=== PATIENT | male | born 1960 | race Caucasian/White ===

== ENCOUNTER 2020-09-28 17:17 | Inpatient (IN) | payer MEDICARE, MEDICAID, SELFPAY ==
[2020-09-28 17:24] VITALS: BP 144/73; PULSE 80; RESP 18; TEMP 36.6; O2SAT 98; BMI 26.5
[2020-09-28 17:30] VITALS: BP 144/73; PULSE 80; RESP 18; TEMP 36.6; O2SAT 98
--- NOTE | 2020-09-28 17:33 | PC.NURSE ---
Pt cooperative with foreign exchange services manager. Reports he thinks he is having a heart attack, VSS, EMS reports pt was stable. EMS reports pt had c/o fall, shift sleeve torn, pants covered with dirt, unkempt in appearance, gait unsteady, reports he normally walks with cane. Denies SI/HI. Reports he has been taking his scheduled medications, and last haldol dec injection was about 2 weeks ago.
--- NOTE | 2020-09-28 18:01 | ED_ITS ---
HPI - Psych General Chief Complaint: Psychiatric Symptoms <Robyn Wei NP - Last Filed: 09/29/20 02:38> Stated Complaint: CRISIS/SI <Robyn Wei NP - Last Filed: 09/29/20 02:38> Time Seen by Provider: 09/28/20 17:52 <Robyn Wei NP - Last Filed: 09/29/20 02:38> Source: EMS <Robyn Wei NP - Last Filed: 09/29/20 02:38> Mode of arrival: EMS <Robyn Wei NP - Last Filed: 09/29/20 02:38> Limitations: altered mental status <Robyn Wei NP - Last Filed: 09/29/20 02:38> History of Present Illness HPI Narrative: 6-year-old male with significant psychiatric history of schizophrenia presents with suicidal ideation. Patient's review of systems and history is limited at this time as patient is not interested in answering questions, states that he is suicidal and hungry. <Robyn Wei NP - Last Filed: 09/29/20 02:38> MD complaint: suicidal ideation and altered mental status <Robyn Wei NP - Last Filed: 09/29/20 02:38> Onset (ago): year(s) <Robyn Wei NP - Last Filed: 09/29/20 02:38> Duration: constant <Robyn Wei NP - Last Filed: 09/29/20 02:38> History of same: Yes <Robyn Wei NP - Last Filed: 09/29/20 02:38> Relieving factors: none <Robyn Wei NP - Last Filed: 09/29/20 02:38> Related Data Home Medications: Home Medications Medication Instructions Recorded Confirmed benztropine 1 mg PO BID 09/28/20 09/28/20 haloperidol decanoate 100 mg IM Q4W 09/28/20 09/28/20 hydroxyzine HCl 50 mg PO TID PRN 09/28/20 09/28/20 olanzapine 10 mg PO BEDTIME 09/28/20 09/28/20 <Robyn Wei NP - Last Filed: 09/29/20 02:38> Allergies/Adverse Reactions: Allergies Allergy/AdvReac Type Severity Reaction Status Date / Time No Known Allergies Allergy Mild NA Verified 09/28/20 17:48 <Robyn Wei NP - Last Filed: 09/29/20 02:38> Review of Systems Review of Systems: Yes Unobtainable due to mental status <Robyn Wei NP - Last Filed: 09/29/20 02:38> [facility] Past Medical History Attestation statement: The following information was validated with the patient. <Robyn Wei NP - Last Filed: 09/29/20 02:38> Social History Social History: Social History Alcohol intake: unknown Smoking Status: Unknown if ever smoked Use of substances other than those prescribed or required for medical reasons: Unknown Advance Directives: No Advance Directives Information Provided: Yes <Robyn Wei NP - Last Filed: 09/29/20 02:38> Physical Exam Vital Signs: Vital Signs: Last Vital Signs Temp 97.7 F 09/29/20 03:10 Pulse 73 09/29/20 03:10 Resp 16 09/29/20 03:10 BP 131/70 09/29/20 03:10 Pulse Ox 100 09/29/20 03:10 Body Mass Index 26.5 <Robyn Wei NP - Last Filed: 09/29/20 02:38> Vital Signs: Last Vital Signs Temp 97.7 F 09/29/20 03:10 Pulse 73 09/29/20 03:10 Resp 16 09/29/20 03:10 BP 131/70 09/29/20 03:10 Pulse Ox 100 09/29/20 03:10 Body Mass Index 26.5 <Anika Del Cid DO - Last Filed: 09/29/20 08:56> Appearance: Alert. Oriented X3. No acute distress. Eyes: Pupils equal, round and reactive to light. ENT: Pharynx normal. Neck: Normal inspection. Neck supple. CVS: Normal heart rate and rhythm. Pulses normal. Respiratory: No respiratory distress. Breath sounds normal. Abdomen: Soft and nontender. Skin: Skin warm and dry. Normal skin color. Normal skin turgor. Extremities: No lower extremity edema. Neuro: No motor deficit. No sensory deficit. <Robyn Wei NP - Last Filed: 09/29/20 02:38> Course Course Course Narrative: 60-year-old male with schizophrenia presents with suicidal ideation. Will medically clear with CBC, Chem 7, drugs of abuse screen. BHN Consult pending. Drugs of abuse positive for marijuana. BHN Consult completed 10:15 p.m.. Plan of care is to admit to M5 and/or bed search For suicidal ideation and schizoaffective, schizophrenia psychosis. <Faye Wei NP - Last Filed: 09/29/20 02:38> MDM - Psych Differential Diagnosis Differential diagnosis: Likely acute psychosis, suicidal ideation, depression, drug-induced psychotic disorder, acute anxiety, substance abuse and schizoaffective disorder <Robyn Wei NP - Last Filed: 09/29/20 02:38> Restraints Face to Face Assessment: Face to Face Assessment: Current Situation: After assessment of the patient, a review of the pertinent medical record and a discussion with nursing staff, I feel the patient requires a restrain in tervention. Reaction To: [] Medical Condition: [] Behavioral State: [] Continued Need: [] <Robyn Wei NP - Last Filed: 09/29/20 02:38> Medical Records Attestation: I reviewed the patient's medical records. <Robyn Wei NP - Last Filed: 09/29/20 02:38> Lab Data Attestation: I reviewed the patient's lab results. <Robyn Wei NP - Last Filed: 09/29/20 02:38> Result diagrams: : 09/28/20 18:29 <Robyn Wei NP - Last Filed: 09/29/20 02:38> Labs: Lab Results 09/28/20 09/28/20 09/28/20 Range/Units 18:29 18:29 18:29 WBC 7.5 (4.8-10.8) X10*3/uL RBC 4.21 L (4.60-5.80) X10*6/uL Hgb 12.4 L (14.0-18.0) g/dl Hct 35.8 L (42-52) % MCV 85.0 (80-98) fL MCH 29.5 (27.0-33.0) pg MCHC 34.6 (31.0-36.0) g/dl RDW 12.5 (11.0-16.0) % Plt Count 249 (160-400) X10*3/uL MPV 9.6 (9.4-12.4) fL Immature Gran % (Auto) 0.5 H (0.0-0.4) % Neut % (Auto) 43.5 L (45-73) % Lymph % (Auto) 45.3 H (20-40) % Edmonson % (Auto) 8.4 (2-11) % Eos % (Auto) 1.5 (0-4) % Baso % (Auto) 0.8 (0-2) % Lymph # (Auto) 3.4 (1.2-4.9) X10*3/uL Edmonson # (Auto) 0.6 (0.1-1.2) X10*3/uL Eos # (Auto) 0.1 (0.0-0.4) X10*3/uL Baso # (Auto) 0.1 (0.0-0.2) X10*3/uL Abs Immat Gran (auto) 0.04 H (0.00-0.03) X10*3/uL Absolute Neuts (auto) 3.3 (2.0-8.3) X10*3/uL Absolute Nucleated RBC 0.000 (0.0-0.012) X10*3/uL Nucleated RBC % (auto) 0.0 (0.0-0.2) /100WBC Salicylates < 5.0 L (15-30) mg/dL Urine Opiates Screen (Not Detect) Acetaminophen < 1 (<30) mcg/mL Ur Barbiturates Screen (Not Detect) Ur Phencyclidine Scrn (Not Detect) Ur Amphetamines Screen (Not Detect) U Benzodiazepines Scrn (Not Detect) Urine Cocaine Screen (Not Detect) U Marijuana (THC) Screen (Not Detect) Ethyl Alcohol < 10 mg/dL 09/28/20 Range/Units 21:30 WBC (4.8-10.8) X10*3/uL RBC (4.60-5.80) X10*6/uL Hgb (14.0-18.0) g/dl Hct (42-52) % MCV (80-98) fL MCH (27.0-33.0) pg MCHC (31.0-36.0) g/dl RDW (11.0-16.0) % Plt Count (160-400) X10*3/uL MPV (9.4-12.4) fL Immature Gran % (Auto) (0.0-0.4) % Neut % (Auto) (45-73) % Lymph % (Auto) (20-40) % Edmonson % (Auto) (2-11) % Eos % (Auto) (0-4) % Baso % (Auto) (0-2) % Lymph # (Auto) (1.2-4.9) X10*3/uL Edmonson # (Auto) (0.1-1.2) X10*3/uL Eos # (Auto) (0.0-0.4) X10*3/uL Baso # (Auto) (0.0-0.2) X10*3/uL Abs Immat Gran (auto) (0.00-0.03) X10*3/uL Absolute Neuts (auto) (2.0-8.3) X10*3/uL Absolute Nucleated RBC (0.0-0.012) X10*3/uL Nucleated RBC % (auto) (0.0-0.2) /100WBC Salicylates (15-30) mg/dL Urine Opiates Screen Not Detected (Not Detect) Acetaminophen (<30) mcg/mL Ur Barbiturates Screen Not Detected (Not Detect) Ur Phencyclidine Scrn Not Detected (Not Detect) Ur Amphetamines Screen Not Detected (Not Detect) U Benzodiazepines Scrn Not Detected (Not Detect) Urine Cocaine Screen Not Detected (Not Detect) U Marijuana (THC) Screen POSITIVE H (Not Detect) Ethyl Alcohol mg/dL <Robyn Wei NP - Last Filed: 09/29/20 02:38> Lab Results 09/28/20 09/28/20 09/28/20 Range/Units 18:29 18:29 18:29 WBC 7.5 (4.8-10.8) X10*3/uL RBC 4.21 L (4.60-5.80) X10*6/uL Hgb 12.4 L (14.0-18.0) g/dl Hct 35.8 L (42-52) % MCV 85.0 (80-98) fL MCH 29.5 (27.0-33.0) pg MCHC 34.6 (31.0-36.0) g/dl RDW 12.5 (11.0-16.0) % Plt Count 249 (160-400) X10*3/uL MPV 9.6 (9.4-12.4) fL Immature Gran % (Auto) 0.5 H (0.0-0.4) % Neut % (Auto) 43.5 L (45-73) % Lymph % (Auto) 45.3 H (20-40) % Edmonson % (Auto) 8.4 (2-11) % Eos % (Auto) 1.5 (0-4) % Baso % (Auto) 0.8 (0-2) % Lymph # (Auto) 3.4 (1.2-4.9) X10*3/uL Edmonson # (Auto) 0.6 (0.1-1.2) X10*3/uL Eos # (Auto) 0.1 (0.0-0.4) X10*3/uL Baso # (Auto) 0.1 (0.0-0.2) X10*3/uL Abs Immat Gran (auto) 0.04 H (0.00-0.03) X10*3/uL Absolute Neuts (auto) 3.3 (2.0-8.3) X10*3/uL Absolute Nucleated RBC 0.000 (0.0-0.012) X10*3/uL Nucleated RBC % (auto) 0.0 (0.0-0.2) /100WBC Salicylates < 5.0 L (15-30) mg/dL Urine Opiates Screen (Not Detect) Acetaminophen < 1 (<30) mcg/mL Ur Barbiturates Screen (Not Detect) Ur Phencyclidine Scrn (Not Detect) Ur Amphetamines Screen (Not Detect) U Benzodiazepines Scrn (Not Detect) Urine Cocaine Screen (Not Detect) U Marijuana (THC) Screen (Not Detect) Ethyl Alcohol < 10 mg/dL 09/28/20 Range/Units 21:30 WBC (4.8-10.8) X10*3/uL RBC (4.60-5.80) X10*6/uL Hgb (14.0-18.0) g/dl Hct (42-52) % MCV (80-98) fL MCH (27.0-33.0) pg MCHC (31.0-36.0) g/dl RDW (11.0-16.0) % Plt Count (160-400) X10*3/uL MPV (9.4-12.4) fL Immature Gran % (Auto) (0.0-0.4) % Neut % (Auto) (45-73) % Lymph % (Auto) (20-40) % Edmonson % (Auto) (2-11) % Eos % (Auto) (0-4) % Baso % (Auto) (0-2) % Lymph # (Auto) (1.2-4.9) X10*3/uL Edmonson # (Auto) (0.1-1.2) X10*3/uL Eos # (Auto) (0.0-0.4) X10*3/uL Baso # (Auto) (0.0-0.2) X10*3/uL Abs Immat Gran (auto) (0.00-0.03) X10*3/uL Absolute Neuts (auto) (2.0-8.3) X10*3/uL Absolute Nucleated RBC (0.0-0.012) X10*3/uL Nucleated RBC % (auto) (0.0-0.2) /100WBC Salicylates (15-30) mg/dL Urine Opiates Screen Not Detected (Not Detect) Acetaminophen (<30) mcg/mL Ur Barbiturates Screen Not Detected (Not Detect) Ur Phencyclidine Scrn Not Detected (Not Detect) Ur Amphetamines Screen Not Detected (Not Detect) U Benzodiazepines Scrn Not Detected (Not Detect) Urine Cocaine Screen Not Detected (Not Detect) U Marijuana (THC) Screen POSITIVE H (Not Detect) Ethyl Alcohol mg/dL <Anika Del Cid DO - Last Filed: 09/29/20 08:56> Discharge Plan Discharge Clinical Impression: Acute psychosis, Chronic schizophrenia, Suicidal ideation Depression Qualifiers: Depression Type: major depressive disorder Major depression recurrence: recurrent Active/Remission status: currently active Major depression episode severity: severe Psychotic features: with psychotic features Qualified Code(s): F33.3 - Major depressive disorder, recurrent, severe with psychotic symptoms <Robyn Wei NP - Last Filed: 09/29/20 02:38> Patient Disposition: Admitted As Inpatient <Robyn Wei NP - Last Filed: 09/29/20 02:38>
--- NOTE | 2020-09-28 18:35 | PC.NURSE ---
Pt dropped dinner tray, difficulty feeding self. Required 2 person assist to get off of bed. Unsteady and unbalanced on feet. Placed into red fall risk socks.
[2020-09-28 18:37] LABS: MANUAL DIFF FLAG NO
[2020-09-28 19:02] LABS: Basophils Absolute Auto 0.1 X10*3/uL (0.0-0.2); Basophils Percent Auto 0.8 % (0-2); Eosinophils Absolute Auto 0.1 X10*3/uL (0.0-0.4); Eosinophils Percent Auto 1.5 % (0-4); Hematocrit 35.8 % (42-52); Hemoglobin 12.4 g/dl (14.0-18.0); Imm Gran Abs Auto 0.04 X10*3/uL (0.00-0.03); Imm Gran Pct Auto 0.5 % (0.0-0.4); Lymphocytes Absolute Auto 3.4 X10*3/uL (1.2-4.9); Lymphocytes Percent Auto 45.3 % (20-40); Mean Corpuscular HGB Conc 34.6 g/dl (31.0-36.0); Mean Corpuscular Hemoglobin 29.5 pg (27.0-33.0); Mean Platelet Volume 9.6 fL (9.4-12.4); Monocytes Absolute Auto 0.6 X10*3/uL (0.1-1.2); Monocytes Percent Auto 8.4 % (2-11); Neutrophils Absolute Auto 3.3 X10*3/uL (2.0-8.3); Neutrophils Percent Auto 43.5 % (45-73); Platelet Count 249 X10*3/uL (160-400); Red Blood Count 4.21 X10*6/uL (4.60-5.80); Red Cell Distribution Width 12.5 % (11.0-16.0); White Blood Count 7.5 X10*3/uL (4.8-10.8)
[2020-09-28 19:14] LABS: Ethanol < 10 mg/dL
[2020-09-28 19:30] LABS: Acetaminophen LAB < 1 mcg/mL (<30)
[2020-09-28 19:40] LABS: Salicylate < 5.0 mg/dL (15-30)
--- NOTE | 2020-09-28 20:00 | PC.NURSE ---
Patient in bed lying on side, family called, patient doesn't want to update his status to his family member, [facility] faxed/called/spoke with Nercy/confirmed receipt of referral, reported patient was seen earlier by [facility] with disposition to f/u with provider, Clinician will be sent tonight for evaluation, [facility] pharmacy called/completed medication/pending provider approval. Patient denied distress at this time. Will continue to monitor.
--- NOTE | 2020-09-28 21:15 | PC.NURSE ---
Patient just got seen by N, pending disposition, patient compliant and engaged with clinician, will continue to monitor.
[2020-09-28] MEDS: OLANZapine 10 MG TABLET PO (21:26)
[2020-09-28] MEDS: Benztropine Mesylate 1 MG TABLET PO (21:26)
[2020-09-28 21:38] VITALS: BP 142/70; PULSE 66; RESP 18; TEMP 36.1; O2SAT 97
[2020-09-28 22:09] LABS: Amphetamine Screen Urine Not Detected (Not Detect); Barbiturates, Urine Not Detected (Not Detect); Benzodiazepines Screen Urine Not Detected (Not Detect); Cannabinoid Screen Urine POSITIVE (Not Detect); Cocaine Screen Urine Not Detected (Not Detect); Opiate Screen Urine Not Detected (Not Detect); Phencyclidine Screen Urine Not Detected (Not Detect)
--- NOTE | 2020-09-28 22:12 | PC.NURSE ---
Patient disposition updated by [facility], patient is on section 12, inpatient bed search, per [facility] patient and provider made aware.
--- NOTE | 2020-09-28 23:21 | PC.NURSE ---
Patient in bed appears sleeping, no distress observed/reported, patient has unsteady gait, per patient he uses cane at home, patient is unable to grasp things properly with hands related to contracture. Will continue to monitor.
--- NOTE | 2020-09-29 | ECG_ITS ---
Test Reason : MEDICAL CLEARANCE Blood Pressure : / mmHG Vent. Rate : 078 BPM Atrial Rate : 078 BPM P-R Int : 138 ms QRS Dur : 092 ms QT Int : 376 ms P-R-T Axes : 044 -49 037 degrees QTc Int : 428 ms Normal sinus rhythm Low voltage QRS Pulmonary disease pattern Left anterior fascicular block Abnormal ECG When compared with ECG of 17-MAY-2019 09:11, Left anterior fascicular block is now Present Heart rate has increased Referred By: Susan Martínez Electronically Signed By:MIMA CUMMINGS MD
--- NOTE | 2020-09-29 02:24 | PC.NURSE ---
Patient in bed appears sleeping, no distress observed/reported, respiration +/=/non-labored bilaterally, will continue to monitor.
[2020-09-29 03:10] VITALS: BP 131/70; PULSE 73; RESP 16; TEMP 36.5; O2SAT 100
--- NOTE | 2020-09-29 04:33 | PC.NURSE ---
Patient in bed appears sleeping, no distress observed/reported, respiration +/=/non-labored bilaterally, will continue to monitor.
[2020-09-29] MEDS: Acetaminophen 325 MG TABLET 650 MG PO ×3 (05:24→20:55)
--- NOTE | 2020-09-29 05:29 | PC.NURSE ---
Patient complains of body aches requested Tylenol, stated if I don't take Tylenol I have problem walking f/t pain . Patient asked if he likes to get move to room closer to bathroom, patient agreed, room changed, patient ambulates securely/safely with walker. Will continue to monitor.
--- NOTE | 2020-09-29 06:32 | PC.NURSE ---
Patient in bed appears sleeping, no distress observed/reported, will continue to monitor.
--- NOTE | 2020-09-29 07:16 | PC.NURSE ---
Report received from JAGDEEP Dumont. Pt resting, resp unlabored.
[2020-09-29] MEDS: Benztropine Mesylate 1 MG TABLET PO ×2 (08:10→20:55)
--- NOTE | 2020-09-29 08:53 | CT_ITS ---
EXAMINATION: CT HEAD WITHOUT CONTRAST CLINICAL INFORMATION: Bilateral hand weakness. COMPARISON: CT head most recent June 2018 as well as March 2015. TECHNIQUE: Contiguous axial imaging was performed from the skull base to vertex without intravenous administration of contrast. This CT examination was performed using dose optimization techniques as appropriate, variously including the following: *Automated exposure control *Adjustment of mA and/or kV according to patient size (this includes techniques or standardized protocols for targeted exams where dose is matched to indication/reason for exam; i.e. extremities or head) *Use of iterative reconstruction technique DLP: 706 mGy-cm FINDINGS: There is no evidence of acute intracranial hemorrhage or territorial infarction. No abnormal mass effect or midline shift is seen. Caldera to white matter differentiation is well preserved. No extra-axial fluid collections are identified. The ventricles are normal in size. There is no abnormal attenuation within the brain parenchyma. The osseous structures are intact. . The mastoid air cells and visualized portions of the paranasal sinuses are well aerated. There is increased soft tissue stranding in the occipital region posteriorly unchanged dating back to 2014. This extends over approximately 6 cm transverse 2 cm AP and 3.[address]/CT head/brain wo con IMPRESSION: No acute intracranial pathology. Stable changes in the subcutaneous soft tissues in the occipital region of uncertain etiology but stable dating back to 2014. The appearance is suggestive of a soft tissue mass or fibrous change perhaps related to old trauma.
--- NOTE | 2020-09-29 08:59 | PC.NURSE ---
Esther Martínez aware of pt reports of tingling loss of coordination both hands x1 week. pt to ct scan now.
[2020-09-29 10:00] VITALS: BP 133/87; PULSE 67; RESP 20; TEMP 36.2; O2SAT 98
[2020-09-29 10:11] LABS: COVID-19 Test Negative (Negative)
--- NOTE | 2020-09-29 12:52 | PC.NURSE ---
Pt medicated for report of pain in hands, bilaterally.
--- NOTE | 2020-09-29 14:53 | PC.NURSE ---
Report given to JAGDEEP Waggoner
[2020-09-29 16:30] VITALS: BP 152/92; PULSE 68; RESP 18; TEMP 36.8; O2SAT 97
[2020-09-29 18:00] VITALS: BP 121/68; BP 131/78; PULSE 68; RESP 18; TEMP 36.1; TEMP 36.7; O2SAT 98
--- NOTE | 2020-09-29 19:03 | PC.NURSE ---
Care team in to transfer pt to [facility].
[2020-09-29] MEDS: OLANZapine 10 MG TABLET PO (20:55)
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
[2020-09-30 06:00] VITALS: BP 129/72; PULSE 100; RESP 18; TEMP 36.3; O2SAT 100
[2020-09-30 09:20] LABS: Estimated Average Glucose 117 mg/dL; Hemoglobin A1c % 5.7 %
[2020-09-30 09:22] LABS: Cholesterol 164 mg/dL; HDL Cholesterol 46 mg/dL; LDL Cholesterol Calculated 104 mg/dl; Triglycerides 74 mg/dL
[2020-09-30] MEDS: Benztropine Mesylate 1 MG TABLET PO (10:14)
[2020-09-30] MEDS: diphenhydrAMINE HCL 25 MG TABLET PO ×2 (11:38→22:01)
[2020-09-30] MEDS: Nicotine 21 MG PATCH.TD24 TRANSDERMA (11:39)
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
--- NOTE | 2020-09-30 13:28 | PC.NURSE ---
PtUp on signed 3 day notice yesterday evening, , social work, Omaira De Paz aware. Up on 10/04
--- NOTE | 2020-09-30 14:36 | PC.NURSE ---
Patient with very unsteady gait at beginning of shift, placed on a 1:1 at 11:00 am switched to 5 min checks by physician. Patient given a shaker and alarm placed on him. Given Cogentin and Benadryl for severe Tardive Dyskenesia. Patient reporting feeling better and says he will call staff when needing to go to the bathroom. Currently sitting up, drinking water
[2020-09-30 16:20] VITALS: BP 111/78; PULSE 94; TEMP 36.1
[2020-09-30] MEDS: Acetaminophen 325 MG TABLET 650 MG PO (22:00)
[2020-09-30] MEDS: Benztropine Mesylate 1 MG TABLET 2 MG PO (22:01)
[2020-09-30] MEDS: traZODone HCL 50 MG TABLET PO (22:06)
[2020-10-01 06:20] VITALS: BP 114/71; PULSE 106; RESP 18; TEMP 36.1
[2020-10-01 08:17] LABS: Phosphorus 3.8 mg/dL (2.7-4.5)
[2020-10-01] MEDS: Benztropine Mesylate 1 MG TABLET 2 MG PO ×2 (08:21→23:25)
[2020-10-01] MEDS: diphenhydrAMINE HCL 25 MG TABLET PO ×2 (08:21→23:25)
[2020-10-01] MEDS: Nicotine 21 MG PATCH.TD24 TRANSDERMA (08:22)
[2020-10-01 08:39] LABS: Thyroid Stimulating Hormone 1.65 uIU/mL (0.32-4.0)
[2020-10-01 08:40] LABS: Vitamin D 25-OH Total 16.9 ng/mL (>30)
--- NOTE | 2020-10-01 11:58 | HO.PSYCHPN ---
Subjective Subjective Date of Service: 10/01/20 Reason For Visit: schizoprenia Interim History: remains much the same; occult blood for stool came back negative; other labs pending Review of Systems Review of Systems no change Mental Status Exam Mental Status Exam Patient Appearance: Disheveled and Unkempt Patient Orientation: Person, Place, Time and Situation Level of Consciousness: Disoriented Patient Behavior: Suspicious and Distractible Mood Description: Withdrawn and Anxious Patient Cognition Impaired: Yes Ability to Follow Directions: Good Speech Pattern: Impoverished, Difficulty Finding Words, Rambling, Soft-Spoken, Mumbled and Poor Articulation Memory Description: Recent Impaired Diagnostics Vital Signs (24Hr): Vital Signs - 24 hr 09/30/20 16:20 10/01/20 06:20 Temperature 97.0 F 96.9 F Pulse Rate 94 106 H Respiratory Rate 18 Blood Pressure 111/78 114/71 Body Mass Index 26.5 Labs Results: 09/28/20 18:29 Labs: Laboratory Results - last 48 hr 09/30/20 09/30/20 10/01/20 08:42 08:42 07:35 Estimat Average Glucose 117 Hemoglobin A1c % 5.7 Calcium 9.0 Phosphorus 3.8 Triglycerides 74 Cholesterol 164 LDL Cholesterol, Calc 104 HDL Cholesterol 46 25-OH Vitamin D Total TSH 1.65 10/01/20 07:35 Estimat Average Glucose Hemoglobin A1c % Calcium Phosphorus Triglycerides Cholesterol LDL Cholesterol, Calc HDL Cholesterol 25-OH Vitamin D Total 16.9 TSH Imaging Radiology Impressions: ITS Impressions Head CT 09/29/20 08:53 IMPRESSION: No acute intracranial pathology. Stable changes in the subcutaneous soft tissues in the occipital region of uncertain etiology but stable dating back to 2014. The appearance is suggestive of a soft tissue mass or fibrous change perhaps related to old trauma. Medications Medications Current Medications Generic Name Dose Route Start Last Admin Trade Name Freq PRN Reason Stop Dose Admin Acetaminophen 650 mg 09/29/20 15:03 09/30/20 22:00 Acetaminophen 325 Mg Tablet PO 650 mg Q6H PRN Administration Headache/Pain Mild Scale (1-3) Al Hydroxide/Mg Hydroxide 30 ml 09/29/20 15:03 Magnesium Hydrox/Alum Hydrox 30 Ml Oral.Susp PO Q6H PRN Heartburn/Nausea Benztropine Mesylate 2 mg 09/30/20 21:00 10/01/20 08:21 Benztropine Mesylate 1 Mg Tablet PO 2 mg BID YORDY Administration Diphenhydramine HCl 25 mg 09/30/20 21:00 10/01/20 08:21 Diphenhydramine Hcl 25 Mg Tablet PO 25 mg BID YORDY Administration Hydroxyzine HCl 50 mg 09/28/20 20:45 Hydroxyzine Hcl 50 Mg Tablet PO TID PRN Anxiety Magnesium Hydroxide 30 ml 09/29/20 15:03 Milk Of Magnesia 30 Ml Oral.Susp PO DAILY PRN Constipation Nicotine 21 mg 09/30/20 10:50 10/01/20 08:22 Nicotine 21 Mg Patch.Td24 TRANSDERMA 21 mg DAILY YORDY Administration Trazodone HCl 50 mg 09/29/20 15:03 09/30/20 22:06 Trazodone Hcl 50 Mg Tablet PO 50 mg BEDTIME PRN Administration Insomnia Allergies Allergies Allergy/AdvReac Type Severity Reaction Status Date / Time No Known Allergies Allergy Mild NA Verified 09/28/20 17:48 Assessment & Plan Assessment & Plan (1) Schizoaffective disorder: Qualifiers: Schizoaffective disorder type: depressive Qualified Code(s): F25.1 - Schizoaffective disorder, depressive type Status: Acute Code(s): F25.9 - Schizoaffective disorder, unspecified (2) Tardive dyskinesia: Status: Acute Code(s): G24.01 - Drug induced subacute dyskinesia Assessment and Plan: q15 checks collect Collateral Monitor AIMS and dyskinesia. MRI/labs Improve ADLs. Greater than 50% of the session was spent on counseling and/or coordination of care
[2020-10-01 13:12] LABS: OBS Int Ctl Valid YES; OBS1 NEG (NEG)
[2020-10-01] MEDS: hydrOXYzine HCL 50 MG TABLET PO (16:15)
[2020-10-01 23:28] VITALS: TEMP 36.3
[2020-10-02 06:22] VITALS: BP 113/63; PULSE 101; RESP 16; TEMP 36.7; O2SAT 100
[2020-10-02] MEDS: diphenhydrAMINE HCL 25 MG TABLET PO ×2 (08:36→21:39)
[2020-10-02] MEDS: Benztropine Mesylate 1 MG TABLET 2 MG PO ×2 (08:36→21:39)
[2020-10-02] MEDS: Nicotine 21 MG PATCH.TD24 TRANSDERMA (08:36)
--- NOTE | 2020-10-02 12:16 | HO.PSYCHPN ---
Subjective Subjective Reason For Visit: schizoprenia Interim History: remains much the same; MRI of head no acute changes Review of Systems Review of Systems no changes Mental Status Exam Mental Status Exam Patient Appearance: Disheveled and Unkempt Patient Orientation: Person, Place, Time and Situation Level of Consciousness: Disoriented Patient Behavior: Suspicious and Distractible Mood Description: Withdrawn and Anxious Patient Cognition Impaired: Yes Ability to Follow Directions: Good Speech Pattern: Impoverished, Difficulty Finding Words, Rambling, Soft-Spoken, Mumbled and Poor Articulation Memory Description: Recent Impaired Thought Process: Distracted and Confusion Thought Content: positive for Disorganized Depressive Symptoms: Difficulty Concentrating Judgement: Fair Diagnostics Vital Signs (24Hr): Vital Signs - 24 hr 10/01/20 23:28 10/02/20 06:22 Temperature 97.3 F 98.1 F Pulse Rate 101 H Respiratory Rate 16 Blood Pressure 113/63 Pulse Oximetry 100 Body Mass Index 26.5 Labs Results: 09/28/20 18:29 Labs: Laboratory Results - last 48 hr 10/01/20 10/01/20 10/01/20 07:35 07:35 11:44 Calcium 9.0 Phosphorus 3.8 25-OH Vitamin D Total 16.9 TSH 1.65 Stool Collect Date Cancelled Stool Occult Blood Cancelled Stool 2 Collect Date Cancelled Stool Occult Blood #2 Cancelled Stool 3 Collect Date Cancelled Stool Occult Blood #3 Cancelled 10/01/20 11:44 Calcium Phosphorus 25-OH Vitamin D Total TSH Stool Collect Date Stool Occult Blood NEG Stool 2 Collect Date Stool Occult Blood #2 Stool 3 Collect Date Stool Occult Blood #3 Imaging Radiology Impressions: ITS Impressions Head CT 09/29/20 08:53 IMPRESSION: No acute intracranial pathology. Stable changes in the subcutaneous soft tissues in the occipital region of uncertain etiology but stable dating back to 2014. The appearance is suggestive of a soft tissue mass or fibrous change perhaps related to old trauma. Medications Medications Current Medications Generic Name Dose Route Start Last Admin Trade Name Freq PRN Reason Stop Dose Admin Acetaminophen 650 mg 09/29/20 15:03 09/30/20 22:00 Acetaminophen 325 Mg Tablet PO 650 mg Q6H PRN Administration Headache/Pain Mild Scale (1-3) Al Hydroxide/Mg Hydroxide 30 ml 09/29/20 15:03 Magnesium Hydrox/Alum Hydrox 30 Ml Oral.Susp PO Q6H PRN Heartburn/Nausea Benztropine Mesylate 2 mg 09/30/20 21:00 10/02/20 08:36 Benztropine Mesylate 1 Mg Tablet PO 2 mg BID YORDY Administration Diphenhydramine HCl 25 mg 09/30/20 21:00 10/02/20 08:36 Diphenhydramine Hcl 25 Mg Tablet PO 25 mg BID YORDY Administration Hydroxyzine HCl 50 mg 09/28/20 20:45 10/01/20 16:15 Hydroxyzine Hcl 50 Mg Tablet PO 50 mg TID PRN Administration Anxiety Magnesium Hydroxide 30 ml 09/29/20 15:03 Milk Of Magnesia 30 Ml Oral.Susp PO DAILY PRN Constipation Nicotine 21 mg 09/30/20 10:50 10/02/20 08:36 Nicotine 21 Mg Patch.Td24 TRANSDERMA 21 mg DAILY YORDY Administration Trazodone HCl 50 mg 09/29/20 15:03 09/30/20 22:06 Trazodone Hcl 50 Mg Tablet PO 50 mg BEDTIME PRN Administration Insomnia Allergies Allergies Allergy/AdvReac Type Severity Reaction Status Date / Time No Known Allergies Allergy Mild NA Verified 09/28/20 17:48 Assessment & Plan Assessment & Plan (1) Schizoaffective disorder: Qualifiers: Schizoaffective disorder type: depressive Qualified Code(s): F25.1 - Schizoaffective disorder, depressive type Status: Acute Code(s): F25.9 - Schizoaffective disorder, unspecified (2) Tardive dyskinesia: Status: Acute Code(s): G24.01 - Drug induced subacute dyskinesia Assessment and Plan: Continue current treatment plan: q15 checks collect Collateral Monitor AIMS and dyskinesia. MRI/labs Improve ADLs. Greater than 50% of the session was spent on counseling and/or coordination of care
[2020-10-02 22:30] VITALS: BP 115/56; PULSE 67; TEMP 36.7
--- NOTE | 2020-10-03 | MR_ITS ---
MRI OF THE BRAIN WITHOUT IV CONTRAST INDICATION: New onset dyskinesia. r/o subcortical lesions COMPARISON: Head CT September 29, 2020. TECHNIQUE: Multiplanar multisequence MR imaging of the brain was obtained without IV contrast. FINDINGS: There is no hydrocephalus, extra-axial surface collection, or herniation. No parenchymal signal abnormality. The major flow voids at the skull base are preserved. There is no acute infarct on diffusion-weighted imaging. There is no intracranial hemorrhage on the gradient recalled echo acquisition. The midline structures are normal. The cerebellar tonsils are normally positioned. The cerebellum and brainstem are normal. The craniocervical junction is normal. Osseous marrow signal intensity is homogenous. The visualized soft tissues are unremarkable. Partially imaged degenerative changes within the upper cervical spine with potential mass effect on the cervical spinal cord at C3-C4 that can be correlated for clinical signs of cervical myelopathy. 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 MR/MR head/brain wo con IMPRESSION: - No acute intracranial findings. No acute infarcts. Unremarkable noncontrast MRI of the brain. - Partially imaged degenerative changes within the upper cervical spine with potential mass effect on the cervical spinal cord at C3-C4 that can be correlated for clinical signs of cervical myelopathy. 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
[2020-10-03 06:05] VITALS: BP 94/54; PULSE 99; RESP 18; TEMP 36.8; O2SAT 97
--- NOTE | 2020-10-03 06:27 | HO.PSYCHPN ---
Subjective Subjective Reason For Visit: schizoprenia Interim History: Mood is better but speech is somewhat diff to follow. Acknowledges conflict w sister. Withdrew 3 day notice. Last Haldol Dec shot was on 09/17/20. Will DC Haldol Dec. Perhaps switch to Abilify/Cloz/Seroquel Await response from ESTHER Perez. Needs PA for Tetrabenazine/Ingrezza/? [place] Marked TD Review of Systems Reports tremor(s) Comments: Choreo-athetoid movements Mental Status Exam Mental Status Exam Patient Appearance: Disheveled and Unkempt Patient Orientation: Person, Place, Time and Situation Level of Consciousness: Disoriented Patient Behavior: Suspicious and Distractible Mood Description: Withdrawn and Anxious Patient Cognition Impaired: Yes Ability to Follow Directions: Good Speech Pattern: Impoverished, Difficulty Finding Words, Rambling, Soft-Spoken, Mumbled and Poor Articulation Memory Description: Recent Impaired Diagnostics Vital Signs (24Hr): Vital Signs - 24 hr 10/02/20 22:30 Temperature 98.0 F Pulse Rate 67 Blood Pressure 115/56 L Body Mass Index 26.5 Labs Results: 09/28/20 18:29 Labs: Laboratory Results - last 48 hr 10/01/20 10/01/20 10/01/20 07:35 07:35 11:44 Calcium 9.0 Phosphorus 3.8 25-OH Vitamin D Total 16.9 TSH 1.65 Stool Collect Date Cancelled Stool Occult Blood Cancelled Stool 2 Collect Date Cancelled Stool Occult Blood #2 Cancelled Stool 3 Collect Date Cancelled Stool Occult Blood #3 Cancelled 10/01/20 11:44 Calcium Phosphorus 25-OH Vitamin D Total TSH Stool Collect Date Stool Occult Blood NEG Stool 2 Collect Date Stool Occult Blood #2 Stool 3 Collect Date Stool Occult Blood #3 Imaging Radiology Impressions: ITS Impressions Head CT 09/29/20 08:53 IMPRESSION: No acute intracranial pathology. Stable changes in the subcutaneous soft tissues in the occipital region of uncertain etiology but stable dating back to 2014. The appearance is suggestive of a soft tissue mass or fibrous change perhaps related to old trauma. Medications Medications Current Medications Generic Name Dose Route Start Last Admin Trade Name Freq PRN Reason Stop Dose Admin Acetaminophen 650 mg 09/29/20 15:03 09/30/20 22:00 Acetaminophen 325 Mg Tablet PO 650 mg Q6H PRN Administration Headache/Pain Mild Scale (1-3) Al Hydroxide/Mg Hydroxide 30 ml 09/29/20 15:03 Magnesium Hydrox/Alum Hydrox 30 Ml Oral.Susp PO Q6H PRN Heartburn/Nausea Benztropine Mesylate 2 mg 09/30/20 21:00 10/02/20 21:39 Benztropine Mesylate 1 Mg Tablet PO 2 mg BID YORDY Administration Diphenhydramine HCl 25 mg 09/30/20 21:00 10/02/20 21:39 Diphenhydramine Hcl 25 Mg Tablet PO 25 mg BID YORDY Administration Hydroxyzine HCl 50 mg 09/28/20 20:45 10/01/20 16:15 Hydroxyzine Hcl 50 Mg Tablet PO 50 mg TID PRN Administration Anxiety Magnesium Hydroxide 30 ml 09/29/20 15:03 Milk Of Magnesia 30 Ml Oral.Susp PO DAILY PRN Constipation Nicotine 21 mg 09/30/20 10:50 10/02/20 08:36 Nicotine 21 Mg Patch.Td24 TRANSDERMA 21 mg DAILY YORDY Administration Trazodone HCl 50 mg 09/29/20 15:03 09/30/20 22:06 Trazodone Hcl 50 Mg Tablet PO 50 mg BEDTIME PRN Administration Insomnia Allergies Allergies Allergy/AdvReac Type Severity Reaction Status Date / Time No Known Allergies Allergy Mild NA Verified 09/28/20 17:48 Assessment & Plan Assessment & Plan (1) Schizoaffective disorder: Qualifiers: Schizoaffective disorder type: depressive Qualified Code(s): F25.1 - Schizoaffective disorder, depressive type Status: Acute Code(s): F25.9 - Schizoaffective disorder, unspecified (2) Tardive dyskinesia: Status: Acute Code(s): G24.01 - Drug induced subacute dyskinesia Assessment and Plan: Continue current treatment plan: q15 checks collect Collateral Monitor AIMS and dyskinesia. MRI/labs Improve ADLs. Greater than 50% of the session was spent on counseling and/or coordination of care
[2020-10-03 08:33] LABS: HBS Num1 0.91 mIU/mL (0-7.99); HBsAGNum1 0.18 S/CO (0.00-0.99); Hepatitis B Core Antibody Nonreactive (Nonreactive); Hepatitis B Surface Antigen Negative (Negative); ~HepC Num1 0.24 S/CO (0.00-0.79); ~Hepatitis B Surface Antibody NONREACTIVE (Nonreactive); ~Hepatitis C Antibody Nonreactive (Nonreactive)
[2020-10-03 08:45] LABS: HIV AB/AG Nonreactive (Nonreactive); HIV Num 1 0.86 S/CO (0.00-0.99)
[2020-10-03 08:50] LABS: Syphilis Screen Nonreactive (Nonreactive)
[2020-10-03 08:58] LABS: Folate 3.8 ng/mL (> or = 4.0); Vitamin B12 300 pg/mL (200-900)
[2020-10-03] MEDS: Nicotine 21 MG PATCH.TD24 TRANSDERMA (09:00)
[2020-10-03] MEDS: diphenhydrAMINE HCL 25 MG TABLET PO ×2 (09:01→21:42)
[2020-10-03] MEDS: Benztropine Mesylate 1 MG TABLET 2 MG PO ×2 (09:01→21:42)
--- NOTE | 2020-10-03 10:40 | PC.NURSE ---
SPOKE WITH CINTHIA FROM [facility]. HELENE LOGN RECEIVED HALDOL DEC 100MG IM ON 09/17/20 AND IT IS GIVEN MONTHLY.TEAM MEMBERS AWARE.
--- NOTE | 2020-10-03 14:48 | PC.NURSE ---
10/03/2020 Pt retracted 3-day notice.
[2020-10-03 18:35] VITALS: BP 142/79; PULSE 93; TEMP 36.9
[2020-10-04 05:47] LABS: Lyme Abs Screen <0.90 index
--- NOTE | 2020-10-04 05:52 | HO.PSYCHPN ---
Subjective Subjective Reason For Visit: schizoprenia Interim History: Mood is better but speech is somewhat diff to follow. Acknowledges conflict w sister. Withdrew 3 day notice. Last Haldol Dec shot was on 09/17/20. Will DC Haldol Dec. Perhaps switch to Abilify/Cloz/Seroquel Await response from ESTHER Perez. Needs PA for Tetrabenazine/Ingrezza/? [place] Marked Mod/severe TD. AIMS: Mod/severe TD Review of Systems Reports tremor(s) Mental Status Exam Mental Status Exam Patient Appearance: Disheveled and Unkempt Patient Orientation: Person, Place, Time and Situation Level of Consciousness: Disoriented Patient Behavior: Suspicious and Distractible Mood Description: Withdrawn and Anxious Patient Cognition Impaired: Yes Ability to Follow Directions: Good Speech Pattern: Impoverished, Difficulty Finding Words, Rambling, Soft-Spoken, Mumbled and Poor Articulation Memory Description: Recent Impaired Diagnostics Vital Signs (24Hr): Vital Signs - 24 hr 10/03/20 06:05 10/03/20 18:35 Temperature 98.2 F 98.4 F Pulse Rate 99 93 Respiratory Rate 18 Blood Pressure 94/54 L 142/79 H Pulse Oximetry 97 Body Mass Index 26.5 Labs Results: 09/28/20 18:29 Labs: Laboratory Results - last 48 hr 10/01/20 10/01/20 10/01/20 07:35 07:35 07:35 Vitamin B12 300 Folate 3.8 L T.pallidum Ab (EIA) Nonreactive Lyme Screen IgG & IgM Hep Bs Antigen Negative Hep Bs Antibody NONREACTIVE Hep B Core Total Ab Nonreactive Hepatitis C Ab (EIA) Nonreactive HIV 1&2 Ab/P24 Ag 4thGn Nonreactive 10/01/20 07:35 Vitamin B12 Folate T.pallidum Ab (EIA) Lyme Screen IgG & IgM <0.90 Hep Bs Antigen Hep Bs Antibody Hep B Core Total Ab Hepatitis C Ab (EIA) HIV 1&2 Ab/P24 Ag 4thGn Imaging Radiology Impressions: ITS Impressions Head CT 09/29/20 08:53 IMPRESSION: No acute intracranial pathology. Stable changes in the subcutaneous soft tissues in the occipital region of uncertain etiology but stable dating back to 2014. The appearance is suggestive of a soft tissue mass or fibrous change perhaps related to old trauma. Brain MRI 10/03/20 00:00 IMPRESSION: - No acute intracranial findings. No acute infarcts. Unremarkable noncontrast MRI of the brain. - Partially imaged degenerative changes within the upper cervical spine with potential mass effect on the cervical spinal cord at C3-C4 that can be correlated for clinical signs of cervical myelopathy. 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 Medications Medications Current Medications Generic Name Dose Route Start Last Admin Trade Name Freq PRN Reason Stop Dose Admin Acetaminophen 650 mg 09/29/20 15:03 09/30/20 22:00 Acetaminophen 325 Mg Tablet PO 650 mg Q6H PRN Administration Headache/Pain Mild Scale (1-3) Al Hydroxide/Mg Hydroxide 30 ml 09/29/20 15:03 Magnesium Hydrox/Alum Hydrox 30 Ml Oral.Susp PO Q6H PRN Heartburn/Nausea Benztropine Mesylate 2 mg 09/30/20 21:00 10/03/20 21:42 Benztropine Mesylate 1 Mg Tablet PO 2 mg BID YORDY Administration Diphenhydramine HCl 25 mg 09/30/20 21:00 10/03/20 21:42 Diphenhydramine Hcl 25 Mg Tablet PO 25 mg BID YORDY Administration Hydroxyzine HCl 50 mg 09/28/20 20:45 10/01/20 16:15 Hydroxyzine Hcl 50 Mg Tablet PO 50 mg TID PRN Administration Anxiety Magnesium Hydroxide 30 ml 09/29/20 15:03 Milk Of Magnesia 30 Ml Oral.Susp PO DAILY PRN Constipation Nicotine 21 mg 09/30/20 10:50 10/03/20 09:00 Nicotine 21 Mg Patch.Td24 TRANSDERMA 21 mg DAILY YORDY Administration Trazodone HCl 50 mg 09/29/20 15:03 09/30/20 22:06 Trazodone Hcl 50 Mg Tablet PO 50 mg BEDTIME PRN Administration Insomnia Allergies Allergies Allergy/AdvReac Type Severity Reaction Status Date / Time No Known Allergies Allergy Mild NA Verified 09/28/20 17:48 Assessment & Plan Assessment & Plan (1) Schizoaffective disorder: Qualifiers: Schizoaffective disorder type: depressive Qualified Code(s): F25.1 - Schizoaffective disorder, depressive type Status: Acute Code(s): F25.9 - Schizoaffective disorder, unspecified (2) Tardive dyskinesia: Status: Acute Code(s): G24.01 - Drug induced subacute dyskinesia Assessment and Plan: Continue current treatment plan: q15 checks collect Collateral Monitor AIMS and dyskinesia. Dc Haldol Dec/Cogentin. Add Amantadine. Consider Phill/ Shane Collateral from ESTHER Perez. Tetrabenzaprine started Improve ADLs. Neuro consult for Cx myelopathy Greater than 50% of the session was spent on counseling and/or coordination of care
[2020-10-04 06:00] VITALS: BP 104/76; PULSE 89; TEMP 36.6
[2020-10-04] MEDS: diphenhydrAMINE HCL 25 MG TABLET PO ×2 (08:25→20:41)
[2020-10-04] MEDS: Nicotine 21 MG PATCH.TD24 TRANSDERMA (08:26)
[2020-10-04] MEDS: amantadine HCL 100 MG CAPSULE PO ×2 (09:00→20:41)
--- NOTE | 2020-10-04 16:27 | HO.PSYCHPN ---
Subjective Subjective Reason For Visit: schizoprenia Interim History: Mood is better but speech is somewhat diff to follow. Acknowledges conflict w sister. Withdrew 3 day notice. Last Haldol Dec shot was on 09/17/20. Will DC Haldol Dec. Perhaps switch to Abilify/Cloz/Seroquel Await response from ESTHER Perez. Needs PA for Tetrabenazine/Ingrezza/? [place] Marked Mod/severe TD. AIMS: Mod/severe TD Review of Systems Reports tremor(s) Mental Status Exam Mental Status Exam Patient Appearance: Disheveled and Unkempt Patient Orientation: Person, Place, Time and Situation Level of Consciousness: Disoriented Patient Behavior: Suspicious and Distractible Mood Description: Withdrawn and Anxious Patient Cognition Impaired: Yes Ability to Follow Directions: Good Speech Pattern: Impoverished, Difficulty Finding Words, Rambling, Soft-Spoken, Mumbled and Poor Articulation Memory Description: Recent Impaired Diagnostics Vital Signs (24Hr): Vital Signs - 24 hr 10/03/20 18:35 10/04/20 06:00 Temperature 98.4 F 97.8 F Pulse Rate 93 89 Blood Pressure 142/79 H 104/76 Body Mass Index 26.5 Labs Results: 09/28/20 18:29 Labs: Laboratory Results - last 48 hr 10/01/20 10/01/20 10/01/20 07:35 07:35 07:35 Vitamin B12 300 Folate 3.8 L T.pallidum Ab (EIA) Nonreactive Lyme Screen IgG & IgM Hep Bs Antigen Negative Hep Bs Antibody NONREACTIVE Hep B Core Total Ab Nonreactive Hepatitis C Ab (EIA) Nonreactive HIV 1&2 Ab/P24 Ag 4thGn Nonreactive 10/01/20 07:35 Vitamin B12 Folate T.pallidum Ab (EIA) Lyme Screen IgG & IgM <0.90 Hep Bs Antigen Hep Bs Antibody Hep B Core Total Ab Hepatitis C Ab (EIA) HIV 1&2 Ab/P24 Ag 4thGn Imaging Radiology Impressions: ITS Impressions Head CT 09/29/20 08:53 IMPRESSION: No acute intracranial pathology. Stable changes in the subcutaneous soft tissues in the occipital region of uncertain etiology but stable dating back to 2014. The appearance is suggestive of a soft tissue mass or fibrous change perhaps related to old trauma. Brain MRI 10/03/20 00:00 IMPRESSION: - No acute intracranial findings. No acute infarcts. Unremarkable noncontrast MRI of the brain. - Partially imaged degenerative changes within the upper cervical spine with potential mass effect on the cervical spinal cord at C3-C4 that can be correlated for clinical signs of cervical myelopathy. 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 Medications Medications Current Medications Generic Name Dose Route Start Last Admin Trade Name Freq PRN Reason Stop Dose Admin Acetaminophen 650 mg 09/29/20 15:03 09/30/20 22:00 Acetaminophen 325 Mg Tablet PO 650 mg Q6H PRN Administration Headache/Pain Mild Scale (1-3) Al Hydroxide/Mg Hydroxide 30 ml 09/29/20 15:03 Magnesium Hydrox/Alum Hydrox 30 Ml Oral.Susp PO Q6H PRN Heartburn/Nausea Amantadine HCl 100 mg 10/04/20 09:00 10/04/20 09:00 Amantadine Hcl 100 Mg Capsule PO 100 mg BID YORDY Administration Diphenhydramine HCl 25 mg 09/30/20 21:00 10/04/20 08:25 Diphenhydramine Hcl 25 Mg Tablet PO 25 mg BID YORDY Administration Hydroxyzine HCl 50 mg 09/28/20 20:45 10/01/20 16:15 Hydroxyzine Hcl 50 Mg Tablet PO 50 mg TID PRN Administration Anxiety Magnesium Hydroxide 30 ml 09/29/20 15:03 Milk Of Magnesia 30 Ml Oral.Susp PO DAILY PRN Constipation Nicotine 21 mg 09/30/20 10:50 10/04/20 08:26 Nicotine 21 Mg Patch.Td24 TRANSDERMA 21 mg DAILY YORDY Administration Trazodone HCl 50 mg 09/29/20 15:03 09/30/20 22:06 Trazodone Hcl 50 Mg Tablet PO 50 mg BEDTIME PRN Administration Insomnia Allergies Allergies Allergy/AdvReac Type Severity Reaction Status Date / Time No Known Allergies Allergy Mild NA Verified 09/28/20 17:48 Assessment & Plan Assessment & Plan (1) Schizoaffective disorder: Qualifiers: Schizoaffective disorder type: depressive Qualified Code(s): F25.1 - Schizoaffective disorder, depressive type Status: Acute Code(s): F25.9 - Schizoaffective disorder, unspecified (2) Tardive dyskinesia: Status: Acute Code(s): G24.01 - Drug induced subacute dyskinesia Assessment and Plan: Continue current treatment plan: q15 checks collect Collateral Monitor AIMS and dyskinesia. Dc Haldol Dec/Cogentin. Add Amantadine. Consider Abilify/ Maintena Collateral from ESTHER Perez. Tetrabenzaprine started Improve ADLs. Neuro consult for Cx myelopathy Greater than 50% of the session was spent on counseling and/or coordination of care
[2020-10-04 17:03] VITALS: BP 119/62; PULSE 84; TEMP 36
--- NOTE | 2020-10-04 18:21 | P.CNNE_ITS ---
History of Present Illness Data of Consult Service Date: 10/04/20 Primary Care Provider: Israel Ayoub MD HPI Reason for consult: possible cervical myelopathy This is a 60-year-old man admitted with an acute decompensation of his known schizoaffective disorder and schizophrenia with deteriorated personal care and abnormal been dangerous behavior at home. He has been admitted to the psych [facility] previously is generally noncompliant can also has fairly significant tardive dyskinesia. Part of his workup included a CAT scan followed by an MRI of the brain which were unremarkable however there is degenerative change on the sagittal images in the feet 34. With some degenerative disc disease. On the single series there is no abnormal cord signal. The patient is not a very reliable historian and has complained of some tingling. Review of Systems Eyes: Eyes: Reports no additional eye complaints ENT: Reports system reviewed and no additional complaints, except as documented and Reports Normal hearing present Cardiovascular: Cardiovascular: Reports no additional cardiovascular complaints Respiratory: Respiratory: Reports no additional respiratory complaints Gastrointestinal: Gastrointestinal: Reports no additional gastrointestinal complaints Genitourinary: Genitourinary: Reports no additional male genitourinary complaints Musculoskeletal: Musculoskeletal: Reports no additional musculoskeletal complaints Integumentary/Breasts: Skin/Breast: Reports system reviewed and no additional complaints, except as docu Neurologic: Reports Normal hearing present and Reports tremor(s) Psychiatric: Psychiatric: Reports as per HPI Endocrine: Endocrine: Reports no additional endocrine complaints Hematologic/Lymphatic: Hematologic/Lymphatic: Reports no additional hematologic/lymphatic complaints Allergic/Immunologic: Allergic/Immunologic: Reports no additional allergic/immunologic complaints PMFSH Social History Social History Household Members: Family Housing: Apartment Do you presently have visiting nurse or other home services: Yes (daily visit from visiting nurse in am) Alcohol intake: unknown Smoking Status: Current every day smoker Tobacco Type: Cigarette Packs Per Day: 1 Cigarettes Per Day: 20.0 Years Smoked: 40 years Smoked in Last 30 Days: Yes Patient Interested in Nicotine Replacement: Yes Patient Given Instructions on How to Stop Smoking: Yes Date Education Initiated: 09/29/20 Second Hand Smoke Exposure: No Use of substances other than those prescribed or required for medical reasons: No Substance Use Type: Marijuana Substance Use Frequency: Weekly Last Used Substance: Days (ago) Currently Displaying Signs/Symptoms of Drug Intoxication Withdrawal: No Any prior treatment program specific to substance use: No Have you been hit, kicked, punched, or otherwise hurt by someone within the past year? If so, by whom?: No Do you feel safe in your current relationship?: Yes Is there a partner from a previous relationship who is making you feel unsafe now?: No Are you made to feel afraid or neglected: No Spiritual Healthcare Practices: pt. meditates [facility] Practices: n/a Cultural Healthcare Practices: n/a Advance Directives: No Advance Directives Information Provided: Yes Do you have thoughts of harming others: None Do you have a plan to hurt others: No Plan service: No Sexual orientation: Straight/Heterosexual Meds Allergies Allergy/AdvReac Type Severity Reaction Status Date / Time No Known Allergies Allergy Mild NA Verified 09/28/20 17:48 Home Medications Medication Instructions Recorded Confirmed Type benztropine 1 mg PO BID 09/28/20 09/28/20 History haloperidol decanoate 100 mg IM Q4W 09/28/20 09/28/20 History hydroxyzine HCl 50 mg PO TID PRN 09/28/20 09/28/20 History olanzapine 10 mg PO BEDTIME 09/28/20 09/28/20 History Physical Exam Vital Signs: Vital Signs: Last Vital Signs Temp 96.8 F 10/04/20 17:03 Pulse 84 10/04/20 17:03 Resp 18 10/03/20 06:05 BP 119/62 10/04/20 17:03 Pulse Ox 97 10/03/20 06:05 Body Mass Index 26.5 Appearance: Alert. Oriented X3. No acute distress. Eyes: Pupils equal, round and reactive to light. ENT: Pharynx normal. Neck: Normal inspection. Neck supple. CVS: Normal heart rate and rhythm. Pulses normal. Respiratory: No respiratory distress. Breath sounds normal. Abdomen: Soft and nontender. Skin: Skin warm and dry. Normal skin color. Normal skin turgor. Extremities: No lower extremity edema. Neuro: No motor deficit. No sensory deficit. Const: General: cooperative, comfortable, no acute distress, well developed, alert and awake Nutritional Appearance: well nourished Orientation/consciousness: oriented to person, oriented to place and oriented to time Limitations: no limitations HENMT: Head: Yes normal to inspection, Yes normocephalic and Yes atraumatic Ears: hearing grossly normal bilaterally General nose exam: Normal external nose present Face and sinus: Yes normal facial exam Mouth: Normal oral and palatal mucosa present Eyes: General: appearance normal, both eyes and all related structures Visual Uribe: normal visual urbie by confrontation Alignment and Position: alignment normal Periorbital: periorbital findings normal Eyelids: Yes eyelids normal Conjunctivae: conjunctivae normal Sclerae: sclerae normal Corneas: corneas normal Pupils: Equal, round and reactive pupils present and Pupil accommodation reflex normal EOM: EOMs intact bilaterally Direct Ophthalmoscopy: normal light reflex Neck: Neck: Yes normal visual inspection, Yes full ROM and Yes no meningeal signs Thyroid: Thyroid normal Carotids: normal carotid upstroke and bounding pulses Chest: Chest palpation & inspection: normal inspection of the chest Resp: Effort & Inspection: normal respiratory effort Auscultation: clear to auscultation bilaterally Cardio: Rate: regular rate Rhythm: regular rhythm Heart sounds: S1 normal heart sound present and S2 normal heart sound present Peripheral pulses: Peripheral pulses 2+ throughout GI: Inspection: Yes normal to inspection Percussion: Yes normal to percus jessy Auscultation: normal bowel sounds Rectal Exam - Male: Yes deferred Back/Spine/Pelvis: Cervical Spine: normal cervical lordosis and cervical ROM normal Thoracic/Lumbar Spine: thoracic and lumbar spine normal to inspection Skin: General skin exam: no rashes or lesions noted Neuro: General: oriented to person, oriented to place, oriented to time, gait normal, tone normal, moves all extremities, Normal light touch and pain sensa tion, no meningeal signs, no focal motor deficits, CN's II-XI intact bilaterally, normal sensation to monofilament and deep tendon reflexes 2+ bilaterally Cranial nerves: Yes CN's II-XII intact bilaterally, Yes Equal, round and reactive pupils present, Yes Bilaterally intact EOM present, Yes Nystagmus not present, Yes Normal facial strength present, Yes Midline tongue present, Yes Normal gag reflex present, Yes Symmetric palate elevation present, Yes Normal hearing present and Yes Ability to bilaterally rotate head present Cognition (Neuro): normal cognition Speech: Other speech findings present (Neuro) Gait exam (Neuro): Normal gait present Motor exam (neuro): 5/5 motor strength present throughout, Pronator motor function not present, no tremor noted, no asterixis, Motor fasciculations not present, Normal motor m uscle tone present throughout and Motor abnormalities not present Sensory Exam: Bilaterally intact graphesthesia Deep tendon reflexes (DTR's): Right triceps reflex intensity grade: 2+, Left triceps reflex intensity grade: 2+, Rt Biceps (C5, C6): 2+, Left biceps reflex intensity grade: 2+, Right brachioradialis reflex intensity grade: 2+, Left brachioradialis reflex intensity grade: 2+, Right patellar reflex intensity grade: 2+, Left patellar reflex intensity grade: 2+, Right ankle reflex intensity grade: 2+ and Left ankle reflex intensity grade: 2+ Plantar Reflex Responses: downgoing: right, left and bilateral Coordination: [id number] test normal, [id number] test normal, tandem gait normal and Romberg test negative Pupils: Normal pupillary reactivity/response: bilateral Extrem: General: Yes normal to inspection, Yes normal exam except as noted and Yes no pedal edema Psych: Appearance: grossly normal Mental Status: mental status grossly normal Speech and movement: Normal speech and movement present and Clear speech present Affect: normal affect Attitude: cooperative Thought process: Normal thought process present Results Labs CBC & Chem 7: 09/28/20 18:29 Assessment and Plan (1) Schizoaffective disorder: Qualifiers: Schizoaffective disorder type: depressive Qualified Code(s): F25.1 - Schizoaffective disorder, depressive type Status: Acute (2) Tardive dyskinesia: Status: Acute (3) Degenerative disc disease, cervical: Problem details: At this time there is no clear evidence of a myelopathy. No further neurological workup is indicated. If problems with gait and or bladder control developing future, then he will need an MRI of his cervical spine. Status: Acute (4) Acute psychosis: Status: Acute Continue current treatment plan: q15 checks collect Collateral Monitor AIMS and dyskinesia. Dc Haldol Dec/Cogentin. Add Amantadine. Consider Abilify/ Maintena Collateral from [facility]. Tetrabenzaprine started Improve ADLs. Neuro consult for Cx myelopathy Procedures Abscess I/D Date of Service: 10/04/20
[2020-10-04] MEDS: Milk of Magnesia 30 ML ORAL.SUSP PO (20:41)
--- NOTE | 2020-10-05 04:49 | HO.PSYCHPN ---
Subjective Subjective Reason For Visit: schizoprenia Interim History: Pleasant. Speech is tremulous. Gait limited by dystonia. Severe TD/Tardive dystonia. No SI/HI. Not upset w sister anymore Tetrabenazine still pending. Start low dose Abilify with a view to Maintena shots Review of Systems Review of Systems Yes Other (Severe TD) Reports Normal hearing present Reports Normal hearing present and Reports tremor(s) Mental Status Exam Mental Status Exam Patient Appearance: Disheveled and Unkempt Patient Orientation: Person, Place, Time and Situation Level of Consciousness: Disoriented Patient Behavior: Suspicious and Distractible Mood Description: Withdrawn and Anxious Patient Cognition Impaired: Yes Ability to Follow Directions: Good Speech Pattern: Impoverished, Difficulty Finding Words, Rambling, Soft-Spoken, Mumbled and Poor Articulation Memory Description: Recent Impaired Diagnostics Vital Signs (24Hr): Vital Signs - 24 hr 10/04/20 06:00 10/04/20 17:03 Temperature 97.8 F 96.8 F Pulse Rate 89 84 Blood Pressure 104/76 119/62 Body Mass Index 26.5 Labs Results: 09/28/20 18:29 Labs: Laboratory Results - last 48 hr 10/01/20 10/01/20 10/01/20 07:35 07:35 07:35 Vitamin B12 300 Folate 3.8 L T.pallidum Ab (EIA) Nonreactive Lyme Screen IgG & IgM Hep Bs Antigen Negative Hep Bs Antibody NONREACTIVE Hep B Core Total Ab Nonreactive Hepatitis C Ab (EIA) Nonreactive HIV 1&2 Ab/P24 Ag 4thGn Nonreactive 10/01/20 07:35 Vitamin B12 Folate T.pallidum Ab (EIA) Lyme Screen IgG & IgM <0.90 Hep Bs Antigen Hep Bs Antibody Hep B Core Total Ab Hepatitis C Ab (EIA) HIV 1&2 Ab/P24 Ag 4thGn Imaging Radiology Impressions: ITS Impressions Head CT 09/29/20 08:53 IMPRESSION: No acute intracranial pathology. Stable changes in the subcutaneous soft tissues in the occipital region of uncertain etiology but stable dating back to 2014. The appearance is suggestive of a soft tissue mass or fibrous change perhaps related to old trauma. Brain MRI 10/03/20 00:00 IMPRESSION: - No acute intracranial findings. No acute infarcts. Unremarkable noncontrast MRI of the brain. - Partially imaged degenerative changes within the upper cervical spine with potential mass effect on the cervical spinal cord at C3-C4 that can be correlated for clinical signs of cervical myelopathy. 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 Medications Medications Current Medications Generic Name Dose Route Start Last Admin Trade Name Freq PRN Reason Stop Dose Admin Acetaminophen 650 mg 09/29/20 15:03 09/30/20 22:00 Acetaminophen 325 Mg Tablet PO 650 mg Q6H PRN Administration Headache/Pain Mild Scale (1-3) Al Hydroxide/Mg Hydroxide 30 ml 09/29/20 15:03 Magnesium Hydrox/Alum Hydrox 30 Ml Oral.Susp PO Q6H PRN Heartburn/Nausea Amantadine HCl 100 mg 10/04/20 09:00 10/04/20 20:41 Amantadine Hcl 100 Mg Capsule PO 100 mg BID YORDY Administration Diphenhydramine HCl 25 mg 09/30/20 21:00 10/04/20 20:41 Diphenhydramine Hcl 25 Mg Tablet PO 25 mg BID YORDY Administration Hydroxyzine HCl 50 mg 09/28/20 20:45 10/01/20 16:15 Hydroxyzine Hcl 50 Mg Tablet PO 50 mg TID PRN Administration Anxiety Magnesium Hydroxide 30 ml 09/29/20 15:03 10/04/20 20:41 Milk Of Magnesia 30 Ml Oral.Susp PO 30 ml DAILY PRN Administration Constipation Nicotine 21 mg 09/30/20 10:50 10/04/20 08:26 Nicotine 21 Mg Patch.Td24 TRANSDERMA 21 mg DAILY YORDY Administration Non-Formulary Medication 12.5 each 10/05/20 09:00 Non-Formulary Medication PO DAILY YORDY Trazodone HCl 50 mg 09/29/20 15:03 09/30/20 22:06 Trazodone Hcl 50 Mg Tablet PO 50 mg BEDTIME PRN Administration Insomnia Allergies Allergies Allergy/AdvReac Type Severity Reaction Status Date / Time No Known Allergies Allergy Mild NA Verified 09/28/20 17:48 Assessment & Plan Assessment & Plan (1) Schizoaffective disorder: Qualifiers: Schizoaffective disorder type: depressive Qualified Code(s): F25.1 - Schizoaffective disorder, depressive type Status: Acute Code(s): F25.9 - Schizoaffective disorder, unspecified (2) Tardive dyskinesia: Status: Acute Code(s): G24.01 - Drug induced subacute dyskinesia (3) Degenerative disc disease, cervical: Status: Acute Code(s): M50.30 - Other cervical disc degeneration, unspecified cervical region (4) Acute psychosis: Status: Acute Code(s): F23 - Brief psychotic disorder Assessment and Plan: Continue current treatment plan: q15 checks collect Collateral Monitor AIMS and dyskinesia. Dc Haldol Dec/Cogentin. Added Amantadine. Consider Abilify/ Maintena Collateral from [facility]. Tetrabenzaprine pending Improve ADLs. Appreciate Neuro consult : No Cx myelopathy Greater than 50% of the session was spent on counseling and/or coordination of care
[2020-10-05 06:05] VITALS: BP 113/56; PULSE 80; RESP 16; TEMP 36.1
[2020-10-05] MEDS: amantadine HCL 100 MG CAPSULE PO ×2 (09:49→21:25)
[2020-10-05] MEDS: Nicotine 21 MG PATCH.TD24 TRANSDERMA (09:49)
[2020-10-05] MEDS: diphenhydrAMINE HCL 25 MG TABLET PO ×2 (09:49→21:25)
[2020-10-05 16:55] VITALS: BP 141/73; PULSE 82; TEMP 36.4; O2SAT 98
--- NOTE | 2020-10-06 04:04 | HO.PSYCHPN ---
Subjective Subjective Reason For Visit: schizoprenia Interim History: Pleasant. Speech is tremulous. Gait limited by dystonia. Severe TD/Tardive dystonia. No SI/HI. Not upset w sister anymore Tetrabenazine still pending. Start low dose Abilify with a view to Maintena shots Review of Systems Reports Normal hearing present Reports Normal hearing present and Reports tremor(s) Mental Status Exam Mental Status Exam Patient Appearance: Disheveled and Unkempt Patient Orientation: Person, Place, Time and Situation Level of Consciousness: Disoriented Patient Behavior: Suspicious and Distractible Mood Description: Withdrawn and Anxious Patient Cognition Impaired: Yes Ability to Follow Directions: Good Speech Pattern: Impoverished, Difficulty Finding Words, Rambling, Soft-Spoken, Mumbled and Poor Articulation Memory Description: Recent Impaired Diagnostics Vital Signs (24Hr): Vital Signs - 24 hr 10/05/20 06:05 10/05/20 16:55 Temperature 96.9 F 97.5 F Pulse Rate 80 82 Respiratory Rate 16 Blood Pressure 113/56 L 141/73 H Pulse Oximetry 98 Body Mass Index 26.5 Labs Results: 09/28/20 18:29 Labs: Laboratory Results - last 48 hr 10/01/20 07:35 Lyme Screen IgG & IgM <0.90 Imaging Radiology Impressions: ITS Impressions Head CT 09/29/20 08:53 IMPRESSION: No acute intracranial pathology. Stable changes in the subcutaneous soft tissues in the occipital region of uncertain etiology but stable dating back to 2014. The appearance is suggestive of a soft tissue mass or fibrous change perhaps related to old trauma. Brain MRI 10/03/20 00:00 IMPRESSION: - No acute intracranial findings. No acute infarcts. Unremarkable noncontrast MRI of the brain. - Partially imaged degenerative changes within the upper cervical spine with potential mass effect on the cervical spinal cord at C3-C4 that can be correlated for clinical signs of cervical myelopathy. 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 Medications Medications Current Medications Generic Name Dose Route Start Last Admin Trade Name Freq PRN Reason Stop Dose Admin Acetaminophen 650 mg 09/29/20 15:03 09/30/20 22:00 Acetaminophen 325 Mg Tablet PO 650 mg Q6H PRN Administration Headache/Pain Mild Scale (1-3) Al Hydroxide/Mg Hydroxide 30 ml 09/29/20 15:03 Magnesium Hydrox/Alum Hydrox 30 Ml Oral.Susp PO Q6H PRN Heartburn/Nausea Amantadine HCl 100 mg 10/04/20 09:00 10/05/20 21:25 Amantadine Hcl 100 Mg Capsule PO 100 mg BID YORDY Administration Aripiprazole 2 mg 10/06/20 09:00 Aripiprazole 2 Mg Tablet PO DAILY YORDY Diphenhydramine HCl 25 mg 09/30/20 21:00 10/05/20 21:25 Diphenhydramine Hcl 25 Mg Tablet PO 25 mg BID YORDY Administration Hydroxyzine HCl 50 mg 09/28/20 20:45 10/01/20 16:15 Hydroxyzine Hcl 50 Mg Tablet PO 50 mg TID PRN Administration Anxiety Magnesium Hydroxide 30 ml 09/29/20 15:03 10/04/20 20:41 Milk Of Magnesia 30 Ml Oral.Susp PO 30 ml DAILY PRN Administration Constipation Nicotine 21 mg 09/30/20 10:50 10/05/20 09:49 Nicotine 21 Mg Patch.Td24 TRANSDERMA 21 mg DAILY YORDY Administration Non-Formulary Medication 12.5 each 10/05/20 09:00 Non-Formulary Medication PO DAILY YORDY Trazodone HCl 50 mg 09/29/20 15:03 09/30/20 22:06 Trazodone Hcl 50 Mg Tablet PO 50 mg BEDTIME PRN Administration Insomnia Allergies Allergies Allergy/AdvReac Type Severity Reaction Status Date / Time No Known Allergies Allergy Mild NA Verified 09/28/20 17:48 Assessment & Plan Assessment & Plan (1) Schizoaffective disorder: Qualifiers: Schizoaffective disorder type: depressive Qualified Code(s): F25.1 - Schizoaffective disorder, depressive type Status: Acute Code(s): F25.9 - Schizoaffective disorder, unspecified (2) Tardive dyskinesia: Status: Acute Code(s): G24.01 - Drug induced subacute dyskinesia (3) Degenerative disc disease, cervical: Status: Acute Code(s): M50.30 - Other cervical disc degeneration, unspecified cervical region (4) Acute psychosis: Status: Acute Code(s): F23 - Brief psychotic disorder Assessment and Plan: Continue current treatment plan: q15 checks collect Collateral Monitor AIMS and dyskinesia. Dc Haldol Dec/Cogentin. Added Amantadine. Consider Abilify/ Maintena Collateral from [facility]. Tetrabenzaprine pending Improve ADLs. Appreciate Neuro consult : No Cx myelopathy Greater than 50% of the session was spent on counseling and/or coordination of care
[2020-10-06] MEDS: Acetaminophen 325 MG TABLET 650 MG PO ×2 (05:06→16:45)
[2020-10-06 05:45] VITALS: BP 153/67; PULSE 56; RESP 16; TEMP 35.9; O2SAT 99
[2020-10-06] MEDS: diphenhydrAMINE HCL 25 MG TABLET PO ×2 (08:27→21:45)
[2020-10-06] MEDS: amantadine HCL 100 MG CAPSULE PO ×2 (08:27→21:45)
[2020-10-06] MEDS: ARIPiprazole 2 MG TABLET PO (08:27)
[2020-10-06] MEDS: Nicotine 21 MG PATCH.TD24 TRANSDERMA (08:28)
[2020-10-06 09:45] VITALS: BMI 22.6
[2020-10-06 11:02] VITALS: BP 137/74; PULSE 84
[2020-10-06 16:46] VITALS: BP 131/61; PULSE 84; TEMP 36.7
--- NOTE | 2020-10-07 | CT_ITS ---
EXAMINATION: NONCONTRAST HEAD CT NONCONTRAST FACIAL BONES CT INDICATION INFORMATION: Fall COMPARISON: 09/29/2020 TECHNIQUE: Separate noncontrast CT examinations of the head and facial bones were performed. Coronal and sagittal images were created for each examination at the technologist workstation. DOSE LOWERING TECHNIQUES: This CT examination was performed using dose optimization techniques as appropriate, variously including the following: - Automated exposure control - Adjustment of mA and/or kV according to patient size (this includes techniques or standardized protocols for targeted exams were dose is matched to indication/reason for exam; i.e. extremities or head) - Use of iterative reconstruction technique DLP: 1362 mGy-cm FINDINGS: Head: There is no evidence of acute intracranial hemorrhage or territorial infarction. No abnormal mass-effect or midline shift is seen. Caldera to white matter differentiation is well preserved. No extra-axial fluid collections are identified. The ventricles are normal in size. There is no abnormal attenuation within the brain parenchyma. The osseous structures and soft tissues are normal. The mastoid air cells are well aerated. Facial bones: No acute maxillofacial fractures are seen. Small mucous retention cysts in the maxillary sinuses. Trace mucosal thickening of the bilateral ethmoid air cells. Remaining paranasal sinuses are well-aerated. There is rightward deviation of the nasal septum. The mandibular condyles are well-seated in the condylar fossa. Partially visualized degenerative changes in the cervical spine. The orbits demonstrate a normal appearance bilaterally. The globes are intact, and there are no suspicious findings to suggest retrobulbar hemorrhage. CT/CT facial bones wo con IMPRESSION: No acute intracranial findings. No acute facial fracture identified.
--- NOTE | 2020-10-07 | MR_ITS ---
MR CERVICAL SPINE WITHOUT CONTRAST CLINICAL INFORMATION: Myelopathy with upper extremity weakness. COMPARISON: None available. TECHNIQUE: MRI of the cervical spine was obtained using routine sequences without contrast. FINDINGS: There is reversal of the cervical lordosis. There is mild anterior subluxation of C3 on C4 and C4 on C5. There is severe disc volume loss at C5-C6 and C6-C7. There Modic type I endplate signal changes at C3-C4, C4-C5 and C5-C6, and C6-C7. There is marrow edema within the left C2-C3 and within the right C3-C4 and C4-C5 facets that is most likely degenerative or inflammatory. Craniocervical junction is unremarkable. The partially imaged intracranial compartment is unremarkable. Nonspecific 1.1 cm T2 signal hyperintense structure within the left neck on image 17 of series 6 that can be further assessed with a contrast-enhanced CT of the neck. C2-C3: Disc osteophyte and ligamentum flavum thickening result in mild to moderate central canal stenosis. Bilateral facet arthropathy. No significant foraminal stenosis. C3-C4: There is mild anterior subluxation. Uncovered disc with a superimposed diffuse disc osteophyte complex and ligamentum flavum thickening resulting in severe central canal stenosis and compression of the cervical spinal cord. 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 Uncovertebral joint spurring and facet arthropathy result in severe left foraminal stenosis per C4-C5: Mild anterior subluxation. Disc osteophyte and ligamentum flavum thickening result in mild to moderate central canal stenosis. Uncovertebral joint hypertrophy and hypertrophic facet arthropathy result in severe right and moderate left foraminal stenosis. C5-C6: Disc osteophyte mildly narrows the central canal. Uncovertebral joint hypertrophy and hypertrophic facet arthropathy result in mild bilateral foraminal encroachment. C6-C7: Disc osteophyte and ligamentum flavum thickening result in mild narrowing of the central canal. Uncovertebral joint hypertrophy and hypertrophic facet arthropathy result in severe left and mild right foraminal stenosis. Possible mild intramedullary T2 signal changes within the cervical spinal cord at C6-C7 which are nonspecific, possibly chronic myelomalacia. C7-T1: Posterior disc contour is normal. Uncovertebral joint spurring and hypertrophic facet arthropathy result in mild left-sided foraminal encroachment. MR/MR cervical spine wo con IMPRESSION: - Advanced cervical spondylosis, greatest at C3-C4 where mild anterior subluxation and advanced spondylitic changes result in severe central canal stenosis and significant compression of the cervical cord. There are intramedullary T2 signal changes within the cervical spinal cord at the C3-C4 level, suspected to most likely be secondary to compressive myelopathy. Neurosurgical consultation recommended. - Possible mild intramedullary T2 signal changes within the cervical spinal cord at C6-C7 which are nonspecific, possibly chronic myelomalacia. - Spondylitic changes result in severe left C3-C4, severe right and moderate left C4-C5, and severe left C6-C7 foraminal stenosis. - Favored Modic 1 marrow signal changes within the C3-C6 vertebral bodies. There is also marrow edema within multiple facets bilaterally, most likely degenerative or inflammatory. - Nonspecific 1.1 cm T2 signal hyperintense structure within the left neck on image 17 of series 6 that can be further assessed with a contrast-enhanced CT of the neck. Covering provider is been paged with these findings at 2:40 PM on 10/07/2020.
[2020-10-07 04:39] VITALS: BP 118/69; PULSE 91; RESP 20; TEMP 36.4; O2SAT 96
[2020-10-07] MEDS: Acetaminophen 325 MG TABLET 650 MG PO ×2 (05:08→14:30)
--- NOTE | 2020-10-07 05:09 | P.EN_ITS ---
Event Note Date of Service: 10/07/20 Event Note: Significant event: Notified by RN sheet mill supervisor that patient fell on the floor. The circumstances are not very clear but RN on the floor states that patient regularly uses a walker but today was standing on the door of the room without one and fell to the floor in the hallway. Patient did noss loss consciousness in the act but did have a significant facial trauma with loss of 2 teeth. I examined the patient carefully, no evidence of fracture or bleed is evident on exam. Will order a CT facial/bones and head/brain to r/o any intracranial pathology or fracture at present.
--- NOTE | 2020-10-07 05:27 | P.PNPSI_ITS ---
Subjective Subjective Reason For Visit: schizoprenia Interim History: Pt more logical but gait is poor. He fell and broke 2 teeth. Crisis Mental Health Therapist is weak. Head and Face CT neg. MRI C spine noted for severe stenosis. [facility] was consulted by this fiction and nonfiction prose writer: SIOBHAN Franco and Dr Mims reviewed images uploaded on [facility]: Central Cord Compression. No need for emergency surgery. Advised OT/PT and F/U with Dr Mims in 3 weeks. Call [phone] or [place] Hotline: [phone] to make appt . Thalia Godfrey (pts sister was not contactable when TW called. Pt started on Abilify given Hx of psychosis Neuro Dr Turcios:Worsening gait and falling. Also experiencing difficulty using his hands. MRI C spine done today and personally reviewed by me shows chronic cord compression at C3-4 from degenerative disc disease, posterior osteophyte and severe canal stenosis. Abnormal cord signal Review of Systems Reports Normal hearing present Reports Normal hearing present and Reports tremor(s) Mental Status Exam Mental Status Exam Patient Appearance: Disheveled and Unkempt Patient Orientation: Person, Place, Time and Situation Level of Consciousness: Disoriented Patient Behavior: Suspicious and Distractible Mood Description: Withdrawn and Anxious Patient Cognition Impaired: Yes Ability to Follow Directions: Good Speech Pattern: Impoverished, Difficulty Finding Words, Rambling, Soft-Spoken, Mumbled and Poor Articulation Memory Description: Recent Impaired Diagnostics Vital Signs (24Hr): Vital Signs - 24 hr 10/06/20 05:45 10/06/20 11:02 10/06/20 16:46 Temperature 96.7 F L 98.1 F Pulse Rate 56 84 84 Respiratory Rate 16 Blood Pressure 153/67 H 137/74 131/61 Pulse Oximetry 99 10/07/20 04:39 Temperature 97.5 F Pulse Rate 91 Respiratory Rate 20 Blood Pressure 118/69 Pulse Oximetry 96 Body Mass Index 22.6 Labs Results: 09/28/20 18:29 Labs: Laboratory Results - last 48 hr 10/01/20 07:35 Lyme Progressive Test TNP Imaging Radiology Impressions: ITS Impressions Head CT 09/29/20 08:53 IMPRESSION: No acute intracranial pathology. Stable changes in the subcutaneous soft tissues in the occipital region of uncertain etiology but stable dating back to 2014. The appearance is suggestive of a soft tissue mass or fibrous change perhaps related to old trauma. Brain MRI 10/03/20 00:00 IMPRESSION: - No acute intracranial findings. No acute infarcts. Unremarkable noncontrast MRI of the brain. - Partially imaged degenerative changes within the upper cervical spine with potential mass effect on the cervical spinal cord at C3-C4 that can be correlated for clinical signs of cervical myelopathy. 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 Medications Medications Current Medications Generic Name Dose Route Start Last Admin Trade Name Freq PRN Reason Stop Dose Admin Acetaminophen 650 mg 09/29/20 15:03 10/07/20 05:08 Acetaminophen 325 Mg Tablet PO 650 mg Q6H PRN Administration Headache/Pain Mild Scale (1-3) Al Hydroxide/Mg Hydroxide 30 ml 09/29/20 15:03 Magnesium Hydrox/Alum Hydrox 30 Ml Oral.Susp PO Q6H PRN Heartburn/Nausea Amantadine HCl 100 mg 10/04/20 09:00 10/06/20 21:45 Amantadine Hcl 100 Mg Capsule PO 100 mg BID YORDY Administration Aripiprazole 2 mg 10/06/20 09:00 10/06/20 08:27 Aripiprazole 2 Mg Tablet PO 2 mg DAILY YORDY Administration Diphenhydramine HCl 25 mg 09/30/20 21:00 10/06/20 21:45 Diphenhydramine Hcl 25 Mg Tablet PO 25 mg BID YORDY Administration Hydroxyzine HCl 50 mg 09/28/20 20:45 10/01/20 16:15 Hydroxyzine Hcl 50 Mg Tablet PO 50 mg TID PRN Administration Anxiety Magnesium Hydroxide 30 ml 09/29/20 15:03 10/04/20 20:41 Milk Of Magnesia 30 Ml Oral.Susp PO 30 ml DAILY PRN Administration Constipation Nicotine 21 mg 09/30/20 10:50 10/06/20 08:28 Nicotine 21 Mg Patch.Td24 TRANSDERMA 21 mg DAILY YORDY Administration Non-Formulary Medication 12.5 each 10/05/20 09:00 Non-Formulary Medication PO DAILY YORDY Trazodone HCl 50 mg 09/29/20 15:03 09/30/20 22:06 Trazodone Hcl 50 Mg Tablet PO 50 mg BEDTIME PRN Administration Insomnia Allergies Allergies Allergy/AdvReac Type Severity Reaction Status Date / Time No Known Allergies Allergy Mild NA Verified 09/28/20 17:48 Assessment & Plan Assessment & Plan (1) Cervical cord compression with myelopathy: Status: Acute Code(s): G95.20 - Unspecified cord compression Assessment and Plan: Soft cervical collar. Stat Neurosurgical consult for transfer and decompression (2) Tardive dyskinesia: Status: Acute Code(s): G24.01 - Drug induced subacute dyskinesia Assessment and Plan: Amantadine (3) Schizoaffective disorder: Qualifiers: Schizoaffective disorder type: depressive Qualified Code(s): F25.1 - Schizoaffective disorder, depressive type Status: Acute Code(s): F25.9 - Schizoaffective disorder, unspecified Assessment and Plan: Started Abilify (4) Chronic schizophrenia: Status: Acute Code(s): F20.9 - Schizophrenia, unspecified (5) Depression: Qualifiers: Active/Remission status: currently active Depression Type: major depressive disorder Major depression episode severity: severe Major depression recurrence: recurrent Psychotic features: with psychotic features Qualified Code(s): F33.3 - Major depressive disorder, recurrent, severe with psychotic symptoms Status: Acute Code(s): F32.9 - Major depressive disorder, single episode, unspecified Greater than 50% of the session was spent on counseling and/or coordination of care
[2020-10-07] MEDS: diphenhydrAMINE HCL 25 MG TABLET PO ×2 (08:39→20:21)
[2020-10-07] MEDS: ARIPiprazole 5 MG TABLET PO (08:40)
[2020-10-07] MEDS: amantadine HCL 100 MG CAPSULE PO ×2 (08:40→20:21)
[2020-10-07] MEDS: Nicotine 21 MG PATCH.TD24 TRANSDERMA (08:42)
--- NOTE | 2020-10-07 15:13 | PC.NURSE ---
Recieved a call from Dr. Neftali Lackey regarding pt's STAT MRI. Stated narrowing and compression or C3-C4. PJ notified.
[2020-10-07 16:22] VITALS: BP 101/60; PULSE 75; TEMP 36.4
--- NOTE | 2020-10-07 17:23 | PM.NEUROPN ---
Subjective Subjective Date of Service: 10/07/20 Interval History: Worsening gait and falling. Also experiencing difficulty using his hands. MRI C spine done today and personally reviewed by me shows chronic cord compression at C3-4 from degenerative disc disease, posterior osteophyte and severe canal stenosis. Abnormal cord signal Physical Exam Vital Signs: Vital Signs: Last Vital Signs Temp 97.5 F 10/07/20 16:22 Pulse 75 10/07/20 16:22 Resp 20 10/07/20 04:39 BP 101/60 10/07/20 16:22 Pulse Ox 96 10/07/20 04:39 Body Mass Index 22.6 Neuro: Other: In wheelchair for safety. Moves all 4 limbs but weak . Has bladder control Objective Data Labs CBC & Chem 7: 09/28/20 18:29 Progress Note: A&P Assessment and plan (1) Cervical cord compression with myelopathy: Problem details: progressive high cervical cord compression with deterioration over last 48 hrs and MRI evidence os severe compression and abnormal cord signal at C3-4 Status: Acute Assessment and Plan: Soft cervical collar. Stat Neurosurgical consult for transfer and decompression (2) Tardive dyskinesia: Status: Acute (3) Schizoaffective disorder: Status: Acute (4) Chronic schizophrenia: Status: Acute (5) Depression: Status: Acute Fall Risk Details Current Medications: Current Medications Generic Name Dose Route Start Last Admin Trade Name Freq PRN Reason Stop Dose Admin Acetaminophen 650 mg 09/29/20 15:03 10/07/20 14:30 Acetaminophen 325 Mg Tablet PO 650 mg Q6H PRN Administration Headache/Pain Mild Scale (1-3) Al Hydroxide/Mg Hydroxide 30 ml 09/29/20 15:03 Magnesium Hydrox/Alum Hydrox 30 Ml Oral.Susp PO Q6H PRN Heartburn/Nausea Amantadine HCl 100 mg 10/04/20 09:00 10/07/20 08:40 Amantadine Hcl 100 Mg Capsule PO 100 mg BID YORDY Administration Aripiprazole 5 mg 10/07/20 09:00 10/07/20 08:40 Aripiprazole 5 Mg Tablet PO 5 mg DAILY YORDY Administration Diphenhydramine HCl 25 mg 09/30/20 21:00 10/07/20 08:39 Diphenhydramine Hcl 25 Mg Tablet PO 25 mg BID YORDY Administration Hydroxyzine HCl 50 mg 09/28/20 20:45 10/01/20 16:15 Hydroxyzine Hcl 50 Mg Tablet PO 50 mg TID PRN Administration Anxiety Magnesium Hydroxide 30 ml 09/29/20 15:03 10/04/20 20:41 Milk Of Magnesia 30 Ml Oral.Susp PO 30 ml DAILY PRN Administration Constipation Nicotine 21 mg 09/30/20 10:50 10/07/20 08:42 Nicotine 21 Mg Patch.Td24 TRANSDERMA 21 mg DAILY YORDY Administration Non-Formulary Medication 12.5 each 10/05/20 09:00 Non-Formulary Medication PO DAILY YORDY Trazodone HCl 50 mg 09/29/20 15:03 09/30/20 22:06 Trazodone Hcl 50 Mg Tablet PO 50 mg BEDTIME PRN Administration Insomnia Time Spent With Patient Time: Total time spent is greater than 50% in coordination of care (as documented) at patient's floor/unit and/or counseling patient: Time with patient: less than 15 minutes Procedures Abscess I/D Date of Service: 10/07/20
--- NOTE | 2020-10-07 22:37 | PC.NURSE ---
pt. fell on 10/06/[address] riley ordered a soft cervical collar and neuro surgery consult. dr. huerta followed up with [facility] . ebony martinez instructional specialist consulted with dr. plascencia who reviewed cayla's uploaded images. lawrence has central cord syndrome. no emergent surgery needed per dr. dailey. for now PT and OT f/u with dr. plascencia in 3 weeks at [facility]. telephone # [phone] or [phone](neurosurgery hotline 9-5 pm). please make appointment wednesday 10/10 for 3 weeks
[2020-10-08 07:24] VITALS: BP 126/63; PULSE 70; TEMP 36.1
[2020-10-08] MEDS: diphenhydrAMINE HCL 25 MG TABLET PO ×2 (08:41→21:45)
[2020-10-08] MEDS: ARIPiprazole 5 MG TABLET PO (08:41)
[2020-10-08] MEDS: Nicotine 21 MG PATCH.TD24 TRANSDERMA ×2 (08:41→08:42)
[2020-10-08] MEDS: amantadine HCL 100 MG CAPSULE PO ×2 (08:41→21:45)
[2020-10-08] MEDS: Acetaminophen 325 MG TABLET 650 MG PO ×2 (09:27→16:26)
[2020-10-08 10:30] VITALS: BP 120/84; TEMP 36.6; O2SAT 99
[2020-10-08 11:07] VITALS: BP 88/48; PULSE 104; O2SAT 99
[2020-10-08 16:51] VITALS: BP 129/68; PULSE 68; TEMP 36.3
--- NOTE | 2020-10-09 00:37 | P.PNPSI_ITS ---
Subjective Subjective Date of Service: 10/08/20 Reason For Visit: schizoprenia Interim History: Vitals reviewed Labs reviewed Pt seen, chart reviewed and case discussed with nursing staff Pt is resting calmly in bed on approach. He says he's ok and that while neck collar is uncomfortable he understands its necessity and says, what can I do... Pt says that he does not need anything but will ask staff it this changes. He denies any SI. Staff reports pt is med adherent, safe on the unit without behavioral incident Medication Compliance: Yes Attending Groups: No Review of Systems Reports Normal hearing present Reports Normal hearing present and Reports tremor(s) Mental Status Exam Mental Status Exam Patient Appearance: Unkempt Patient Orientation: Person, Place and Time Level of Consciousness: Awake and Appropriate Patient Behavior: Appropriate and Poor Eye Contact Mood Description: Calm Affect Description: Calm Ability to Follow Directions: Good Speech Pattern: Soft-Spoken and Poor Articulation Thought Process: Goal Oriented Thought Content: positive for [place] and positive for Goal Oriented Judgement: Fair Judgement and Insight: currently appears intact Diagnostics Vital Signs (24Hr): Vital Signs - 24 hr 10/08/20 07:24 10/08/20 10:30 10/08/20 11:07 Temperature 97.0 F 97.8 F Pulse Rate 70 104 H Blood Pressure 126/63 120/84 88/48 L Pulse Oximetry 99 99 10/08/20 16:51 Temperature 97.4 F Pulse Rate 68 Blood Pressure 129/68 Pulse Oximetry Body Mass Index 22.6 Labs Results: 09/28/20 18:29 Imaging Radiology Impressions: ITS Impressions Head CT 09/29/20 08:53 IMPRESSION: No acute intracranial pathology. Stable changes in the subcutaneous soft tissues in the occipital region of uncertain etiology but stable dating back to 2014. The appearance is suggestive of a soft tissue mass or fibrous change perhaps related to old trauma. Brain MRI 10/03/20 00:00 IMPRESSION: - No acute intracranial findings. No acute infarcts. Unremarkable noncontrast MRI of the brain. - Partially imaged degenerative changes within the upper cervical spine with potential mass effect on the cervical spinal cord at C3-C4 that can be correlated for clinical signs of cervical myelopathy. 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 Cervical Spine MRI 10/07/20 00:00 IMPRESSION: - Advanced cervical spondylosis, greatest at C3-C4 where mild anterior subluxation and advanced spondylitic changes result in severe central canal stenosis and significant compression of the cervical cord. There are intramedullary T2 signal changes within the cervical spinal cord at the C3-C4 level, suspected to most likely be secondary to compressive myelopathy. Neurosurgical consultation recommended. - Possible mild intramedullary T2 signal changes within the cervical spinal cord at C6-C7 which are nonspecific, possibly chronic myelomalacia. - Spondylitic changes result in severe left C3-C4, severe right and moderate left C4-C5, and severe left C6-C7 foraminal stenosis. - Favored Modic 1 marrow signal changes within the C3-C6 vertebral bodies. There is also marrow edema within multiple facets bilaterally, most likely degenerative or inflammatory. - Nonspecific 1.1 cm T2 signal hyperintense structure within the left neck on image 17 of series 6 that can be further assessed with a contrast-enhanced CT of the neck. Covering provider is been paged with these findings at 2:40 PM on 10/07/2020. Face CT 10/07/20 00:00 IMPRESSION: No acute intracranial findings. No acute facial fracture identified. Head CT 10/07/20 00:00 IMPRESSION: No acute intracranial findings. No acute facial fracture identified. Medications Medications Current Medications Generic Name Dose Route Start Last Admin Trade Name Freq PRN Reason Stop Dose Admin Acetaminophen 650 mg 09/29/20 15:03 10/08/20 16:26 Acetaminophen 325 Mg Tablet PO 650 mg Q6H PRN Administration Headache/Pain Mild Scale (1-3) Al Hydroxide/Mg Hydroxide 30 ml 09/29/20 15:03 Magnesium Hydrox/Alum Hydrox 30 Ml Oral.Susp PO Q6H PRN Heartburn/Nausea Amantadine HCl 100 mg 10/04/20 09:00 10/08/20 21:45 Amantadine Hcl 100 Mg Capsule PO 100 mg BID YORDY Administration Aripiprazole 5 mg 10/07/20 09:00 10/08/20 08:41 Aripiprazole 5 Mg Tablet PO 5 mg DAILY YORDY Administration Diphenhydramine HCl 25 mg 09/30/20 21:00 10/08/20 21:45 Diphenhydramine Hcl 25 Mg Tablet PO 25 mg BID YORDY Administration Hydroxyzine HCl 50 mg 09/28/20 20:45 10/01/20 16:15 Hydroxyzine Hcl 50 Mg Tablet PO 50 mg TID PRN Administration Anxiety Magnesium Hydroxide 30 ml 09/29/20 15:03 10/04/20 20:41 Milk Of Magnesia 30 Ml Oral.Susp PO 30 ml DAILY PRN Administration Constipation Nicotine 21 mg 09/30/20 10:50 10/08/20 08:42 Nicotine 21 Mg Patch.Td24 TRANSDERMA 21 mg DAILY YORDY Administration Non-Formulary Medication 12.5 each 10/05/20 09:00 Non-Formulary Medication PO DAILY YORDY Trazodone HCl 50 mg 09/29/20 15:03 09/30/20 22:06 Trazodone Hcl 50 Mg Tablet PO 50 mg BEDTIME PRN Administration Insomnia Allergies Allergies Allergy/AdvReac Type Severity Reaction Status Date / Time No Known Allergies Allergy Mild NA Verified 09/28/20 17:48 Assessment & Plan PT with psychotic disorder, in neck brace s/p fall Pt is stable Continue with primary team tx plan Continue 1:1 sitter for fall risk
[2020-10-09] MEDS: Acetaminophen 325 MG TABLET 650 MG PO ×2 (01:08→11:10)
[2020-10-09 06:00] VITALS: BP 140/63; PULSE 75; TEMP 36.1
[2020-10-09] MEDS: ARIPiprazole 5 MG TABLET PO (08:57)
[2020-10-09] MEDS: diphenhydrAMINE HCL 25 MG TABLET PO ×2 (08:57→22:50)
[2020-10-09] MEDS: amantadine HCL 100 MG CAPSULE PO ×2 (08:57→22:50)
--- NOTE | 2020-10-09 18:42 | P.PNNE_ITS ---
Subjective Subjective Date of Service: 10/09/20 Physical Exam Vital Signs: Vital Signs: Last Vital Signs Temp 96.9 F 10/09/20 06:00 Pulse 75 10/09/20 06:00 Resp 20 10/07/20 04:39 BP 140/63 H 10/09/20 06:00 Pulse Ox 99 10/08/20 11:07 Body Mass Index 22.6 Objective Data Labs CBC & Chem 7: 09/28/20 18:29 Progress Note: A&P Assessment and plan (1) Cervical cord compression with myelopathy: Problem details: progressive high cervical cord compression with deterioration over last 48 hrs and MRI evidence os severe compression and abnormal cord signal at C3-4 Status: Acute Assessment and Plan: The patient has no significant complaints. He has full control of his bladder. He is oriented and currently has neck immobilizer in place. 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 Biceps deltoid and triceps strength is normal. Lower extremity strength is normal he has bilateral hip hyperreflexia at the knees but no clonus. Plantar responses are equivocal. The plan is to continue a neck immobilizer. He will start physical therapy for str engthening. He will have outpatient neurosurgical consultation for cervical cord decompression. He will probably need to be transferred to a rehab facility if he is discharged from the psych unit. Fall Risk Details Current Medications: Current Medications Generic Name Dose Route Start Last Admin Trade Name Freq PRN Reason Stop Dose Admin Acetaminophen 650 mg 09/29/20 15:03 10/09/20 11:10 Acetaminophen 325 Mg Tablet PO 650 mg Q6H PRN Administration Headache/Pain Mild Scale (1-3) Al Hydroxide/Mg Hydroxide 30 ml 09/29/20 15:03 Magnesium Hydrox/Alum Hydrox 30 Ml Oral.Susp PO Q6H PRN Heartburn/Nausea Amantadine HCl 100 mg 10/04/20 09:00 10/09/20 08:57 Amantadine Hcl 100 Mg Capsule PO 100 mg BID YORDY Administration Aripiprazole 5 mg 10/07/20 09:00 10/09/20 08:57 Aripiprazole 5 Mg Tablet PO 5 mg DAILY YORDY Administration Diphenhydramine HCl 25 mg 09/30/20 21:00 10/09/20 08:57 Diphenhydramine Hcl 25 Mg Tablet PO 25 mg BID YORDY Administration Hydroxyzine HCl 50 mg 09/28/20:45 10/01/20 16:15 Hydroxyzine Hcl 50 Mg Tablet PO 50 mg TID PRN Administration Anxiety Magnesium Hydroxide 30 ml 09/29/20 15:03 10/04/20 20:41 Milk Of Magnesia 30 Ml Oral.Susp PO 30 ml DAILY PRN Administration Constipation Nicotine 21 mg 09/30/20 10:50 10/08/20 08:42 Nicotine 21 Mg Patch.Td24 TRANSDERMA 21 mg DAILY YORDY Administration Non-Formulary Medication 12.5 each 10/05/20 09:00 Non-Formulary Medication PO DAILY YORDY Trazodone HCl 50 mg 09/29/20 15:03 09/30/20 22:06 Trazodone Hcl 50 Mg Tablet PO 50 mg BEDTIME PRN Administration Insomnia Time Spent With Patient Time: Total time spent is greater than 50% in coordination of care (as documented) at patient's floor/unit and/or counseling patient: Time with patient: 15 - 24 minutes Procedures Abscess I/D Date of Service: 10/09/20
[2020-10-09 20:00] VITALS: BP 111/72; BP 151/75; BP 89/51; PULSE 67; PULSE 82; PULSE 95
[2020-10-09] MEDS: traZODone HCL 50 MG TABLET PO (22:55)
--- NOTE | 2020-10-09 23:55 | HO.PSYCHPN ---
Subjective Subjective Date of Service: 10/09/20 Reason For Visit: schizoprenia Interim History: Vitals reviewed: HTN Labs reviewed: no new labs Pt seen, chart reviewed and case discussed with nursing staff Pt again resting in bed, calm and cooperative on approach. Pt denies complaints other than uncomfortability of cervical collar. Says he is able to ask staff if he needs anything. Staff reports pt is med adherent and without behavioral incident Review of Systems Reports Normal hearing present Reports Normal hearing present and Reports tremor(s) Mental Status Exam Mental Status Exam Patient Appearance: Unkempt Patient Orientation: Person, Place and Situation Level of Consciousness: Awake and Drowsy Patient Behavior: Appropriate Mood Description: Calm Affect Description: Calm and Constricted Ability to Follow Directions: Good Speech Pattern: Soft-Spoken and Poor Articulation Thought Process: Goal Oriented Thought Content: positive for [place] and positive for Goal Oriented Judgement: Fair Judgement and Insight: appears intack Diagnostics Vital Signs (24Hr): Vital Signs - 24 hr 10/09/20 06:00 10/09/20 20:00 Temperature 96.9 F Pulse Rate 75 67 Blood Pressure 140/63 H 151/75 H Body Mass Index 22.6 Labs Results: 09/28/20 18:29 Imaging Radiology Impressions: ITS Impressions Head CT 09/29/20 08:53 IMPRESSION: No acute intracranial pathology. Stable changes in the subcutaneous soft tissues in the occipital region of uncertain etiology but stable dating back to 2014. The appearance is suggestive of a soft tissue mass or fibrous change perhaps related to old trauma. Brain MRI 10/03/20 00:00 IMPRESSION: - No acute intracranial findings. No acute infarcts. Unremarkable noncontrast MRI of the brain. - Partially imaged degenerative changes within the upper cervical spine with potential mass effect on the cervical spinal cord at C3-C4 that can be correlated for clinical signs of cervical myelopathy. 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 Cervical Spine MRI 10/07/20 00:00 IMPRESSION: - Advanced cervical spondylosis, greatest at C3-C4 where mild anterior subluxation and advanced spondylitic changes result in severe central canal stenosis and significant compression of the cervical cord. There are intramedullary T2 signal changes within the cervical spinal cord at the C3-C4 level, suspected to most likely be secondary to compressive myelopathy. Neurosurgical consultation recommended. - Possible mild intramedullary T2 signal changes within the cervical spinal cord at C6-C7 which are nonspecific, possibly chronic myelomalacia. - Spondylitic changes result in severe left C3-C4, severe right and moderate left C4-C5, and severe left C6-C7 foraminal stenosis. - Favored Modic 1 marrow signal changes within the C3-C6 vertebral bodies. There is also marrow edema within multiple facets bilaterally, most likely degenerative or inflammatory. - Nonspecific 1.1 cm T2 signal hyperintense structure within the left neck on image 17 of series 6 that can be further assessed with a contrast-enhanced CT of the neck. Covering provider is been paged with these findings at 2:40 PM on 10/07/2020. Face CT 10/07/20 00:00 IMPRESSION: No acute intracranial findings. No acute facial fracture identified. Head CT 10/07/20 00:00 IMPRESSION: No acute intracranial findings. No acute facial fracture identified. Medications Medications Current Medications Generic Name Dose Route Start Last Admin Trade Name Freq PRN Reason Stop Dose Admin Acetaminophen 650 mg 09/29/20 15:03 10/09/20 11:10 Acetaminophen 325 Mg Tablet PO 650 mg Q6H PRN Administration Headache/Pain Mild Scale (1-3) Al Hydroxide/Mg Hydroxide 30 ml 09/29/20 15:03 Magnesium Hydrox/Alum Hydrox 30 Ml Oral.Susp PO Q6H PRN Heartburn/Nausea Amantadine HCl 100 mg 10/04/20 09:00 10/09/20 22:50 Amantadine Hcl 100 Mg Capsule PO 100 mg BID YORDY Administration Aripiprazole 5 mg 10/07/20 09:00 10/09/20 08:57 Aripiprazole 5 Mg Tablet PO 5 mg DAILY YORDY Administration Diphenhydramine HCl 25 mg 09/30/20 21:00 10/09/20 22:50 Diphenhydramine Hcl 25 Mg Tablet PO 25 mg BID YORDY Administration Hydroxyzine HCl 50 mg 09/28/20 20:45 10/01/20 16:15 Hydroxyzine Hcl 50 Mg Tablet PO 50 mg TID PRN Administration Anxiety Magnesium Hydroxide 30 ml 09/29/20 15:03 10/04/20 20:41 Milk Of Magnesia 30 Ml Oral.Susp PO 30 ml DAILY PRN Administration Constipation Nicotine 21 mg 09/30/20 10:50 10/08/20 08:42 Nicotine 21 Mg Patch.Td24 TRANSDERMA 21 mg DAILY YORDY Administration Non-Formulary Medication 12.5 each 10/05/20 09:00 Non-Formulary Medication PO DAILY YORDY Trazodone HCl 50 mg 09/29/20 15:03 10/09/20 22:55 Trazodone Hcl 50 Mg Tablet PO 50 mg BEDTIME PRN Administration Insomnia Allergies Allergies Allergy/AdvReac Type Severity Reaction Status Date / Time No Known Allergies Allergy Mild NA Verified 09/28/20 17:48 Assessment & Plan PT with psychotic disorder, in neck brace s/p fall No change from yesterday and Pt remains stable Continue with primary team tx plan Continue 1:1 sitter for fall risk
[2020-10-10 06:10] VITALS: BP 103/53; PULSE 76; RESP 18; TEMP 148.8; TEMP 300
--- NOTE | 2020-10-10 07:52 | P.PNPSI_ITS ---
Subjective Subjective Date of Service: 10/10/20 Reason For Visit: schizoprenia Subjective Notes: Conditional Voluntary Interim History: Has Central cord compression. Will see Dr Mims at [facility] after STR. Now in W/C per PT. TD continues. Tetrabenazine awaited. States his thinking is more logical less fuzzy . Comprehended my explanation of cord compression. Refer to STR Medication Compliance: Yes Side effects from medications: No Attending Groups: Yes Review of Systems Reports Normal hearing present Reports Normal hearing present and Reports tremor(s) Mental Status Exam Mental Status Exam Patient Appearance: Disheveled Patient Orientation: Person, Place, Time and Situation Patient Behavior: Appropriate Mood Description: Depressed Affect Description: Appropriate Ability to Follow Directions: Good Speech Pattern: Perseverating, Poor Articulation and Long Pauses Memory Description: Intact Hallucinations: None Delusions: Not Present Thought Process: Distracted Depressive Symptoms: Diff. Making Decisions Abnormal Motor Activity Signs and Symptoms: Chorea Diagnostics Vital Signs (24Hr): Vital Signs - 24 hr 10/09/20 20:00 10/10/20 06:10 Temperature 300 F H Pulse Rate 95 76 Respiratory Rate 18 Blood Pressure 89/51 L 103/53 L Body Mass Index 22.6 Labs Results: 09/28/20 18:29 Imaging Radiology Impressions: ITS Impressions Head CT 09/29/20 08:53 IMPRESSION: No acute intracranial pathology. Stable changes in the subcutaneous soft tissues in the occipital region of uncertain etiology but stable dating back to 2014. The appearance is suggestive of a soft tissue mass or fibrous change perhaps related to old trauma. Brain MRI 10/03/20 00:00 IMPRESSION: - No acute intracranial findings. No acute infarcts. Unremarkable noncontrast MRI of the brain. - Partially imaged degenerative changes within the upper cervical spine with potential mass effect on the cervical spinal cord at C3-C4 that can be correlated for clinical signs of cervical myelopathy. 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 Cervical Spine MRI 10/07/20 00:00 IMPRESSION: - Advanced cervical spondylosis, greatest at C3-C4 where mild anterior subluxation and advanced spondylitic changes result in severe central canal stenosis and significant compression of the cervical cord. There are intramedullary T2 signal changes within the cervical spinal cord at the C3-C4 level, suspected to most likely be secondary to compressive myelopathy. Neurosurgical consultation recommended. - Possible mild intramedullary T2 signal changes within the cervical spinal cord at C6-C7 which are nonspecific, possibly chronic myelomalacia. - Spondylitic changes result in severe left C3-C4, severe right and moderate left C4-C5, and severe left C6-C7 foraminal stenosis. - Favored Modic 1 marrow signal changes within the C3-C6 vertebral bodies. There is also marrow edema within multiple facets bilaterally, most likely degenerative or inflammatory. - Nonspecific 1.1 cm T2 signal hyperintense structure within the left neck on image 17 of series 6 that can be further assessed with a contrast-enhanced CT of the neck. Covering provider is been paged with these findings at 2:40 PM on 10/07/2020. Face CT 10/07/20 00:00 IMPRESSION: No acute intracranial findings. No acute facial fracture identified. Head CT 10/07/20 00:00 IMPRESSION: No acute intracranial findings. No acute facial fracture identified. Medications Medications Current Medications Generic Name Dose Route Start Last Admin Trade Name Freq PRN Reason Stop Dose Admin Acetaminophen 650 mg 09/29/20 15:03 10/09/20 11:10 Acetaminophen 325 Mg Tablet PO 650 mg Q6H PRN Administration Headache/Pain Mild Scale (1-3) Al Hydroxide/Mg Hydroxide 30 ml 09/29/20 15:03 Magnesium Hydrox/Alum Hydrox 30 Ml Oral.Susp PO Q6H PRN Heartburn/Nausea Amantadine HCl 100 mg 10/04/20 09:00 10/09/20 22:50 Amantadine Hcl 100 Mg Capsule PO 100 mg BID YORDY Administration Aripiprazole 5 mg 10/07/20 09:00 10/09/20 08:57 Aripiprazole 5 Mg Tablet PO 5 mg DAILY YORDY Administration Diphenhydramine HCl 25 mg 09/30/20 21:00 10/09/20 22:50 Diphenhydramine Hcl 25 Mg Tablet PO 25 mg BID YORDY Administration Hydroxyzine HCl 50 mg 09/28/20 20:45 10/01/20 16:15 Hydroxyzine Hcl 50 Mg Tablet PO 50 mg TID PRN Administration Anxiety Magnesium Hydroxide 30 ml 09/29/20 15:03 10/04/20 20:41 Milk Of Magnesia 30 Ml Oral.Susp PO 30 ml DAILY PRN Administration Constipation Nicotine 21 mg 09/30/20 10:50 10/08/20 08:42 Nicotine 21 Mg Patch.Td24 TRANSDERMA 21 mg DAILY YORDY Administration Non-Formulary Medication 12.5 each 10/05/20 09:00 Non-Formulary Medication PO DAILY YORDY Trazodone HCl 50 mg 09/29/20 15:03 10/09/20 22:55 Trazodone Hcl 50 Mg Tablet PO 50 mg BEDTIME PRN Administration Insomnia Allergies Allergies Allergy/AdvReac Type Severity Reaction Status Date / Time No Known Allergies Allergy Mild NA Verified 09/28/20 17:48 Assessment & Plan Greater than 50% of the session was spent on counseling and/or coordination of care PT/OT Refer to STR Neuro input noted. Neuro surgery F/U after [address] [facility]
[2020-10-10] MEDS: ARIPiprazole 5 MG TABLET PO (08:39)
[2020-10-10] MEDS: diphenhydrAMINE HCL 25 MG TABLET PO ×2 (08:39→21:26)
[2020-10-10] MEDS: Acetaminophen 325 MG TABLET 650 MG PO (09:02)
[2020-10-10] MEDS: Nicotine 21 MG PATCH.TD24 TRANSDERMA (09:05)
--- NOTE | 2020-10-10 10:22 | PC.NURSE ---
APPOINTMENT MADE WITH DR. WELCH AT [facility]UR[facility] FOR NOVEMBER 08, 2020 1:00PM
[2020-10-10] MEDS: Multivitamin TABLET 1 TAB PO (11:23)
[2020-10-10] MEDS: Folic Acid 1 MG TABLET PO (11:23)
[2020-10-10 16:35] VITALS: BP 118/75; PULSE 92; TEMP 36
[2020-10-10] MEDS: amantadine HCL 100 MG CAPSULE 50 MG PO (21:26)
--- NOTE | 2020-10-11 05:11 | HO.PSYCHPN ---
Subjective Subjective Reason For Visit: schizoprenia Interim History: Denies AH,logical and pleasant. Speech is logical. Understands cord compression.Refer to STR DC Amantadine due to orthostatics. Increase Abilify. Change to q5 ULBR Review of Systems Reports Normal hearing present Reports Normal hearing present and Reports tremor(s) Mental Status Exam Mental Status Exam Patient Appearance: Disheveled Patient Orientation: Person, Place, Time and Situation Level of Consciousness: Awake and Drowsy Patient Behavior: Appropriate Mood Description: Depressed Affect Description: Appropriate Patient Cognition Impaired: Yes Ability to Follow Directions: Good Speech Pattern: Perseverating, Poor Articulation and Long Pauses Memory Description: Intact Diagnostics Vital Signs (24Hr): Vital Signs - 24 hr 10/10/20 06:10 10/10/20 16:35 Temperature 300 F H 96.8 F Pulse Rate 76 92 Respiratory Rate 18 Blood Pressure 103/53 L 118/75 Body Mass Index 22.6 Labs Results: 09/28/20 18:29 Imaging Radiology Impressions: ITS Impressions Head CT 09/29/20 08:53 IMPRESSION: No acute intracranial pathology. Stable changes in the subcutaneous soft tissues in the occipital region of uncertain etiology but stable dating back to 2014. The appearance is suggestive of a soft tissue mass or fibrous change perhaps related to old trauma. Brain MRI 10/03/20 00:00 IMPRESSION: - No acute intracranial findings. No acute infarcts. Unremarkable noncontrast MRI of the brain. - Partially imaged degenerative changes within the upper cervical spine with potential mass effect on the cervical spinal cord at C3-C4 that can be correlated for clinical signs of cervical myelopathy. 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 Cervical Spine MRI 10/07/20 00:00 IMPRESSION: - Advanced cervical spondylosis, greatest at C3-C4 where mild anterior subluxation and advanced spondylitic changes result in severe central canal stenosis and significant compression of the cervical cord. There are intramedullary T2 signal changes within the cervical spinal cord at the C3-C4 level, suspected to most likely be secondary to compressive myelopathy. Neurosurgical consultation recommended. - Possible mild intramedullary T2 signal changes within the cervical spinal cord at C6-C7 which are nonspecific, possibly chronic myelomalacia. - Spondylitic changes result in severe left C3-C4, severe right and moderate left C4-C5, and severe left C6-C7 foraminal stenosis. - Favored Modic 1 marrow signal changes within the C3-C6 vertebral bodies. There is also marrow edema within multiple facets bilaterally, most likely degenerative or inflammatory. - Nonspecific 1.1 cm T2 signal hyperintense structure within the left neck on image 17 of series 6 that can be further assessed with a contrast-enhanced CT of the neck. Covering provider is been paged with these findings at 2:40 PM on 10/07/2020. Face CT 10/07/20 00:00 IMPRESSION: No acute intracranial findings. No acute facial fracture identified. Head CT 10/07/20 00:00 IMPRESSION: No acute intracranial findings. No acute facial fracture identified. Medications Medications Current Medications Generic Name Dose Route Start Last Admin Trade Name Freq PRN Reason Stop Dose Admin Acetaminophen 650 mg 09/29/20 15:03 10/10/20 09:02 Acetaminophen 325 Mg Tablet PO 650 mg Q6H PRN Administration Headache/Pain Mild Scale (1-3) Al Hydroxide/Mg Hydroxide 30 ml 09/29/20 15:03 Magnesium Hydrox/Alum Hydrox 30 Ml Oral.Susp PO Q6H PRN Heartburn/Nausea Amantadine HCl 50 mg 10/10/20 21:00 10/10/20 21:26 Amantadine Hcl 100 Mg Capsule PO 50 mg BEDTIME YORDY Administration Aripiprazole 5 mg 10/07/20 09:00 10/10/20 08:39 Aripiprazole 5 Mg Tablet PO 5 mg DAILY YORDY Administration Diphenhydramine HCl 25 mg 09/30/20 21:00 10/10/20 21:26 Diphenhydramine Hcl 25 Mg Tablet PO 25 mg BID YORDY Administration Folic Acid 1 mg 10/10/20 09:00 10/10/20 11:23 Folic Acid 1 Mg Tablet PO 1 mg DAILY YORDY Administration Hydroxyzine HCl 50 mg 09/28/20 20:45 10/01/20 16:15 Hydroxyzine Hcl 50 Mg Tablet PO 50 mg TID PRN Administration Anxiety Magnesium Hydroxide 30 ml 09/29/20 15:03 10/04/20 20:41 Milk Of Magnesia 30 Ml Oral.Susp PO 30 ml DAILY PRN Administration Constipation Multivitamins/Vitamin C 1 tab 10/10/20 09:00 10/10/20 11:23 Multivitamin Tablet PO 1 tab DAILY YORDY Administration Nicotine 21 mg 09/30/20 10:50 10/10/20 09:05 Nicotine 21 Mg Patch.Td24 TRANSDERMA 21 mg DAILY YORDY Administration Non-Formulary Medication 12.5 each 10/05/20 09:00 Non-Formulary Medication PO DAILY YORDY Trazodone HCl 50 mg 09/29/20 15:03 10/09/20 22:55 Trazodone Hcl 50 Mg Tablet PO 50 mg BEDTIME PRN Administration Insomnia Allergies Allergies Allergy/AdvReac Type Severity Reaction Status Date / Time No Known Allergies Allergy Mild NA Verified 09/28/20 17:48 Assessment & Plan Assessment & Plan (1) Cervical cord compression with myelopathy: Status: Acute Code(s): G95.20 - Unspecified cord compression Assessment and Plan: The patient has no significant complaints. He has full control of his bladder. He is oriented and currently has neck immobilizer in place. His strength in the upper extremities is 5-/5 photo tube assembler are slightly weak. Biceps deltoid and triceps strength is normal. Lower extremity strength is normal he has bilateral hip hyperreflexia at the knees but no clonus. Plantar responses are equivocal. The plan is to continue a neck immobilizer. He will start physical therapy for strengthening. He will have outpatient neurosurgical consultation for cervical cord decompression. He will probably need to be transferred to a rehab facility if he is discharged from the psych unit. Greater than 50% of the session was spent on counseling and/or coordination of care
[2020-10-11 06:35] VITALS: BP 112/76; PULSE 78; RESP 16; TEMP 36.3
[2020-10-11] MEDS: diphenhydrAMINE HCL 25 MG TABLET PO ×2 (08:29→22:08)
[2020-10-11] MEDS: ARIPiprazole 5 MG TABLET PO (08:30)
[2020-10-11] MEDS: Multivitamin TABLET 1 TAB PO (08:30)
[2020-10-11] MEDS: Folic Acid 1 MG TABLET PO (08:30)
[2020-10-11] MEDS: Nicotine 21 MG PATCH.TD24 TRANSDERMA (08:31)
[2020-10-11 10:02] VITALS: BP 93/58; PULSE 77
[2020-10-11 10:03] VITALS: BP 120/70; BP 128/75; PULSE 74
[2020-10-11 17:46] VITALS: BP 100/57; PULSE 84; TEMP 35.9
[2020-10-11 19:00] VITALS: BP 139/71; PULSE 88
[2020-10-11] MEDS: Acetaminophen 325 MG TABLET 650 MG PO (22:08)
[2020-10-12] MEDS: traZODone HCL 50 MG TABLET PO (02:25)
--- NOTE | 2020-10-12 05:41 | P.PNPSI_ITS ---
Subjective Subjective Date of Service: 10/13/20 Reason For Visit: schizoprenia Interim History: Denies AH,logical and pleasant. Speech is logical. Understands cord compression.Refer to STR DC Amantadine due to orthostatics. Increase Abilify. Change to q5 [address] with DC planning Review of Systems Reports Normal hearing present Reports Normal hearing present and Reports tremor(s) Mental Status Exam Mental Status Exam Patient Appearance: Disheveled Patient Orientation: Person, Place, Time and Situation Level of Consciousness: Awake and Drowsy Patient Behavior: Appropriate Mood Description: Depressed Affect Description: Appropriate Patient Cognition Impaired: Yes Ability to Follow Directions: Good Speech Pattern: Perseverating, Poor Articulation and Long Pauses Memory Description: Intact Diagnostics Vital Signs (24Hr): Vital Signs - 24 hr 10/11/20 06:35 10/11/20 10:02 10/11/20 10:03 Temperature 97.4 F Pulse Rate 78 77 74 Respiratory Rate 16 Blood Pressure 112/76 93/58 L 128/75 10/11/20 17:46 10/11/20 19:00 Temperature 96.7 F L Pulse Rate 84 88 Respiratory Rate Blood Pressure 100/57 L 139/71 Body Mass Index 22.6 Labs Results: 09/28/20 18:29 Imaging Radiology Impressions: ITS Impressions Head CT 09/29/20 08:53 IMPRESSION: No acute intracranial pathology. Stable changes in the subcutaneous soft tissues in the occipital region of uncertain etiology but stable dating back to 2014. The appearance is suggestive of a soft tissue mass or fibrous change perhaps related to old trauma. Brain MRI 10/03/20 00:00 IMPRESSION: - No acute intracranial findings. No acute infarcts. Unremarkable noncontrast MRI of the brain. - Partially imaged degenerative changes within the upper cervical spine with potential mass effect on the cervical spinal cord at C3-C4 that can be correlated for clinical signs of cervical myelopathy. 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 Cervical Spine MRI 10/07/20 00:00 IMPRESSION: - Advanced cervical spondylosis, greatest at C3-C4 where mild anterior subluxation and advanced spondylitic changes result in severe central canal stenosis and significant compression of the cervical cord. There are intramedullary T2 signal changes within the cervical spinal cord at the C3-C4 level, suspected to most likely be secondary to compressive myelopathy. Neurosurgical consultation recommended. - Possible mild intramedullary T2 signal changes within the cervical spinal cord at C6-C7 which are nonspecific, possibly chronic myelomalacia. - Spondylitic changes result in severe left C3-C4, severe right and moderate left C4-C5, and severe left C6-C7 foraminal stenosis. - Favored Modic 1 marrow signal changes within the C3-C6 vertebral bodies. There is also marrow edema within multiple facets bilaterally, most likely degenerative or inflammatory. - Nonspecific 1.1 cm T2 signal hyperintense structure within the left neck on image 17 of series 6 that can be further assessed with a contrast-enhanced CT of the neck. Covering provider is been paged with these findings at 2:40 PM on 10/07/2020. Face CT 10/07/20 00:00 IMPRESSION: No acute intracranial findings. No acute facial fracture identified. Head CT 10/07/20 00:00 IMPRESSION: No acute intracranial findings. No acute facial fracture identified. Medications Medications Current Medications Generic Name Dose Route Start Last Admin Trade Name Freq PRN Reason Stop Dose Admin Acetaminophen 650 mg 09/29/20 15:03 10/11/20 22:08 Acetaminophen 325 Mg Tablet PO 650 mg Q6H PRN Administration Headache/Pain Mild Scale (1-3) Al Hydroxide/Mg Hydroxide 30 ml 09/29/20 15:03 Magnesium Hydrox/Alum Hydrox 30 Ml Oral.Susp PO Q6H PRN Heartburn/Nausea Aripiprazole 10 mg 10/12/20 09:00 Aripiprazole 10 Mg Tablet PO DAILY YORDY Aripiprazole 300 mg 10/14/20 09:00 Aripiprazole 300 Mg Suser.Vial IM 10/14/20 09:01 ONCE ONE Diphenhydramine HCl 25 mg 09/30/20 21:00 10/11/20 22:08 Diphenhydramine Hcl 25 Mg Tablet PO 25 mg BID YORDY Administration Folic Acid 1 mg 10/10/20 09:00 10/11/20 08:30 Folic Acid 1 Mg Tablet PO 1 mg DAILY YORDY Administration Hydroxyzine HCl 50 mg 09/28/20 20:45 10/01/20 16:15 Hydroxyzine Hcl 50 Mg Tablet PO 50 mg TID PRN Administration Anxiety Magnesium Hydroxide 30 ml 09/29/20 15:03 10/04/20 20:41 Milk Of Magnesia 30 Ml Oral.Susp PO 30 ml DAILY PRN Administration Constipation Multivitamins/Vitamin C 1 tab 10/10/20 09:00 10/11/20 08:30 Multivitamin Tablet PO 1 tab DAILY YORDY Administration Nicotine 21 mg 09/30/20 10:50 10/11/20 08:31 Nicotine 21 Mg Patch.Td24 TRANSDERMA 21 mg DAILY YORDY Administration Non-Formulary Medication 12.5 each 10/05/20 09:00 10/11/20 11:06 Non-Formulary Medication PO 12.5 each DAILY YORDY Administration Trazodone HCl 50 mg 09/29/20 15:03 10/12/20 02:25 Trazodone Hcl 50 Mg Tablet PO 50 mg BEDTIME PRN Administration Insomnia Allergies Allergies Allergy/AdvReac Type Severity Reaction Status Date / Time No Known Allergies Allergy Mild NA Verified 09/28/20 17:48 Assessment & Plan Assessment & Plan (1) Cervical cord compression with myelopathy: Status: Acute Code(s): G95.20 - Unspecified cord compression Assessment and Plan: The patient has no significant complaints. He has full control of his bladder. He is oriented and currently has neck immobilizer in place. His strength in the upper extremities is 5-/5 hogshead salvage are slightly weak. Biceps deltoid and triceps strength is normal. Lower extremity strength is normal he has bilateral hip hyperreflexia at the knees but no clonus. Plantar responses are equivocal. The plan is to continue a neck immobilizer. He will start physical therapy for strengthening. He will have outpatient neurosurgical consultation for cervical cord decompression. He will probably need to be transferred to a rehab facility if he is discharged from the psych unit. Refer to STR (2) Schizoaffective disorder: Qualifiers: Schizoaffective disorder type: depressive Qualified Code(s): F25.1 - Schizoaffective disorder, depressive type Status: Acute Code(s): F25.9 - Schizoaffective disorder, unspecified Assessment and Plan: Ct Abilify. Add Maintena prior to DC (3) Tardive dyskinesia: Status: Acute Code(s): G24.01 - Drug induced subacute dyskinesia Assessment and Plan: Increase Tetrabenazine Greater than 50% of the session was spent on counseling and/or coordination of care
[2020-10-12 05:45] VITALS: BP 111/62; PULSE 74; RESP 16; TEMP 36.8; O2SAT 98
[2020-10-12] MEDS: Folic Acid 1 MG TABLET PO (08:17)
[2020-10-12] MEDS: ARIPiprazole 10 MG TABLET PO (08:17)
[2020-10-12] MEDS: Multivitamin TABLET 1 TAB PO (08:17)
[2020-10-12] MEDS: diphenhydrAMINE HCL 25 MG TABLET PO ×2 (08:17→19:57)
[2020-10-12] MEDS: Nicotine 21 MG PATCH.TD24 TRANSDERMA (08:17)
[2020-10-12 14:50] VITALS: BP 102/52; PULSE 80
[2020-10-12 14:52] VITALS: BP 95/52; PULSE 85
[2020-10-12 18:00] VITALS: BP 122/67; PULSE 80; TEMP 36.4
[2020-10-13] MEDS: Nicotine 21 MG PATCH.TD24 TRANSDERMA (09:07)
[2020-10-13] MEDS: ARIPiprazole 10 MG TABLET PO (09:08)
[2020-10-13] MEDS: diphenhydrAMINE HCL 25 MG TABLET PO ×2 (09:08→22:33)
[2020-10-13] MEDS: Folic Acid 1 MG TABLET PO (09:08)
[2020-10-13] MEDS: Multivitamin TABLET 1 TAB PO (09:08)
[2020-10-13 11:20] VITALS: BP 107/51; BP 129/63; BP 66/50; PULSE 108; PULSE 97; PULSE 99
[2020-10-13 14:32] VITALS: BMI 22.8
--- NOTE | 2020-10-13 14:42 | HO.PSYCHPN ---
Subjective Subjective Date of Service: 10/13/20 Reason For Visit: schizoprenia Subjective Notes: Conditional Voluntary Interim History: Juan J is in good humor. He reports that he feels well enough and he is looking forward to going to [facility] Medication Compliance: Yes Side effects from medications: No Attending Groups: No Review of Systems Acute medical concerns: No Medical Review of Systems: unchanged Review of Systems Reports Normal hearing present Reports Normal hearing present and Reports tremor(s) Mental Status Exam Mental Status Exam Patient Appearance: Disheveled Patient Orientation: Person, Place, Time and Situation Level of Consciousness: Awake and Drowsy Patient Behavior: Appropriate Mood Description: Depressed Affect Description: Appropriate Patient Cognition Impaired: Yes Ability to Follow Directions: Good Speech Pattern: Perseverating, Poor Articulation and Long Pauses Memory Description: Intact Hallucinations: None Delusions: Present Thought Process: Intact and Slowed Thinking Thought Content: negative for Suicidal Ideation and negative for Homicidal Ideation Judgement: Fair Diagnostics Vital Signs (24Hr): Vital Signs - 24 hr 10/12/20 14:50 10/12/20 14:52 10/12/20 18:00 Temperature 97.6 F Pulse Rate 80 85 80 Blood Pressure 102/52 L 95/52 L 122/67 10/13/20 11:20 Temperature Pulse Rate 108 H Blood Pressure 66/50 L Body Mass Index 22.8 Labs Results: 09/28/20 18:29 Imaging Radiology Impressions: ITS Impressions Head CT 09/29/20 08:53 IMPRESSION: No acute intracranial pathology. Stable changes in the subcutaneous soft tissues in the occipital region of uncertain etiology but stable dating back to 2014. The appearance is suggestive of a soft tissue mass or fibrous change perhaps related to old trauma. Brain MRI 10/03/20 00:00 IMPRESSION: - No acute intracranial findings. No acute infarcts. Unremarkable noncontrast MRI of the brain. - Partially imaged degenerative changes within the upper cervical spine with potential mass effect on the cervical spinal cord at C3-C4 that can be correlated for clinical signs of cervical myelopathy. 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 Cervical Spine MRI 10/07/20 00:00 IMPRESSION: - Advanced cervical spondylosis, greatest at C3-C4 where mild anterior subluxation and advanced spondylitic changes result in severe central canal stenosis and significant compression of the cervical cord. There are intramedullary T2 signal changes within the cervical spinal cord at the C3-C4 level, suspected to most likely be secondary to compressive myelopathy. Neurosurgical consultation recommended. - Possible mild intramedullary T2 signal changes within the cervical spinal cord at C6-C7 which are nonspecific, possibly chronic myelomalacia. - Spondylitic changes result in severe left C3-C4, severe right and moderate left C4-C5, and severe left C6-C7 foraminal stenosis. - Favored Modic 1 marrow signal changes within the C3-C6 vertebral bodies. There is also marrow edema within multiple facets bilaterally, most likely degenerative or inflammatory. - Nonspecific 1.1 cm T2 signal hyperintense structure within the left neck on image 17 of series 6 that can be further assessed with a contrast-enhanced CT of the neck. Covering provider is been paged with these findings at 2:40 PM on 10/07/2020. Face CT 10/07/20 00:00 IMPRESSION: No acute intracranial findings. No acute facial fracture identified. Head CT 10/07/20 00:00 IMPRESSION: No acute intracranial findings. No acute facial fracture identified. Medications Medications Current Medications Generic Name Dose Route Start Last Admin Trade Name Freq PRN Reason Stop Dose Admin Acetaminophen 650 mg 09/29/20 15:03 10/11/20 22:08 Acetaminophen 325 Mg Tablet PO 650 mg Q6H PRN Administration Headache/Pain Mild Scale (1-3) Al Hydroxide/Mg Hydroxide 30 ml 09/29/20 15:03 Magnesium Hydrox/Alum Hydrox 30 Ml Oral.Susp PO Q6H PRN Heartburn/Nausea Aripiprazole 10 mg 10/12/20 09:00 10/13/20 09:08 Aripiprazole 10 Mg Tablet PO 10 mg DAILY YORYD Administration Aripiprazole 300 mg 10/14/20 09:00 Aripiprazole 300 Mg Suser.Vial IM 10/14/20 09:01 ONCE ONE Diphenhydramine HCl 25 mg 09/30/20 21:00 10/13/20 09:08 Diphenhydramine Hcl 25 Mg Tablet PO 25 mg BID YORDY Administration Folic Acid 1 mg 10/10/20 09:00 10/13/20 09:08 Folic Acid 1 Mg Tablet PO 1 mg DAILY YORDY Administration Hydroxyzine HCl 50 mg 09/28/20 20:45 10/01/20 16:15 Hydroxyzine Hcl 50 Mg Tablet PO 50 mg TID PRN Administration Anxiety Magnesium Hydroxide 30 ml 09/29/20 15:03 11/17/20 20:41 Milk Of Magnesia 30 Ml Oral.Susp PO 30 ml DAILY PRN Administration Constipation Multivitamins/Vitamin C 1 tab 10/10/20 09:00 10/13/20 09:08 Multivitamin Tablet PO 1 tab DAILY YORDY Administration Nicotine 21 mg 09/30/20 10:50 10/13/20 09:07 Nicotine 21 Mg Patch.Td24 TRANSDERMA 21 mg DAILY YORDY Administration Non-Formulary Medication 12.5 each 10/13/20 09:00 10/13/20 14:19 Non-Formulary Medication PO Not Given BID YORDY Trazodone HCl 50 mg 09/29/20 15:03 10/12/20 02:25 Trazodone Hcl 50 Mg Tablet PO 50 mg BEDTIME PRN Administration Insomnia Allergies Allergies Allergy/AdvReac Type Severity Reaction Status Date / Time No Known Allergies Allergy Mild NA Verified 09/28/20 17:48 Assessment & Plan Greater than 50% of the session was spent on counseling and/or coordination of care
--- NOTE | 2020-10-13 15:32 | PC.NURSE ---
Pt's orthostatic bp noted to be significantly low upon standing (66/50), MD aware, pt given large pitcher of javi bernadette, and encouraged to increase fluid intake.
[2020-10-14 07:02] VITALS: BP 147/62; PULSE 77; TEMP 36.2
[2020-10-14] MEDS: diphenhydrAMINE HCL 25 MG TABLET PO ×2 (08:37→20:12)
[2020-10-14] MEDS: Multivitamin TABLET 1 TAB PO (08:38)
[2020-10-14] MEDS: ARIPiprazole 10 MG TABLET PO (08:38)
[2020-10-14] MEDS: Folic Acid 1 MG TABLET PO (08:38)
[2020-10-14] MEDS: Nicotine 21 MG PATCH.TD24 TRANSDERMA (08:55)
[2020-10-14 18:00] VITALS: BP 115/62; PULSE 68; TEMP 36.1
--- NOTE | 2020-10-14 19:06 | HO.PSYCHPN ---
Subjective Subjective Date of Service: 10/14/20 Reason For Visit: schizoprenia Subjective Notes: Conditional Voluntary Interim History: Juan J was in good humor. He has been accepted for SNF for 10/17/20 He remains orthostatic, but this has improved since yesterday with pushing fluids. Medication Compliance: Yes Side effects from medications: No Attending Groups: No Review of Systems Acute medical concerns: No Medical Review of Systems: unchanged Review of Systems Reports Normal hearing present Reports Normal hearing present and Reports tremor(s) Mental Status Exam Mental Status Exam Patient Appearance: Disheveled Patient Orientation: Person, Place, Time and Situation Level of Consciousness: Awake and Drowsy Patient Behavior: Appropriate Mood Description: Depressed Affect Description: Appropriate Patient Cognition Impaired: Yes Ability to Follow Directions: Good Speech Pattern: Perseverating, Poor Articulation and Long Pauses Memory Description: Intact Hallucinations: None Delusions: Present Thought Process: Intact and Slowed Thinking Thought Content: negative for Suicidal Ideation and negative for Homicidal Ideation Judgement: Fair Diagnostics Vital Signs (24Hr): Vital Signs - 24 hr 10/14/20 07:02 Temperature 97.2 F Pulse Rate 77 Blood Pressure 147/62 H Body Mass Index 22.8 Labs Results: 09/28/20 18:29 Imaging Radiology Impressions: ITS Impressions Head CT 09/29/20 08:53 IMPRESSION: No acute intracranial pathology. Stable changes in the subcutaneous soft tissues in the occipital region of uncertain etiology but stable dating back to 2014. The appearance is suggestive of a soft tissue mass or fibrous change perhaps related to old trauma. Brain MRI 10/03/20 00:00 IMPRESSION: - No acute intracranial findings. No acute infarcts. Unremarkable noncontrast MRI of the brain. - Partially imaged degenerative changes within the upper cervical spine with potential mass effect on the cervical spinal cord at C3-C4 that can be correlated for clinical signs of cervical myelopathy. 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 Cervical Spine MRI 10/07/20 00:00 IMPRESSION: - Advanced cervical spondylosis, greatest at C3-C4 where mild anterior subluxation and advanced spondylitic changes result in severe central canal stenosis and significant compression of the cervical cord. There are intramedullary T2 signal changes within the cervical spinal cord at the C3-C4 level, suspected to most likely be secondary to compressive myelopathy. Neurosurgical consultation recommended. - Possible mild intramedullary T2 signal changes within the cervical spinal cord at C6-C7 which are nonspecific, possibly chronic myelomalacia. - Spondylitic changes result in severe left C3-C4, severe right and moderate left C4-C5, and severe left C6-C7 foraminal stenosis. - Favored Modic 1 marrow signal changes within the C3-C6 vertebral bodies. There is also marrow edema within multiple facets bilaterally, most likely degenerative or inflammatory. - Nonspecific 1.1 cm T2 signal hyperintense structure within the left neck on image 17 of series 6 that can be further assessed with a contrast-enhanced CT of the neck. Covering provider is been paged with these findings at 2:40 PM on 10/07/2020. Face CT 10/07/20 00:00 IMPRESSION: No acute intracranial findings. No acute facial fracture identified. Head CT 10/07/20 00:00 IMPRESSION: No acute intracranial findings. No acute facial fracture identified. Medications Medications Current Medications Generic Name Dose Route Start Last Admin Trade Name Freq PRN Reason Stop Dose Admin Acetaminophen 650 mg 09/29/20 15:03 10/11/20 22:08 Acetaminophen 325 Mg Tablet PO 650 mg Q6H PRN Administration Headache/Pain Mild Scale (1-3) Al Hydroxide/Mg Hydroxide 30 ml 09/29/20 15:03 Magnesium Hydrox/Alum Hydrox 30 Ml Oral.Susp PO Q6H PRN Heartburn/Nausea Aripiprazole 10 mg 10/12/20 09:00 10/14/20 08:38 Aripiprazole 10 Mg Tablet PO 10 mg DAILY YORDY Administration Diphenhydramine HCl 25 mg 09/30/20 21:00 10/14/20 08:37 Diphenhydramine Hcl 25 Mg Tablet PO 25 mg BID YORDY Administration Folic Acid 1 mg 10/10/20 09:00 10/14/20 08:38 Folic Acid 1 Mg Tablet PO 1 mg DAILY YORDY Administration Hydroxyzine HCl 50 mg 09/28/20 20:45 10/01/20 16:15 Hydroxyzine Hcl 50 Mg Tablet PO 50 mg TID PRN Administration Anxiety Magnesium Hydroxide 30 ml 09/29/20 15:03 10/04/20 20:41 Milk Of Magnesia 30 Ml Oral.Susp PO 30 ml DAILY PRN Administration Constipation Multivitamins/Vitamin C 1 tab 10/10/20 09:00 10/14/20 08:38 Multivitamin Tablet PO 1 tab DAILY YORDY Administration Nicotine 21 mg 09/30/20 10:50 10/14/20 08:55 Nicotine 21 Mg Patch.Td24 TRANSDERMA 21 mg DAILY YORDY Administration Non-Formulary Medication 12.5 each 10/13/20 09:00 10/14/20 08:55 Non-Formulary Medication PO 12.5 each BID YORDY Administration Trazodone HCl 50 mg 09/29/20 15:03 10/12/20 02:25 Trazodone Hcl 50 Mg Tablet PO 50 mg BEDTIME PRN Administration Insomnia Allergies Allergies Allergy/AdvReac Type Severity Reaction Status Date / Time No Known Allergies Allergy Mild NA Verified 09/28/20 17:48 Assessment & Plan Assessment & Plan (1) Cervical cord compression with myelopathy: Status: Acute Code(s): G95.20 - Unspecified cord compression (2) Schizoaffective disorder: Qualifiers: Schizoaffective disorder type: depressive Qualified Code(s): F25.1 - Schizoaffective disorder, depressive type Status: Acute Code(s): F25.9 - Schizoaffective disorder, unspecified (3) Tardive dyskinesia: Status: Acute Code(s): G24.01 - Drug induced subacute dyskinesia Assessment and Plan: CT current treatment plan Greater than 50% of the session was spent on counseling and/or coordination of care Patient educated on: diagnosis and medication risk/benefits Informed Consent: further education needed Reason for contiued inpatient stay Substantial Risk for: inability to function and rapid decompensation
[2020-10-15 06:30] VITALS: BP 119/69; PULSE 68; RESP 16; TEMP 37.1
[2020-10-15] MEDS: ARIPiprazole 10 MG TABLET PO (08:58)
[2020-10-15] MEDS: diphenhydrAMINE HCL 25 MG TABLET PO ×2 (08:58→22:40)
[2020-10-15] MEDS: Multivitamin TABLET 1 TAB PO (08:58)
[2020-10-15] MEDS: Folic Acid 1 MG TABLET PO (08:58)
[2020-10-15] MEDS: Nicotine 21 MG PATCH.TD24 TRANSDERMA (09:51)
--- NOTE | 2020-10-15 13:46 | HO.PSYCHPN ---
Subjective Subjective Date of Service: 10/15/20 Reason For Visit: schizoprenia Subjective Notes: Conditional Voluntary Interim History: Juan J has been much the same. He is pleased to be going to the SNF on Saturday. He should receive the abilifkeshawn maintenna before he leaves. Medication Compliance: Yes Side effects from medications: Yes (Pronounced TD) Attending Groups: No Review of Systems Acute medical concerns: No Medical Review of Systems: unchanged Review of Systems Reports Normal hearing present Reports Normal hearing present and Reports tremor(s) Mental Status Exam Mental Status Exam Patient Appearance: Disheveled Patient Orientation: Person, Place, Time and Situation Level of Consciousness: Awake and Drowsy Patient Behavior: Appropriate Mood Description: Depressed Affect Description: Appropriate Patient Cognition Impaired: Yes Ability to Follow Directions: Good Speech Pattern: Perseverating, Poor Articulation and Long Pauses Memory Description: Intact Hallucinations: None Delusions: Present Thought Process: Intact and Slowed Thinking Thought Content: negative for Suicidal Ideation and negative for Homicidal Ideation Judgement: Fair Diagnostics Vital Signs (24Hr): Vital Signs - 24 hr 10/14/20 18:00 10/15/20 06:30 Temperature 97 F 98.7 F Pulse Rate 68 68 Respiratory Rate 16 Blood Pressure 115/62 119/69 Body Mass Index 22.8 Labs Results: 09/28/20 18:29 Imaging Radiology Impressions: ITS Impressions Head CT 09/29/20 08:53 IMPRESSION: No acute intracranial pathology. Stable changes in the subcutaneous soft tissues in the occipital region of uncertain etiology but stable dating back to 2014. The appearance is suggestive of a soft tissue mass or fibrous change perhaps related to old trauma. Brain MRI 10/03/20 00:00 IMPRESSION: - No acute intracranial findings. No acute infarcts. Unremarkable noncontrast MRI of the brain. - Partially imaged degenerative changes within the upper cervical spine with potential mass effect on the cervical spinal cord at C3-C4 that can be correlated for clinical signs of cervical myelopathy. 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 Cervical Spine MRI 10/07/20 00:00 IMPRESSION: - Advanced cervical spondylosis, greatest at C3-C4 where mild anterior subluxation and advanced spondylitic changes result in severe central canal stenosis and significant compression of the cervical cord. There are intramedullary T2 signal changes within the cervical spinal cord at the C3-C4 level, suspected to most likely be secondary to compressive myelopathy. Neurosurgical consultation recommended. - Possible mild intramedullary T2 signal changes within the cervical spinal cord at C6-C7 which are nonspecific, possibly chronic myelomalacia. - Spondylitic changes result in severe left C3-C4, severe right and moderate left C4-C5, and severe left C6-C7 foraminal stenosis. - Favored Modic 1 marrow signal changes within the C3-C6 vertebral bodies. There is also marrow edema within multiple facets bilaterally, most likely degenerative or inflammatory. - Nonspecific 1.1 cm T2 signal hyperintense structure within the left neck on image 17 of series 6 that can be further assessed with a contrast-enhanced CT of the neck. Covering provider is been paged with these findings at 2:40 PM on 10/07/2020. Face CT 10/07/20 00:00 IMPRESSION: No acute intracranial findings. No acute facial fracture identified. Head CT 10/07/20 00:00 IMPRESSION: No acute intracranial findings. No acute facial fracture identified. Medications Medications Current Medications Generic Name Dose Route Start Last Admin Trade Name Freq PRN Reason Stop Dose Admin Acetaminophen 650 mg 09/29/20 15:03 10/11/20 22:08 Acetaminophen 325 Mg Tablet PO 650 mg Q6H PRN Administration Headache/Pain Mild Scale (1-3) Al Hydroxide/Mg Hydroxide 30 ml 09/29/20 15:03 Magnesium Hydrox/Alum Hydrox 30 Ml Oral.Susp PO Q6H PRN Heartburn/Nausea Aripiprazole 10 mg 10/12/20 09:00 10/15/20 08:58 Aripiprazole 10 Mg Tablet PO 10 mg DAILY YORDY Administration Diphenhydramine HCl 25 mg 09/30/20 21:00 10/15/20 08:58 Diphenhydramine Hcl 25 Mg Tablet PO 25 mg BID YORDY Administration Folic Acid 1 mg 10/10/20 09:00 10/15/20 08:58 Folic Acid 1 Mg Tablet PO 1 mg DAILY YORDY Administration Hydroxyzine HCl 50 mg 09/28/20 20:45 10/01/20 16:15 Hydroxyzine Hcl 50 Mg Tablet PO 50 mg TID PRN Administration Anxiety Magnesium Hydroxide 30 ml 09/29/20 15:03 10/04/20 20:41 Milk Of Magnesia 30 Ml Oral.Susp PO 30 ml DAILY PRN Administration Constipation Multivitamins/Vitamin C 1 tab 10/10/20 09:00 10/15/20 08:58 Multivitamin Tablet PO 1 tab DAILY YORDY Administration Nicotine 21 mg 09/30/20 10:50 10/15/20 09:51 Nicotine 21 Mg Patch.Td24 TRANSDERMA 21 mg DAILY YORDY Administration Non-Formulary Medication 12.5 each 10/13/20 09:00 10/15/20 09:51 Non-Formulary Medication PO 12.5 each BID YORDY Administration Trazodone HCl 50 mg 09/29/20 15:03 10/12/20 02:25 Trazodone Hcl 50 Mg Tablet PO 50 mg BEDTIME PRN Administration Insomnia Allergies Allergies Allergy/AdvReac Type Severity Reaction Status Date / Time No Known Allergies Allergy Mild NA Verified 09/28/20 17:48 Assessment & Plan Assessment & Plan (1) Schizoaffective disorder: Qualifiers: Schizoaffective disorder type: depressive Qualified Code(s): F25.1 - Schizoaffective disorder, depressive type Status: Acute Code(s): F25.9 - Schizoaffective disorder, unspecified Assessment and Plan: CT current plan Farfan virus screen in preparation for DC Greater than 50% of the session was spent on counseling and/or coordination of care Patient educated on: diagnosis and medication risk/benefits Informed Consent: further education needed Reason for contiued inpatient stay Substantial Risk for: rapid decompensation
[2020-10-15 16:40] VITALS: BP 138/89; PULSE 69; TEMP 36.3
[2020-10-15] MEDS: Acetaminophen 325 MG TABLET 650 MG PO (22:39)
[2020-10-16 06:25] VITALS: BP 139/98; PULSE 73; RESP 16; TEMP 36.2; O2SAT 99
[2020-10-16] MEDS: ARIPiprazole 10 MG TABLET PO (09:13)
[2020-10-16] MEDS: diphenhydrAMINE HCL 25 MG TABLET PO ×2 (09:13→22:32)
[2020-10-16] MEDS: Nicotine 21 MG PATCH.TD24 TRANSDERMA (09:13)
[2020-10-16] MEDS: Folic Acid 1 MG TABLET PO (09:13)
[2020-10-16] MEDS: Multivitamin TABLET 1 TAB PO (09:13)
[2020-10-16 10:57] LABS: COVID-19 Test Negative (Negative)
--- NOTE | 2020-10-16 15:28 | P.PNPSI_ITS ---
Subjective Subjective Date of Service: 10/16/20 Reason For Visit: schizoprenia Subjective Notes: Conditional Voluntary Interim History: Juan J was unchanged. He is looking forward to going to [facility] tomorrow Medication Compliance: Yes Side effects from medications: No Attending Groups: Yes Review of Systems Acute medical concerns: No Medical Review of Systems: unchanged Review of Systems Reports Normal hearing present Reports Normal hearing present and Reports tremor(s) Mental Status Exam Mental Status Exam Patient Appearance: Disheveled Patient Orientation: Person, Place, Time and Situation Level of Consciousness: Awake and Drowsy Patient Behavior: Appropriate Mood Description: Depressed Affect Description: Appropriate Patient Cognition Impaired: Yes Ability to Follow Directions: Good Speech Pattern: Perseverating, Poor Articulation and Long Pauses Memory Description: Intact Hallucinations: None Delusions: Present Thought Process: Intact and Slowed Thinking Thought Content: negative for Suicidal Ideation and negative for Homicidal Ideation Judgement: Fair Diagnostics Vital Signs (24Hr): Vital Signs - 24 hr 10/15/20 16:40 10/16/20 06:25 Temperature 97.4 F 97.2 F Pulse Rate 69 73 Respiratory Rate 16 Blood Pressure 138/89 139/98 H Pulse Oximetry 99 Body Mass Index 22.8 Labs Results: 09/28/20 18:29 Labs: Laboratory Results - last 48 hr 10/16/20 10/16/20 10:10 10:10 Coronavirus (PCR) Cancelled COVID-19 (JAMMIE) Negative COVID-19 Clin Com See Note Influenza Type A (PCR) Cancelled Influenza Type B (PCR) Cancelled RSV RNA Qual (PCR) Cancelled Imaging Radiology Impressions: ITS Impressions Head CT 09/29/20 08:53 IMPRESSION: No acute intracranial pathology. Stable changes in the subcutaneous soft tissues in the occipital region of uncertain etiology but stable dating back to 2014. The appearance is suggestive of a soft tissue mass or fibrous change perhaps related to old trauma. Brain MRI 10/03/20 00:00 IMPRESSION: - No acute intracranial findings. No acute infarcts. Unremarkable noncontrast MRI of the brain. - Partially imaged degenerative changes within the upper cervical spine with potential mass effect on the cervical spinal cord at C3-C4 that can be correlated for clinical signs of cervical myelopathy. 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 Cervical Spine MRI 10/07/20 00:00 IMPRESSION: - Advanced cervical spondylosis, greatest at C3-C4 where mild anterior subluxation and advanced spondylitic changes result in severe central canal stenosis and significant compression of the cervical cord. There are intramedullary T2 signal changes within the cervical spinal cord at the C3-C4 level, suspected to most likely be secondary to compressive myelopathy. Neurosurgical consultation recommended. - Possible mild intramedullary T2 signal changes within the cervical spinal cord at C6-C7 which are nonspecific, possibly chronic myelomalacia. - Spondylitic changes result in severe left C3-C4, severe right and moderate left C4-C5, and severe left C6-C7 foraminal stenosis. - Favored Modic 1 marrow signal changes within the C3-C6 vertebral bodies. There is also marrow edema within multiple facets bilaterally, most likely degenerative or inflammatory. - Nonspecific 1.1 cm T2 signal hyperintense structure within the left neck on image 17 of series 6 that can be further assessed with a contrast-enhanced CT of the neck. Covering provider is been paged with these findings at 2:40 PM on 10/07/2020. Face CT 10/07/20 00:00 IMPRESSION: No acute intracranial findings. No acute facial fracture identified. Head CT 10/07/20 00:00 IMPRESSION: No acute intracranial findings. No acute facial fracture identified. Medications Medications Current Medications Generic Name Dose Route Start Last Admin Trade Name Freq PRN Reason Stop Dose Admin Acetaminophen 650 mg 09/29/20 15:03 10/15/20 22:39 Acetaminophen 325 Mg Tablet PO 650 mg Q6H PRN Administration Headache/Pain Mild Scale (1-3) Al Hydroxide/Mg Hydroxide 30 ml 09/29/20 15:03 Magnesium Hydrox/Alum Hydrox 30 Ml Oral.Susp PO Q6H PRN Heartburn/Nausea Aripiprazole 10 mg 10/12/20 09:00 10/16/20 09:13 Aripiprazole 10 Mg Tablet PO 10 mg DAILY YORDY Administration Diphenhydramine HCl 25 mg 09/30/20 21:00 10/16/20 09:13 Diphenhydramine Hcl 25 Mg Tablet PO 25 mg BID YORDY Administration Folic Acid 1 mg 10/10/20 09:00 10/16/20 09:13 Folic Acid 1 Mg Tablet PO 1 mg DAILY YORDY Administration Hydroxyzine HCl 50 mg 09/28/20 20:45 10/01/20 16:15 Hydroxyzine Hcl 50 Mg Tablet PO 50 mg TID PRN Administration Anxiety Magnesium Hydroxide 30 ml 09/29/20 15:03 10/04/20 20:41 Milk Of Magnesia 30 Ml Oral.Susp PO 30 ml DAILY PRN Administration Constipation Multivitamins/Vitamin C 1 tab 10/10/20 09:00 10/16/20 09:13 Multivitamin Tablet PO 1 tab DAILY YORDY Administration Nicotine 21 mg 09/30/20 10:50 10/16/20 09:13 Nicotine 21 Mg Patch.Td24 TRANSDERMA 21 mg DAILY YORDY Administration Non-Formulary Medication 12.5 each 10/13/20 09:00 10/16/20 09:13 Non-Formulary Medication PO 12.5 each BID YORDY Administration Trazodone HCl 50 mg 09/29/20 15:03 10/12/20 02:25 Trazodone Hcl 50 Mg Tablet PO 50 mg BEDTIME PRN Administration Insomnia Allergies Allergies Allergy/AdvReac Type Severity Reaction Status Date / Time No Known Allergies Allergy Mild NA Verified 09/28/20 17:48 Assessment & Plan Assessment & Plan (1) Schizoaffective disorder: Qualifiers: Schizoaffective disorder type: depressive Qualified Code(s): F25.1 - Schizoaffective disorder, depressive type Status: Acute Code(s): F25.9 - Schizoaffective disorder, unspecified Assessment and Plan: CT current treatment plan Greater than 50% of the session was spent on counseling and/or coordination of care Patient educated on: diagnosis and medication risk/benefits Informed Consent: understands Reason for contiued inpatient stay Substantial Risk for: rapid decompensation
[2020-10-16] MEDS: Magnesium Citrate 300 ML SOLUTION 150 ML PO (18:41)
--- NOTE | 2020-10-17 07:47 | HO.PSYCHPN ---
Subjective Subjective Date of Service: 10/17/20 Reason For Visit: schizoprenia Review of Systems Reports Normal hearing present Reports Normal hearing present and Reports tremor(s) Diagnostics Vital Signs (24Hr): Body Mass Index 22.8 Labs Results: 09/28/20 18:29 Labs: Laboratory Results - last 48 hr 10/16/20 10/16/20 10:10 10:10 Coronavirus (PCR) Cancelled COVID-19 (JAMMIE) Negative COVID-19 Clin Com See Note Influenza Type A (PCR) Cancelled Influenza Type B (PCR) Cancelled RSV RNA Qual (PCR) Cancelled Imaging Radiology Impressions: ITS Impressions Head CT 09/29/20 08:53 IMPRESSION: No acute intracranial pathology. Stable changes in the subcutaneous soft tissues in the occipital region of uncertain etiology but stable dating back to 2014. The appearance is suggestive of a soft tissue mass or fibrous change perhaps related to old trauma. Brain MRI 10/03/20 00:00 IMPRESSION: - No acute intracranial findings. No acute infarcts. Unremarkable noncontrast MRI of the brain. - Partially imaged degenerative changes within the upper cervical spine with potential mass effect on the cervical spinal cord at C3-C4 that can be correlated for clinical signs of cervical myelopathy. 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 Cervical Spine MRI 10/07/20 00:00 IMPRESSION: - Advanced cervical spondylosis, greatest at C3-C4 where mild anterior subluxation and advanced spondylitic changes result in severe central canal stenosis and significant compression of the cervical cord. There are intramedullary T2 signal changes within the cervical spinal cord at the C3-C4 level, suspected to most likely be secondary to compressive myelopathy. Neurosurgical consultation recommended. - Possible mild intramedullary T2 signal changes within the cervical spinal cord at C6-C7 which are nonspecific, possibly chronic myelomalacia. - Spondylitic changes result in severe left C3-C4, severe right and moderate left C4-C5, and severe left C6-C7 foraminal stenosis. - Favored Modic 1 marrow signal changes within the C3-C6 vertebral bodies. There is also marrow edema within multiple facets bilaterally, most likely degenerative or inflammatory. - Nonspecific 1.1 cm T2 signal hyperintense structure within the left neck on image 17 of series 6 that can be further assessed with a contrast-enhanced CT of the neck. Covering provider is been paged with these findings at 2:40 PM on 10/07/2020. Face CT 10/07/20 00:00 IMPRESSION: No acute intracranial findings. No acute facial fracture identified. Head CT 10/07/20 00:00 IMPRESSION: No acute intracranial findings. No acute facial fracture identified. Medications Medications Current Medications Generic Name Dose Route Start Last Admin Trade Name Ernieq PRN Reason Stop Dose Admin Acetaminophen 650 mg 09/29/20 15:03 10/15/20 22:39 Acetaminophen 325 Mg Tablet PO 650 mg Q6H PRN Administration Headache/Pain Mild Scale (1-3) Al Hydroxide/Mg Hydroxide 30 ml 09/29/20 15:03 Magnesium Hydrox/Alum Hydrox 30 Ml Oral.Susp PO Q6H PRN Heartburn/Nausea Aripiprazole 10 mg 10/12/20 09:00 10/16/20 09:13 Aripiprazole 10 Mg Tablet PO 10 mg DAILY YORDY Administration Diphenhydramine HCl 25 mg 09/30/20 21:00 10/16/20 22:32 Diphenhydramine Hcl 25 Mg Tablet PO 25 mg BID YORDY Administration Folic Acid 1 mg 10/10/20 09:00 10/16/20 09:13 Folic Acid 1 Mg Tablet PO 1 mg DAILY YORDY Administration Hydroxyzine HCl 50 mg 09/28/20 20:45 10/01/20 16:15 Hydroxyzine Hcl 50 Mg Tablet PO 50 mg TID PRN Administration Anxiety Magnesium Hydroxide 30 ml 09/29/20 15:03 10/04/20 20:41 Milk Of Magnesia 30 Ml Oral.Susp PO 30 ml DAILY PRN Administration Constipation Multivitamins/Vitamin C 1 tab 10/10/20 09:00 10/16/20 09:13 Multivitamin Tablet PO 1 tab DAILY YORDY Administration Nicotine 21 mg 09/30/20 10:50 10/16/20 09:13 Nicotine 21 Mg Patch.Td24 TRANSDERMA 21 mg DAILY YORDY Administration Non-Formulary Medication 12.5 each 10/13/20 09:00 10/16/20 22:32 Non-Formulary Medication PO 12.5 each BID YORDY Administration Trazodone HCl 50 mg 09/29/20 15:03 10/12/20 02:25 Trazodone Hcl 50 Mg Tablet PO 50 mg BEDTIME PRN Administration Insomnia Allergies Allergies Allergy/AdvReac Type Severity Reaction Status Date / Time No Known Allergies Allergy Mild NA Verified 09/28/20 17:48 Assessment & Plan Greater than 50% of the session was spent on counseling and/or coordination of care
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
[2020-10-17] MEDS: Acetaminophen 325 MG TABLET 650 MG PO (09:00)
[2020-10-17] MEDS: ARIPiprazole 10 MG TABLET PO (09:00)
[2020-10-17] MEDS: diphenhydrAMINE HCL 25 MG TABLET PO (09:00)
[2020-10-17] MEDS: Multivitamin TABLET 1 TAB PO (09:02)
[2020-10-17] MEDS: Folic Acid 1 MG TABLET PO (09:08)
[2020-10-17 10:10] VITALS: BP 93/55; PULSE 97
== END 2020-10-17 13:19 | DRG 885 ==
LOC: HO.ED 09-29 03:24 → HO.PM5 09-29 14:51
PROVIDERS: Clinical Nurse Specialist Psychiatric/Mental Health; Emergency Medicine; Nurse Practitioner Family; Psychiatry & Neurology Psychiatry; Admitting Provider Psychiatry & Neurology Psychiatry; Emergency Provider Emergency Medicine; PCP Internal Medicine; Visit Provider Psychiatry & Neurology Psychiatry
DX: F25.1 Schizoaffective disorder, depressive type (principal); R45.851 Suicidal ideations; M47.12 Other spondylosis with myelopathy, cervical region; G24.01 Drug induced subacute dyskinesia; M48.02 Spinal stenosis, cervical region; F17.210 Nicotine dependence, cigarettes, uncomplicated; Z71.6 Tobacco abuse counseling; Z20.828 Contact with and (suspected) exposure to other viral communicable diseases; Z79.899 Other long term (current) drug therapy
CPT/HCPCS: 36415; 70450; 70486; 70551; 72141; 80061; 80307; 80320; 82270; 82272; 82306; 82310; 82607; 82746; 83036; 84100; 84443; 85025; 86618; 86704; 86706; 86780; 86803; 87340; 87389; 87635; 93005; 97116; 97162; 97167; 97530; 99223; 99231; 99232; 99239; 99284; 99285; G0480; Q0163

== ENCOUNTER 2021-02-26 01:52 | Inpatient (IN) | payer MEDICARE, MEDICAID, SELFPAY ==
[2021-02-26] VITALS (8 sets, daily range): BP systolic 102–131; BP diastolic 54–80; PULSE 71–100; RESP 16–20; TEMP 36.2–37.1; O2SAT 97–99; BMI 25.9
--- NOTE | 2021-02-26 02:40 | PC.NURSE ---
PT TO HALLWAY BED IN NAD. PT CALM AND COOPERATIVE AT THIS TIME. PT SLEEPING, WAKES TO VOICE. RESPIRATIONS EASY, N/L. SKIN W/D. AWAITING FURTHER ORDERS.
--- NOTE | 2021-02-26 04:56 | ECG_ITS ---
Test Reason : AMS Blood Pressure : / mmHG Vent. Rate : 091 BPM Atrial Rate : 091 BPM P-R Int : 142 ms QRS Dur : 094 ms QT Int : 342 ms P-R-T Axes : 042 -19 043 degrees QTc Int : 420 ms Normal sinus rhythm Low voltage QRS Borderline ECG When compared with ECG of 29-SEP-2020 12:50, No significant change was found Referred By: Mariaelena Holloway Electronically Signed By:HIEN RAND
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
[2021-02-26 07:08] LABS: Glucose Urine UA NEG (NEG); Leukocyte Esterase Urine TRACE (NEG); Nitrite Urine NEG (NEG); UACC Culture Trigger YES; Urine Blood NEG (NEG); Urine Ketones NEG (NEG); Urine Protein NEG (NEG-TRACE)
[2021-02-26 07:11] LABS: Appearance Urine CLEAR; Color Urine STRAW
[2021-02-26 07:20] LABS: Amphetamine Screen Urine Not Detected (Not Detect); Barbiturates, Urine Not Detected (Not Detect); Benzodiazepines Screen Urine Not Detected (Not Detect); Cannabinoid Screen Urine Not Detected (Not Detect); Cocaine Screen Urine Not Detected (Not Detect); Opiate Screen Urine Not Detected (Not Detect); Phencyclidine Screen Urine Not Detected (Not Detect)
[2021-02-26 07:25] LABS: Bacteria Urine 1+ /LPF; Mucus Urine TRACE /LPF; RBC Urine 0 /HPF (0); Squamous Epithelial Cell Urine TRACE /LPF
[2021-02-26 07:27] LABS: MANUAL DIFF FLAG NO
[2021-02-26 07:29] LABS: Basophils Percent Auto 0.6 % (0-2); Eosinophils Absolute Auto 0.1 X10*3/uL (0.0-0.4); Eosinophils Percent Auto 1.1 % (0-4); Hematocrit 36.4 % (42-52); Hemoglobin 12.7 g/dl (14.0-18.0); Imm Gran Abs Auto 0.02 X10*3/uL (0.00-0.03); Imm Gran Pct Auto 0.3 % (0.0-0.4); Lymphocytes Absolute Auto 2.9 X10*3/uL (1.2-4.9); Lymphocytes Percent Auto 40.8 % (20-40); Mean Corpuscular HGB Conc 34.9 g/dl (31.0-36.0); Mean Corpuscular Hemoglobin 30.5 pg (27.0-33.0); Mean Corpuscular Volume 87.5 fL (80-98); Mean Platelet Volume 8.7 fL (9.4-12.4); Monocytes Absolute Auto 0.7 X10*3/uL (0.1-1.2); Monocytes Percent Auto 9.4 % (2-11); Neutrophils Absolute Auto 3.4 X10*3/uL (2.0-8.3); Neutrophils Percent Auto 47.8 % (45-73); Platelet Count 247 X10*3/uL (160-400); Red Blood Count 4.16 X10*6/uL (4.60-5.80); Red Cell Distribution Width 12.5 % (11.0-16.0); White Blood Count 7.1 X10*3/uL (4.8-10.8)
--- NOTE | 2021-02-26 07:43 | PC.NURSE ---
Patients sister Thalia cell phone number [phone]
--- NOTE | 2021-02-26 07:44 | PC.NURSE ---
Patient is awake and alert. Skin pale, warm, dry. resp even and non labored. speaking in full, clear sentences. Ate 90% of breakfast. Calm and cooperative with care.
[2021-02-26 07:51] LABS: Alanine Aminotransferase 12 U/L (0-40); Albumin Level 4.1 g/dL (3.5-5.0); Alkaline Phosphatase 78 U/L (39-117); Anion Gap 12 (12-20); Aspartate Amino Transferase 16 U/L (5-37); Bilirubin Total 0.4 mg/dL (0.0-1.0); Blood Urea Nitrogen 7 mg/dL (9-16); Calcium 8.9 mg/dL (8.4-10.2); Carbon Dioxide 25 mmol/L (22-29); Chloride 101 mmol/L (96-108); Estimated Glomerular Filt Rate > 60; Glucose Random 101 mg/dL (60-115); Potassium 4.2 mmol/L (3.3-5.1); Sodium 134 mmol/L (135-145); Total Protein 6.6 g/dL (6.5-8.0)
[2021-02-26 09:26] LABS: COVID-19 Test Negative (Negative)
--- NOTE | 2021-02-26 16:01 | PC.NURSE ---
1530: pt attempted to throw self on floor from bed in low locked position. Per patient I am trying to pass out . Pt the placed gently back in bed. Side rails raised lower locked position. sitter moved to immediate foot of bed.
--- NOTE | 2021-02-26 16:44 | PC.NURSE ---
UPDATE GIVE TO SISTER BIBI WITH PERMISSION FROM PT. PHONE CALL THEN TRANSFERRED TO PATIENT PHONE.
--- NOTE | 2021-02-26 16:53 | PC.NURSE ---
MED REC VERIFED WITH SISTER BIBI. PLAN TO MEDICATE WITH ORDERED MED AND TYLENOL.
[2021-02-26] MEDS: Multivitamin TABLET 1 TAB PO (17:06)
[2021-02-26] MEDS: Folic Acid 1 MG TABLET PO (17:06)
[2021-02-26] MEDS: Acetaminophen 325 MG TABLET 650 MG PO (17:06)
[2021-02-26] MEDS: ARIPiprazole 10 MG TABLET PO (17:22)
--- NOTE | 2021-02-26 17:35 | PC.NURSE ---
Per john hernandez: community specialist Prudence is going to call [facility] and this keno writer for more information prior to evaluation.
--- NOTE | 2021-02-26 19:27 | MHC.CARE ---
CARE team completed crisis evaluation with disposition for inpt psych placement.
[2021-02-27] VITALS: RESP 16
[2021-02-27] MEDS: Acetaminophen 325 MG TABLET 650 MG PO (02:25)
[2021-02-27 06:00] VITALS: RESP 16
--- NOTE | 2021-02-27 09:11 | PC.NURSE ---
Report recieved. PT ambulated to pod using walker. PT calm and cooperative. Denies complaints.
[2021-02-27] MEDS: Multivitamin TABLET 1 TAB PO (09:39)
[2021-02-27] MEDS: ARIPiprazole 10 MG TABLET PO (09:39)
[2021-02-27] MEDS: Folic Acid 1 MG TABLET PO (09:39)
--- NOTE | 2021-02-27 15:52 | PC.NURSE ---
Nurse to nurse completed with Alea from [facility].
[2021-02-27 15:55] VITALS: BP 130/78; PULSE 80; RESP 18; TEMP 36.3; O2SAT 98
[2021-02-27 16:13] VITALS: BP 130/78; PULSE 80; RESP 16; TEMP 36.3; O2SAT 98
--- NOTE | 2021-02-27 17:01 | MHC.CARE ---
Patient was transferred from [facility] to without issue. Patient signed CV and was transported in a wheelchair with security. Patient had a walker on his possession. Belongings sheet indicates that patient belongings are in [employer]. [facility] RN aware.
[2021-02-27 18:00] VITALS: BP 139/76; PULSE 101; RESP 18; TEMP 36.5; O2SAT 96
--- NOTE | 2021-02-27 19:14 | PC.ADMIT ---
PT. IS A 60 YEAR OLD NAURUAN SPEAKING MALE WHO PRESENTS TO M [facility] FROM THE [facility] ED AT APPROX. 16:50 ON A CV STATUS. PT. IS COVID NEG. U TOX IS NEGATIVE FOR ALL SUBSTANCES. PT. DENIED HE DRINKS ALCOHOL ON A REGULAR BASE. PT. IS KNOWN TO M [facility], HIS LAST ADMISSION WAS IN SEPTEMBER 2020. PT. HAS DX OF SCHIZOAFFECTIVE DISORDER. PT. STRUGGLES WITH A NEW MEDICAL PROBLEM, PT. BELIEVES THE CAUSE OF HIS PHYSICAL PROBLEM ARE HIS PSYCHIATRIC MEDICATIONS. PT. REFUSED ALL CARE, HE CANCELED A MEDICAL APPOINTMENT AND A SURGERY THAT HAD BEEN SCHEDULED. PT. HAS A LONG HX OF PARANOID DELUSIONS AND NONCOMPLIANCE TO HIS PRESCRIBED MEDICATIONS. DURING ADMISSION PROCESS PT. WAS COOPERATIVE, HE SIGNED LEGAL FORMS AND THE SAFETY TOOL. PT. WAS DIFFICULT TO UNDERSTAND, HE MUMBLED, HE REPORTED HIS SISTER STOLE ALL MY MONEY . PT. REPORTED AH THEY ARE NOT TELLING ME ANYTHING BAD . HIS AFFECT WAS BLUNTED, HE DENIED DEPRESSION AND ANXIETY, HE REQUESTED A WHEELCHAIR AND STATED THE WALKER HE USES TO AMBULATE IS NOT ENOUGH . MEDICATIONS ORDERS WERE RECEIVED BY HIS DOCTOR. PT. IS ON 15 MIN. SAFETY CHECKS, VS BID, HE ATE HIS DINNER. PT. REFUSED THE FLU VACCINE, HE IS A SMOKER, NICOTINE REPLACEMENT WAS ORDERED. PT. REPORTED HE FEELS SAFE, HE
[2021-02-28] MEDS: hydrOXYzine HCL 50 MG TABLET PO (02:33)
[2021-02-28] MEDS: traZODone HCL 50 MG TABLET PO ×2 (02:33→21:40)
[2021-02-28 06:35] VITALS: BP 136/60; PULSE 88; RESP 18; TEMP 36.4; O2SAT 99
[2021-02-28] MEDS: Folic Acid 1 MG TABLET PO (08:42)
[2021-02-28] MEDS: ARIPiprazole 10 MG TABLET PO ×2 (08:42→15:27)
[2021-02-28] MEDS: Multivitamin TABLET 1 TAB PO (08:42)
[2021-02-28 08:51] LABS: Estimated Average Glucose 103 mg/dL; Hemoglobin A1c % 5.2 %
[2021-02-28 09:00] LABS: Glucose Fasting 95 mg/dL (60-99)
[2021-02-28 09:31] LABS: Free T4 (Free Thyroxine) 1.07 ng/dL (0.71-1.85); Thyroid Stimulating Hormone 1.65 uIU/mL (0.32-4.0)
[2021-02-28 09:47] LABS: Cholesterol 154 mg/dL; HDL Cholesterol 49 mg/dL; LDL Cholesterol Calculated 96 mg/dl; Triglycerides 49 mg/dL
[2021-02-28 10:02] LABS: Folate 18.8 ng/mL (> or = 4.0); Vitamin B12 359 pg/mL (200-900)
[2021-02-28] MEDS: Nicotine 14 MG PATCH.TD24 TRANSDERMA (10:28)
[2021-02-28 18:38] LABS: Vitamin D 25-OH Total 19.9 ng/mL (>30)
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
[2021-03-01 06:00] VITALS: BP 149/90; PULSE 83; RESP 18; TEMP 36.2; O2SAT 100
[2021-03-01] MEDS: Nicotine 14 MG PATCH.TD24 TRANSDERMA (08:49)
[2021-03-01] MEDS: Folic Acid 1 MG TABLET PO (08:49)
[2021-03-01] MEDS: Multivitamin TABLET 1 TAB PO (08:49)
[2021-03-01] MEDS: ARIPiprazole 10 MG TABLET PO (08:49)
[2021-03-01] MEDS: Acetaminophen 325 MG TABLET 650 MG PO (17:43)
[2021-03-01 17:59] VITALS: BP 143/70; PULSE 77; TEMP 36.2
--- NOTE | 2021-03-01 18:15 | HO.PSYCHPN ---
Subjective Subjective Date of Service: 03/01/21 Reason For Visit: Schizoaffective Disorder Subjective Notes: Conditional Voluntary Interim History: Pt reports some improvement, however reports disordered sleep, appetite, affirms auditory perceptual alterations and may I have something for stiff muscles.? Discussed RADFORD. He is opposed to all injections-wants PO only. Discussed compliance-pt denies an issue. Wanting to return to Haldol or Risperdal. Will consider Olanzapine. Medication Compliance: Yes Side effects from medications: No Attending Groups: No Review of Systems Musculoskeletal: Reports stiffness (muscle) Reports behavioral changes Psychiatric: Reports abnormal sleep pattern, Reports behavioral changes, Reports auditory hallucinations, Reports paranoia and Reports hallucinations Mental Status Exam Mental Status Exam Patient Appearance: Disheveled Patient Orientation: Person, Place and Situation Level of Consciousness: Alert Patient Behavior: Talkative, Passive and Anxious Mood Description: Depressed and Anxious Affect Description: Flat Patient Cognition Impaired: No Ability to Follow Directions: Good Speech Pattern: Spontaneous Speech and Soft-Spoken Memory Description: Episodic Impaired Hallucinations: Auditory Delusions: Paranoid Ideation and Present Thought Process: Illogical, Distracted and Rumination Thought Content: positive for Obsessional Thoughts, positive for Perseveration, positive for Preoccupation, positive for Tangential and positive for Suicidal Ideation (denies SI plan, intent) Diagnostics Vital Signs (24Hr): Vital Signs - 24 hr 03/01/21 06:00 03/01/21 17:59 Temperature 97.1 F 97.1 F Pulse Rate 83 77 Respiratory Rate 18 Blood Pressure 149/90 H 143/70 H Pulse Oximetry 100 Body Mass Index 25.9 Labs Results: 02/26/21 06:52 02/26/21 06:52 Labs: Laboratory Results - last 48 hr 02/28/21 02/28/21 02/28/21 08:20 08:20 08:20 Fasting Glucose Estimat Average Glucose 103 Hemoglobin A1c % 5.2 Magnesium 2.0 Triglycerides 49 Cholesterol 154 LDL Cholesterol, Calc 96 HDL Cholesterol 49 Vitamin B12 359 25-OH Vitamin D Total Folate 18.8 TSH 1.65 Free T4 1.07 02/28/21 08:20 Fasting Glucose 95 Estimat Average Glucose Hemoglobin A1c % Magnesium Triglycerides Cholesterol LDL Cholesterol, Calc HDL Cholesterol Vitamin B12 25-OH Vitamin D Total 19.9 Folate TSH Free T4 Medications Medications Current Medications Generic Name Dose Route Start Last Admin Trade Name Freq PRN Reason Stop Dose Admin Acetaminophen 650 mg 02/27/21 16:44 03/01/21 17:43 Acetaminophen 325 Mg Tablet PO 650 mg Q6H PRN Administration Headache/Pain Mild Scale (1-3) Al Hydroxide/Mg Hydroxide 30 ml 02/27/21 16:44 Magnesium Hydrox/Alum Hydrox 30 Ml Oral.Susp PO Q6H PRN Heartburn/Nausea Benztropine Mesylate 1 mg 03/01/21 21:00 Benztropine Mesylate 1 Mg Tablet PO BID YORDY Folic Acid 1 mg 02/26/21 17:00 03/01/21 08:49 Folic Acid 1 Mg Tablet PO 1 mg DAILY YORDY Administration Hydroxyzine HCl 50 mg 02/26/21 16:50 02/28/21 02:33 Hydroxyzine Hcl 50 Mg Tablet PO 50 mg TID PRN Administration Anxiety Hydroxyzine HCl 25 mg 02/27/21 16:44 Hydroxyzine Hcl 25 Mg Tablet PO BEDTIME PRN Anxiety Lorazepam 2 mg 02/27/21 09:38 Lorazepam 1 Mg Tablet PO Q6H PRN anxiety Magnesium Hydroxide 30 ml 02/27/21 16:44 Milk Of Magnesia 30 Ml Oral.Susp PO DAILY PRN Constipation Multivitamins/Vitamin C 1 tab 02/26/21 17:00 03/01/21 08:49 Multivitamin Tablet PO 1 tab DAILY YORDY Administration Nicotine 14 mg 02/28/21 09:30 03/01/21 08:49 Nicotine 14 Mg Patch.Td24 TRANSDERMA 14 mg DAILY YORDY Administration Nicotine Polacrilex 2 mg 02/28/21 09:18 Nicotine Polacrilex 2 Mg Gum BUCCAL Q2H PRN Nicotine Cravings Olanzapine 10 mg 03/01/21 21:00 Olanzapine 10 Mg Tablet PO BEDTIME YORDY Trazodone HCl 50 mg 02/27/21 16:44 02/28/21 21:40 Trazodone Hcl 50 Mg Tablet PO 50 mg BEDTIME PRN Administration Insomnia Allergies Allergies Allergy/AdvReac Type Severity Reaction Status Date / Time No Known Allergies Allergy Mild NA Verified 09/28/20 17:48 Assessment & Plan Assessment & Plan (1) Schizoaffective disorder: Status: Acute Code(s): F25.9 - Schizoaffective disorder, unspecified Assessment and Plan: Medication noncompliance. [place] Guardianship may be needed. Olanzapine 10 mg hs Message left for Robert Perez to assess his preferences for pt regarding atypicals. Greater than 50% of the session was spent on counseling and/or coordination of care Reason for contiued inpatient stay Substantial Risk for: inability to function, rapid decompensation and med/psych decompensation
[2021-03-01] MEDS: Benztropine Mesylate 1 MG TABLET PO (21:12)
[2021-03-01] MEDS: OLANZapine 10 MG TABLET PO (21:13)
[2021-03-01] MEDS: traZODone HCL 50 MG TABLET PO (21:21)
[2021-03-02 06:00] VITALS: BP 151/69; PULSE 70; RESP 18; O2SAT 100
[2021-03-02 07:00] VITALS: BMI 30.7
[2021-03-02] MEDS: Multivitamin TABLET 1 TAB PO (08:54)
[2021-03-02] MEDS: Folic Acid 1 MG TABLET PO (08:54)
[2021-03-02] MEDS: Benztropine Mesylate 1 MG TABLET PO ×2 (08:54→20:31)
[2021-03-02] MEDS: Nicotine 14 MG PATCH.TD24 TRANSDERMA (08:54)
--- NOTE | 2021-03-02 12:52 | P.PNPSI_ITS ---
Subjective Subjective Date of Service: 03/02/21 Reason For Visit: Schizoaffective Disorder Subjective Notes: Conditional Voluntary Interim History: Pt reports he is OK with muscle and joint stiffness improving. Reports he is able to sleep, appetite is improving. Tolerating medication without SE currently. Appears to be improving. Continues to report no interest in RADFORD-states he will take PO meds. Medication Compliance: Yes Side effects from medications: No (denies) Attending Groups: No Review of Systems Musculoskeletal: Reports stiffness Psychiatric: Reports depression Mental Status Exam Mental Status Exam Patient Appearance: Disheveled Patient Orientation: Person and Place Level of Consciousness: Alert Patient Behavior: Passive Mood Description: Suspicious, Withdrawn, Depressed and Sad Affect Description: Flat Patient Cognition Impaired: Yes Ability to Follow Directions: Good Speech Pattern: Monotone, Spontaneous Speech, Soft-Spoken and Mumbled Memory Description: Remote Impaired and Episodic Impaired Hallucinations: Auditory Delusions: Present Thought Process: Rumination Thought Content: positive for Circumstantial, positive for Perseveration, positive for Loose Associations and positive for Tangential Depressive Symptoms: Hopelessness, Unhappiness, Increased Fatigue, Loss of Energy and Difficulty Concentrating Judgement: Fair Diagnostics Vital Signs (24Hr): Vital Signs - 24 hr 03/01/21 17:59 03/02/21 06:00 Temperature 97.1 F Pulse Rate 77 70 Respiratory Rate 18 Blood Pressure 143/70 H 151/69 H Pulse Oximetry 100 Body Mass Index 30.7 Labs Results: 02/26/21 06:52 02/26/21 06:52 Labs: Laboratory Results - last 48 hr 02/28/21 08:20 25-OH Vitamin D Total 19.9 Medications Medications Current Medications Generic Name Dose Route Start Last Admin Trade Name Ernieq PRN Reason Stop Dose Admin Acetaminophen 650 mg 02/27/21 16:44 03/01/21 17:43 Acetaminophen 325 Mg Tablet PO 650 mg Q6H PRN Administration Headache/Pain Mild Scale (1-3) Al Hydroxide/Mg Hydroxide 30 ml 02/27/21 16:44 Magnesium Hydrox/Alum Hydrox 30 Ml Oral.Susp PO Q6H PRN Heartburn/Nausea Benztropine Mesylate 1 mg 03/01/21 21:00 03/02/21 08:54 Benztropine Mesylate 1 Mg Tablet PO 1 mg BID YORDY Administration Folic Acid 1 mg 02/26/21 17:00 03/02/21 08:54 Folic Acid 1 Mg Tablet PO 1 mg DAILY YORDY Administration Hydroxyzine HCl 50 mg 02/26/21 16:50 02/28/21 02:33 Hydroxyzine Hcl 50 Mg Tablet PO 50 mg TID PRN Administration Anxiety Hydroxyzine HCl 25 mg 02/27/21 16:44 Hydroxyzine Hcl 25 Mg Tablet PO BEDTIME PRN Anxiety Lorazepam 2 mg 02/27/21 09:38 Lorazepam 1 Mg Tablet PO Q6H PRN anxiety Magnesium Hydroxide 30 ml 02/27/21 16:44 Milk Of Magnesia 30 Ml Oral.Susp PO DAILY PRN Constipation Multivitamins/Vitamin C 1 tab 02/26/21 17:00 03/02/21 08:54 Multivitamin Tablet PO 1 tab DAILY YORDY Administration Nicotine 14 mg 02/28/21 09:30 03/02/21 08:54 Nicotine 14 Mg Patch.Td24 TRANSDERMA 14 mg DAILY YORDY Administration Nicotine Polacrilex 2 mg 02/28/21 09:18 Nicotine Polacrilex 2 Mg Gum BUCCAL Q2H PRN Nicotine Cravings Olanzapine 10 mg 03/01/21 21:00 03/01/21 21:13 Olanzapine 10 Mg Tablet PO 10 mg BEDTIME YORDY Administration Trazodone HCl 50 mg 02/27/21 16:44 03/01/21 21:21 Trazodone Hcl 50 Mg Tablet PO 50 mg BEDTIME PRN Administration Insomnia Allergies Allergies Allergy/AdvReac Type Severity Reaction Status Date / Time No Known Allergies Allergy Mild NA Verified 09/28/20 17:48 Assessment & Plan Assessment & Plan (1) Schizoaffective disorder: Status: Acute Code(s): F25.9 - Schizoaffective disorder, unspecified Assessment and Plan: Pt is calm. Declines to return to [facility]. Improved ambulation with use of the walker. Trial of Olanzapine continues. Compliance is the question. Greater than 50% of the session was spent on counseling and/or coordination of care Patient educated on: medication risk/benefits and therapeutic strategies Informed Consent: further education needed Reason for contiued inpatient stay Substantial Risk for: harm to self, harm to others, inability to function, rapid decompensation and med/psych decompensation
[2021-03-02] MEDS: LORazepam 1 MG TABLET 2 MG PO (17:10)
[2021-03-02 18:00] VITALS: BP 126/65; PULSE 96; O2SAT 100
[2021-03-02] MEDS: OLANZapine 10 MG TABLET PO (20:31)
[2021-03-03 06:00] VITALS: BP 120/56; PULSE 97; TEMP 36.8
[2021-03-03] MEDS: Nicotine 14 MG PATCH.TD24 TRANSDERMA (08:35)
[2021-03-03] MEDS: Benztropine Mesylate 1 MG TABLET PO ×2 (08:36→20:07)
[2021-03-03] MEDS: Multivitamin TABLET 1 TAB PO (08:36)
[2021-03-03] MEDS: Folic Acid 1 MG TABLET PO (08:36)
--- NOTE | 2021-03-03 17:36 | HO.PSYCHPN ---
Subjective Subjective Date of Service: 03/03/21 Reason For Visit: Schizoaffective Disorder Subjective Notes: Conditional Voluntary Interim History: Reports auditory perceptual alterations. Delusions present as well. Denies depressive sx, yet tells team 05/27. 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 Medication Compliance: Yes Side effects from medications: No Attending Groups: No Review of Systems Reports other (hx of spinal cord compression.) Psychiatric: Reports anxiety, Reports depression, Reports difficulty concentrating, Reports auditory hallucinations, Reports paranoia and Reports hallucinations Mental Status Exam Mental Status Exam Patient Appearance: Disheveled Patient Orientation: Person and Place Level of Consciousness: Alert Patient Behavior: Talkative, Passive and Isolative Mood Description: Depressed Affect Description: Flat Patient Cognition Impaired: Yes Ability to Follow Directions: Fair Speech Pattern: Spontaneous Speech and Soft-Spoken Memory Description: Remote Impaired and Episodic Impaired Hallucinations: Auditory Delusions: Paranoid Ideation and Present Thought Process: Illogical, Distracted and Slowed Thinking Thought Content: positive for [place] and positive for Perseveration Depressive Symptoms: Hopelessness and Unhappiness Judgement: Fair Diagnostics Vital Signs (24Hr): Vital Signs - 24 hr 03/02/21 18:00 03/03/21 06:00 Temperature 98.3 F Pulse Rate 96 97 Blood Pressure 126/65 120/56 L Pulse Oximetry 100 Body Mass Index 30.7 Labs Results: 02/26/21 06:52 02/26/21 06:52 Medications Medications Current Medications Generic Name Dose Route Start Last Admin Trade Name Freq PRN Reason Stop Dose Admin Acetaminophen 650 mg 02/27/21 16:44 03/01/21 17:43 Acetaminophen 325 Mg Tablet PO 650 mg Q6H PRN Administration Headache/Pain Mild Scale (1-3) Al Hydroxide/Mg Hydroxide 30 ml 02/27/21 16:44 Magnesium Hydrox/Alum Hydrox 30 Ml Oral.Susp PO Q6H PRN Heartburn/Nausea Benztropine Mesylate 1 mg 03/01/21 21:00 03/03/21 08:36 Benztropine Mesylate 1 Mg Tablet PO 1 mg BID YORDY Administration Folic Acid 1 mg 02/26/21 17:00 03/03/21 08:36 Folic Acid 1 Mg Tablet PO 1 mg DAILY YORDY Administration Hydroxyzine HCl 50 mg 02/26/21 16:50 02/28/21 02:33 Hydroxyzine Hcl 50 Mg Tablet PO 50 mg TID PRN Administration Anxiety Hydroxyzine HCl 25 mg 02/27/21 16:44 Hydroxyzine Hcl 25 Mg Tablet PO BEDTIME PRN Anxiety Lorazepam 2 mg 02/27/21 09:38 03/02/21 17:10 Lorazepam 1 Mg Tablet PO 2 mg Q6H PRN Administration anxiety Magnesium Hydroxide 30 ml 02/27/21 16:44 Milk Of Magnesia 30 Ml Oral.Susp PO DAILY PRN Constipation Multivitamins/Vitamin C 1 tab 02/26/21 17:00 03/03/21 08:36 Multivitamin Tablet PO 1 tab DAILY YORDY Administration Nicotine 14 mg 02/28/21 09:30 03/03/21 08:35 Nicotine 14 Mg Patch.Td24 TRANSDERMA 14 mg DAILY YORDY Administration Nicotine Polacrilex 2 mg 02/28/21 09:18 Nicotine Polacrilex 2 Mg Gum BUCCAL Q2H PRN Nicotine Cravings Olanzapine 10 mg 03/01/21 21:00 03/02/21 20:31 Olanzapine 10 Mg Tablet PO 10 mg BEDTIME YORDY Administration Trazodone HCl 50 mg 02/27/21 16:44 03/01/21 21:21 Trazodone Hcl 50 Mg Tablet PO 50 mg BEDTIME PRN Administration Insomnia Allergies Allergies Allergy/AdvReac Type Severity Reaction Status Date / Time No Known Allergies Allergy Mild NA Verified 09/28/20 17:48 Assessment & Plan Assessment & Plan (1) Schizoaffective disorder: Status: Acute Code(s): F25.9 - Schizoaffective disorder, unspecified Assessment and Plan: Perceptual alterations and thought distortion present. States he is ready for titration of medications. Increase Olanzapine to 20 mg HS Greater than 50% of the session was spent on counseling and/or coordination of care Patient educated on: medication risk/benefits and therapeutic strategies Informed Consent: understands and further education needed Reason for contiued inpatient stay Substantial Risk for: inability to function, rapid decompensation and med/psych decompensation
[2021-03-03 18:00] VITALS: BP 116/70; PULSE 97
[2021-03-03] MEDS: OLANZapine 10 MG TABLET 20 MG PO (20:06)
[2021-03-04 06:00] VITALS: BP 111/62; PULSE 65; RESP 18
[2021-03-04] MEDS: Multivitamin TABLET 1 TAB PO (10:34)
[2021-03-04] MEDS: Folic Acid 1 MG TABLET PO (10:34)
[2021-03-04] MEDS: Benztropine Mesylate 1 MG TABLET PO ×2 (10:34→21:17)
--- NOTE | 2021-03-04 16:56 | PM.IMCN ---
History of Present Illness Data of Consult Service Date: 03/04/21 Requesting physician: Peggy Ellis Primary Care Provider: Unknown Physician HPI Reason for consult: Elbow swelling 60 year man with history of depression and schizophrenia admitted to for psychiatric care. He reported some swelling to his left elbow that started getting worse a a few weeks ago. He mentioned that he has had this swelling in the past and in fact has been drained before. He denied fever, chills, nausea, vomiting, diarrhea, drainage from elbow or pain. He has no noted fever but noted swelling the elbow. Review of Systems Review of Systems: Denies any recent fever chills or decrease in appetite respiratory denies any shortness of breath coverage production cardiovascular is adjustment of any PND or edema gastrointestinal denies any dysphagia abdominal pain nausea vomiting or diarrhea genitourinary denies any dysuria frequency or hematuria musculoskeletal left elbow swelling, no pain neuropsych denies any weakness or seizures all other systems reviewed are negative [facility] Medical History (Updated 03/04/21 @ 17:07 by Phuong Castillo NP) Bursitis Degenerative disc disease, cervical Schizoaffective disorder Social History Household Members: Family Housing: Apartment Do you presently have visiting nurse or other home services: Yes Unable to assess alcohol history related to: Unknown Alcohol intake: never Smoking Status: Current every day smoker Tobacco Type: Cigarette Packs Per Day: 0.5 Cigarettes Per Day: 10.0 Years Smoked: 40 Smoked in Last 30 Days: Yes Patient Interested in Nicotine Replacement: Yes Patient Given Instructions on How to Stop Smoking: No (not interested) Second Hand Smoke Exposure: No Use of substances other than those prescribed or required for medical reasons: No Substance Use Type: Marijuana Last Used Substance: Unknown Currently Displaying Signs/Symptoms of Drug Intoxication Withdrawal: No Any prior treatment program specific to substance use: Yes Have you been hit, kicked, punched, or otherwise hurt by someone within the past year? If so, by whom?: No Do you feel safe in your current relationship?: No Current Relationship Is there a partner from a previous relationship who is making you feel unsafe now?: No Are you made to feel afraid or neglected: No Spiritual Healthcare Practices: meditation Sabianist Healthcare Practices: prayers Cultural Healthcare Practices: n/a Advance Directives: No Advance Directives on File: No Do you have thoughts of harming others: None Do you have a plan to hurt others: No Plan Recently lost weight without trying: No service: No Sexual orientation: Straight/Heterosexual Meds Allergies Allergy/AdvReac Type Severity Reaction Status Date / Time No Known Allergies Allergy Mild NA Verified 09/28/20 17:48 Active Medications: Current Medications Generic Name Dose Route Start Last Admin Trade Name Freq PRN Reason Stop Dose Admin Acetaminophen 650 mg 02/27/21 16:44 03/01/21 17:43 Acetaminophen 325 Mg Tablet PO 650 mg Q6H PRN Administration Headache/Pain Mild Scale (1-3) Al Hydroxide/Mg Hydroxide 30 ml 02/27/21 16:44 Magnesium Hydrox/Alum Hydrox 30 Ml Oral.Susp PO Q6H PRN Heartburn/Nausea Benztropine Mesylate 1 mg 03/04/21 21:00 Benztropine Mesylate 1 Mg Tablet PO TID YORDY Folic Acid 1 mg 02/26/21 17:00 03/04/21 10:34 Folic Acid 1 Mg Tablet PO 1 mg DAILY YORDY Administration Hydroxyzine HCl 50 mg 02/26/21 16:50 02/28/21 02:33 Hydroxyzine Hcl 50 Mg Tablet PO 50 mg TID PRN Administration Anxiety Hydroxyzine HCl 25 mg 02/27/21 16:44 Hydroxyzine Hcl 25 Mg Tablet PO BEDTIME PRN Anxiety Magnesium Hydroxide 30 ml 02/27/21 16:44 Milk Of Magnesia 30 Ml Oral.Susp PO DAILY PRN Constipation Multivitamins/Vitamin C 1 tab 02/26/21 17:00 03/04/21 10:34 Multivitamin Tablet PO 1 tab DAILY YORDY Administration Nicotine 14 mg 02/28/21 09:30 03/04/21 10:33 Nicotine 14 Mg Patch.Td24 TRANSDERMA Not Given DAILY YORDY Nicotine Polacrilex 2 mg 02/28/21 09:18 Nicotine Polacrilex 2 Mg Gum BUCCAL Q2H PRN Nicotine Cravings Olanzapine 20 mg 03/03/21 21:00 03/03/21 20:06 Olanzapine 10 Mg Tablet PO 20 mg BEDTIME YORDY Administration Trazodone HCl 50 mg 02/27/21 16:44 03/01/21 21:21 Trazodone Hcl 50 Mg Tablet PO 50 mg BEDTIME PRN Administration Insomnia Physical Exam Vital Signs and Narrative: Vital Signs: Last Vital Signs Temp 98.3 F 03/03/21 06:00 Pulse 65 03/04/21 06:00 Resp 18 03/04/21 06:00 BP 111/62 03/04/21 06:00 Pulse Ox 100 03/02/21 18:00 Body Mass Index 30.7 Appearing in no acute distress head is normocephalic atraumatic eyes pupils are PERRLA sclera is anicteric mouth throat mucous membranes are intact and moist lung sounds are clear to auscultation heart regular rate rhythm Abdomen nontender neuro patient is alert x3, no focal deficits MSK left elbow inflammation noted overlying the olecranon process at the proximal aspect of the ulna, no open sores or wounds Results Labs CBC and Chem 7: 02/26/21 06:52 02/26/21 06:52 Assessment and Plan (1) Bursitis: Status: Inactive 60 year old man admitted to for psychiatric care. His left elbow had an area of swelling that he reported has been there on and off for years and at one point he had it drained. Olecranon bursitis. Non-painful, no fever or drainage, acute on chronic -Orthopedic surgery consultation -pain medication as needed All other psychiatric issues as per [facility] team. Attending: Dr. Mesa
[2021-03-04] MEDS: hydrOXYzine HCL 50 MG TABLET PO (17:09)
--- NOTE | 2021-03-04 19:53 | P.PNPSI_ITS ---
Subjective Subjective Date of Service: 03/04/21 Reason For Visit: Schizoaffective Disorder Subjective Notes: Conditional Voluntary Interim History: Reporting some auditory perceptual alterations however I can manage those. Asks for no medication adjustment. Reports he believes regime to be effective and has no issues of concern today. Medication Compliance: Yes Side effects from medications: No Attending Groups: No Review of Systems Comments: L Elbow edema-hospitalist consult ordered Psychiatric: Reports depression, Reports auditory hallucinations and Reports suicidal ideation (denies) Mental Status Exam Mental Status Exam Patient Appearance: Fatigued Patient Orientation: Person, Place, Time and Situation Level of Consciousness: Alert Patient Behavior: Talkative, Cooperative and Fatigued Mood Description: Depressed Affect Description: Flat Patient Cognition Impaired: No Ability to Follow Directions: Good Speech Pattern: Spontaneous Speech and Soft-Spoken Memory Description: Intact and Episodic Impaired Hallucinations: Auditory Delusions: Not Present Thought Process: Slowed Thinking Thought Content: positive for [place] Depressive Symptoms: Increased Fatigue and Loss of Energy Judgement: Fair Diagnostics Vital Signs (24Hr): Vital Signs - 24 hr 03/04/21 06:00 Pulse Rate 65 Respiratory Rate 18 Blood Pressure 111/62 Body Mass Index 30.7 Labs Results: 02/26/21 06:52 02/26/21 06:52 Medications Medications Current Medications Generic Name Dose Route Start Last Admin Trade Name Freq PRN Reason Stop Dose Admin Acetaminophen 650 mg 02/27/21 16:44 03/01/21 17:43 Acetaminophen 325 Mg Tablet PO 650 mg Q6H PRN Administration Headache/Pain Mild Scale (1-3) Al Hydroxide/Mg Hydroxide 30 ml 02/27/21 16:44 Magnesium Hydrox/Alum Hydrox 30 Ml Oral.Susp PO Q6H PRN Heartburn/Nausea Benztropine Mesylate 1 mg 03/04/21 21:00 Benztropine Mesylate 1 Mg Tablet PO TID YORDY Folic Acid 1 mg 02/26/21 17:00 03/04/21 10:34 Folic Acid 1 Mg Tablet PO 1 mg DAILY YORDY Administration Hydroxyzine HCl 50 mg 02/26/21 16:50 03/04/21 17:09 Hydroxyzine Hcl 50 Mg Tablet PO 50 mg TID PRN Administration Anxiety Hydroxyzine HCl 25 mg 02/27/21 16:44 Hydroxyzine Hcl 25 Mg Tablet PO BEDTIME PRN Anxiety Magnesium Hydroxide 30 ml 02/27/21 16:44 Milk Of Magnesia 30 Ml Oral.Susp PO DAILY PRN Constipation Multivitamins/Vitamin C 1 tab 02/26/21 17:00 03/04/21 10:34 Multivitamin Tablet PO 1 tab DAILY YORDY Administration Nicotine 14 mg 02/28/21 09:30 03/04/21 10:33 Nicotine 14 Mg Patch.Td24 TRANSDERMA Not Given DAILY YORDY Nicotine Polacrilex 2 mg 02/28/21 09:18 Nicotine Polacrilex 2 Mg Gum BUCCAL Q2H PRN Nicotine Cravings Olanzapine 20 mg 03/03/21 21:00 03/03/21 20:06 Olanzapine 10 Mg Tablet PO 20 mg BEDTIME YORDY Administration Trazodone HCl 50 mg 02/27/21 16:44 03/01/21 21:21 Trazodone Hcl 50 Mg Tablet PO 50 mg BEDTIME PRN Administration Insomnia Allergies Allergies Allergy/AdvReac Type Severity Reaction Status Date / Time No Known Allergies Allergy Mild NA Verified 09/28/20 17:48 Assessment & Plan Assessment & Plan (1) Schizoaffective disorder: Status: Acute Code(s): F25.9 - Schizoaffective disorder, unspecified Assessment and Plan: Reports some auditory perceptual alterations which are managable. Continue c urrent regime. Greater than 50% of the session was spent on counseling and/or coordination of care Reason for contiued inpatient stay Substantial Risk for: rapid decompensation
[2021-03-04] MEDS: Acetaminophen 325 MG TABLET 650 MG PO (21:17)
[2021-03-04] MEDS: OLANZapine 10 MG TABLET 20 MG PO (21:17)
[2021-03-04 21:30] VITALS: BP 133/85; PULSE 93; TEMP 36.1; O2SAT 100
[2021-03-05 06:00] VITALS: RESP 18
[2021-03-05] MEDS: Benztropine Mesylate 1 MG TABLET PO ×3 (09:18→21:01)
[2021-03-05] MEDS: Multivitamin TABLET 1 TAB PO (09:18)
[2021-03-05] MEDS: Folic Acid 1 MG TABLET PO (09:18)
[2021-03-05] MEDS: Nicotine 14 MG PATCH.TD24 TRANSDERMA (09:19)
[2021-03-05] MEDS: Acetaminophen 325 MG TABLET 650 MG PO ×2 (13:05→21:01)
[2021-03-05 18:44] VITALS: BP 110/63; PULSE 87; TEMP 36.3; O2SAT 100
--- NOTE | 2021-03-05 19:04 | P.CONOP_ITS ---
History of Present Illness HPI Consult date: 03/05/21 Chief complaint: Schizoaffective Disorder Narrative: 60 yo male who was admitted to for psychiatric eval and treatment also c/o left elbow swelling x 1 month. He denies injury to the elbow. States he has had a similar incident to the elbow back in the s and had it drained at that time. He denies pain, fever, chills or warmth to the elbow. He states it does not limit his activities, just uncomfortable if he leans on it. Review of Systems Review of Systems: Yes all other systems are reviewed and are negative [facility] Past Medical History Medical History (Updated 03/05/21 @ 19:14 by Sahara Vargas PA-C) Bursitis Degenerative disc disease, cervical Schizoaffective disorder Social History Social History Household Members: Family Housing: Apartment Do you presently have visiting nurse or other home services: Yes Unable to assess alcohol history related to: Unknown Alcohol intake: never Smoking Status: Current every day smoker Tobacco Type: Cigarette Packs Per Day: 0.5 Cigarettes Per Day: 10.0 Years Smoked: 40 Smoked in Last 30 Days: Yes Patient Interested in Nicotine Replacement: Yes Patient Given Instructions on How to Stop Smoking: No (not interested) Second Hand Smoke Exposure: No Use of substances other than those prescribed or required for medical reasons: No Substance Use Type: Marijuana Last Used Substance: Unknown Currently Displaying Signs/Symptoms of Drug Intoxication Withdrawal: No Any prior treatment program specific to substance use: Yes Have you been hit, kicked, punched, or otherwise hurt by someone within the past year? If so, by whom?: No Do you feel safe in your current relationship?: No Current Relationship Is there a partner from a previous relationship who is making you feel unsafe now?: No Are you made to feel afraid or neglected: No Spiritual Healthcare Practices: meditation Caodaism Healthcare Practices: prayers Cultural Healthcare Practices: n/a Advance Directives: No Advance Directives on File: No Do you have thoughts of harming others: None Do you have a plan to hurt others: No Plan Recently lost weight without trying: No service: No Sexual orientation: Straight/Heterosexual Meds Allergies Allergy/AdvReac Type Severity Reaction Status Date / Time No Known Allergies Allergy Mild NA Verified 09/28/20 17:48 Active Medications: Current Medications Generic Name Dose Route Start Last Admin Trade Name Freq PRN Reason Stop Dose Admin Acetaminophen 650 mg 02/27/21 16:44 03/05/21 13:05 Acetaminophen 325 Mg Tablet PO 650 mg Q6H PRN Administration Headache/Pain Mild Scale (1-3) Al Hydroxide/Mg Hydroxide 30 ml 02/27/21 16:44 Magnesium Hydrox/Alum Hydrox 30 Ml Oral.Susp PO Q6H PRN Heartburn/Nausea Benztropine Mesylate 1 mg 03/04/21 21:00 03/05/21 14:22 Benztropine Mesylate 1 Mg Tablet PO 1 mg TID YORDY Administration Folic Acid 1 mg 02/26/21 17:00 03/05/21 09:18 Folic Acid 1 Mg Tablet PO 1 mg DAILY YORDY Administration Hydroxyzine HCl 50 mg 02/26/21 16:50 03/04/21 17:09 Hydroxyzine Hcl 50 Mg Tablet PO 50 mg TID PRN Administration Anxiety Hydroxyzine HCl 25 mg 02/27/21 16:44 Hydroxyzine Hcl 25 Mg Tablet PO BEDTIME PRN Anxiety Magnesium Hydroxide 30 ml 02/27/21 16:44 Milk Of Magnesia 30 Ml Oral.Susp PO DAILY PRN Constipation Multivitamins/Vitamin C 1 tab 02/26/21 17:00 03/05/21 09:18 Multivitamin Tablet PO 1 tab DAILY YORDY Administration Nicotine 14 mg 02/28/21 09:30 03/05/21 09:19 Nicotine 14 Mg Patch.Td24 TRANSDERMA 14 mg DAILY YORDY Administration Nicotine Polacrilex 2 mg 02/28/21 09:18 Nicotine Polacrilex 2 Mg Gum BUCCAL Q2H PRN Nicotine Cravings Olanzapine 20 mg 03/03/21 21:00 03/04/21 21:17 Olanzapine 10 Mg Tablet PO 20 mg BEDTIME YORDY Administration Trazodone HCl 50 mg 02/27/21 16:44 03/01/21 21:21 Trazodone Hcl 50 Mg Tablet PO 50 mg BEDTIME PRN Administration Insomnia Physical Exam Vital Signs: Vital Signs: Last Vital Signs Temp 97.3 F 03/05/21 18:44 Pulse 87 03/05/21 18:44 Resp 18 03/05/21 06:00 BP 110/63 03/05/21 18:44 Pulse Ox 100 03/05/21 18:44 Body Mass Index 30.7 Const: General: cooperative, healthy appearing, comfortable and no acute distress Extrem: Other: Left elbow skin intact with swelling over the olecranon bursa. No redness or warmth. No pain with ROM. Results Labs Result Diagrams: 02/26/21 06:52 02/26/21 06:52 Labs: H & H 02/26/21 Range/Units 06:52 Hgb 12.7 L (14.0-18.0) g/dl Hct 36.4 L (42-52) % All other labs normal. Assessment and Plan (1) Olecranon bursitis of left elbow: Status: Acute Non- infectious olecranon bursitis. Recommend conservative treatment with avoidance of leaning on left elbow. Compression as needed. If he notices worsening swelling, redness, or pain we will re-eval. He can see us out patient prn if symptoms persist.
--- NOTE | 2021-03-05 19:57 | P.PNPSI_ITS ---
Subjective Subjective Date of Service: 03/05/21 Reason For Visit: Schizoaffective Disorder Subjective Notes: Conditional Voluntary Interim History: Seen by hospitalist for bursitis (elbow). Denies pain. Appears more engaged in the milieu today, participating in activity and talking with peers-laughing, joking with TW at times. Fall 03/04. Reports he tripped in the common area as he caught the side of the door on his walker. Denies pain, denies injuries. Medication Compliance: Yes Side effects from medications: No Attending Groups: Yes Review of Systems Comments: Elbow bursitis Psychiatric: Reports auditory hallucinations Mental Status Exam Mental Status Exam Patient Appearance: Appropriate Patient Orientation: Person, Place and Situation Level of Consciousness: Alert Patient Behavior: Appropriate and Talkative Mood Description: Calm and Cheerful Affect Description: Flat Patient Cognition Impaired: No Ability to Follow Directions: Good Speech Pattern: Spontaneous Speech Memory Description: Episodic Impaired Hallucinations: Auditory Delusions: Not Present Thought Process: Distracted Thought Content: positive for [place] Judgement: Fair Diagnostics Vital Signs (24Hr): Vital Signs - 24 hr 03/04/21 21:30 03/05/21 06:00 03/05/21 18:44 Temperature 97.0 F 97.3 F Pulse Rate 93 87 Respiratory Rate 18 Blood Pressure 133/85 110/63 Pulse Oximetry 100 100 Body Mass Index 30.7 Labs Results: 02/26/21 06:52 02/26/21 06:52 Medications Medications Current Medications Generic Name Dose Route Start Last Admin Trade Name Freq PRN Reason Stop Dose Admin Acetaminophen 650 mg 02/27/21 16:44 03/05/21 13:05 Acetaminophen 325 Mg Tablet PO 650 mg Q6H PRN Administration Headache/Pain Mild Scale (1-3) Al Hydroxide/Mg Hydroxide 30 ml 02/27/21 16:44 Magnesium Hydrox/Alum Hydrox 30 Ml Oral.Susp PO Q6H PRN Heartburn/Nausea Benztropine Mesylate 1 mg 03/04/21 21:00 03/05/21 14:22 Benztropine Mesylate 1 Mg Tablet PO 1 mg TID YORDY Administration Folic Acid 1 mg 02/26/21 17:00 03/05/21 09:18 Folic Acid 1 Mg Tablet PO 1 mg DAILY YORDY Administration Hydroxyzine HCl 50 mg 02/26/21 16:50 03/04/21 17:09 Hydroxyzine Hcl 50 Mg Tablet PO 50 mg TID PRN Administration Anxiety Hydroxyzine HCl 25 mg 02/27/21 16:44 Hydroxyzine Hcl 25 Mg Tablet PO BEDTIME PRN Anxiety Magnesium Hydroxide 30 ml 02/27/21 16:44 Milk Of Magnesia 30 Ml Oral.Susp PO DAILY PRN Constipation Multivitamins/Vitamin C 1 tab 02/26/21 17:00 03/05/21 09:18 Multivitamin Tablet PO 1 tab DAILY YORDY Administration Nicotine 14 mg 02/28/21 09:30 03/05/21 09:19 Nicotine 14 Mg Patch.Td24 TRANSDERMA 14 mg DAILY YORDY Administration Nicotine Polacrilex 2 mg 02/28/21 09:18 Nicotine Polacrilex 2 Mg Gum BUCCAL Q2H PRN Nicotine Cravings Olanzapine 20 mg 03/03/21 21:00 03/04/21 21:17 Olanzapine 10 Mg Tablet PO 20 mg BEDTIME YORDY Administration Trazodone HCl 50 mg 02/27/21 16:44 03/01/21 21:21 Trazodone Hcl 50 Mg Tablet PO 50 mg BEDTIME PRN Administration Insomnia Allergies Allergies Allergy/AdvReac Type Severity Reaction Status Date / Time No Known Allergies Allergy Mild NA Verified 09/28/20 17:48 Assessment & Plan Assessment & Plan (1) Olecranon bursitis of left elbow: Status: Acute Code(s): M70.22 - Olecranon bursitis, left elbow Assessment and Plan: Non- infectious olecranon bursitis. Recommend conservative treatment with avoidance of leaning on left elbow. Compression as needed. If he notices worsening swelling, redness, or pain we will re-eval. He can see us out patient prn if symptoms persist. (2) Schizoaffective disorder: Status: Acute Code(s): F25.9 - Schizoaffective disorder, unspecified Assessment and Plan: More integrated in milieu today. Continue current regime. Showing some range of affect. Greater than 50% of the session was spent on counseling and/or coordination of care Reason for contiued inpatient stay Substantial Risk for: rapid decompensation
[2021-03-05] MEDS: Milk of Magnesia 30 ML ORAL.SUSP PO (20:00)
[2021-03-05] MEDS: OLANZapine 10 MG TABLET 20 MG PO (21:01)
[2021-03-06 06:00] VITALS: BP 101/68; PULSE 58; RESP 16; TEMP 35.9; O2SAT 98
[2021-03-06] MEDS: Multivitamin TABLET 1 TAB PO (08:39)
[2021-03-06] MEDS: Folic Acid 1 MG TABLET PO (08:39)
[2021-03-06] MEDS: Benztropine Mesylate 1 MG TABLET PO ×3 (08:39→19:46)
[2021-03-06] MEDS: Nicotine 14 MG PATCH.TD24 TRANSDERMA (08:43)
[2021-03-06 18:00] VITALS: BP 99/57; PULSE 107
[2021-03-06] MEDS: OLANZapine 10 MG TABLET 20 MG PO (19:45)
[2021-03-06] MEDS: hydrOXYzine HCL 50 MG TABLET PO (19:46)
[2021-03-06 20:02] VITALS: BP 127/63; PULSE 101; TEMP 36.6
--- NOTE | 2021-03-06 21:41 | HO.PSYCHPN ---
Subjective Subjective Date of Service: 03/06/21 Reason For Visit: Schizoaffective Disorder Subjective Notes: Conditional Voluntary Interim History: Denies pain in elbow. Message left with Dr. Mims's office regarding POC for spinal injury as pt states he is not clear. [phone]. Reports med regime to be helpful, denies adverse effects, denies feeling overmedicated. Voices are diminished, still barely present. Pt asks for no increase as he believes he can manage them at this level. Reports feeling better-improved mood-joking at times, warm humor, expressing interest in milieu and peers. Medication Compliance: Yes Side effects from medications: No Attending Groups: No Review of Systems Psychiatric: Reports depression, Reports auditory hallucinations and Reports paranoia Mental Status Exam Mental Status Exam Patient Appearance: Appropriate Patient Orientation: Person, Place and Situation Level of Consciousness: Alert Patient Behavior: Talkative Mood Description: Flat Affect Description: Flat Patient Cognition Impaired: No Ability to Follow Directions: Good Speech Pattern: Spontaneous Speech Memory Description: Intact Hallucinations: Auditory Thought Process: Intact Thought Content: positive for Intact and positive for [place] Depressive Symptoms: Increased Fatigue and Back Pain Judgement: Fair Diagnostics Vital Signs (24Hr): Vital Signs - 24 hr 03/06/21 06:00 03/06/21 18:00 03/06/21 20:02 Temperature 96.6 F L 98 F Pulse Rate 58 107 H 101 H Respiratory Rate 16 Blood Pressure 101/68 99/57 L 127/63 Pulse Oximetry 98 Body Mass Index 30.7 Labs Results: 02/26/21 06:52 02/26/21 06:52 Medications Medications Current Medications Generic Name Dose Route Start Last Admin Trade Name Freq PRN Reason Stop Dose Admin Acetaminophen 650 mg 02/27/21 16:44 03/05/21 21:01 Acetaminophen 325 Mg Tablet PO 650 mg Q6H PRN Administration Headache/Pain Mild Scale (1-3) Al Hydroxide/Mg Hydroxide 30 ml 02/27/21 16:44 Magnesium Hydrox/Alum Hydrox 30 Ml Oral.Susp PO Q6H PRN Heartburn/Nausea Benztropine Mesylate 1 mg 03/04/21 21:00 03/06/21 19:46 Benztropine Mesylate 1 Mg Tablet PO 1 mg TID YORDY Administration Folic Acid 1 mg 02/26/21 17:00 03/06/21 08:39 Folic Acid 1 Mg Tablet PO 1 mg DAILY YORDY Administration Hydroxyzine HCl 50 mg 02/26/21 16:50 03/06/21 19:46 Hydroxyzine Hcl 50 Mg Tablet PO 50 mg TID PRN Administration Anxiety Hydroxyzine HCl 25 mg 02/27/21 16:44 Hydroxyzine Hcl 25 Mg Tablet PO BEDTIME PRN Anxiety Magnesium Hydroxide 30 ml 02/27/21 16:44 03/05/21 20:00 Milk Of Magnesia 30 Ml Oral.Susp PO 30 ml DAILY PRN Administration Constipation Multivitamins/Vitamin C 1 tab 02/26/21 17:00 03/06/21 08:39 Multivitamin Tablet PO 1 tab DAILY YORDY Administration Nicotine 14 mg 02/28/21 09:30 03/06/21 08:43 Nicotine 14 Mg Patch.Td24 TRANSDERMA 14 mg DAILY YORDY Administration Nicotine Polacrilex 2 mg 02/28/21 09:18 Nicotine Polacrilex 2 Mg Gum BUCCAL Q2H PRN Nicotine Cravings Olanzapine 20 mg 03/03/21 21:00 03/06/21 19:45 Olanzapine 10 Mg Tablet PO 20 mg BEDTIME YORDY Administration Trazodone HCl 50 mg 02/27/21 16:44 03/01/21 21:21 Trazodone Hcl 50 Mg Tablet PO 50 mg BEDTIME PRN Administration Insomnia Allergies Allergies Allergy/AdvReac Type Severity Reaction Status Date / Time No Known Allergies Allergy Mild NA Verified 09/28/20 17:48 Assessment & Plan Assessment & Plan (1) Olecranon bursitis of left elbow: Status: Acute Code(s): M70.22 - Olecranon bursitis, left elbow Assessment and Plan: Non- infectious olecranon bursitis. Recommend conservative treatment with avoidance of leaning on left elbow. Compression as needed. If he notices worsening swelling, redness, or pain we will re-eval. He can see us out patient prn if symptoms persist. (2) Schizoaffective disorder: Status: Acute Code(s): F25.9 - Schizoaffective disorder, unspecified Assessment and Plan: More integrated in milieu today. Continue current regime. Showing some range of affect. Greater than 50% of the session was spent on counseling and/or coordination of care Reason for contiued inpatient stay Substantial Risk for: harm to self, inability to function and med/psych decompensation
[2021-03-07 06:00] VITALS: BP 166/98; PULSE 75; TEMP 35.8
[2021-03-07] MEDS: Nicotine 14 MG PATCH.TD24 TRANSDERMA (08:56)
[2021-03-07] MEDS: Multivitamin TABLET 1 TAB PO (08:57)
[2021-03-07] MEDS: Benztropine Mesylate 1 MG TABLET PO ×3 (08:57→20:32)
[2021-03-07] MEDS: Folic Acid 1 MG TABLET PO (08:57)
[2021-03-07] MEDS: Acetaminophen 325 MG TABLET 650 MG PO (09:29)
--- NOTE | 2021-03-07 11:13 | HO.PSYCHPN ---
Subjective Subjective Date of Service: 03/07/21 Reason For Visit: Schizoaffective Disorder Subjective Notes: Conditional Voluntary Interim History: The patient reported sporadic auditory hallucinations but he doesn't feel bother by them. No side effects, compliant with treatment Medication Compliance: Yes Side effects from medications: No Review of Systems Review of Systems Yes all other systems are reviewed and are negative Mental Status Exam Mental Status Exam Patient Appearance: Well Grooomed (on hospital gowns, walking with a merry walker) Patient Orientation: Person, Place and Time Level of Consciousness: Awake and Appropriate Patient Behavior: Guarded Mood Description: Calm and Withdrawn Affect Description: Constricted Patient Cognition Impaired: No Ability to Follow Directions: Good Speech Pattern: Clear Memory Description: Intact Hallucinations: None Delusions: Not Present Thought Process: Linear Thought Content: positive for Intact (concrete) Judgement: Fair Diagnostics Vital Signs (24Hr): Vital Signs - 24 hr 03/06/21 18:00 03/06/21 20:02 03/07/21 06:00 Temperature 98 F 96.4 F L Pulse Rate 107 H 101 H 75 Blood Pressure 99/57 L 127/63 166/98 H Body Mass Index 30.7 Labs Results: 02/26/21 06:52 02/26/21 06:52 Medications Medications Current Medications Generic Name Dose Route Start Last Admin Trade Name Freq PRN Reason Stop Dose Admin Acetaminophen 650 mg 02/27/21 16:44 03/07/21 09:29 Acetaminophen 325 Mg Tablet PO 650 mg Q6H PRN Administration Headache/Pain Mild Scale (1-3) Al Hydroxide/Mg Hydroxide 30 ml 02/27/21 16:44 Magnesium Hydrox/Alum Hydrox 30 Ml Oral.Susp PO Q6H PRN Heartburn/Nausea Benztropine Mesylate 1 mg 03/04/21 21:00 03/07/21 08:57 Benztropine Mesylate 1 Mg Tablet PO 1 mg TID YORDY Administration Folic Acid 1 mg 02/26/21 17:00 03/07/21 08:57 Folic Acid 1 Mg Tablet PO 1 mg DAILY YORDY Administration Hydroxyzine HCl 50 mg 02/26/21 16:50 03/06/21 19:46 Hydroxyzine Hcl 50 Mg Tablet PO 50 mg TID PRN Administration Anxiety Hydroxyzine HCl 25 mg 02/27/21 16:44 Hydroxyzine Hcl 25 Mg Tablet PO BEDTIME PRN Anxiety Magnesium Hydroxide 30 ml 02/27/21 16:44 03/05/21 20:00 Milk Of Magnesia 30 Ml Oral.Susp PO 30 ml DAILY PRN Administration Constipation Multivitamins/Vitamin C 1 tab 02/26/21 17:00 03/07/21 08:57 Multivitamin Tablet PO 1 tab DAILY YORDY Administration Nicotine 14 mg 02/28/21 09:30 03/07/21 08:56 Nicotine 14 Mg Patch.Td24 TRANSDERMA 14 mg DAILY YORDY Administration Nicotine Polacrilex 2 mg 02/28/21 09:18 Nicotine Polacrilex 2 Mg Gum BUCCAL Q2H PRN Nicotine Cravings Olanzapine 20 mg 03/03/21 21:00 03/06/21 19:45 Olanzapine 10 Mg Tablet PO 20 mg BEDTIME YORDY Administration Trazodone HCl 50 mg 02/27/21 16:44 03/01/21 21:21 Trazodone Hcl 50 Mg Tablet PO 50 mg BEDTIME PRN Administration Insomnia Allergies Allergies Allergy/AdvReac Type Severity Reaction Status Date / Time No Known Allergies Allergy Mild NA Verified 09/28/20 17:48 Assessment & Plan Assessment & Plan (1) Olecranon bursitis of left elbow: Status: Acute Code(s): M70.22 - Olecranon bursitis, left elbow Assessment and Plan: Non- infectious olecranon bursitis. Recommend conservative treatment with avoidance of leaning on left elbow. Compression as needed. If he notices worsening swelling, redness, or pain we will re-eval. He can see us out patient prn if symptoms persist. (2) Schizoaffective disorder: Status: Acute Code(s): F25.9 - Schizoaffective disorder, unspecified Assessment and Plan: Some residual symptoms, no side effects Greater than 50% of the session was spent on counseling and/or coordination of care Reason for contiued inpatient stay Substantial Risk for: inability to function and rapid decompensation
[2021-03-07] MEDS: hydrOXYzine HCL 50 MG TABLET PO ×2 (15:19→20:32)
[2021-03-07 16:43] VITALS: BP 132/79; PULSE 95; RESP 18; TEMP 37.1
[2021-03-07] MEDS: OLANZapine 10 MG TABLET 20 MG PO (20:32)
[2021-03-08 06:00] VITALS: BP 133/58; PULSE 70; RESP 18; TEMP 36.3; O2SAT 99
[2021-03-08] MEDS: Nicotine 14 MG PATCH.TD24 TRANSDERMA (08:22)
[2021-03-08] MEDS: Folic Acid 1 MG TABLET PO (08:22)
[2021-03-08] MEDS: Benztropine Mesylate 1 MG TABLET PO ×3 (08:22→20:02)
[2021-03-08] MEDS: Multivitamin TABLET 1 TAB PO (08:22)
[2021-03-08] MEDS: hydrOXYzine HCL 50 MG TABLET PO (11:23)
--- NOTE | 2021-03-08 14:42 | HO.PSYCHPN ---
Subjective Subjective Date of Service: 03/08/21 Reason For Visit: Schizoaffective Disorder Subjective Notes: Conditional Voluntary Interim History: Pt reporting difficult with sleep. Asks for low dose Seroquel to add to regime as it has helped in the past. Denies other symptoms. Reports he feels well. Return message received from Dr. Mims's office. Pt last seen 11/08/21. At that time surgery was scheduled but did not occur. Follow up appts 12/08, 12/13 02/16 pt did not attend. As a result pt has no active treatment plan in place per Leela of the office. Review with pt. He is not interested at this time in rescheduling with Dr. Mims and has no interest in surgical intervention. Medication Compliance: Yes Side effects from medications: No Attending Groups: No Review of Systems Review of Systems Yes all other systems are reviewed and are negative (denies) Psychiatric: Reports no additional psychiatric complaints Mental Status Exam Mental Status Exam Patient Appearance: Appropriate Patient Orientation: Person, Place, Time and Situation Level of Consciousness: Alert Patient Behavior: Talkative and Cooperative Mood Description: Constricted Affect Description: Constricted and Flat Patient Cognition Impaired: No Ability to Follow Directions: Good Speech Pattern: Spontaneous Speech Memory Description: Episodic Impaired Hallucinations: None Delusions: Not Present Thought Process: Rumination Thought Content: positive for [place] and positive for [place] Depressive Symptoms: Diff. Making Decisions and Difficulty Sleeping Judgement: Fair Diagnostics Vital Signs (24Hr): Vital Signs - 24 hr 03/07/21 16:43 03/08/21 06:00 Temperature 98.7 F 97.4 F Pulse Rate 95 70 Respiratory Rate 18 18 Blood Pressure 132/79 133/58 L Pulse Oximetry 99 Body Mass Index 30.7 Labs Results: 02/26/21 06:52 02/26/21 06:52 Medications Medications Current Medications Generic Name Dose Route Start Last Admin Trade Name Freq PRN Reason Stop Dose Admin Acetaminophen 650 mg 02/27/21 16:44 03/07/21 09:29 Acetaminophen 325 Mg Tablet PO 650 mg Q6H PRN Administration Headache/Pain Mild Scale (1-3) Al Hydroxide/Mg Hydroxide 30 ml 02/27/21 16:44 Magnesium Hydrox/Alum Hydrox 30 Ml Oral.Susp PO Q6H PRN Heartburn/Nausea Benztropine Mesylate 1 mg 03/04/21 21:00 03/08/21 08:22 Benztropine Mesylate 1 Mg Tablet PO 1 mg TID YORDY Administration Folic Acid 1 mg 02/26/21 17:00 03/08/21 08:22 Folic Acid 1 Mg Tablet PO 1 mg DAILY YORDY Administration Hydroxyzine HCl 50 mg 02/26/21 16:50 03/08/21 11:23 Hydroxyzine Hcl 50 Mg Tablet PO 50 mg TID PRN Administration Anxiety Hydroxyzine HCl 25 mg 02/27/21 16:44 Hydroxyzine Hcl 25 Mg Tablet PO BEDTIME PRN Anxiety Magnesium Hydroxide 30 ml 02/27/21 16:44 03/05/21 20:00 Milk Of Magnesia 30 Ml Oral.Susp PO 30 ml DAILY PRN Administration Constipation Multivitamins/Vitamin C 1 tab 02/26/21 17:00 03/08/21 08:22 Multivitamin Tablet PO 1 tab DAILY YORDY Administration Nicotine 14 mg 02/28/21 09:30 03/08/21 08:22 Nicotine 14 Mg Patch.Td24 TRANSDERMA 14 mg DAILY YORDY Administration Nicotine Polacrilex 2 mg 02/28/21 09:18 Nicotine Polacrilex 2 Mg Gum BUCCAL Q2H PRN Nicotine Cravings Olanzapine 20 mg 03/03/21 21:00 03/07/21 20:32 Olanzapine 10 Mg Tablet PO 20 mg BEDTIME YORDY Administration Trazodone HCl 50 mg 02/27/21 16:44 03/01/21 21:21 Trazodone Hcl 50 Mg Tablet PO 50 mg BEDTIME PRN Administration Insomnia Allergies Allergies Allergy/AdvReac Type Severity Reaction Status Date / Time No Known Allergies Allergy Mild NA Verified 09/28/20 17:48 Assessment & Plan Assessment & Plan (1) Olecranon bursitis of left elbow: Status: Acute Code(s): M70.22 - Olecranon bursitis, left elbow Assessment and Plan: Non- infectious olecranon bursitis. Recommend conservative treatment with avoidance of leaning on left elbow. Compression as needed. If he notices worsening swelling, redness, or pain we will re-eval. He can see us out patient prn if symptoms persist. (2) Schizoaffective disorder: Status: Acute Code(s): F25.9 - Schizoaffective disorder, unspecified Assessment and Plan: Some residual symptoms, no side effects Greater than 50% of the session was spent on counseling and/or coordination of care Reason for contiued inpatient stay Substantial Risk for: harm to self, inability to function, rapid decompensation and med/psych decompensation
[2021-03-08 18:15] VITALS: BP 116/76; PULSE 89; RESP 16; TEMP 36.9; O2SAT 100
[2021-03-08] MEDS: Acetaminophen 325 MG TABLET 650 MG PO (18:24)
[2021-03-08] MEDS: QUEtiapine Fumarate 50 MG TABLET PO (20:02)
[2021-03-08] MEDS: OLANZapine 10 MG TABLET 20 MG PO (20:02)
[2021-03-09 06:00] VITALS: BP 110/68; PULSE 95; RESP 18; TEMP 36; O2SAT 99
[2021-03-09 07:00] VITALS: BMI 31.6
[2021-03-09] MEDS: Folic Acid 1 MG TABLET PO (08:25)
[2021-03-09] MEDS: Benztropine Mesylate 1 MG TABLET PO ×3 (08:25→20:23)
[2021-03-09] MEDS: Multivitamin TABLET 1 TAB PO (08:25)
[2021-03-09] MEDS: Nicotine 14 MG PATCH.TD24 TRANSDERMA (08:25)
[2021-03-09] MEDS: hydrOXYzine HCL 50 MG TABLET PO (10:48)
[2021-03-09] MEDS: Acetaminophen 325 MG TABLET 650 MG PO (12:02)
--- NOTE | 2021-03-09 16:22 | P.PNPSI_ITS ---
Subjective Subjective Date of Service: 03/09/21 Reason For Visit: Schizoaffective Disorder Subjective Notes: Conditional Voluntary Interim History: Denies depressive sx. Reports medications are helpful. States he would like a female therapist as he believes he will have an easier time talking with a female. Discussed back pain-will see Dr. Mims's team again to discuss alternatives to surgery. States sister will make an appt. Would like to do rehab to improve ambu lation. Medication Compliance: Yes Side effects from medications: No Attending Groups: Yes Review of Systems Review of Systems Yes all other systems are reviewed and are negative Musculoskeletal: Reports abnormal gait Reports abnormal gait and Reports behavioral changes Psychiatric: Reports anxiety, Reports behavioral changes and Reports anhedonia Mental Status Exam Mental Status Exam Patient Appearance: Appropriate Patient Orientation: Person, Place and Situation Level of Consciousness: Alert Patient Behavior: Talkative Mood Description: Withdrawn Affect Description: Flat Patient Cognition Impaired: No Ability to Follow Directions: Good Speech Pattern: Spontaneous Speech Memory Description: Intact Hallucinations: None (denies) Delusions: Paranoid Ideation Thought Process: Intact and Rumination Thought Content: positive for Circumstantial Depressive Symptoms: Increased Anxiety Judgement: Fair Diagnostics Vital Signs (24Hr): Vital Signs - 24 hr 03/08/21 18:15 03/09/21 06:00 Temperature 98.4 F 96.8 F Pulse Rate 89 95 Respiratory Rate 16 18 Blood Pressure 116/76 110/68 Pulse Oximetry 100 99 Body Mass Index 31.6 Labs Results: 02/26/21 06:52 02/26/21 06:52 Medications Medications Current Medications Generic Name Dose Route Start Last Admin Trade Name Freq PRN Reason Stop Dose Admin Acetaminophen 650 mg 02/27/21 16:44 03/09/21 12:02 Acetaminophen 325 Mg Tablet PO 650 mg Q6H PRN Administration Headache/Pain Mild Scale (1-3) Al Hydroxide/Mg Hydroxide 30 ml 02/27/21 16:44 Magnesium Hydrox/Alum Hydrox 30 Ml Oral.Susp PO Q6H PRN Heartburn/Nausea Benztropine Mesylate 1 mg 03/04/21 21:00 03/09/21 14:17 Benztropine Mesylate 1 Mg Tablet PO 1 mg TID YORDY Administration Carbamide Peroxide 5 drop 03/09/21 21:00 Carbamide Peroxide 6.5% Otic 15 Ml Drpbtl EAR-BOTH 03/13/21 16:13 BID YORDY Folic Acid 1 mg 02/26/21 17:00 03/09/21 08:25 Folic Acid 1 Mg Tablet PO 1 mg DAILY YORDY Administration Hydroxyzine HCl 50 mg 02/26/21 16:50 03/09/21 10:48 Hydroxyzine Hcl 50 Mg Tablet PO 50 mg TID PRN Administration Anxiety Hydroxyzine HCl 25 mg 02/27/21 16:44 Hydroxyzine Hcl 25 Mg Tablet PO BEDTIME PRN Anxiety Magnesium Hydroxide 30 ml 02/27/21 16:44 03/05/21 20:00 Milk Of Magnesia 30 Ml Oral.Susp PO 30 ml DAILY PRN Administration Constipation Multivitamins/Vitamin C 1 tab 02/26/21 17:00 03/09/21 08:25 Multivitamin Tablet PO 1 tab DAILY YORDY Administration Nicotine 14 mg 02/28/21 09:30 03/09/21 08:25 Nicotine 14 Mg Patch.Td24 TRANSDERMA 14 mg DAILY YORDY Administration Nicotine Polacrilex 2 mg 02/28/21 09:18 Nicotine Polacrilex 2 Mg Gum BUCCAL Q2H PRN Nicotine Cravings Olanzapine 20 mg 03/03/21 21:00 03/08/21 20:02 Olanzapine 10 Mg Tablet PO 20 mg BEDTIME YORDY Administration Quetiapine Fumarate 50 mg 03/08/21 21:00 03/08/21 20:02 Quetiapine Fumarate 50 Mg Tablet PO 50 mg BEDTIME YORDY Administration Trazodone HCl 50 mg 02/27/21 16:44 03/01/21 21:21 Trazodone Hcl 50 Mg Tablet PO 50 mg BEDTIME PRN Administration Insomnia Allergies Allergies Allergy/AdvReac Type Severity Reaction Status Date / Time No Known Allergies Allergy Mild NA Verified 09/28/20 17:48 Assessment & Plan Assessment & Plan (1) Olecranon bursitis of left elbow: Status: Acute Code(s): M70.22 - Olecranon bursitis, left elbow Assessment and Plan: Non- infectious olecranon bursitis. Recommend conservative treatment with avoidance of leaning on left elbow. Compression as needed. If he notices worsening swelling, redness, or pain we will re-eval. He can see us out patient prn if symptoms persist. (2) Schizoaffective disorder: Status: Acute Code(s): F25.9 - Schizoaffective disorder, unspecified Assessment and Plan: Some residual symptoms, no side effects Greater than 50% of the session was spent on counseling and/or coordination of care Reason for contiued inpatient stay Substantial Risk for: inability to function and rapid decompensation
[2021-03-09 18:00] VITALS: BP 132/81; PULSE 87; TEMP 36.3
[2021-03-09] MEDS: Carbamide Peroxide 6.5% Otic 15 ML DRPBTL 5 DROP EAR-BOTH (20:23)
[2021-03-09] MEDS: OLANZapine 10 MG TABLET 20 MG PO (20:25)
[2021-03-09] MEDS: QUEtiapine Fumarate 50 MG TABLET PO (20:25)
[2021-03-10] MEDS: hydrOXYzine HCL 25 MG TABLET PO (00:26)
[2021-03-10] MEDS: Acetaminophen 325 MG TABLET 650 MG PO ×2 (00:26→14:27)
[2021-03-10] MEDS: hydrOXYzine HCL 50 MG TABLET PO ×2 (02:05→18:38)
[2021-03-10] MEDS: traZODone HCL 50 MG TABLET PO (02:05)
[2021-03-10 06:55] VITALS: BP 131/61; PULSE 77; RESP 18; O2SAT 100
[2021-03-10] MEDS: Folic Acid 1 MG TABLET PO (08:44)
[2021-03-10] MEDS: Multivitamin TABLET 1 TAB PO (08:44)
[2021-03-10] MEDS: Benztropine Mesylate 1 MG TABLET PO ×3 (08:44→20:26)
[2021-03-10] MEDS: Nicotine 14 MG PATCH.TD24 TRANSDERMA (08:46)
[2021-03-10] MEDS: Carbamide Peroxide 6.5% Otic 15 ML DRPBTL 5 DROP EAR-BOTH ×2 (09:00→20:25)
--- NOTE | 2021-03-10 13:39 | P.PNPSI_ITS ---
Subjective Subjective Date of Service: 03/10/21 Reason For Visit: Schizoaffective Disorder Subjective Notes: Conditional Voluntary Interim History: Pt's presentation is improved with brighter affect, more visable on the unit and interactive. Pt denies depressive sx although this was Dr. Peña's impression when seen earlier in the week. Team reports he was awake until 2:45am and believed the sheets on the bed were poisoned. Reports anxiety this afternoon-asks for Seroquel-given Ativan prn, Gabapentin 100 mg bid, and increased Olanzapine to 30 mg hs to manage psychosis Medication Compliance: Yes Side effects from medications: No Attending Groups: No Review of Systems Reports other Comments: myelopathy cervical cord compression Mental Status Exam Mental Status Exam Patient Appearance: Disheveled Patient Orientation: Person, Place and Situation Level of Consciousness: Alert Patient Behavior: Talkative, Passive and Good Eye Contact Mood Description: Calm, Withdrawn, Cheerful, Anxious and Apprehensive Affect Description: Flat Patient Cognition Impaired: No Ability to Follow Directions: Good Speech Pattern: Spontaneous Speech, Soft-Spoken and Long Pauses Memory Description: Intact Hallucinations: None (denies) Delusions: Paranoid Ideation Thought Process: Distracted Thought Content: positive for [place], positive for Circumstantial (talks about moving to care home and having access to fitness room.) and positive for Suicidal Ideation (denies) Depressive Symptoms: Insomnia, Difficulty Sleeping and Loss of Energy Judgement: Fair Diagnostics Vital Signs (24Hr): Vital Signs - 24 hr 03/09/21 18:00 03/10/21 06:55 Temperature 97.4 F Pulse Rate 87 77 Respiratory Rate 18 Blood Pressure 132/81 131/61 Pulse Oximetry 100 Body Mass Index 31.6 Labs Results: 02/26/21 06:52 02/26/21 06:52 Medications Medications Current Medications Generic Name Dose Route Start Last Admin Trade Name Freq PRN Reason Stop Dose Admin Acetaminophen 650 mg 02/27/21 16:44 03/10/21 00:26 Acetaminophen 325 Mg Tablet PO 650 mg Q6H PRN Administration Headache/Pain Mild Scale (1-3) Al Hydroxide/Mg Hydroxide 30 ml 02/27/21 16:44 Magnesium Hydrox/Alum Hydrox 30 Ml Oral.Susp PO Q6H PRN Heartburn/Nausea Benztropine Mesylate 1 mg 03/04/21 21:00 03/10/21 08:44 Benztropine Mesylate 1 Mg Tablet PO 1 mg TID YORDY Administration Carbamide Peroxide 5 drop 03/09/21 21:00 03/10/21 09:00 Carbamide Peroxide 6.5% Otic 15 Ml Drpbtl EAR-BOTH 03/13/21 16:13 5 drop BID YORDY Administration Folic Acid 1 mg 02/26/21 17:00 03/10/21 08:44 Folic Acid 1 Mg Tablet PO 1 mg DAILY YORDY Administration Hydroxyzine HCl 50 mg 02/26/21 16:50 03/10/21 02:05 Hydroxyzine Hcl 50 Mg Tablet PO 50 mg TID PRN Administration Anxiety Hydroxyzine HCl 25 mg 02/27/21 16:44 03/10/21 00:26 Hydroxyzine Hcl 25 Mg Tablet PO 25 mg BEDTIME PRN Administration Anxiety Magnesium Hydroxide 30 ml 02/27/21 16:44 03/05/21 20:00 Milk Of Magnesia 30 Ml Oral.Susp PO 30 ml DAILY PRN Administration Constipation Multivitamins/Vitamin C 1 tab 02/26/21 17:00 03/10/21 08:44 Multivitamin Tablet PO 1 tab DAILY YORDY Administration Nicotine 14 mg 02/28/21 09:30 03/10/21 08:46 Nicotine 14 Mg Patch.Td24 TRANSDERMA 14 mg DAILY YORDY Administration Nicotine Polacrilex 2 mg 02/28/21 09:18 Nicotine Polacrilex 2 Mg Gum BUCCAL Q2H PRN Nicotine Cravings Olanzapine 30 mg 03/10/21 21:00 Olanzapine 10 Mg Tablet PO BEDTIME YORDY Quetiapine Fumarate 50 mg 03/08/21 21:00 03/09/21 20:25 Quetiapine Fumarate 50 Mg Tablet PO 50 mg BEDTIME YORDY Administration Trazodone HCl 50 mg 02/27/21 16:44 03/10/21 02:05 Trazodone Hcl 50 Mg Tablet PO 50 mg BEDTIME PRN Administration Insomnia Allergies Allergies Allergy/AdvReac Type Severity Reaction Status Date / Time No Known Allergies Allergy Mild NA Verified 09/28/20 17:48 Assessment & Plan Assessment & Plan (1) Olecranon bursitis of left elbow: Status: Acute Code(s): M70.22 - Olecranon bursitis, left elbow Assessment and Plan: Non- infectious olecranon bursitis. Recommend conservative treatment with avoidance of leaning on left elbow. Compression as needed. If he notices worsening swelling, redness, or pain we will re-eval. He can see us out patient prn if symptoms persist. (2) Schizoaffective disorder: Status: Acute Code(s): F25.9 - Schizoaffective disorder, unspecified Assessment and Plan: Increase Olanzapine to 30 mg HS-reports sheets are poisoned, unable to sleep until 2:45 a.m. Reports anxiety... --Gabapentin 100 mg bid --Ativan 1 mg q 4 hours prn. Greater than 50% of the session was spent on counseling and/or coordination of care Reason for contiued inpatient stay Substantial Risk for: rapid decompensation
[2021-03-10] MEDS: LORazepam 1 MG TABLET PO (15:02)
[2021-03-10 18:00] VITALS: BP 107/66; PULSE 97; TEMP 36.5
[2021-03-10] MEDS: QUEtiapine Fumarate 50 MG TABLET PO (20:25)
[2021-03-10] MEDS: Gabapentin 100 MG CAPSULE PO (20:26)
[2021-03-10] MEDS: OLANZapine 10 MG TABLET 30 MG PO (20:26)
[2021-03-11 06:47] VITALS: BP 147/88; PULSE 88; TEMP 36.1
[2021-03-11] MEDS: Nicotine 14 MG PATCH.TD24 TRANSDERMA (08:23)
[2021-03-11] MEDS: Gabapentin 100 MG CAPSULE PO ×2 (08:23→20:11)
[2021-03-11] MEDS: Multivitamin TABLET 1 TAB PO (08:23)
[2021-03-11] MEDS: Benztropine Mesylate 1 MG TABLET PO ×3 (08:23→20:11)
[2021-03-11] MEDS: Folic Acid 1 MG TABLET PO (08:23)
[2021-03-11] MEDS: Carbamide Peroxide 6.5% Otic 15 ML DRPBTL 5 DROP EAR-BOTH ×2 (10:07→20:11)
[2021-03-11] MEDS: LORazepam 1 MG TABLET PO ×2 (11:55→16:32)
--- NOTE | 2021-03-11 17:18 | P.PNPSI_ITS ---
Subjective Subjective Date of Service: 03/11/21 Reason For Visit: Schizoaffective Disorder Subjective Notes: Conditional Voluntary Interim History: Juan J was sitting in the day room and he reports that he is feeling well. He is anxious to go home Medication Compliance: Yes Side effects from medications: No Attending Groups: No Review of Systems Acute medical concerns: No Medical Review of Systems: unchanged Mental Status Exam Mental Status Exam Patient Appearance: Disheveled Patient Orientation: Person, Place and Situation Level of Consciousness: Alert Patient Behavior: Talkative, Passive and Good Eye Contact Mood Description: Calm, Withdrawn, Cheerful, Anxious and Apprehensive Affect Description: Flat Patient Cognition Impaired: No Ability to Follow Directions: Good Speech Pattern: Spontaneous Speech, Soft-Spoken and Long Pauses Memory Description: Intact Hallucinations: None (denies) Delusions: Paranoid Ideation Thought Process: Distracted Thought Content: positive for [place], positive for Circumstantial (talks about moving to senior care and having access to fitness room.) and positive for Suicidal Ideation (denies) Depressive Symptoms: Insomnia, Difficulty Sleeping and Loss of Energy Judgement: Fair Diagnostics Vital Signs (24Hr): Vital Signs - 24 hr 03/10/21 18:00 03/11/21 06:47 Temperature 97.7 F 97.0 F Pulse Rate 97 88 Blood Pressure 107/66 147/88 H Body Mass Index 31.6 Labs Results: 02/26/21 06:52 02/26/21 06:52 Medications Medications Current Medications Generic Name Dose Route Start Last Admin Trade Name Freq PRN Reason Stop Dose Admin Acetaminophen 650 mg 02/27/21 16:44 03/10/21 14:27 Acetaminophen 325 Mg Tablet PO 650 mg Q6H PRN Administration Headache/Pain Mild Scale (1-3) Al Hydroxide/Mg Hydroxide 30 ml 02/27/21 16:44 Magnesium Hydrox/Alum Hydrox 30 Ml Oral.Susp PO Q6H PRN Heartburn/Nausea Benztropine Mesylate 1 mg 03/04/21 21:00 03/11/21 14:21 Benztropine Mesylate 1 Mg Tablet PO 1 mg TID YORDY Administration Carbamide Peroxide 5 drop 03/09/21 21:00 03/11/21 10:07 Carbamide Peroxide 6.5% Otic 15 Ml Drpbtl EAR-BOTH 03/13/21 16:13 5 drop BID YORDY Administration Folic Acid 1 mg 02/26/21 17:00 03/11/21 08:23 Folic Acid 1 Mg Tablet PO 1 mg DAILY YORDY Administration Gabapentin 100 mg 03/10/21 21:00 03/11/21 08:23 Gabapentin 100 Mg Capsule PO 100 mg BID YORDY Administration Hydroxyzine HCl 50 mg 02/26/21 16:50 03/10/21 18:38 Hydroxyzine Hcl 50 Mg Tablet PO 50 mg TID PRN Administration Anxiety Hydroxyzine HCl 25 mg 02/27/21 16:44 03/10/21 00:26 Hydroxyzine Hcl 25 Mg Tablet PO 25 mg BEDTIME PRN Administration Anxiety Lorazepam 1 mg 03/10/21 14:47 03/11/21 16:32 Lorazepam 1 Mg Tablet PO 1 mg Q4H PRN Administration Anxiety Magnesium Hydroxide 30 ml 02/27/21 16:44 03/05/21 20:00 Milk Of Magnesia 30 Ml Oral.Susp PO 30 ml DAILY PRN Administration Constipation Multivitamins/Vitamin C 1 tab 02/26/21 17:00 03/11/21 08:23 Multivitamin Tablet PO 1 tab DAILY YORDY Administration Nicotine 14 mg 02/28/21 09:30 03/11/21 08:23 Nicotine 14 Mg Patch.Td24 TRANSDERMA 14 mg DAILY YORDY Administration Nicotine Polacrilex 2 mg 02/28/21 09:18 Nicotine Polacrilex 2 Mg Gum BUCCAL Q2H PRN Nicotine Cravings Olanzapine 30 mg 03/10/21 21:00 03/10/21 20:26 Olanzapine 10 Mg Tablet PO 30 mg BEDTIME YORDY Administration Quetiapine Fumarate 50 mg 03/08/21 21:00 03/10/21 20:25 Quetiapine Fumarate 50 Mg Tablet PO 50 mg BEDTIME YORDY Administration Trazodone HCl 50 mg 02/27/21 16:44 03/10/21 02:05 Trazodone Hcl 50 Mg Tablet PO 50 mg BEDTIME PRN Administration Insomnia Allergies Allergies Allergy/AdvReac Type Severity Reaction Status Date / Time No Known Allergies Allergy Mild NA Verified 09/28/20 17:48 Assessment & Plan Assessment & Plan (1) Olecranon bursitis of left elbow: Status: Acute Code(s): M70.22 - Olecranon bursitis, left elbow (2) Schizoaffective disorder: Status: Acute Code(s): F25.9 - Schizoaffective disorder, unspecified Assessment and Plan: Non- infectious olecranon bursitis. Recommend conservative treatment with avoidance of leaning on left elbow. Compression as needed. If he notices worsening swelling, redness, or pain we will re-eval. He can see us out patient prn if symptoms persist. Increase Olanzapine to 30 mg HS-reports sheets are poisoned, unable to sleep until 2:45 a.m. Reports anxiety... --Gabapentin 100 mg bid --Ativan 1 mg q 4 hours prn. No change to current treatment plan Greater than 50% of the session was spent on counseling and/or coordination of care Patient educated on: diagnosis and medication risk/benefits Informed Consent: further education needed Reason for contiued inpatient stay Substantial Risk for: inability to function and rapid decompensation
[2021-03-11 18:00] VITALS: BP 128/67; PULSE 88; RESP 16; TEMP 35.9; O2SAT 100
[2021-03-11] MEDS: QUEtiapine Fumarate 50 MG TABLET PO (20:11)
[2021-03-11] MEDS: OLANZapine 10 MG TABLET 30 MG PO (20:11)
[2021-03-12 06:00] VITALS: BP 142/67; PULSE 69; RESP 18; O2SAT 100
[2021-03-12] MEDS: Nicotine 14 MG PATCH.TD24 TRANSDERMA (08:36)
[2021-03-12] MEDS: Gabapentin 100 MG CAPSULE PO ×2 (08:37→20:11)
[2021-03-12] MEDS: Benztropine Mesylate 1 MG TABLET PO ×3 (08:37→20:12)
[2021-03-12] MEDS: Multivitamin TABLET 1 TAB PO (08:37)
[2021-03-12] MEDS: Folic Acid 1 MG TABLET PO (08:37)
[2021-03-12] MEDS: LORazepam 1 MG TABLET PO (14:21)
[2021-03-12 18:00] VITALS: BP 102/62; PULSE 92
--- NOTE | 2021-03-12 18:07 | HO.PSYCHPN ---
Subjective Subjective Date of Service: 03/12/21 Reason For Visit: Schizoaffective Disorder Subjective Notes: Conditional Voluntary Interim History: Juan J was content and had no immediate concerns. He continues to assert that he is feeling ready to go home Medication Compliance: Yes Side effects from medications: No Attending Groups: No Review of Systems Acute medical concerns: No Medical Review of Systems: unchanged Mental Status Exam Mental Status Exam Patient Appearance: Disheveled Patient Orientation: Person, Place and Situation Level of Consciousness: Alert Patient Behavior: Talkative, Passive and Good Eye Contact Mood Description: Calm, Withdrawn, Cheerful, Anxious and Apprehensive Affect Description: Flat Patient Cognition Impaired: No Ability to Follow Directions: Good Speech Pattern: Spontaneous Speech, Soft-Spoken and Long Pauses Memory Description: Intact Hallucinations: None (denies) Delusions: Paranoid Ideation Thought Process: Distracted Thought Content: positive for [place], positive for Circumstantial (talks about moving to group home and having access to fitness room.) and positive for Suicidal Ideation (denies) Depressive Symptoms: Insomnia, Difficulty Sleeping and Loss of Energy Judgement: Fair Diagnostics Vital Signs (24Hr): Vital Signs - 24 hr 03/12/21 06:00 Pulse Rate 69 Respiratory Rate 18 Blood Pressure 142/67 H Pulse Oximetry 100 Body Mass Index 31.6 Labs Results: 02/26/21 06:52 02/26/21 06:52 Medications Medications Current Medications Generic Name Dose Route Start Last Admin Trade Name Freq PRN Reason Stop Dose Admin Acetaminophen 650 mg 02/27/21 16:44 03/10/21 14:27 Acetaminophen 325 Mg Tablet PO 650 mg Q6H PRN Administration Headache/Pain Mild Scale (1-3) Al Hydroxide/Mg Hydroxide 30 ml 02/27/21 16:44 Magnesium Hydrox/Alum Hydrox 30 Ml Oral.Susp PO Q6H PRN Heartburn/Nausea Benztropine Mesylate 1 mg 03/04/21 21:00 03/12/21 14:17 Benztropine Mesylate 1 Mg Tablet PO 1 mg TID YORDY Administration Carbamide Peroxide 5 drop 03/09/21 21:00 03/12/21 08:37 Carbamide Peroxide 6.5% Otic 15 Ml Drpbtl EAR-BOTH 03/13/21 16:13 Not Given BID YORDY Folic Acid 1 mg 02/26/21 17:00 03/12/21 08:37 Folic Acid 1 Mg Tablet PO 1 mg DAILY YORDY Administration Gabapentin 100 mg 03/10/21 21:00 03/12/21 08:37 Gabapentin 100 Mg Capsule PO 100 mg BID YORDY Administration Hydroxyzine HCl 50 mg 02/26/21 16:50 03/10/21 18:38 Hydroxyzine Hcl 50 Mg Tablet PO 50 mg TID PRN Administration Anxiety Hydroxyzine HCl 25 mg 02/27/21 16:44 03/10/21 00:26 Hydroxyzine Hcl 25 Mg Tablet PO 25 mg BEDTIME PRN Administration Anxiety Lorazepam 1 mg 03/10/21 14:47 03/12/21 14:21 Lorazepam 1 Mg Tablet PO 1 mg Q4H PRN Administration Anxiety Magnesium Hydroxide 30 ml 02/27/21 16:44 03/05/21 20:00 Milk Of Magnesia 30 Ml Oral.Susp PO 30 ml DAILY PRN Administration Constipation Multivitamins/Vitamin C 1 tab 02/26/21 17:00 03/12/21 08:37 Multivitamin Tablet PO 1 tab DAILY YORDY Administration Nicotine 14 mg 02/28/21 09:30 03/12/21 08:36 Nicotine 14 Mg Patch.Td24 TRANSDERMA 14 mg DAILY YORDY Administration Nicotine Polacrilex 2 mg 02/28/21 09:18 Nicotine Polacrilex 2 Mg Gum BUCCAL Q2H PRN Nicotine Cravings Olanzapine 30 mg 03/10/21 21:00 03/11/21 20:11 Olanzapine 10 Mg Tablet PO 30 mg BEDTIME YORDY Administration Quetiapine Fumarate 50 mg 03/08/21 21:00 03/11/21 20:11 Quetiapine Fumarate 50 Mg Tablet PO 50 mg BEDTIME YORDY Administration Trazodone HCl 50 mg 02/27/21 16:44 03/10/21 02:05 Trazodone Hcl 50 Mg Tablet PO 50 mg BEDTIME PRN Administration Insomnia Allergies Allergies Allergy/AdvReac Type Severity Reaction Status Date / Time No Known Allergies Allergy Mild NA Verified 09/28/20 17:48 Assessment & Plan Assessment & Plan (1) Olecranon bursitis of left elbow: Status: Acute Code(s): M70.22 - Olecranon bursitis, left elbow (2) Schizoaffective disorder: Status: Acute Code(s): F25.9 - Schizoaffective disorder, unspecified Assessment and Plan: Non- infectious olecranon bursitis. Recommend conservative treatment with avoidance of leaning on left elbow. Compression as needed. If he notices worsening swelling, redness, or pain we will re-eval. He can see us out patient prn if symptoms persist. Increase Olanzapine to 30 mg HS-reports sheets are poisoned, unable to sleep until 2:45 a.m. Reports anxiety... --Gabapentin 100 mg bid --Ativan 1 mg q 4 hours prn. No change to current treatment plan Greater than 50% of the session was spent on counseling and/or coordination of care Patient educated on: diagnosis and medication risk/benefits Informed Consent: does not understand and further education needed Reason for contiued inpatient stay Substantial Risk for: inability to function and rapid decompensation
[2021-03-12] MEDS: Carbamide Peroxide 6.5% Otic 15 ML DRPBTL 5 DROP EAR-BOTH (20:10)
[2021-03-12] MEDS: OLANZapine 10 MG TABLET 30 MG PO (20:12)
[2021-03-12] MEDS: QUEtiapine Fumarate 50 MG TABLET PO (20:18)
[2021-03-13] MEDS: hydrOXYzine HCL 25 MG TABLET PO (02:43)
[2021-03-13] MEDS: traZODone HCL 50 MG TABLET PO (02:43)
[2021-03-13 06:00] VITALS: BP 124/70; PULSE 84; RESP 18; O2SAT 98
[2021-03-13] MEDS: Nicotine 14 MG PATCH.TD24 TRANSDERMA (08:30)
[2021-03-13] MEDS: Multivitamin TABLET 1 TAB PO (08:30)
[2021-03-13] MEDS: Benztropine Mesylate 1 MG TABLET PO ×3 (08:30→20:02)
[2021-03-13] MEDS: Folic Acid 1 MG TABLET PO (08:30)
[2021-03-13] MEDS: Gabapentin 100 MG CAPSULE PO ×2 (08:31→20:01)
[2021-03-13] MEDS: hydrOXYzine HCL 50 MG TABLET PO (09:02)
[2021-03-13] MEDS: Carbamide Peroxide 6.5% Otic 15 ML DRPBTL 5 DROP EAR-BOTH (09:06)
--- NOTE | 2021-03-13 14:25 | HO.PSYCHPN ---
Subjective Subjective Date of Service: 03/13/21 Reason For Visit: Schizoaffective Disorder Subjective Notes: Conditional Voluntary Interim History: Pt reports he is feeling improved and ready for discharge. Reports he is tolerating medication regime and is without side effects. States he is sleeping and eating as he does at his home. Denies SI, HI. Reports he is experiencing no perceptual alterations. Denies fear or concern regarding any specific issues. Medication Compliance: Yes Side effects from medications: No Attending Groups: Yes Review of Systems Review of Systems Yes all other systems are reviewed and are negative (denies) Reports other (Pt reports sister will make f/u appt with Dr. Mims regarding myelopathy) Psychiatric: Reports depression (denies), Reports auditory hallucinations (denies) and Reports suicidal ideation (denies) Mental Status Exam Mental Status Exam Patient Appearance: Appropriate Patient Orientation: Person, Place, Time and Situation Level of Consciousness: Alert Patient Behavior: Appropriate, Talkative and Cooperative Mood Description: Calm Affect Description: Calm Patient Cognition Impaired: No Ability to Follow Directions: Good Speech Pattern: Clear, Appropriate, Spontaneous Speech and Coherent Memory Description: Episodic Impaired Hallucinations: None (denies) Thought Process: Intact Thought Content: positive for Int[place], positive for Circumstantial and positive for Suicidal Ideation (denies) Judgement: Good Diagnostics Vital Signs (24Hr): Vital Signs - 24 hr 03/12/21 18:00 03/13/21 06:00 Pulse Rate 92 84 Respiratory Rate 18 Blood Pressure 102/62 124/70 Pulse Oximetry 98 Body Mass Index 31.6 Labs Results: 02/26/21 06:52 02/26/21 06:52 Medications Medications Current Medications Generic Name Dose Route Start Last Admin Trade Name Ernieq PRN Reason Stop Dose Admin Acetaminophen 650 mg 02/27/21 16:44 03/10/21 14:27 Acetaminophen 325 Mg Tablet PO 650 mg Q6H PRN Administration Headache/Pain Mild Scale (1-3) Al Hydroxide/Mg Hydroxide 30 ml 02/27/21 16:44 Magnesium Hydrox/Alum Hydrox 30 Ml Oral.Susp PO Q6H PRN Heartburn/Nausea Benztropine Mesylate 1 mg 03/04/21 21:00 03/13/21 08:30 Benztropine Mesylate 1 Mg Tablet PO 1 mg TID YORDY Administration Carbamide Peroxide 5 drop 03/09/21 21:00 04/26/21 09:06 Carbamide Peroxide 6.5% Otic 15 Ml Drpbtl EAR-BOTH 03/13/21 16:13 5 drop BID YORDY Administration Folic Acid 1 mg 02/26/21 17:00 03/13/21 08:30 Folic Acid 1 Mg Tablet PO 1 mg DAILY YORDY Administration Gabapentin 100 mg 03/10/21 21:00 03/13/21 08:31 Gabapentin 100 Mg Capsule PO 100 mg BID YORDY Administration Hydroxyzine HCl 50 mg 02/26/21 16:50 03/13/21 09:02 Hydroxyzine Hcl 50 Mg Tablet PO 50 mg TID PRN Administration Anxiety Hydroxyzine HCl 25 mg 02/27/21 16:44 03/13/21 02:43 Hydroxyzine Hcl 25 Mg Tablet PO 25 mg BEDTIME PRN Administration Anxiety Lorazepam 1 mg 03/10/21 14:47 03/12/21 14:21 Lorazepam 1 Mg Tablet PO 1 mg Q4H PRN Administration Anxiety Magnesium Hydroxide 30 ml 02/27/21 16:44 03/05/21 20:00 Milk Of Magnesia 30 Ml Oral.Susp PO 30 ml DAILY PRN Administration Constipation Multivitamins/Vitamin C 1 tab 02/26/21 17:00 03/13/21 08:30 Multivitamin Tablet PO 1 tab DAILY YORDY Administration Nicotine 14 mg 02/28/21 09:30 03/13/21 08:30 Nicotine 14 Mg Patch.Td24 TRANSDERMA 14 mg DAILY YORDY Administration Nicotine Polacrilex 2 mg 02/28/21 09:18 Nicotine Polacrilex 2 Mg Gum BUCCAL Q2H PRN Nicotine Cravings Olanzapine 30 mg 03/10/21 21:00 03/12/21 20:12 Olanzapine 10 Mg Tablet PO 30 mg BEDTIME YORDY Administration Quetiapine Fumarate 50 mg 03/08/21 21:00 03/12/21 20:18 Quetiapine Fumarate 50 Mg Tablet PO 50 mg BEDTIME YORDY Administration Trazodone HCl 50 mg 02/27/21 16:44 03/13/21 02:43 Trazodone Hcl 50 Mg Tablet PO 50 mg BEDTIME PRN Administration Insomnia Allergies Allergies Allergy/AdvReac Type Severity Reaction Status Date / Time No Known Allergies Allergy Mild NA Verified 09/28/20 17:48 Assessment & Plan Assessment & Plan (1) Olecranon bursitis of left elbow: Status: Acute Code(s): M70.22 - Olecranon bursitis, left elbow (2) Schizoaffective disorder: Status: Acute Code(s): F25.9 - Schizoaffective disorder, unspecified Assessment and Plan: Non- infectious olecranon bursitis. Recommend conservative treatment with avoidance of leaning on left elbow. Compression as needed. If he notices worsening swelling, redness, or pain we will re-eval. He can see us out patient prn if symptoms persist. Increase of Olanzapine to 30 mg HS he reports has been helpful. Reports anxiety... --Gabapentin 100 mg bid --Ativan 1 mg q 4 hours prn. --Labs 03/14 CBC, CMP, FBS Greater than 50% of the session was spent on counseling and/or coordination of care Reason for contiued inpatient stay Substantial Risk for: inability to function and rapid decompensation
[2021-03-13 19:05] VITALS: BP 130/70; PULSE 83
[2021-03-13] MEDS: OLANZapine 10 MG TABLET 30 MG PO (20:02)
[2021-03-13] MEDS: QUEtiapine Fumarate 50 MG TABLET PO (20:02)
[2021-03-14] MEDS: traZODone HCL 50 MG TABLET PO (00:24)
[2021-03-14] MEDS: hydrOXYzine HCL 50 MG TABLET PO ×2 (00:24→11:45)
[2021-03-14 06:35] VITALS: BP 135/80; PULSE 80; RESP 18; TEMP 36.3; O2SAT 98
[2021-03-14] MEDS: Multivitamin TABLET 1 TAB PO (08:14)
[2021-03-14] MEDS: Gabapentin 100 MG CAPSULE PO (08:14)
[2021-03-14] MEDS: Folic Acid 1 MG TABLET PO (08:14)
[2021-03-14] MEDS: Benztropine Mesylate 1 MG TABLET PO (08:14)
[2021-03-14] MEDS: Nicotine 14 MG PATCH.TD24 TRANSDERMA (08:14)
[2021-03-14 08:22] LABS: MANUAL DIFF FLAG NO
[2021-03-14 08:25] LABS: Basophils Percent Auto 0.5 % (0-2); Eosinophils Absolute Auto 0.3 X10*3/uL (0.0-0.4); Eosinophils Percent Auto 3.9 % (0-4); Hematocrit 40.2 % (42-52); Hemoglobin 13.2 g/dl (14.0-18.0); Imm Gran Abs Auto 0.01 X10*3/uL (0.00-0.03); Imm Gran Pct Auto 0.2 % (0.0-0.4); Lymphocytes Absolute Auto 2.6 X10*3/uL (1.2-4.9); Lymphocytes Percent Auto 39.6 % (20-40); Mean Corpuscular HGB Conc 32.8 g/dl (31.0-36.0); Mean Corpuscular Hemoglobin 30.1 pg (27.0-33.0); Mean Corpuscular Volume 91.6 fL (80-98); Mean Platelet Volume 10.1 fL (9.4-12.4); Monocytes Absolute Auto 0.6 X10*3/uL (0.1-1.2); Monocytes Percent Auto 9.2 % (2-11); Neutrophils Percent Auto 46.6 % (45-73); Platelet Count 225 X10*3/uL (160-400); Red Blood Count 4.39 X10*6/uL (4.60-5.80); Red Cell Distribution Width 12.6 % (11.0-16.0); White Blood Count 6.4 X10*3/uL (4.8-10.8)
[2021-03-14 08:53] LABS: Alanine Aminotransferase 23 U/L (0-40); Albumin Level 4.4 g/dL (3.5-5.0); Alkaline Phosphatase 91 U/L (39-117); Anion Gap 11 (12-20); Aspartate Amino Transferase 25 U/L (5-37); Bilirubin Total 0.3 mg/dL (0.0-1.0); Blood Urea Nitrogen 14 mg/dL (9-16); Calcium 9.6 mg/dL (8.4-10.2); Carbon Dioxide 28 mmol/L (22-29); Chloride 104 mmol/L (96-108); Creatinine Clr Calc Pharmacy 102.5; Estimated Glomerular Filt Rate > 60; Glucose Fasting 100 mg/dL (60-99); Potassium 4.4 mmol/L (3.3-5.1); Sodium 139 mmol/L (135-145)
--- NOTE | 2021-03-14 13:48 | P.DS_ITS ---
DS: Providers Provider Date of Service: 03/14/21 Date of admission: 02/27/21 16:23 Date of discharge: 03/14/21 Primary care physician: Unknown Physician Admitting clinician: Peggy Ellis Attending physician on admission: Raymond Peña Consults: 03/04/21 15:19 Consult to Hospitalist Routine Consulting Provider: Hospitalist Reason For Exam: L Elbow-edema,fluid accumulation 03/04/21 16:46 Consult to Orthopedics Routine Consulting Provider: Sahara Vargas Reason for consultation: Olecranon bursitis Has provider been notified: No Attending physician on discharge: Raymond Peña Discharging clinician: Peggy Ellis DS: Diagnosis Discharge Diagnosis (1) Olecranon bursitis of left elbow: Status: Acute (2) Schizoaffective disorder: Status: Acute Problem details: 60 yo male, long hx of schizoaffective disorder. 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 Per [facility], pt had been non-compliant with his Abilify Maintena and po medication regime. Pt reported too many voices and accepted admission to re- establish an effective regime. Pt was clear that he would refused any RADFORD suggestion. By hx pt has tardive dyskinesia and we were in contact with his out pt team for their input. DS: Medications Discharge Medications Home Medications: Previous Rx's Medication Instructions Recorded benztropine 1 mg PO TID #90 tab 03/14/21 folic acid 1 mg PO DAILY 30 Days #30 tab 03/14/21 gabapentin 100 mg PO BID #60 cap 03/14/21 hydroxyzine HCl 25 mg PO BEDTIME PRN #30 tab 03/14/21 hydroxyzine HCl 50 mg PO TID PRN 30 Days #90 tab 03/14/21 lorazepam 1 mg PO Q4H PRN #15 tab 03/14/21 multivitamin with folic acid 1 tab PO DAILY 30 Days #30 tab 03/14/21 [Tab-A-Max] olanzapine 30 mg PO BEDTIME #90 tab 03/14/21 quetiapine 50 mg PO BEDTIME #30 tab 03/14/21 trazodone 50 mg PO BEDTIME PRN #30 tab 03/14/21 trazodone 50 mg PO BEDTIME PRN 30 Days #30 03/14/21 tab Discharge Plan Discharge Patient Disposition: Home, Self-Care Discharge Diagnosis: Schizoaffective Disorder Referrals: Newton ORTIZ [Other] (Newton Jaeger will resume services post D/C) KAUSHIK RODRIGUEZ, THERAPIST [Other] - 03/24/21 8:00 am ([facility]) LEMUEL MCALLISTER, PSYCHIATRIC PROVIDER [Other] - 03/27/21 3:40 pm ([facility]) Israel Ayoub MD [Physician] - 04/04/21 1:30 pm (in office. ) Discharge Medications: New trazodone 50 mg Tablet 50 mg PO BEDTIME PRN (Reason: Insomnia) Qty: 30 RF: 0 olanzapine 10 mg Tablet 30 mg PO BEDTIME Qty: 90 RF: 0 benztropine 1 mg Tablet 1 mg PO TID Qty: 90 RF: 0 hydroxyzine HCl 25 mg Tablet 25 mg PO BEDTIME PRN (Reason: Anxiety) Qty: 30 RF: 0 gabapentin 100 mg Capsule 100 mg PO BID Qty: 60 RF: 0 lorazepam 1 mg Tablet 1 mg PO Q4H PRN (Reason: Anxiety) Qty: 15 RF: 0 quetiapine 50 mg Tablet 50 mg PO BEDTIME Qty: 30 RF: 0 Continued trazodone 50 mg Tablet 50 mg PO BEDTIME PRN (Reason: Insomnia) 30 Days Qty: 30 RF: 0 hydroxyzine HCl 50 mg Tablet 50 mg PO TID PRN (Reason: Anxiety) 30 Days Qty: 90 RF: 0 folic acid 1 mg Tablet 1 mg PO DAILY 30 Days Qty: 30 RF: 0 multivitamin with folic acid [Tab-A-Max] 400 mcg Tablet 1 tab PO DAILY 30 Days Qty: 30 RF: 0 Discontinued aripiprazole 10 mg Tablet 10 mg PO DAILY 10 Days Qty: 10 RF: 0 Abilify Maintena 300 mg suspension,extended rel recon 300 mg IM QMONTH 30 Days RF: 0 Discharge Orders: Discharge Order (Routine); Ordered 03/14/21 Ordered By: Peggy Ellis Diet: advance to usual diet Activity on Discharge: Use cane or walker Stand Alone Forms: Patient Portal Discharge page, Community Support Care Plan Goals: Mood Stabilization Health Concerns: Schizoaffective Disorder Olecranon bursitis L Elbow Cervical Cord Compression with Myelopathy Plan of Treatment: Attend all scheduled appointments Take medications as directed Follow up with your primary care physician regarding bursitis and lab results. Follow up with Dr. Mims-they had surgery scheduled for you however you declined. You report your sister will be scheduling this appointment. Assessment: Denies SI, HI Denies psychotic symptoms Discharge Date/Time: 03/14/21 13:23 Mental Status Exam Mental Status Exam Patient Appearance: Appropriate Patient Orientation: Person, Place, Time and Situation Level of Consciousness: Awake and Alert Patient Behavior: Appropriate, Talkative, Cooperative and Good Eye Contact Mood Description: Calm Affect Description: Calm Patient Cognition Impaired: No Ability to Follow Directions: Good Speech Pattern: Spontaneous Speech and Soft-Spoken Memory Description: Episodic Impaired Hallucinations: None (denies) Delusions: Present (pt has fears about rx of cervical myelopathy, treatment options-will attend f/u appt with Dr. Mims to review.) Thought Process: Intact Thought Content: positive for Intact, positive for [place] and positive for Circumstantial Judgement: Good Data Data Completed and Pending Completed studies during hospitalization [Text1]: 03/14/21 03/14/21 08:09 08:09 WBC 6.4 RBC 4.39 L Hgb 13.2 L Hct 40.2 L MCV 91.6 MCH 30.1 MCHC 32.8 RDW 12.6 Plt Count 225 MPV 10.1 Immature Gran % (Auto) 0.2 Neut % (Auto) 46.6 Lymph % (Auto) 39.6 [place] % (Auto) 9.2 Eos % (Auto) 3.9 Baso % (Auto) 0.5 Lymph # (Auto) 2.6 [place] # (Auto) 0.6 Eos # (Auto) 0.3 Baso # (Auto) 0.0 Abs Immat Gran (auto) 0.01 Absolute Neuts (auto) 3.0 Absolute Nucleated RBC 0.000 Nucleated RBC % (auto) 0.0 Sodium 139 Potassium 4.4 Chloride 104 Carbon Dioxide 28 Anion Gap 11 L BUN 14 D Creatinine 0.80 Estim Creat Clear Calc 102.5 Estimated GFR > 60 Random Glucose TNP Fasting Glucose 100 H Calcium 9.6 D Total Bilirubin 0.3 AST 25 D ALT 23 Alkaline Phosphatase 91 Total Protein 7.0 Albumin 4.4 02/26/21 00:00 Urine clean catch - Clean Catch Midstream Urine Culture - Final DS: Summary Hospital Course Hospital Course: Pt admitted on a conditional voluntary status. He agreed to PO medication trials only, stating the Abilify Maintena RADFORD was not a good match for him. He declined other trials of RADFORD. Pt did ask to return to Risperdal or Haldol, however, given his history of tardive dyskinesia these were avoided. Pt did a brief trial of Abilify PO but asked to change. Olanzapine was trialed and pt thought this was effective. It was titrated to 30 mg. Benztropine was titrated to 1 mg three times daily and per pt request 50 mg Seroquel was added at bedtime to assist with sleep. Pt was diagnosed with L Elbow bursitis while in pt and will follow up with his PCP. Pt continues with Dr. Mims's team for cervical myelopathy treatment. Surgery had been scheduled in early 2019, however, pt does not want to proceed with surgical intervention and as a result needs to return to that team to continue to plan his care. He asked that he be allowed to schedule that appt with his family assisting. Pt worked with the team, quietly within the milieu, was compliant with medications and was able to recover and experience a decrease of perceptual alterations, fear, and environmental misinterpretation. He will have VNA upon discharge who will assist with po medication compliance. Time spent discussing smoking cessation with patient: 3 to 10 minutes Status at Discharge Cognitive/behavioral status at discharge: alert, oriented, denies perceptual alterations, denies SI, HI, mood and affect are calm. Pt reports feeling ready for discharge. Functional status at discharge: uses cane/walker Overall status at discharge: patient is progressing back to baseline Time Spent with Patient Time attestation: Total time spent providing and/or coordinating discharge services:35 Time spent: Greater than 30 minutes
== END 2021-03-14 13:23 | disposition home or self-care (01) | DRG 885 ==
LOC: HO.ED 02-27 16:06 → HO.PM5 02-27 16:31
PROVIDERS: Student in an Organized Health Care Education/Training Program; Admitting Provider Psychiatry & Neurology Psychiatry; Emergency Provider Emergency Medicine Emergency Medical Services; Visit Provider Clinical Nurse Specialist Psychiatric/Mental Health, Adult
DX: F25.9 Schizoaffective disorder, unspecified (principal); M70.22 Olecranon bursitis, left elbow; Z20.822 Contact with and (suspected) exposure to COVID-19; Z79.899 Other long term (current) drug therapy
CPT/HCPCS: 36415; 80053; 80061; 80307; 81001; 81003; 82306; 82607; 82746; 82947; 83036; 83735; 84439; 84443; 85025; 87086; 87635; 93005; 99285

== ENCOUNTER 2022-07-13 14:05 | Inpatient (IN) | payer MEDICARE, OTHER, SELFPAY ==
--- NOTE | 2022-07-13 | ECG_ITS ---
Test Reason : MEDICAL CLEAR Blood Pressure : / mmHG Vent. Rate : 061 BPM Atrial Rate : 061 BPM P-R Int : 146 ms QRS Dur : 098 ms QT Int : 414 ms P-R-T Axes : 045 -11 037 degrees QTc Int : 416 ms Normal sinus rhythm Low voltage QRS Inferior infarct , age undetermined Abnormal ECG When compared with ECG of 26-FEB-2021 05:28, Vent. rate has decreased BY 30 BPM Referred By: Robyn Wei Electronically Signed By:NAVIN CEDEÑO
--- NOTE | 2022-07-13 14:10 | MHC.CARE ---
CARE Team received call from [facility]( Sarbjit Ordonez and Lurdes Locke) regarging Pt stating since injuries in 2020, Pt ?is not ambulatory and lives with his sister Thalia, relying on her for all but direct physical care and support. When he stops taking medications, he often does so privately without saying so- and family recognize it by increased disorganization and paranoia towards them. Currently, Pts suspicions are such that he is neglecting his basic nourishment and care due to beliefs that his sister may intend to harm him. He used to be on an IM dose of antipsychotic for this reason, but 1-2 years ago he stopped that but agreed to the tablets. It seems like some kind of agreement about medications will need to be arrived at if he is going to continue to live collaboratively with family. Sister Thalia is his primary support and sister Carla, who lives miles away is artists' booking representative payee.?
--- NOTE | 2022-07-13 14:17 | PC.NURSE ---
paranoid, guarded presentation. when told sister cares shes a child molester some fbi stuff told by ems hasnt taken meds for days. advised staff toobtain blood sugar when patient allows.
[2022-07-13 14:20] VITALS: RESP 18; BMI 28.0
--- NOTE | 2022-07-13 14:44 | PC.NURSE ---
PT REFUSED VITALS AND POC.
[2022-07-13 15:45] VITALS: BP 145/70; PULSE 71; RESP 16; TEMP 36.6; O2SAT 98
--- NOTE | 2022-07-13 15:59 | ED_ITS ---
HPI - Psych General Chief Complaint: Psychiatric Symptoms <SIOBHAN Arriaga - Last Filed: 07/13/22 20:10> Stated Complaint: SECTION 12 <SIOBHAN Arriaga - Last Filed: 07/13/22 20:10> Time Seen by Provider: 07/13/22 14:42 <SIOBHAN Arriaga Last Filed: 07/13/22 20:10> Source: patient and EMS <SIOBHAN Arriaga Last Filed: 07/13/22 20:10> Mode of arrival: EMS <SIOBHAN Arriaga Last Filed: 07/13/22 20:10> Limitations: other (Poor historian) <SIOBHAN Arriaga Last Filed: 07/13/22 20:10> History of Present Illness HPI Narrative: 60-year-old male with a past medical history of schizoaffective disorder and cervical degenerative disc disease presenting to the ED after a group social worker was at his house and was concerned about his increased depression and paranoia therefore they placed him on a Section 12 and sent him here for further evaluation treatment. Apparently the patient has not been eating or drinking and has not been sleeping well. He reports that he is always arguing with his sister although he does not want to move out of his sister's house. He reports that his sister cooks ?poison and uses poison ingredients to cook . He also reports ?my sister is a child molester and she is in some type of FBI stuff?. He is refusing all labs/imaging an EKG and urine. He denies any SI/HI/auditory or visual hallucination or thoughts of self injury. He denies any other symptoms complaints or concerns at this time. He denies any alcohol or drug [place] ge. He denies recent travel or sick contacts. He denies any fevers, chills, dizziness, headaches, neck pain/tenderness, trouble swallowing or breathing, chest pain or shortness of breath, dyspnea on exertion, orthopnea, palpitations, paresthesias, nausea/vomiting/diarrhea constipation, black or bloody stools, lower extremity edema or calf tenderness, penile discharge or any other symptoms complaints or concerns at this time. <SIOBHAN Arriaga Last Filed: 07/13/22 20:10> MD complaint: feels depressed and other (Paranoia) <SIOBHAN Arriaga - Last Filed: 07/13/22 20:10> Onset (ago): day(s) (Few days) <SIOBHAN Arriaga - Last Filed: 07/13/22 20:10> Duration: constant and getting worse <SIOBHAN Arriaga - Last Filed: 07/13/22 20:10> History of same: Yes <SIOBHAN Arriaga - Last Filed: 07/13/22 20:10> Relieving factors: none <SIOBHAN Arriaga Last Filed: 07/13/22 20:10> Exacerbating factors: other (See above) <SIOBHAN Arriaga - Last Filed: 07/13/22 20:10> Context: other (See above) <SIOBHAN Arriaga - Last Filed: 07/13/22 20:10> Associated psychiatric symptoms: racing thoughts and other (Paranoia) <SIOBHAN Arriaga Last Filed: 07/13/22 20:10> Associated symptoms: denies other symptoms <SIOBHAN Arriaga - Last Filed: 07/13/22 20:10> Treatments prior to arrival: other (Placed on Section 12 by group social worker from [facility]) <SIOBHAN Arriaga Last Filed: 07/13/22 20:10> Related Data Home Medications: Previous Rx's Medication Instructions Recorded benztropine 1 mg tablet 1 mg PO TID #90 tabs 03/14/21 folic acid 1 mg tablet 1 mg PO DAILY 30 days #30 tabs 03/14/21 gabapentin 100 mg capsule 100 mg PO BID #60 caps 03/14/21 hydroxyzine HCl 25 mg tablet 25 mg PO BEDTIME PRN Anxiety #30 03/14/21 tabs hydroxyzine HCl 50 mg tablet 50 mg PO TID PRN Anxiety 30 days 03/14/21 #90 tabs lorazepam 1 mg tablet 1 mg PO Q4H PRN Anxiety #15 tabs 03/14/21 multivitamin with folic acid 400 1 tab PO DAILY 30 days #30 tabs 03/14/21 mcg tablet (Tab-A-Max) olanzapine 10 mg tablet 30 mg PO BEDTIME #90 tabs 03/14/21 quetiapine 50 mg tablet 50 mg PO BEDTIME #30 tabs 03/14/21 trazodone 50 mg tablet 50 mg PO BEDTIME PRN Insomnia #30 03/14/21 tabs trazodone 50 mg tablet 50 mg PO BEDTIME PRN Insomnia 30 03/14/21 days #30 tabs <SIOBHAN Arriaga - Last Filed: 07/13/22 20:10> Allergies/Adverse Reactions: Allergies Allergy/AdvReac Type Severity Reaction Status Date / Time No Known Allergies Allergy Mild NA Verified 09/28/20 17:48 <SIOBHAN Arriaga - Last Filed: 07/13/22 20:10> Review of Systems Review of Systems: Constitutional : No Fever, No Chills ENT/Mouth : No Ear Pain, No Nasal Congestion, No sore throat Eyes: No Eye Pain, No Swelling, No Redness Cardiovascular : No Chest Pain, No SOB Respiratory : No Cough, No Sputum, No Dyspnea Gastrointestinal : No ingestions, No Nausea, No Vomiting, No Diarrhea, No Hematochezia, No Melena Genitourinary : No Dysuria, No Urinary Frequency, No Hematuria Musculoskeletal : No Myalgias Skin : No Skin Lesions, No rash Neuro : No Weakness, No Numbness, No Paresthesias, No Dizziness, No Headache Psych : + Anxiety, + Depression, + paranoia, No SI, No thoughts of self injury, No HI, No AVH, Heme/Lymph: No Lymphadenopathy Endocrine : No Polyuria, No Polydipsia <SIOBHAN Arriaga - Last Filed: 07/13/22 20:10> Yes all other systems are reviewed and are negative <SIOBHAN Arriaga - Last Filed: 07/13/22 20:10> [facility] Past Medical History Attestation statement: The following information was validated with the patient. <SIOBHAN Arriaga Last Filed: 07/13/22 20:10> Source: old records reviewed and nursing notes reviewed <SIOBHAN Arriaga Last Filed: 07/13/22 20:10> Medical History: Medical History Bursitis Degenerative disc disease, cervical Schizoaffective disorder <SIOBHAN Arriaga Last Filed: 07/13/22 20:10> Social History Social History: Social History Household Members: Family Housing: Apartment Do you presently have visiting nurse or other home services: Yes Unable to assess alcohol history related to: Unknown Alcohol intake: never Cigarette Packs Per Day: 0.5 Cigarettes Per Day: 10.0 Years Smoked: 40 Second Hand Smoke Exposure: No Substance Use Type: Marijuana Advance Directives: No Advance Directives Information Provided: No Healthcare Proxy: No Guardian: Yes (Carla Hook [phone]) service: No Sexual orientation: Straight/Heterosexual <SIOBHAN Arriaga - Last Filed: 07/13/22 20:10> Physical Exam Vital Signs: Vital Signs: Last Vital Signs Temp 97.8 F 07/13/22 15:45 Pulse 71 07/13/22 15:45 Resp 16 07/13/22 15:45 BP 145/70 H 07/13/22 15:45 Pulse Ox 98 07/13/22 15:45 O2 Del Method 07/13/22 15:45 BMI result Body Mass Index 28.0 vital signs have been reviewed as normal and appeared to be correct. Blood pressure 145/70. Heart rate normal. Respiration rate normal. Temperature normal. Oxygen saturation normal. <SIOBHAN Arriaga - Last Filed: 07/13/22 20:10> Vital Signs: Last Vital Signs Temp 97.8 F 07/13/22 15:45 Pulse 71 07/13/22 15:45 Resp 16 07/13/22 15:45 BP 145/70 H 07/13/22 15:45 Pulse Ox 98 07/13/22 15:45 O2 Del Method 07/13/22 15:45 BMI result Body Mass Index 28.0 <Raquel Smiley MD - Last Filed: 07/13/22 21:52> Appearance: Alert. Oriented X3. No acute distress. Head: Normal external exam. Normocephalic. Atraumatic. No Wells signs noted. No raccoon eyes noted Eyes: PERRLA. EOMI. Conjunctiva and sclera normal. Eyelids normal. ENT: EAC normal. TM's Normal. Pharynx normal. Uvula midline. Moist mucous membranes. No trismus noted. No drooling noted. No muffled voice noted. Neck: Normal inspection. Neck supple. FROM. No adenopathy. Thyroid Normal. No meningeal signs. No neck mass noted. CVS: Normal heart rate and rhythm. Heart sound normal. No murmurs noted. Pulses normal throughout. Respiratory: No respiratory distress. Painless inspiration. Breath sounds normal. No wheezes/rales/rhonchi noted. Chest nontender. No accessory muscle usage noted or decreased air movement noted. Abdomen: Soft and nontender. Bowel sounds normal in all 4 quadrants. No d istention noted. No organomegaly noted. No visible injury noted. Back: No CVA tenderness. Full range of motion noted. Skin: Skin warm and dry. Normal skin color. Normal skin turgor. No rashes/l esions/lacerations noted. Extremities: No lower extremity edema. Extremities exhibit normal range of motion. Extremities nontender. Neuro: Oriented X 3. No motor deficit. No sensory deficit. Reflexes normal. CN's II-XII intact bilaterally? Psych: Appearance grossly normal, well-kept, mental status normal, speech and movement normal, speech clear, patient appears very sad and anxious along with depressed. Is cooperative. <SIOBHAN Arriaga - Last Filed: 07/13/22 20:10> Course Course Course Narrative: 18pm - 60-year-old male with a past medical history of schizoaffective disorder and cervical degenerative disc disease presenting to the ED after a group social worker was at his house and was concerned about his increased depression and paranoia therefore they placed him on a Section 12 due to the patient has not been eating or drinking and has not been sleeping well. He reports that he is always arguing with his sister although he does not want to move out of his sister's house. He reports that his sister cooks ?poison and uses poison ingredients to cook . He also reports ?my sister is a child molester and she is in some type of FBI stuff?. He denies any SI/HI/auditory or visual hallucination or thoughts of self injury. Patient refusing all labs or imaging at this time although will re-attempt. <SIOBHAN Arriaga - Last Filed: 07/13/22 20:10> Reevaluation(s) Reevaluation #1: - labs reviewed patient with anemia similar compared to prior. BUN 8. Otherwise all other labs are within normal limits. ETOH level negative. COVID negative. - patient medically cleared at this time. Will continue to monitor as patient is section 12 inpatient bed search. <SIOBHAN Arriaga - Last Filed: 07/13/22 20:10> Time: 19:34 <SIOBHAN Arriaga - Last Filed: 07/13/22 20:10> Reevaluation #2: Patient was seen by [facility]. Patient is on a Section 12 , patient is going to , diagnosis schizoaffective disorder <Raquel Smiley MD - Last Filed: 07/13/22 21:52> Time: 21:52 <Raquel Smiley MD - Last Filed: 07/13/22 21:52> MDM - Psych Medical Records Attestation: I reviewed the patient's medical records. <SIOBHAN Arriaga - Last Filed: 0 07/13/22 20:10> Lab Data Attestation: I reviewed the patient's lab results. <SIOBHAN Arriaga - Last Filed: 0 07/13/22 20:10> Result diagrams: : 07/13/22 18:15 07/13/22 18:15 <SIOBHAN Arriaga - Last Filed: 07/13/22 20:10> Labs: Lab Results 07/13/22 07/13/22 07/13/22 Range/Units 15:45 18:15 18:15 WBC 7.4 (4.8-10.8) X10*3/uL RBC 4.68 (4.60-5.80) X10*6/uL Hgb 13.9 L (14.0-18.0) g/dl Hct 40.1 L (42.0-52.0) % MCV 85.7 (80.0-98.0) fL MCH 29.7 (27.0-33.0) pg MCHC 34.7 (31.0-36.0) g/dl RDW 13.2 (11.0-16.0) % Plt Count 288 (160-400) X10*3/uL MPV 9.7 (9.4-12.4) fL Immature Gran % (Auto) 0.1 (0.0-0.4) % Neut % (Auto) 44.0 L (45-73) % Lymph % (Auto) 45.1 H (20-40) % [place] % (Auto) 8.5 (2-11) % Eos % (Auto) 1.5 (0-4) % Baso % (Auto) 0.8 (0-2) % Lymph # (Auto) 3.3 (1.2-4.9) X10*3/uL [place] # (Auto) 0.6 (0.1-1.2) X10*3/uL Eos # (Auto) 0.1 (0.0-0.4) X10*3/uL Baso # (Auto) 0.1 (0.0-0.2) X10*3/uL Abs Immat Gran (auto) 0.01 (0.00-0.03) X10*3/uL Absolute Neuts (auto) 3.2 (2.0-8.3) x10*3/uL Absolute Nucleated RBC 0.000 (0.0-0.012) X10*3/uL Nucleated RBC % (auto) 0.0 (0.0-0.2) /100WBC Sodium 139 (135-145) mmol/L Potassium 4.4 (3.3-5.1) mmol/L Chloride 105 (96-108) mmol/L Carbon Dioxide 26 (22-29) mmol/L Anion Gap 12 (12-20) BUN 8 L (9-16) mg/dL Creatinine 0.84 (0.5-1.4) mg/dL Estim Creat Clear Calc 99.1 Estimated GFR > 60 Random Glucose 93 (60-115) mg/dL Calcium 8.9 D (8.4-10.2) mg/dL Total Bilirubin 0.6 (0.0-1.0) mg/dL AST 20 (5-37) U/L ALT 12 (0-40) U/L Alkaline Phosphatase 85 (39-117) U/L Total Protein 6.9 (6.5-8.0) g/dL Albumin 4.2 (3.5-5.0) g/dL Ethyl Alcohol < 10 mg/dL COVID-19 (JAMMIE) Negative (Negative) COVID-19 Clin Com See Note <SIOBHAN Arriaga - Last Filed: 07/13/22 20:10> Lab Results 07/13/22 07/13/22 07/13/22 Range/Units 15:45 18:15 18:15 WBC 7.4 (4.8-10.8) X10*3/uL RBC 4.68 (4.60-5.80) X10*6/uL Hgb 13.9 L (14.0-18.0) g/dl Hct 40.1 L (42.0-52.0) % MCV 85.7 (80.0-98.0) fL MCH 29.7 (27.0-33.0) pg MCHC 34.7 (31.0-36.0) g/dl RDW 13.2 (11.0-16.0) % Plt Count 288 (160-400) X10*3/uL MPV 9.7 (9.4-12.4) fL Immature Gran % (Auto) 0.1 (0.0-0.4) % Neut % (Auto) 44.0 L (45-73) % Lymph % (Auto) 45.1 H (20-40) % [place] % (Auto) 8.5 (2-11) % Eos % (Auto) 1.5 (0-4) % Baso % (Auto) 0.8 (0-2) % Lymph # (Auto) 3.3 (1.2-4.9) X10*3/uL [place] # (Auto) 0.6 (0.1-1.2) X10*3/uL Eos # (Auto) 0.1 (0.0-0.4) X10*3/uL Baso # (Auto) 0.1 (0.0-0.2) X10*3/uL Abs Immat Gran (auto) 0.01 (0.00-0.03) X10*3/uL Absolute Neuts (auto) 3.2 (2.0-8.3) x10*3/uL Absolute Nucleated RBC 0.000 (0.0-0.012) X10*3/uL Nucleated RBC % (auto) 0.0 (0.0-0.2) /100WBC Sodium 139 (135-145) mmol/L Potassium 4.4 (3.3-5.1) mmol/L Chloride 105 (96-108) mmol/L Carbon Dioxide 26 (22-29) mmol/L Anion Gap 12 (12-20) BUN 8 L (9-16) mg/dL Creatinine 0.84 (0.5-1.4) mg/dL Estim Creat Clear Calc 99.1 Estimated GFR > 60 Random Glucose 93 (60-115) mg/dL Calcium 8.9 D (8.4-10.2) mg/dL Total Bilirubin 0.6 (0.0-1.0) mg/dL AST 20 (5-37) U/L ALT 12 (0-40) U/L Alkaline Phosphatase 85 (39-117) U/L Total Protein 6.9 (6.5-8.0) g/dL Albumin 4.2 (3.5-5.0) g/dL Ethyl Alcohol < 10 mg/dL COVID-19 (JAMMIE) Negative (Negative) COVID-19 Clin Com See Note <Raquel Smiley MD - Last Filed: 07/13/22 21:52> Discharge Plan Discharge Clinical Impression: Schizoaffective disorder, Acute paranoia <SIOBHAN Arriaga - Last Filed: 07/13/22 20:10> Patient Disposition: Admitted As Inpatient <SIOBHAN Arriaga - Last Filed: 07/13/22 20:10> Prescriptions: No Action trazodone 50 mg Tablet 50 mg PO BEDTIME PRN (Reason: Insomnia) Qty: 30 0RF olanzapine 10 mg Tablet 30 mg PO BEDTIME Qty: 90 0RF benztropine 1 mg Tablet 1 mg PO TID Qty: 90 0RF hydroxyzine HCl 25 mg Tablet 25 mg PO BEDTIME PRN (Reason: Anxiety) Qty: 30 0RF gabapentin 100 mg Capsule 100 mg PO BID Qty: 60 0RF lorazepam 1 mg Tablet 1 mg PO Q4H PRN (Reason: Anxiety) Qty: 15 0RF quetiapine 50 mg Tablet 50 mg PO BEDTIME Qty: 30 0RF trazodone 50 mg Tablet 50 mg PO BEDTIME PRN (Reason: Insomnia) 30 Days Qty: 30 0RF hydroxyzine HCl 50 mg Tablet 50 mg PO TID PRN (Reason: Anxiety) 30 Days Qty: 90 0RF folic acid 1 mg Tablet 1 mg PO DAILY 30 Days Qty: 30 0RF multivitamin with folic acid [Tab-A-Max] 400 mcg Tablet 1 tab PO DAILY 30 Days Qty: 30 0RF <SIOBHAN Arriaga - Last Filed: 07/13/22 20:10>
[2022-07-13 16:15] LABS: COVID-19 Test Negative (Negative); IDNOW Serial# 16C4AD1C
--- NOTE | 2022-07-13 16:17 | PC.NURSE ---
Pt continuing to refuse labs.
[2022-07-13 18:23] LABS: MANUAL DIFF FLAG NO
[2022-07-13 18:35] LABS: Basophils Absolute Auto 0.1 X10*3/uL (0.0-0.2); Basophils Percent Auto 0.8 % (0-2); Eosinophils Absolute Auto 0.1 X10*3/uL (0.0-0.4); Eosinophils Percent Auto 1.5 % (0-4); Hematocrit 40.1 % (42.0-52.0); Hemoglobin 13.9 g/dl (14.0-18.0); Imm Gran Abs Auto 0.01 X10*3/uL (0.00-0.03); Imm Gran Pct Auto 0.1 % (0.0-0.4); Lymphocytes Absolute Auto 3.3 X10*3/uL (1.2-4.9); Lymphocytes Percent Auto 45.1 % (20-40); Mean Corpuscular HGB Conc 34.7 g/dl (31.0-36.0); Mean Corpuscular Hemoglobin 29.7 pg (27.0-33.0); Mean Corpuscular Volume 85.7 fL (80.0-98.0); Mean Platelet Volume 9.7 fL (9.4-12.4); Monocytes Absolute Auto 0.6 X10*3/uL (0.1-1.2); Monocytes Percent Auto 8.5 % (2-11); Neutrophils Absolute Auto 3.2 x10*3/uL (2.0-8.3); Platelet Count 288 X10*3/uL (160-400); Red Blood Count 4.68 X10*6/uL (4.60-5.80); Red Cell Distribution Width 13.2 % (11.0-16.0); White Blood Count 7.4 X10*3/uL (4.8-10.8)
[2022-07-13 18:38] LABS: Alanine Aminotransferase 12 U/L (0-40); Albumin Level 4.2 g/dL (3.5-5.0); Alkaline Phosphatase 85 U/L (39-117); Anion Gap 12 (12-20); Aspartate Amino Transferase 20 U/L (5-37); Bilirubin Total 0.6 mg/dL (0.0-1.0); Blood Urea Nitrogen 8 mg/dL (9-16); Calcium 8.9 mg/dL (8.4-10.2); Carbon Dioxide 26 mmol/L (22-29); Chloride 105 mmol/L (96-108); Creatinine Clr Calc Pharmacy 99.1; Estimated Glomerular Filt Rate > 60; Ethanol < 10 mg/dL; Glucose Random 93 mg/dL (60-115); Potassium 4.4 mmol/L (3.3-5.1); Sodium 139 mmol/L (135-145); Total Protein 6.9 g/dL (6.5-8.0)
[2022-07-13] MEDS: traZODone HCL 50 MG TABLET PO (22:02)
[2022-07-13] MEDS: QUEtiapine Fumarate 50 MG TABLET PO (22:02)
[2022-07-13] MEDS: Benztropine Mesylate 1 MG TABLET PO (22:02)
[2022-07-13] MEDS: OLANZapine 10 MG TABLET 30 MG PO (22:02)
[2022-07-13] MEDS: Gabapentin 100 MG CAPSULE PO (22:02)
[2022-07-13 23:00] VITALS: BP 166/80; PULSE 73; RESP 16; TEMP 36.6; O2SAT 98
--- NOTE | 2022-07-14 02:36 | PC.ADMIT ---
Patient arrived on the unit at 2235 from [facility]. Patient is a 62 year old Male that presented to the ED after his outpatient social services aide visited him at home. Patient had stopped taking his medication for an unspecified amount of time and has become depressed, anxious, and paranoid. Patient believes at times that people are trying to poison him so he has not been eating for several days. Patient denies any SI/HI but was vague on his answer when asked about AH/VH. Patient utilizing a cane to help steady his gait. Patient lives with his sister and is able to return home. Patient sleepy on arrival to unit so patient asked some questions and was allowed to sleep. Covid negative and we will need a urine sample for UTOX.
[2022-07-14 08:27] LABS: Estimated Average Glucose 105 mg/dL; Hemoglobin A1c % 5.3 %
[2022-07-14 08:31] LABS: Cholesterol 179 mg/dL; HDL Cholesterol 37 mg/dL; LDL Cholesterol Calculated 127 mg/dl; Triglycerides 76 mg/dL
--- NOTE | 2022-07-14 08:39 | P.HPPS_ITS ---
HPI Date of Service: 07/14/22 Chief Complaint: Decompensated Psychosis, schizoaffective disorder Sources of Information: patient interviewed, chart reviewed and crisis/core team assessment reviewed HPI Subjective Notes: Conditional Voluntary Healthcare Proxy: No Guardianship: No Medical Problems Affecting Mental Status: No Narrative: Juan J is a 62-year-old white, single, disabled man. He has been hospitalized here in the past, the last being in February 2021. After his social workers time at home she had a Section 12 signed on him because of medication noncompliance, paranoid ideations and delusions, not eating and sleeping. Stating that his sister was putting poison in the food. He denies all of this today. He denies being medication noncompliant and he denies not eating. He cannot tell me the medications he is on but according to his records he is on Cogentin 1 mg b.i.d., gabapentin 100 mg t.i.d., Zyprexa 30 mg q.h.s. and Seroquel 50 mg q.h.s.. He is seen and followed at [facility]. He cannot tell me much about his previous treatment, hospitalizations or medications. He is able to respond appropriately to basic questions with little elaboration. He denies any side effects. He cannot tell me why he was not taking his medications which he actually denies. He has been diagnosed as having schizoaffective disorder. He denies any substance abuse. Social history: Jeffrey states that both of his parents are . He grew up in [place]. He has 2 sisters and he lives with 1 of his sisters for quite a while, ?too long ?. He did finish high school and worked until the early 90s. Past Psychiatric History: Long Hx of Schizoaffective. Similar presentations in the past. OP: [facility] Robert Perez-prescriber Sarbjit Lozano-therapist DM[facility]: [facility] Medical Evaluation Reviewed: Yes [facility] Medical History Bursitis Degenerative disc disease, cervical Schizoaffective disorder Family History: Unknown Social History: Lives at home with family. Supportive family. Recent conflict. Single. SSDI. Trauma History: Unknown Diagnostics Vital Signs (24Hr): Vital Signs - 24 hr 07/13/22 14:20 07/13/22 15:45 07/13/22 23:00 Temperature 97.8 F 98 F Pulse Rate 71 73 Respiratory Rate 18 16 16 Blood Pressure 145/70 H 166/80 H Pulse Oximetry 98 98 Oxygen Delivery Method Room Air Room Air BMI result Body Mass Index 28.0 Labs Results: 07/13/22 18:15 07/13/22 18:15 Labs: Laboratory Results - last 48 hr 07/13/22 07/13/22 07/13/22 15:45 18:15 18:15 WBC 7.4 RBC 4.68 Hgb 13.9 L Hct 40.1 L MCV 85.7 MCH 29.7 MCHC 34.7 RDW 13.2 Plt Count 288 MPV 9.7 Immature Gran % (Auto) 0.1 Neut % (Auto) 44.0 L Lymph % (Auto) 45.1 H [place] % (Auto) 8.5 Eos % (Auto) 1.5 Baso % (Auto) 0.8 Lymph # (Auto) 3.3 [place] # (Auto) 0.6 Eos # (Auto) 0.1 Baso # (Auto) 0.1 Abs Immat Gran (auto) 0.01 Absolute Neuts (auto) 3.2 Absolute Nucleated RBC 0.000 Nucleated RBC % (auto) 0.0 Sodium 139 Potassium 4.4 Chloride 105 Carbon Dioxide 26 Anion Gap 12 BUN 8 L Creatinine 0.84 Estim Creat Clear Calc 99.1 Estimated GFR > 60 Random Glucose 93 Estimat Average Glucose Hemoglobin A1c % Calcium 8.9 D Magnesium Total Bilirubin 0.6 AST 20 ALT 12 Alkaline Phosphatase 85 Total Protein 6.9 Albumin 4.2 Triglycerides Cholesterol LDL Cholesterol, Calc HDL Cholesterol Ethyl Alcohol < 10 COVID-19 (JAMMIE) Negative COVID-19 Clin Com See Note 07/14/22 07/14/22 07:42 07:42 WBC RBC Hgb Hct MCV MCH MCHC RDW Plt Count MPV Immature Gran % (Auto) Neut % (Auto) Lymph % (Auto) [place] % (Auto) Eos % (Auto) Baso % (Auto) Lymph # (Auto) [place] # (Auto) Eos # (Auto) Baso # (Auto) Abs Immat Gran (auto) Absolute Neuts (auto) Absolute Nucleated RBC Nucleated RBC % (auto) Sodium Potassium Chloride Carbon Dioxide Anion Gap BUN Creatinine Estim Creat Clear Calc Estimated GFR Random Glucose Estimat Average Glucose 105 Hemoglobin A1c % 5.3 Calcium Magnesium 2.0 Total Bilirubin AST ALT Alkaline Phosphatase Total Protein Albumin Triglycerides 76 Cholesterol 179 LDL Cholesterol, Calc 127 HDL Cholesterol 37 D Ethyl Alcohol COVID-19 (JAMMIE) COVID-19 Clin Com Meds/Allergies Meds Home Medications Medication Instructions Recorded Confirmed Type naproxen 500 mg tablet 1 tab PO BID 07/13/22 07/13/22 History naproxen 500 mg tablet 1 tab PO BID 07/13/22 07/13/22 History Allergies Allergies Allergy/AdvReac Type Severity Reaction Status Date / Time No Known Allergies Allergy Mild NA Verified 09/28/20 17:48 Mental Status Exam Mental Status Exam Narrative: Juan J was seen the morning after his admission. He is in hospital attire. He is alert, oriented and pleasant. Speech is slowed. Little to no eye contact. Affect is appropriate and constricted. He denies any auditory or visual hallucinations. He denies any delusions. Prior to admission there are re ferences to paranoid ideations and feeling that he was being poisoned by his sister. He denies any suicidal or homicidal ideations. He denies any previous attempts. Cognitively he has slow thought processes. He is able to respond to questions briefly with no elaboration and questionable reliability. Judgment is mostly intact. Assessment & Plan Assessment & Plan (1) Schizoaffective disorder: Status: Acute Code(s): F25.9 - Schizoaffective disorder, unspecified (2) Acute paranoia: Status: Acute Code(s): F22 - Delusional disorders Plan Juan J was admitted for safety and stabilization. Current medications were reviewed and continued. Contact to be made with his treaters. Contact to be made with his sister. He will meet with his treatment team on 07/16/2022 Patient educated on: diagnosis, medication risk/benefits and therapeutic strategies Reason for continued inpatient stay Substantial Risk for: inability to function and rapid decompensation
[2022-07-14 08:57] LABS: Free T4 (Free Thyroxine) 1.12 ng/dL (0.71-1.85); Thyroid Stimulating Hormone 1.22 uIU/mL (0.32-4.0)
[2022-07-14 09:04] LABS: Folate 18.1 ng/mL (> or = 4.0); Vitamin B12 592 pg/mL (200-900)
[2022-07-14] MEDS: Benztropine Mesylate 1 MG TABLET PO ×2 (10:14→20:28)
[2022-07-14] MEDS: Gabapentin 100 MG CAPSULE PO ×3 (10:14→20:28)
[2022-07-14 10:34] VITALS: BP 123/70; PULSE 85; RESP 16; TEMP 36; O2SAT 100
[2022-07-14] MEDS: hydrOXYzine HCL 50 MG TABLET PO (18:18)
[2022-07-14 20:20] VITALS: BP 161/86; PULSE 87; RESP 18; TEMP 36.2; O2SAT 98
[2022-07-14] MEDS: OLANZapine 10 MG TABLET 30 MG PO (20:27)
[2022-07-14] MEDS: QUEtiapine Fumarate 50 MG TABLET PO (20:28)
[2022-07-14] MEDS: Acetaminophen 325 MG TABLET 650 MG PO (20:29)
[2022-07-15] MEDS: Benztropine Mesylate 1 MG TABLET PO ×2 (08:16→20:55)
[2022-07-15] MEDS: Gabapentin 100 MG CAPSULE PO ×3 (08:16→20:55)
--- NOTE | 2022-07-15 08:16 | P.PNPSI_ITS ---
Subjective Subjective Date of Service: 07/15/22 Reason For Visit: Decompensated Psychosis, schizoaffective disorder Subjective Notes: Conditional Voluntary Healthcare Proxy: No Guardianship: No Medical Problems Affecting Mental Status: No Interim History: Patient was seen and discussed in rounds today. Records and plans were reviewed. He continues to be somewhat anxious, isolative. No SI. No auditory or visual hallucinations. He states that he was taking naproxen for his back pain at home which is more helpful and would like to resume that. He is able to ambulate adequately with his long cane. No other changes were made today Medication Compliance: Yes Side effects from medications: No Mental Status Exam Mental Status Exam Narrative: In today's examination he is alert, oriented and pleasant. Speech is normal for rate and rhythm. Better eye contact. Affect is appropriate and varied. No overt signs of anxiety. No overt paranoia or delusions. He denies any auditory or visual hallucinations. Cognitively is intact. Judgment is intact Diagnostics Vital Signs (24Hr): Vital Signs - 24 hr 07/14/22 10:34 07/14/22 20:20 Temperature 96.8 F 97.2 F Pulse Rate 85 87 Respiratory Rate 16 18 Blood Pressure 123/70 161/86 H Pulse Oximetry 100 98 Oxygen Delivery Method Room Air Room Air BMI result Body Mass Index 28.0 Labs Results: 07/13/22 18:15 07/13/22 18:15 Labs: Laboratory Results - last 48 hr 07/13/22 07/13/22 07/13/22 15:45 18:15 18:15 WBC 7.4 RBC 4.68 Hgb 13.9 L Hct 40.1 L MCV 85.7 MCH 29.7 MCHC 34.7 RDW 13.2 Plt Count 288 MPV 9.7 Immature Gran % (Auto) 0.1 Neut % (Auto) 44.0 L Lymph % (Auto) 45.1 H [place] % (Auto) 8.5 Eos % (Auto) 1.5 Baso % (Auto) 0.8 Lymph # (Auto) 3.3 [place] # (Auto) 0.6 Eos # (Auto) 0.1 Baso # (Auto) 0.1 Abs Immat Gran (auto) 0.01 Absolute Neuts (auto) 3.2 Absolute Nucleated RBC 0.000 Nucleated RBC % (auto) 0.0 Sodium 139 Potassium 4.4 Chloride 105 Carbon Dioxide 26 Anion Gap 12 BUN 8 L Creatinine 0.84 Estim Creat Clear Calc 99.1 Estimated GFR > 60 Random Glucose 93 Estimat Average Glucose Hemoglobin A1c % Calcium 8.9 D Magnesium Total Bilirubin 0.6 AST 20 ALT 12 Alkaline Phosphatase 85 Total Protein 6.9 Albumin 4.2 Triglycerides Cholesterol LDL Cholesterol, Calc HDL Cholesterol Vitamin B12 Folate TSH Free T4 Ethyl Alcohol < 10 COVID-19 (JAMMIE) Negative COVID-19 Clin Com See Note 07/14/22 07/14/22 07/14/22 07:42 07:42 07:42 WBC RBC Hgb Hct MCV MCH MCHC RDW Plt Count MPV Immature Gran % (Auto) Neut % (Auto) Lymph % (Auto) [place] % (Auto) Eos % (Auto) Baso % (Auto) Lymph # (Auto) [place] # (Auto) Eos # (Auto) Baso # (Auto) Abs Immat Gran (auto) Absolute Neuts (auto) Absolute Nucleated RBC Nucleated RBC % (auto) Sodium Potassium Chloride Carbon Dioxide Anion Gap BUN Creatinine Estim Creat Clear Calc Estimated GFR Random Glucose Estimat Average Glucose 105 Hemoglobin A1c % 5.3 Calcium Magnesium 2.0 Total Bilirubin AST ALT Alkaline Phosphatase Total Protein Albumin Triglycerides 76 Cholesterol 179 LDL Cholesterol, Calc 127 HDL Cholesterol 37 D Vitamin B12 592 Folate 18.1 TSH 1.22 Free T4 1.12 Ethyl Alcohol COVID-19 (JAMMIE) COVID-19 Clin Com Medications Medications Current Medications Acetaminophen (Acetaminophen 325 Mg Tablet) 650 mg PO Q6H PRN PRN Reason: Headache/Pain Mild Scale (1-3) Last Admin: 07/14/22 20:29 Dose: 650 mg Al Hydroxide/Mg Hydroxide (Magnesium Hydrox/Alum Hydrox 30 Ml Oral.Susp) 30 ml PO Q6H PRN PRN Reason: Heartburn/Nausea Benztropine Mesylate (Benztropine Mesylate 1 Mg Tablet) 1 mg PO BID [facility] Last Admin: 07/14/22 20:28 Dose: 1 mg Gabapentin (Gabapentin 100 Mg Capsule) 100 mg PO TID [facility] Last Admin: 07/14/22 20:28 Dose: 100 mg Hydroxyzine HCl (Hydroxyzine Hcl 50 Mg Tablet) 50 mg PO Q6H PRN PRN Reason: agitation, anxiety Last Admin: 07/14/22 18:18 Dose: 50 mg Magnesium Hydroxide (Milk Of Magnesia 30 Ml Oral.Susp) 30 ml PO DAILY PRN PRN Reason: Constipation Olanzapine (Olanzapine 10 Mg Tablet) 30 mg PO BEDTIME YORDY Last Admin: 07/14/22 20:27 Dose: 30 mg Quetiapine Fumarate (Quetiapine Fumarate 50 Mg Tablet) 50 mg PO BEDTIME YORDY Last Admin: 07/14/22 20:28 Dose: 50 mg Trazodone HCl (Trazodone Hcl 50 Mg Tablet) 50 mg PO BEDTIME PRN PRN Reason: Insomnia Allergies Allergies Allergy/AdvReac Type Severity Reaction Status Date / Time No Known Allergies Allergy Mild NA Verified 09/28/20 17:48 Assessment & Plan Assessment & Plan (1) Schizoaffective disorder: Status: Acute Code(s): F25.9 - Schizoaffective disorder, unspecified (2) Acute paranoia: Status: Acute Code(s): F22 - Delusional disorders Plan Juan J was admitted for safety and stabilization. Current medications were reviewed and continued. Contact to be made with his treaters. Contact to be made with his sister. He will meet with his treatment team on 07/16/202207/15: Continue current regimen and plans and add naproxen 500 mg b.i.d. p.r.n. I spent minutes with the patient and/or on the patient floor today, greater than?50% of which was spent counseling/coordinating care. Patient educated on: medication risk/benefits Reason for contiued inpatient stay Substantial Risk for: med/psych decompensation
[2022-07-15 08:38] VITALS: BP 132/63; PULSE 71; TEMP 36.3; O2SAT 100
--- NOTE | 2022-07-15 16:02 | PC.NURSE ---
Patient placed a 3 day notice in on 07/15/22, up on 07/18/22Saturday
[2022-07-15 19:10] VITALS: BP 123/70; PULSE 81; RESP 16; TEMP 36.4; O2SAT 99
[2022-07-15] MEDS: QUEtiapine Fumarate 50 MG TABLET PO (20:55)
[2022-07-15] MEDS: OLANZapine 10 MG TABLET 30 MG PO (20:55)
[2022-07-16 06:00] VITALS: BP 124/73; PULSE 74; RESP 16; TEMP 36.6; O2SAT 98
[2022-07-16] MEDS: Acetaminophen 325 MG TABLET 650 MG PO (10:06)
[2022-07-16] MEDS: Gabapentin 100 MG CAPSULE PO ×3 (10:06→21:01)
[2022-07-16] MEDS: Benztropine Mesylate 1 MG TABLET PO ×2 (10:06→21:01)
[2022-07-16 12:18] LABS: Amphetamine Screen Urine Not Detected (Not Detect); Barbiturates, Urine Not Detected (Not Detect); Benzodiazepines Screen Urine Not Detected (Not Detect); Cannabinoid Screen Urine Not Detected (Not Detect); Cocaine Screen Urine Not Detected (Not Detect); Fentanyl, urine Not Detected (Not Detect); Opiate Screen Urine Not Detected (Not Detect); Phencyclidine Screen Urine Not Detected (Not Detect)
--- NOTE | 2022-07-16 16:30 | MHC.CLN ---
NUTRITION CONSULT DUE TO POOR PO. REPORTS THAT IS EATING OK HERE. HAD BEEN TAKING MOSTLY FROZEN MEALS PRIOR TO ADMISSION. NO ADDITIONAL NUTRITION INTERVENTIONS BASED ON CONVERSATION WITH PATIENT.
[2022-07-16 20:59] VITALS: BP 133/71; PULSE 86; RESP 17; TEMP 36.7; O2SAT 95
[2022-07-16] MEDS: OLANZapine 10 MG TABLET 30 MG PO (21:00)
[2022-07-16] MEDS: QUEtiapine Fumarate 50 MG TABLET PO (21:01)
--- NOTE | 2022-07-16 22:54 | P.PNPSI_ITS ---
Subjective Subjective Date of Service: 07/16/22 Reason For Visit: Decompensated Psychosis, schizoaffective disorder Subjective Notes: Govea Warning, Conditional Voluntary and 3 Day Interim History: Pt is asleep, declines interview. Reviewed with team, pt signed TDN, which expires 07/18/22. He is progressing back to baseline. Medication Compliance: Yes Side effects from medications: No Attending Groups: Intermittent Review of Systems Acute medical concerns: No Medical Review of Systems: unchanged Mental Status Exam Mental Status Exam Narrative: Pt declined interview, not assessed. Ambulates with cane. No behavioral concerns per team. Diagnostics Vital Signs (24Hr): Vital Signs - 24 hr 07/16/22 20:59 Temperature 98.1 F Pulse Rate 86 Respiratory Rate 17 Blood Pressure 133/71 Pulse Oximetry 95 Oxygen Delivery Method Room Air BMI result Body Mass Index 28.0 Labs Results: 07/13/22 18:15 07/13/22 18:15 Labs: Laboratory Results - last 48 hr 07/16/22 09:50 Urine Opiates Screen Not Detected Urine Fentanyl Screen Not Detected Ur Barbiturates Screen Not Detected Ur Phencyclidine Scrn Not Detected Ur Amphetamines Screen Not Detected U Benzodiazepines Scrn Not Detected Urine Cocaine Screen Not Detected U Marijuana (THC) Screen Not Detected Medications Medications Current Medications Acetaminophen (Acetaminophen 325 Mg Tablet) 650 mg PO Q6H PRN PRN Reason: Headache/Pain Mild Scale (1-3) Last Admin: 07/16/22 10:06 Dose: 650 mg Al Hydroxide/Mg Hydroxide (Magnesium Hydrox/Alum Hydrox 30 Ml Oral.Susp) 30 ml PO Q6H PRN PRN Reason: Heartburn/Nausea Benztropine Mesylate (Benztropine Mesylate 1 Mg Tablet) 1 mg PO BID [facility] Last Admin: 07/17/22 08:38 Dose: 1 mg Gabapentin (Gabapentin 100 Mg Capsule) 100 mg PO TID [facility] Last Admin: 07/17/22 08:38 Dose: 100 mg Hydroxyzine HCl (Hydroxyzine Hcl 50 Mg Tablet) 50 mg PO Q6H PRN PRN Reason: agitation, anxiety Last Admin: 07/14/22 18:18 Dose: 50 mg Magnesium Hydroxide (Milk Of Magnesia 30 Ml Oral.Susp) 30 ml PO DAILY PRN PRN Reason: Constipation Naproxen (Naproxen 500 Mg Tablet) 500 mg PO BID PRN PRN Reason: back pain Olanzapine (Olanzapine 10 Mg Tablet) 30 mg PO BEDTIME YORDY Last Admin: 07/16/22 21:00 Dose: 30 mg Quetiapine Fumarate (Quetiapine Fumarate 50 Mg Tablet) 50 mg PO BEDTIME YORDY Last Admin: 07/16/22 21:01 Dose: 50 mg Trazodone HCl (Trazodone Hcl 50 Mg Tablet) 50 mg PO BEDTIME PRN PRN Reason: Insomnia Allergies Allergies Allergy/AdvReac Type Severity Reaction Status Date / Time No Known Allergies Allergy Mild NA Verified 09/28/20 17:48 Assessment & Plan Assessment & Plan (1) Schizoaffective disorder: Status: Acute Code(s): F25.9 - Schizoaffective disorder, unspecified (2) Acute paranoia: Status: Acute Code(s): F22 - Delusional disorders Plan Juan J was admitted for safety and stabilization. Current medications were reviewed and continued. Contact to be made with his treaters. Contact to be made with his sister. He will meet with his treatment team on 07/16/202207/15: Continue current regimen and plans and add naproxen 500 mg b.i.d. p.r.n. 07/16: No med changes, pt progressing to baseline I spent minutes with the patient and/or on the patient floor today, great er than?50% of which was spent counseling/coordinating care. Patient educated on: other Reason for contiued inpatient stay Substantial Risk for: med/psych decompensation
[2022-07-17 08:30] VITALS: BP 128/83; PULSE 86; RESP 18; TEMP 36.8; O2SAT 96
[2022-07-17] MEDS: Benztropine Mesylate 1 MG TABLET PO ×2 (08:38→20:16)
[2022-07-17] MEDS: Gabapentin 100 MG CAPSULE PO ×3 (08:38→20:16)
[2022-07-17 20:13] VITALS: BP 180/73; PULSE 97; RESP 18; TEMP 36.6; O2SAT 100
[2022-07-17] MEDS: QUEtiapine Fumarate 50 MG TABLET PO (20:16)
[2022-07-17] MEDS: OLANZapine 10 MG TABLET 30 MG PO (20:16)
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
[2022-07-18] MEDS: Gabapentin 100 MG CAPSULE PO ×3 (09:26→20:32)
[2022-07-18] MEDS: Benztropine Mesylate 1 MG TABLET PO ×2 (09:26→20:29)
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
[2022-07-18] MEDS: Acetaminophen 325 MG TABLET 650 MG PO (20:28)
[2022-07-18] MEDS: OLANZapine 10 MG TABLET 30 MG PO (20:29)
[2022-07-18] MEDS: QUEtiapine Fumarate 50 MG TABLET PO (20:29)
[2022-07-18 20:30] VITALS: BP 120/66; PULSE 87; RESP 18; TEMP 36.6; O2SAT 97
--- NOTE | 2022-07-19 06:39 | PC.NURSE ---
Pt threw and broke a pair of headphones that he was using onto the ground.
[2022-07-19] MEDS: Gabapentin 100 MG CAPSULE PO ×2 (08:38→16:21)
[2022-07-19] MEDS: Benztropine Mesylate 1 MG TABLET PO ×2 (08:39→20:35)
--- NOTE | 2022-07-19 16:50 | P.PNPSI_ITS ---
Subjective Subjective Date of Service: 07/19/22 Reason For Visit: Decompensated Psychosis, schizoaffective disorder Subjective Notes: Govea Warning, Conditional Voluntary and 3 Day Healthcare Proxy: No Guardianship: No Medical Problems Affecting Mental Status: No Interim History: I spoke with pt today and he reports he heard good news, i'm possibly going home and he is doing good as far as this place, its a place to relax, calm down. Sleep is good. The medications are okay, says the pills are different looking than at home. Mood is pretty good, upbeat. No questions or concerns. Has bodily pain, willing to trial an increase in gabapentin, may help with impulsivity.? Medication Compliance: Yes Side effects from medications: No Attending Groups: Intermittent Review of Systems Acute medical concerns: No Medical Review of Systems: unchanged Mental Status Exam Mental Status Exam Narrative: In today's examination he is alert, oriented and pleasant.? Speech is normal for rate and rhythm.? Good eye contact.? Affect is appropriate and varied.? No overt signs of anxiety.? No overt paranoia or delusions.? He denies any auditory or v isual hallucinations.? Cognitively intact.? Judgment is intact Diagnostics Vital Signs (24Hr): Vital Signs - 24 hr 07/18/22 20:30 Temperature 97.9 F Pulse Rate 87 Respiratory Rate 18 Blood Pressure 120/66 Pulse Oximetry 97 Oxygen Delivery Method Room Air BMI result Body Mass Index 28.0 Labs Results: 07/13/22 18:15 07/13/22 18:15 Medications Medications Current Medications Acetaminophen (Acetaminophen 325 Mg Tablet) 650 mg PO Q6H PRN PRN Reason: Headache/Pain Mild Scale (1-3) Last Admin: 07/18/22 20:28 Dose: 650 mg Al Hydroxide/Mg Hydroxide (Magnesium Hydrox/Alum Hydrox 30 Ml Oral.Susp) 30 ml PO Q6H PRN PRN Reason: Heartburn/Nausea Benztropine Mesylate (Benztropine Mesylate 1 Mg Tablet) 1 mg PO BID [facility] Last Admin: 07/19/22 08:39 Dose: 1 mg Gabapentin (Gabapentin 100 Mg Capsule) 100 mg PO TID [facility] Last Admin: 07/19/22 16:21 Dose: 100 mg Hydroxyzine HCl (Hydroxyzine Hcl 50 Mg Tablet) 50 mg PO Q6H PRN PRN Reason: agitation, anxiety Last Admin: 07/14/22 18:18 Dose: 50 mg Magnesium Hydroxide (Milk Of Magnesia 30 Ml Oral.Susp) 30 ml PO DAILY PRN PRN Reason: Constipation Naproxen (Naproxen 500 Mg Tablet) 500 mg PO BID PRN PRN Reason: back pain Olanzapine (Olanzapine 10 Mg Tablet) 30 mg PO BEDTIME [facility] Last Admin: 07/18/22 20:29 Dose: 30 mg Quetiapine Fumarate (Quetiapine Fumarate 50 Mg Tablet) 50 mg PO BEDTIME [facility] Last Admin: 07/18/22 20:29 Dose: 50 mg Trazodone HCl (Trazodone Hcl 50 Mg Tablet) 50 mg PO BEDTIME PRN PRN Reason: Insomnia Allergies Allergies Allergy/AdvReac Type Severity Reaction Status Date / Time No Known Allergies Allergy Mild NA Verified 09/28/20 17:48 Assessment & Plan Assessment & Plan (1) Schizoaffective disorder: Status: Acute Code(s): F25.9 - Schizoaffective disorder, unspecified (2) Acute paranoia: Status: Acute Code(s): F22 - Delusional disorders Plan Juan J was admitted for safety and stabilization. Current medications were reviewed and continued. Contact to be made with his treaters. Contact to be made with his sister. He will meet with his treatment team on 07/16/202207/15: Continue current regimen and plans and add naproxen 500 mg b.i.d. p.r.n. 07/16: No med changes, pt progressing to baseline 07/17: No med changes, as pt is reporting benefit on current doses, denies SI/SIB/HI, denies CAH, med adherent. 07/18: No med changes, pt signed a new TDN, appears to be at or progressing to baseline 07/19: increase gabapentin to 200 mg TID for pain, mood stability I spent minutes with the patient and/or on the patient floor today, greater than?50% of which was spent counseling/coordinating care. Patient educated on: diagnosis, medication risk/benefits and therapeutic strategies Reason for contiued inpatient stay Substantial Risk for: rapid decompensation and med/psych decompensation
[2022-07-19 20:26] VITALS: BP 134/63; PULSE 79; RESP 18; TEMP 36.2; O2SAT 97
[2022-07-19] MEDS: QUEtiapine Fumarate 50 MG TABLET PO (20:35)
[2022-07-19] MEDS: Gabapentin 100 MG CAPSULE 200 MG PO (20:35)
[2022-07-19] MEDS: OLANZapine 10 MG TABLET 30 MG PO (20:36)
[2022-07-20 08:22] VITALS: BP 139/76; PULSE 87; RESP 16; TEMP 36.1; O2SAT 99
[2022-07-20] MEDS: Benztropine Mesylate 1 MG TABLET PO ×2 (08:24→22:00)
[2022-07-20] MEDS: Gabapentin 100 MG CAPSULE 200 MG PO ×2 (08:24→14:45)
--- NOTE | 2022-07-20 18:17 | P.PNPSI_ITS ---
Subjective Subjective Date of Service: 07/20/22 Reason For Visit: Decompensated Psychosis, schizoaffective disorder Subjective Notes: [facility]a Warning, Conditional Voluntary and 3 Day Interim History: I spoke with pt's team, he was just served with a restraining order. Says he does not want to live with his family anyway, I cannot be myself, i gotta get out of that mess. Discussed with group social worker going to a group home or respite. He is not sure if the gabapentin increase helped. Denies mood sx, says I have good vibes but his family are mean to me. Denies anxiety, I do a 7 min meditation. Feels safe. Energy is good, jokes give me a basketball. Slept well.? Medication Compliance: Yes Side effects from medications: No Attending Groups: Intermittent Review of Systems Acute medical concerns: No Medical Review of Systems: unchanged Mental Status Exam Mental Status Exam Narrative: In today's examination he is alert, oriented and pleasant.? Speech is normal for rate and rhythm.? Good eye contact.? Affect is appropriate and varied.? No overt signs of anxiety.? No overt paranoia or delusions.? He denies any auditory or visual hallucinations.? Cognitively intact.? Judgment is intact Diagnostics Vital Signs (24Hr): Vital Signs - 24 hr 07/19/22 20:26 07/20/22 08:22 Temperature 97.2 F 97 F Pulse Rate 79 87 Respiratory Rate 18 16 Blood Pressure 134/63 139/76 Pulse Oximetry 97 99 Oxygen Delivery Method Room Air Room Air BMI result Body Mass Index 28.0 Labs Results: 07/13/22 18:15 07/13/22 18:15 Medications Medications Current Medications Acetaminophen (Acetaminophen 325 Mg Tablet) 650 mg PO Q6H PRN PRN Reason: Headache/Pain Mild Scale (1-3) Last Admin: 07/18/22 20:28 Dose: 650 mg Al Hydroxide/Mg Hydroxide (Magnesium Hydrox/Alum Hydrox 30 Ml Oral.Susp) 30 ml PO Q6H PRN PRN Reason: Heartburn/Nausea Benztropine Mesylate (Benztropine Mesylate 1 Mg Tablet) 1 mg PO BID [facility] Last Admin: 07/20/22 08:24 Dose: 1 mg Gabapentin (Gabapentin 100 Mg Capsule) 200 mg PO TID [facility] Last Admin: 07/20/22 14:45 Dose: 200 mg Hydroxyzine HCl (Hydroxyzine Hcl 50 Mg Tablet) 50 mg PO Q6H PRN PRN Reason: agitation, anxiety Last Admin: 07/14/22 18:18 Dose: 50 mg Magnesium Hydroxide (Milk Of Magnesia 30 Ml Oral.Susp) 30 ml PO DAILY PRN PRN Reason: Constipation Naproxen (Naproxen 500 Mg Tablet) 500 mg PO BID PRN PRN Reason: back pain Olanzapine (Olanzapine 10 Mg Tablet) 30 mg PO BEDTIME [facility] Last Admin: 07/19/22 20:36 Dose: 30 mg Quetiapine Fumarate (Quetiapine Fumarate 50 Mg Tablet) 50 mg PO BEDTIME [facility] Last Admin: 07/19/22 20:35 Dose: 50 mg Trazodone HCl (Trazodone Hcl 50 Mg Tablet) 50 mg PO BEDTIME PRN PRN Reason: Insomnia Allergies Allergies Allergy/AdvReac Type Severity Reaction Status Date / Time No Known Allergies Allergy Mild NA Verified 09/28/20 17:48 Assessment & Plan Assessment & Plan (1) Schizoaffective disorder: Status: Acute Code(s): F25.9 - Schizoaffective disorder, unspecified (2) Acute paranoia: Status: Acute Code(s): F22 - Delusional disorders Plan Juan J was admitted for safety and stabilization. Current medications were reviewed and continued. Contact to be made with his treaters. Contact to be made with his sister. He will meet with his treatment team on 07/16/202207/15: Continue current regimen and plans and add naproxen 500 mg b.i.d. p.r.n. 07/16: No med changes, pt progressing to baseline 07/17: No med changes, as pt is reporting benefit on current doses, denies SI/SIB/HI, denies CAH, med adherent. 07/18: No med changes, pt signed a new TDN, appears to be at or progressing to baseline 07/19: increase gabapentin to 200 mg TID for pain, mood stability 07/20: Increase gabapentin to 300 mg TID, monitor for benefit I spent minutes with the patient and/or on the patient floor today, greater than?50% of which was spent counseling/coordinating care. Patient educated on: medication risk/benefits and therapeutic strategies Reason for contiued inpatient stay Substantial Risk for: inability to function, rapid decompensation and med/psych decompensation
[2022-07-20 21:53] VITALS: BP 139/75; PULSE 78; RESP 18; TEMP 36.3; O2SAT 100
[2022-07-20] MEDS: Gabapentin 300 MG CAPSULE PO (22:00)
[2022-07-20] MEDS: OLANZapine 10 MG TABLET 30 MG PO (22:00)
[2022-07-20] MEDS: QUEtiapine Fumarate 50 MG TABLET PO (22:00)
--- NOTE | 2022-07-21 09:14 | P.PNPSI_ITS ---
Subjective Subjective Date of Service: 07/21/22 Reason For Visit: Decompensated Psychosis, schizoaffective disorder Subjective Notes: Govea Warning, Conditional Voluntary and 3 Day Interim History: I spoke with pt this morning, says he is doing, feels yasir worried about discharge as he was served with a restraining order against his mom last night, ordered by his sister. Says what did I do? Pt denies abusive behaviors towards his mom and says its like he has a wicked stepsister and im cinderella. Feels his sister likes to put me down. Ideally wants to get an apartment and a job but understands discharge plan is respite bed or correction. Feels safe. Medication Compliance: Yes Side effects from medications: No Attending Groups: No Review of Systems Acute medical concerns: No Medical Review of Systems: unchanged Mental Status Exam Mental Status Exam Narrative: In today's examination he is alert, oriented and pleasant.? Speech is normal for rate and rhythm.? Good eye contact.? Affect is appropriate and varied.? No overt signs of anxiety.? No overt paranoia or delusions.? He denies any auditory or v isual hallucinations.? Cognitively intact.? Judgment is intact Diagnostics Vital Signs (24Hr): Vital Signs - 24 hr 07/20/22 21:53 Temperature 97.4 F Pulse Rate 78 Respiratory Rate 18 Blood Pressure 139/75 Pulse Oximetry 100 Oxygen Delivery Method Room Air BMI result Body Mass Index 28.0 Labs Results: 07/13/22 18:15 07/13/22 18:15 Medications Medications Current Medications Acetaminophen (Acetaminophen 325 Mg Tablet) 650 mg PO Q6H PRN PRN Reason: Headache/Pain Mild Scale (1-3) Last Admin: 07/18/22 20:28 Dose: 650 mg Al Hydroxide/Mg Hydroxide (Magnesium Hydrox/Alum Hydrox 30 Ml Oral.Susp) 30 ml PO Q6H PRN PRN Reason: Heartburn/Nausea Benztropine Mesylate (Benztropine Mesylate 1 Mg Tablet) 1 mg PO BID [facility] Last Admin: 07/20/22 22:00 Dose: 1 mg Gabapentin (Gabapentin 300 Mg Capsule) 300 mg PO TID [facility] Last Admin: 07/20/22 22:00 Dose: 300 mg Hydroxyzine HCl (Hydroxyzine Hcl 50 Mg Tablet) 50 mg PO Q6H PRN PRN Reason: agitation, anxiety Last Admin: 07/14/22 18:18 Dose: 50 mg Magnesium Hydroxide (Milk Of Magnesia 30 Ml Oral.Susp) 30 ml PO DAILY PRN PRN Reason: Constipation Naproxen (Naproxen 500 Mg Tablet) 500 mg PO BID PRN PRN Reason: back pain Olanzapine (Olanzapine 10 Mg Tablet) 30 mg PO BEDTIME [facility] Last Admin: 07/20/22 22:00 Dose: 30 mg Quetiapine Fumarate (Quetiapine Fumarate 50 Mg Tablet) 50 mg PO BEDTIME [facility] Last Admin: 07/20/22 22:00 Dose: 50 mg Trazodone HCl (Trazodone Hcl 50 Mg Tablet) 50 mg PO BEDTIME PRN PRN Reason: Insomnia Allergies Allergies Allergy/AdvReac Type Severity Reaction Status Date / Time No Known Allergies Allergy Mild NA Verified 09/28/20 17:48 Assessment & Plan Assessment & Plan (1) Schizoaffective disorder: Status: Acute Code(s): F25.9 - Schizoaffective disorder, unspecified (2) Acute paranoia: Status: Acute Code(s): F22 - Delusional disorders Plan Juan J was admitted for safety and stabilization. Current medications were reviewed and continued. Contact to be made with his treaters. Contact to be made with his sister. He will meet with his treatment team on 07/16/202207/15: Continue current regimen and plans and add naproxen 500 mg b.i.d. p.r.n. 07/16: No med changes, pt progressing to baseline 07/17: No med changes, as pt is reporting benefit on current doses, denies SI/SIB/HI, denies CAH, med adherent. 07/18: No med changes, pt signed a new TDN, appears to be at or progressing to baseline 07/19: increase gabapentin to 200 mg TID for pain, mood stability 07/20: Increase gabapentin to 300 mg TID, monitor for benefit 07/21: continue meds unchanged, pt anxious about restraining order served to him on unit last night. I spent minutes with the patient and/or on the patient floor today, greater than?50% of which was spent counseling/coordinating care. Patient educated on: therapeutic strategies Reason for contiued inpatient stay Substantial Risk for: med/psych decompensation
[2022-07-21 10:00] VITALS: BP 152/70; PULSE 91; RESP 20; TEMP 36.1; O2SAT 100
[2022-07-21] MEDS: Gabapentin 300 MG CAPSULE PO ×3 (10:03→20:07)
[2022-07-21] MEDS: Benztropine Mesylate 1 MG TABLET PO ×2 (10:04→20:07)
[2022-07-21] MEDS: QUEtiapine Fumarate 50 MG TABLET PO (20:07)
[2022-07-21] MEDS: OLANZapine 10 MG TABLET 30 MG PO (20:07)
[2022-07-21 20:15] VITALS: BP 139/83; PULSE 88; RESP 18; TEMP 36.3; O2SAT 97
[2022-07-22] MEDS: Gabapentin 300 MG CAPSULE PO ×3 (09:23→21:25)
[2022-07-22] MEDS: Benztropine Mesylate 1 MG TABLET PO ×2 (09:23→21:25)
[2022-07-22 09:30] VITALS: BP 130/80; PULSE 86; RESP 18; TEMP 36.6; O2SAT 100
--- NOTE | 2022-07-22 10:59 | HO.PSYCHPN ---
Subjective Subjective Date of Service: 07/22/22 Reason For Visit: Decompensated Psychosis, schizoaffective disorder Subjective Notes: [facility] Warning, Conditional Voluntary and 3 Day Healthcare Proxy: No Guardianship: No Medical Problems Affecting Mental Status: No Interim History: I spoke with pt. Says his restraining order will come up on the for renewal. Wants his sister to put money on a bank card so I could rent out a storage unit and take it from there, feels she owes him at least this. Otherwise, Im feeling good, feeling I will succeed. I want to get away from that situation, its nothing but trouble referring to his family situation. Says gabapentin increase helped with pain and sleep. Does not want further med adjustments. Medication Compliance: Yes Side effects from medications: No Attending Groups: No Review of Systems Acute medical concerns: No Medical Review of Systems: unchanged Mental Status Exam Mental Status Exam Narrative: In today's examination he is alert, oriented and pleasant.? Speech is normal for rate and rhythm.? Good eye contact.? Affect is appropriate and varied.? No overt signs of anxiety.? No overt paranoia or delusions.? He denies any auditory or visual hallucinations.? Cognitively intact.? Judgment is intact Diagnostics Vital Signs (24Hr): Vital Signs - 24 hr 07/21/22 20:15 07/22/22 09:30 Temperature 97.3 F 97.8 F Pulse Rate 88 86 Respiratory Rate 18 18 Blood Pressure 139/83 130/80 Pulse Oximetry 97 100 Oxygen Delivery Method Room Air Room Air BMI result Body Mass Index 28.0 Labs Results: 07/13/22 18:15 07/13/22 18:15 Medications Medications Current Medications Acetaminophen (Acetaminophen 325 Mg Tablet) 650 mg PO Q6H PRN PRN Reason: Headache/Pain Mild Scale (1-3) Last Admin: 07/18/22 20:28 Dose: 650 mg Al Hydroxide/Mg Hydroxide (Magnesium Hydrox/Alum Hydrox 30 Ml Oral.Susp) 30 ml PO Q6H PRN PRN Reason: Heartburn/Nausea Benztropine Mesylate (Benztropine Mesylate 1 Mg Tablet) 1 mg PO BID [facility] Last Admin: 07/22/22 09:23 Dose: 1 mg Gabapentin (Gabapentin 300 Mg Capsule) 300 mg PO TID [facility] Last Admin: 07/22/22 09:23 Dose: 300 mg Hydroxyzine HCl (Hydroxyzine Hcl 50 Mg Tablet) 50 mg PO Q6H PRN PRN Reason: agitation, anxiety Last Admin: 07/14/22 18:18 Dose: 50 mg Magnesium Hydroxide (Milk Of Magnesia 30 Ml Oral.Susp) 30 ml PO DAILY PRN PRN Reason: Constipation Naproxen (Naproxen 500 Mg Tablet) 500 mg PO BID PRN PRN Reason: back pain Olanzapine (Olanzapine 10 Mg Tablet) 30 mg PO BEDTIME [facility] Last Admin: 07/21/22 20:07 Dose: 30 mg Quetiapine Fumarate (Quetiapine Fumarate 50 Mg Tablet) 50 mg PO BEDTIME [facility] Last Admin: 07/21/22 20:07 Dose: 50 mg Trazodone HCl (Trazodone Hcl 50 Mg Tablet) 50 mg PO BEDTIME PRN PRN Reason: Insomnia Allergies Allergies Allergy/AdvReac Type Severity Reaction Status Date / Time No Known Allergies Allergy Mild NA Verified 09/28/20 17:48 Assessment & Plan Assessment & Plan (1) Schizoaffective disorder: Status: Acute Code(s): F25.9 - Schizoaffective disorder, unspecified (2) Acute paranoia: Status: Acute Code(s): F22 - Delusional disorders Plan Juan J was admitted for safety and stabilization. Current medications were reviewed and continued. Contact to be made with his treaters. Contact to be made with his sister. He will meet with his treatment team on 07/16/202207/15: Continue current regimen and plans and add naproxen 500 mg b.i.d. p.r.n. 07/16: No med changes, pt progressing to baseline 07/17: No med changes, as pt is reporting benefit on current doses, denies SI/SIB/HI, denies CAH, med adherent. 07/18: No med changes, pt signed a new TDN, appears to be at or progressing to baseline 07/19: increase gabapentin to 200 mg TID for pain, mood stability 07/20: Increase gabapentin to 300 mg TID, monitor for benefit 07/21: continue meds unchanged, pt anxious about restraining order served to him on unit last night. 07/22: continue meds unchanged I spent minutes with the patient and/or on the patient floor today, greater than?50% of which was spent counseling/coordinating care. Reason for contiued inpatient stay Substantial Risk for: med/psych decompensation
[2022-07-22] MEDS: OLANZapine 10 MG TABLET 30 MG PO (21:25)
[2022-07-22] MEDS: QUEtiapine Fumarate 50 MG TABLET PO (21:25)
[2022-07-22 21:37] VITALS: BP 123/80; PULSE 102; RESP 18; TEMP 36.7; O2SAT 96
[2022-07-23 08:19] VITALS: BP 112/76; PULSE 101; RESP 16; TEMP 36.3; O2SAT 96
[2022-07-23] MEDS: Benztropine Mesylate 1 MG TABLET PO ×2 (08:22→21:13)
[2022-07-23] MEDS: Gabapentin 300 MG CAPSULE PO ×3 (08:22→21:13)
--- NOTE | 2022-07-23 12:39 | HO.PSYCHPN ---
Subjective Subjective Date of Service: 07/23/22 Reason For Visit: Decompensated Psychosis, schizoaffective disorder Subjective Notes: [place] Warning, Conditional Voluntary and 3 Day Healthcare Proxy: No Guardianship: No Medical Problems Affecting Mental Status: No Interim History: I spoke with pt, he asks for a number of a broiler manager. Says im doing good. Ruminating on restraining order and says I dont know if im going back home if they keep putting restriction orders on me. Says he cant talk to his family because of the restraining order, denies abuse allegations. Says who wouldnt be depressed? after discussing his issues with his sister and her . Denies pain. Does not want med changes, feels safe. Medication Compliance: Yes Side effects from medications: No Attending Groups: No Review of Systems Acute medical concerns: No Medical Review of Systems: unchanged Mental Status Exam Mental Status Exam Narrative: In today's examination he is alert, oriented and pleasant.? Speech is normal for rate and rhythm.? Good eye contact.? Affect is appropriate and varied.? No overt signs of anxiety.? No overt paranoia or delusions.? He denies any auditory or visual hallucinations.? Cognitively intact.? Judgment is intact. Appears at baseline. Diagnostics Vital Signs (24Hr): Vital Signs - 24 hr 07/22/22 21:37 07/23/22 08:19 Temperature 98.1 F 97.4 F Pulse Rate 102 H 101 H Respiratory Rate 18 16 Blood Pressure 123/80 112/76 Pulse Oximetry 96 96 Oxygen Delivery Method Room Air Room Air BMI result Body Mass Index 28.0 Labs Results: 07/13/22 18:15 07/13/22 18:15 Medications Medications Current Medications Acetaminophen (Acetaminophen 325 Mg Tablet) 650 mg PO Q6H PRN PRN Reason: Headache/Pain Mild Scale (1-3) Last Admin: 07/18/22 20:28 Dose: 650 mg Al Hydroxide/Mg Hydroxide (Magnesium Hydrox/Alum Hydrox 30 Ml Oral.Susp) 30 ml PO Q6H PRN PRN Reason: Heartburn/Nausea Benztropine Mesylate (Benztropine Mesylate 1 Mg Tablet) 1 mg PO BID [facility] Last Admin: 07/23/22 08:22 Dose: 1 mg Gabapentin (Gabapentin 300 Mg Capsule) 300 mg PO TID [facility] Last Admin: 07/23/22 08:22 Dose: 300 mg Hydroxyzine HCl (Hydroxyzine Hcl 50 Mg Tablet) 50 mg PO Q6H PRN PRN Reason: agitation, anxiety Last Admin: 07/14/22 18:18 Dose: 50 mg Magnesium Hydroxide (Milk Of Magnesia 30 Ml Oral.Susp) 30 ml PO DAILY PRN PRN Reason: Constipation Naproxen (Naproxen 500 Mg Tablet) 500 mg PO BID PRN PRN Reason: back pain Olanzapine (Olanzapine 10 Mg Tablet) 30 mg PO BEDTIME [facility] Last Admin: 07/22/22 21:25 Dose: 30 mg Quetiapine Fumarate (Quetiapine Fumarate 50 Mg Tablet) 50 mg PO BEDTIME [facility] Last Admin: 07/22/22 21:25 Dose: 50 mg Trazodone HCl (Trazodone Hcl 50 Mg Tablet) 50 mg PO BEDTIME PRN PRN Reason: Insomnia Allergies Allergies Allergy/AdvReac Type Severity Reaction Status Date / Time No Known Allergies Allergy Mild NA Verified 09/28/20 17:48 Assessment & Plan Assessment & Plan (1) Schizoaffective disorder: Status: Acute Code(s): F25.9 - Schizoaffective disorder, unspecified (2) Acute paranoia: Status: Acute Code(s): F22 - Delusional disorders Plan Juan J was admitted for safety and stabilization. Current medications were reviewed and continued. Contact to be made with his treaters. Contact to be made with his sister. He will meet with his treatment team on 07/16/202207/15: Continue current regimen and plans and add naproxen 500 mg b.i.d. p.r.n. 07/16: No med changes, pt progressing to baseline 07/17: No med changes, as pt is reporting benefit on current doses, denies SI/SIB/HI, denies CAH, med adherent. 07/18: No med changes, pt signed a new TDN, appears to be at or progressing to baseline 07/19: increase gabapentin to 200 mg TID for pain, mood stability 07/20: Increase gabapentin to 300 mg TID, monitor for benefit 07/21: continue meds unchanged, pt anxious about restraining order served to him on unit last night. 07/22: no med changes 07/23: Pt adjusting to restraining order but no imminent safety concerns, denies SI/SIB/HI, continues to appear at baseline I spent minutes with the patient and/or on the patient floor today, greater than?50% of which was spent counseling/coordinating care. Patient educated on: medication risk/benefits and therapeutic strategies Reason for contiued inpatient stay Substantial Risk for: med/psych decompensation
[2022-07-23 18:00] VITALS: BP 148/84; PULSE 96; RESP 18; TEMP 36.6; O2SAT 99
[2022-07-23] MEDS: OLANZapine 10 MG TABLET 30 MG PO (21:13)
[2022-07-23] MEDS: QUEtiapine Fumarate 50 MG TABLET PO (21:13)
[2022-07-24 06:00] VITALS: BP 129/79; PULSE 89; RESP 18; TEMP 36.6; O2SAT 95
[2022-07-24] MEDS: Benztropine Mesylate 1 MG TABLET PO ×2 (08:54→21:47)
[2022-07-24] MEDS: Gabapentin 300 MG CAPSULE PO ×3 (08:54→21:46)
--- NOTE | 2022-07-24 09:26 | P.PNPSI_ITS ---
Subjective Subjective Date of Service: 07/24/22 Reason For Visit: Decompensated Psychosis, schizoaffective disorder Subjective Notes: 3 Day Interim History: Pt initially scheduled to leave today. He denies SI/HI. Less AH/VH. He can't return to his house as family has restraining order. Pt met with AUNG Waggoner and agreed to be referred to respite. He retract 3 day. Per nursing, pt visible, social with select peers, no aggression towards self or others. Medication Compliance: Yes Side effects from medications: No Attending Groups: Intermittent Review of Systems Review of Systems Except for problems with his back and needing to use to crutch/cane forms for assistance with walking which is compromised and prone to falling. Yes all other systems are reviewed and are negative Mental Status Exam Mental Status Exam Narrative: In today's examination he is alert, oriented and pleasant.? Speech is normal for rate and rhythm.? Good eye contact.? Affect is appropriate and varied.? No overt signs of anxiety.? No overt paranoia or delusions.? He denies any auditory or visual hallucinations.? Cognitively intact.? Judgment is intact. Appears at baseline. Diagnostics Vital Signs (24Hr): Vital Signs - 24 hr 07/24/22 21:46 07/25/22 08:21 Temperature 98.5 F 97.6 F Pulse Rate 89 97 Respiratory Rate 18 16 Blood Pressure 124/67 139/79 Pulse Oximetry 94 99 Oxygen Delivery Method Room Air Room Air BMI result Body Mass Index 28.0 Labs Results: 07/13/22 18:15 07/13/22 18:15 Labs: Laboratory Results - last 48 hr 07/24/22 17:05 Influenza Type A (PCR) NEGATIVE Influenza Type B (PCR) NEGATIVE RSV RNA Qual (PCR) NEGATIVE SARS-CoV-2 RNA (RT-PCR) NEGATIVE Medications Medications Current Medications Acetaminophen (Acetaminophen 325 Mg Tablet) 650 mg PO Q6H PRN PRN Reason: Headache/Pain Mild Scale (1-3) Last Admin: 07/24/22 21:47 Dose: 650 mg Al Hydroxide/Mg Hydroxide (Magnesium Hydrox/Alum Hydrox 30 Ml Oral.Susp) 30 ml PO Q6H PRN PRN Reason: Heartburn/Nausea Benztropine Mesylate (Benztropine Mesylate 1 Mg Tablet) 1 mg PO BID [facility] Last Admin: 07/25/22 08:22 Dose: 1 mg Gabapentin (Gabapentin 300 Mg Capsule) 300 mg PO TID REPLACED BY [facility] Last Admin: 07/25/22 08:22 Dose: 300 mg Hydroxyzine HCl (Hydroxyzine Hcl 50 Mg Tablet) 50 mg PO Q6H PRN PRN Reason: agitation, anxiety Last Admin: 07/14/22 18:18 Dose: 50 mg Magnesium Hydroxide (Milk Of Magnesia 30 Ml Oral.Susp) 30 ml PO DAILY PRN PRN Reason: Constipation Naproxen (Naproxen 500 Mg Tablet) 500 mg PO BID PRN PRN Reason: back pain Olanzapine (Olanzapine 10 Mg Tablet) 30 mg PO BEDTIME REPLACED BY [facility] Last Admin: 07/24/22 21:46 Dose: 30 mg Quetiapine Fumarate (Quetiapine Fumarate 50 Mg Tablet) 50 mg PO BEDTIME REPLACED BY [facility] Last Admin: 07/24/22 21:47 Dose: 50 mg Trazodone HCl (Trazodone Hcl 50 Mg Tablet) 50 mg PO BEDTIME PRN PRN Reason: Insomnia Allergies Allergies Allergy/AdvReac Type Severity Reaction Status Date / Time No Known Allergies Allergy Mild NA Verified 09/28/20 17:48 Assessment & Plan Assessment & Plan (1) Schizoaffective disorder: Status: Acute Code(s): F25.9 - Schizoaffective disorder, unspecified (2) Acute paranoia: Status: Acute Code(s): F22 - Delusional disorders Plan Juan J was admitted for safety and stabilization. Current medications were reviewed and continued. Contact to be made with his treaters. Contact to be made with his sister. He will meet with his treatment team on 07/16/202207/15: Continue current regimen and plans and add naproxen 500 mg b.i.d. p.r.n. 07/16: No med changes, pt progressing to baseline 07/17: No med changes, as pt is reporting benefit on current doses, denies SI/SIB/HI, denies CAH, med adherent. 07/18: No med changes, pt signed a new TDN, appears to be at or progressing to baseline 07/19: increase gabapentin to 200 mg TID for pain, mood stability 07/20: Increase gabapentin to 300 mg TID, monitor for benefit 07/21: continue meds unchanged, pt anxious about restraining order served to him on unit last night. 07/22: no med changes 07/23: Pt adjusting to restraining order but no imminent safety concerns, denies SI/SIB/HI, continues to appear at baseline 07/24 continue current tx. retract 3 day going to respite. I spent __25____ minutes with the patient and/or on the patient floor today, greater than?50% of which was spent counseling/coordinating care. Reason for contiued inpatient stay Substantial Risk for: inability to function
[2022-07-24 18:14] LABS: Influenza A PCR NEGATIVE (Negative); Influenza B PCR NEGATIVE (Negative); Resp Syncy Virus RNA Qual PCR NEGATIVE (Negative); SARS COV2 PCR INHOUSE NEGATIVE (Negative)
[2022-07-24 21:46] VITALS: BP 124/67; PULSE 89; RESP 18; TEMP 36.9; O2SAT 94
[2022-07-24] MEDS: OLANZapine 10 MG TABLET 30 MG PO (21:46)
[2022-07-24] MEDS: Acetaminophen 325 MG TABLET 650 MG PO (21:47)
[2022-07-24] MEDS: QUEtiapine Fumarate 50 MG TABLET PO (21:47)
[2022-07-25 08:21] VITALS: BP 139/79; PULSE 97; RESP 16; TEMP 36.4; O2SAT 99
[2022-07-25] MEDS: Gabapentin 300 MG CAPSULE PO ×3 (08:22→20:28)
[2022-07-25] MEDS: Benztropine Mesylate 1 MG TABLET PO ×2 (08:22→20:28)
--- NOTE | 2022-07-25 14:08 | P.PNPSI_ITS ---
Subjective Subjective Date of Service: 07/25/22 Reason For Visit: Decompensated Psychosis, schizoaffective disorder Interim History: initially declined to rouse himself from bed for interview, late morning. later encountered up and about the unit, agreed to come for interview. uses crutch, slow gait. denies SI/HI/AVH. i feel secure. planning to discharge to respite tomorrow. per staff, DC to respite tomorrow. easily engaged. stable. no SI/HI. isolative. denies emotions. slept well last NOC. COVID -. Mental Status Exam Mental Status Exam Narrative: In today's examination he is alert, oriented and pleasant.? Speech is normal for rate and rhythm.? fair eye contact.? Affect is appropriate, normo-intense, non- labile.? No overt signs of anxiety.? No overt paranoia or delusions.? He denies any auditory or visual hallucinations, SI/HI. mood is i feel secure. ? Cogn itively intact.? Judgment is intact. Appears at baseline. Diagnostics Vital Signs (24Hr): Vital Signs - 24 hr 07/24/22 21:46 07/25/22 08:21 Temperature 98.5 F 97.6 F Pulse Rate 89 97 Respiratory Rate 18 16 Blood Pressure 124/67 139/79 Pulse Oximetry 94 99 Oxygen Delivery Method Room Air Room Air BMI result Body Mass Index 28.0 Labs Results: 07/13/22 18:15 07/13/22 18:15 Labs: Laboratory Results - last 48 hr 07/24/22 17:05 Influenza Type A (PCR) NEGATIVE Influenza Type B (PCR) NEGATIVE RSV RNA Qual (PCR) NEGATIVE SARS-CoV-2 RNA (RT-PCR) NEGATIVE Medications Medications Current Medications Acetaminophen (Acetaminophen 325 Mg Tablet) 650 mg PO Q6H PRN PRN Reason: Headache/Pain Mild Scale (1-3) Last Admin: 07/24/22 21:47 Dose: 650 mg Al Hydroxide/Mg Hydroxide (Magnesium Hydrox/Alum Hydrox 30 Ml Oral.Susp) 30 ml PO Q6H PRN PRN Reason: Heartburn/Nausea Benztropine Mesylate (Benztropine Mesylate 1 Mg Tablet) 1 mg PO BID [facility] Last Admin: 07/25/22 08:22 Dose: 1 mg Gabapentin (Gabapentin 300 Mg Capsule) 300 mg PO TID [facility] Last Admin: 07/25/22 08:22 Dose: 300 mg Hydroxyzine HCl (Hydroxyzine Hcl 50 Mg Tablet) 50 mg PO Q6H PRN PRN Reason: agitation, anxiety Last Admin: 07/14/22 18:18 Dose: 50 mg Magnesium Hydroxide (Milk Of Magnesia 30 Ml Oral.Susp) 30 ml PO DAILY PRN PRN Reason: Constipation Naproxen (Naproxen 500 Mg Tablet) 500 mg PO BID PRN PRN Reason: back pain Olanzapine (Olanzapine 10 Mg Tablet) 30 mg PO BEDTIME [facility] Last Admin: 07/24/22 21:46 Dose: 30 mg Quetiapine Fumarate (Quetiapine Fumarate 50 Mg Tablet) 50 mg PO BEDTIME PRN PRN Reason: insomnia Trazodone HCl (Trazodone Hcl 50 Mg Tablet) 50 mg PO BEDTIME PRN PRN Reason: Insomnia Allergies Allergies Allergy/AdvReac Type Severity Reaction Status Date / Time No Known Allergies Allergy Mild NA Verified 09/28/20 17:48 Assessment & Plan Assessment & Plan (1) Schizoaffective disorder: Status: Acute Code(s): F25.9 - Schizoaffective disorder, unspecified (2) Acute paranoia: Status: Acute Code(s): F22 - Delusional disorders Plan Juan J was admitted for safety and stabilization. Current medications were reviewed and continued. Contact to be made with his treaters. Contact to be made with his sister. He will meet with his treatment team on 07/16/202207/15: Continue current regimen and plans and add naproxen 500 mg b.i.d. p.r.n. 07/16: No med changes, pt progressing to baseline 07/17: No med changes, as pt is reporting benefit on current doses, denies SI/SIB/HI, denies CAH, med adherent. 07/18: No med changes, pt signed a new TDN, appears to be at or progressing to baseline 07/19: increase gabapentin to 200 mg TID for pain, mood stability 07/20: Increase gabapentin to 300 mg TID, monitor for benefit 07/21: continue meds unchanged, pt anxious about restraining order served to him on unit last night. 07/22: no med changes 07/23: Pt adjusting to restraining order but no imminent safety concerns, denies SI/SIB/HI, continues to appear at baseline 07/24 continue current tx. retract 3 day going to respite. 07/25: stable, made HS seroquel 50 mg PRN rather than scheduled as pt already has zyprexa 30 mg scheduled at HS. discharge to respite tomorrow. I spent ___25___ minutes with the patient and/or on the patient floor today, greater than?50% of which was spent counseling/coordinating care. Reason for contiued inpatient stay Substantial Risk for: inability to function and rapid decompensation
[2022-07-25 19:10] VITALS: BP 151/73; PULSE 100; RESP 16; TEMP 36.6; O2SAT 98
[2022-07-25] MEDS: OLANZapine 10 MG TABLET 30 MG PO (20:28)
[2022-07-25] MEDS: Acetaminophen 325 MG TABLET 650 MG PO (20:28)
[2022-07-26 06:00] VITALS: BP 141/65; PULSE 73; RESP 18; TEMP 36.3; O2SAT 98
[2022-07-26] MEDS: hydrOXYzine HCL 50 MG TABLET PO (09:56)
[2022-07-26] MEDS: Benztropine Mesylate 1 MG TABLET PO (09:56)
[2022-07-26] MEDS: Gabapentin 300 MG CAPSULE PO (09:56)
--- NOTE | 2022-07-26 10:18 | P.DS_ITS ---
DS: Providers Provider Date of Service: 07/26/22 Date of admission: 07/13/22 21:55 Primary care physician: Israel Ayoub III, MD DS: Diagnosis Discharge Diagnosis (1) Schizoaffective disorder: Status: Acute (2) Acute paranoia: Status: Acute DS: Medications Discharge Medications Home Medications: Previous Rx's Medication Instructions Recorded folic acid 1 mg tablet 1 mg PO DAILY 30 days #30 tabs 03/14/21 multivitamin with folic acid 400 1 tab PO DAILY 30 days #30 tabs 03/14/21 mcg tablet (Tab-A-Max) benztropine 1 mg tablet 1 mg PO BID #60 tabs 07/18/22 hydroxyzine HCl 50 mg tablet 50 mg PO Q6H PRN agitation, 07/18/22 anxiety #90 tabs naproxen 500 mg tablet 500 mg PO BID PRN back pain #60 07/18/22 tabs gabapentin 300 mg capsule 300 mg PO TID 30 days #90 caps 07/26/22 olanzapine 10 mg tablet 30 mg PO BEDTIME 30 days #90 tabs 07/26/22 Mental Status Exam Mental Status Exam Narrative: In today's examination he is alert, oriented and pleasant.? Speech is normal for rate and rhythm.? fair eye contact.? Affect is appropriate, normo-intense, non-l abile.? No overt signs of anxiety.? No overt paranoia or delusions.? He denies any auditory or visual hallucinations, SI/HI. mood is good. ? Cognitively intact.? Judgment is intact. Appears at baseline. Data Data Completed and Pending Completed studies during hospitalization [Text1]: 07/24/22 17:05 Influenza Type A (PCR) NEGATIVE Influenza Type B (PCR) NEGATIVE RSV RNA Qual (PCR) NEGATIVE SARS-CoV-2 RNA (RT-PCR) NEGATIVE DS: Summary Hospital Course Hospital Course: per 07/14 admission note: Juan J is a 62-year-old white, single, disabled man.? He has been hospitalized here in the past, the last being in February 2021.? After his social workers time at home she had a Section 12 signed on him because of medication noncompliance, paranoid ideations and delusions, not eating and sleeping.? Stating that his sister was putting poison in the food.? He denies all of this today.? He denies being medication noncompliant and he denies not eating.? He cannot tell me the medications he is on but according to his records he is on Cogentin 1 mg b.i.d., gabapentin 100 mg t.i.d., Zyprexa 30 mg q.h.s. and Seroquel 50 mg q.h.s..? He is seen and [facility] at [facility].? He cannot tell me much about his previous treatment, hospitalizations or medications.? He is able to respond appropriately to basic questions with little elaboration.? He denies any side effects.? He cannot tell me why he was not taking his medications which he actually denies.? He has been diagnosed as having schizoaffective disorder.? He denies any substance abuse. Social history:? Jeffrey states that both of his parents are .? He grew up in [place].? He has 2 sisters and he lives with 1 of his sisters for quite a while, ?too long ?.? He did finish high school and worked until the early s. Past Psychiatric History: Long Hx of Schizoaffective. Similar presentations in the past. OP: [facility] Lemuel Mcallister-prescriber ? Sarbjit Lozano-therapist [facility]: Sam Khan Medical Evaluation Reviewed: Yes [facility] Medical History? Bursitis Degenerative disc disease, cervical Schizoaffective disorder Family History: Unknown Social History: Lives at home with family. Supportive family. Recent conflict. Single. SSDI. Trauma History: Unknown Precis: Juan J was admitted for safety and stabilization.? Current medications were reviewed and continued.? Contact to be made with his treaters.? Contact to be made with his sister.? He will meet with his treatment team on 07/16/202207/15:? Continue current regimen and plans and add naproxen 500 mg b.i.d. p.r.n. 07/16: No med changes, pt progressing to baseline 07/17: No med changes, as pt is reporting benefit on current doses, denies SI/SIB/HI, denies CAH, med adherent. 07/18: No med changes, pt signed a new TDN, appears to be at or progressing to baseline 07/19: increase gabapentin to 200 mg TID for pain, mood stability 07/20: Increase gabapentin to 300 mg TID, monitor for benefit 07/21: continue meds unchanged, pt anxious about restraining order served to him on unit last night. 07/22: no med changes 07/23: Pt adjusting to restraining order but no imminent safety concerns, denies SI/SIB/HI, continues to appear at baseline 07/24 continue current tx. retract 3 day going to respite. 07/25: stable, made HS seroquel 50 mg PRN rather than scheduled as pt already has zyprexa 30 mg scheduled at HS.? discharge to respite tomorrow. 07/26: stable. slept well overnight, PRN seroquel DCed. discharged to respite per established plan. Time Spent with Patient Time attestation: Total time spent providing and/or coordinating discharge services: Time spent: Greater than 30 minutes Discharge Plan Discharge Patient Disposition: Home, Self-Care Discharge Diagnosis: Schizoaffective Disorder Referrals: LEMUEL MCALLISTER, PSYCHIATRY [Other] - 09/10/22 2:00 pm ([facility]) Israel Ayoub III, MD [Primary Care Provider] - 1 Week (provider will follow up with patient) Discharge Medications: New hydroxyzine HCl 50 mg Tablet 50 mg PO Q6H PRN (Reason: agitation, anxiety) Qty: 90 0RF benztropine 1 mg Tablet 1 mg PO BID Qty: 60 0RF naproxen 500 mg Tablet 500 mg PO BID PRN (Reason: back pain) Qty: 60 0RF gabapentin 300 mg capsule 300 mg PO TID 30 Days Qty: 90 0RF Continued folic acid 1 mg Tablet 1 mg PO DAILY 30 Days Qty: 30 0RF multivitamin with folic acid [Tab-A-Max] 400 mcg Tablet 1 tab PO DAILY 30 Days Qty: 30 0RF olanzapine 10 mg Tablet 30 mg PO BEDTIME 30 Days Qty: 90 0RF Discontinued trazodone 50 mg Tablet 50 mg PO BEDTIME PRN (Reason: Insomnia) Qty: 30 0RF benztropine 1 mg Tablet 1 mg PO TID Qty: 90 0RF hydroxyzine HCl 25 mg Tablet 25 mg PO BEDTIME PRN (Reason: Anxiety) Qty: 30 0RF gabapentin 100 mg Capsule 100 mg PO BID Qty: 60 0RF lorazepam 1 mg Tablet 1 mg PO Q4H PRN (Reason: Anxiety) Qty: 15 0RF quetiapine 50 mg Tablet 50 mg PO BEDTIME Qty: 30 0RF trazodone 50 mg Tablet 50 mg PO BEDTIME PRN (Reason: Insomnia) 30 Days Qty: 30 0RF hydroxyzine HCl 50 mg Tablet 50 mg PO TID PRN (Reason: Anxiety) 30 Days Qty: 90 0RF naproxen 500 mg tablet 1 tab PO BID naproxen 500 mg tablet 1 tab PO BID Discharge Orders: Discharge Order (Routine); Ordered 07/26/22 Ordered By: Prema Sequeira Diet: Advance to usual diet Activity on Discharge: As tolerated Stand Alone Forms: Patient Portal Discharge page, Community Support Care Plan Goals: Continue psychiatric medications as prescribed and follow up with outpatient referrals and PCP. Health Concerns: Med adherence Plan of Treatment: Attend follow up appointments with OP psych services and PCP Patient will continue on psychotropic medication regimen for mood stability and psychosis Take medications as directed A one month supply of medication has been sent to your pharmacy Crisis Team if needed [phone] Call and or return if needed Assessment: Risk assessment at time of discharge:? Patient was interviewed prior to discharge and found to be fully oriented and without any SI or HI. Patient has insight and demonstrates good judgment in terms of wanting to pursue treatment. Patient is not in imminent risk of harm to self or others and has a safety plan that includes presenting to the closest ER or calling 911 if feeling unsafe.? Patient has been observed closely by nursing and unit staff throughout admission; patient has not engaged in any behaviors that suggest dangerousness to self or others and has demonstrated appropriate behaviors and impulse control Discharge Date/Time: 07/26/22 12:35
== END 2022-07-26 12:35 | disposition home or self-care (01) | DRG 885 ==
LOC: HO.ED 21:52 → HO.PADLT16 22:05
PROVIDERS: Physician Assistant Medical; Social Worker; Admitting Provider Registered Nurse; Emergency Provider Emergency Medicine; PCP Internal Medicine; Visit Provider Psychiatry & Neurology Psychiatry
DX: F25.9 Schizoaffective disorder, unspecified (principal); Z20.822 Contact with and (suspected) exposure to COVID-19; Z91.14 Patient's other noncompliance with medication regimen; Z79.899 Other long term (current) drug therapy
CPT/HCPCS: 0241U; 36415; 80053; 80061; 80307; 82077; 82607; 82746; 83036; 83735; 84439; 84443; 85025; 87635; 93005; 99285

== ENCOUNTER 2022-12-21 03:41 | Emergency (ER) | payer MEDICARE, MEDICAID, SELFPAY ==
--- NOTE | ~2022-12-21 | XR_ITS ---
EXAMINATION: XR CHEST CLINICAL INFORMATION: Shortness of breath after vaping COMPARISON: 08/29/2009 TECHNIQUE: 2 views of the chest were obtained. FINDINGS: The lungs are clear with no focal consolidation. No evidence of pneumothorax, pulmonary edema, or pleural effusions. The cardiomediastinal silhouette is unremarkable. No acute osseous findings. XR/XR chest 2V IMPRESSION: No acute cardiopulmonary findings.
[2022-12-21 03:48] VITALS: BP 144/79; PULSE 87; RESP 16; TEMP 37; O2SAT 99
[2022-12-21 03:54] VITALS: BP 140/90; BP 144/79; PULSE 87; PULSE 92; RESP 16; TEMP 37; O2SAT 98; BMI 19.9
--- NOTE | 2022-12-21 04:00 | PC.NURSE ---
PT states I was vaping CBD and then blanking out, out of it. Windows were closed, and I was feeling like I was suffocating . Denies any pain, LS clear throughout. 98% on RA, RR 16. Denies any CP, palpitations, or N/V.
--- OUTSIDE RECORDS SUMMARY | 2022-12-21 04:28 | XMS_ITS | Continuity of Care Document ---
:1960 Author Organization [address], [address] [place] [address]- Care Team Providers Name Role Phone Mega POWELL MD, Israel Renteria Primary Care Physician Encounter [facility] [place] Date(s): 02/16/21 - 03/18/[address], [address] [place], [place] [address] Attending Physician: Joselito Brown Admitting Physician: AdmtrJoselito Referring Physician: Admtr, Ar8 Allergies, Adverse Reactions, Alerts Substance Reaction Severity Status NKA Active Medications Aluminum hydroxide - magnesium hydroxide (Mylanta) (OP) By Mouth, 0 Refills, Maintenance Start Date: 11/08/20 Status: Orderedamantadine 100 mg oral capsule 100 mg, 1, capsule, By Mouth, 2 times a day, # 14 capsule, Refills 0, Maintenance, 11/08/20 12:57:00EST, Partial fill upon patient request if the prescription is for a schedule II opioid drug. Start Date: 11/08/20 Stop Date: 11/15/20 Status: OrderedARIPiprazole 5 mg oral tablet 5 mg, 1, tablet, By Mouth, Daily, # 30 tablet, Refills 0, Maintenance, 11/08/20 12:57:00 EST, Partial fill upon patient request if the prescription is for a schedule II opioid drug. Start Date: 11/08/20 Status: OrdereddiphenhydrAMINE 50 mg oral capsule 1 capsule = 50 mg, By Mouth, 2 times a day, PRN for motion sickness, # 30 capsule, 0 Refills, Maintenance, 11/08/20 12:58:00 EST, Capsule, Partial fill upon patient request if the prescription is for aschedule II opioid drug. Start Date: 11/08/20 Status: OrderedhydrOXYzine hydrochloride 50 mg oral tablet 1 tablet = 50 mg, By Mouth, Daily, # 30 tablet, 0 Refills, Maintenance, 11/08/20 12:58:00 EST, Tablet, Partial fill upon patient request if the prescription is for a schedule II opioid drug. Start Date: 11/08/20 Status: OrderedNicotine 0 Refills, Maintenance, 11/08/20 12:58:00 EST, Partial fill upon patient request if the prescriptionis for a schedule II opioid drug. Start Date: 11/08/20 Status: OrderedtraZODone 50 mg oral tablet 50 mg, 1, tablet, By Mouth, Daily at bedtime, # 90 tablet, Refills 0, Maintenance, 11/08/20 12:59:00EST, Partial fill upon patient request if the prescription is for a schedule II opioid drug. Start Date: 11/08/20 Status: Ordered
--- OUTSIDE RECORDS SUMMARY | 2022-12-21 04:28 | XMS_ITS | Continuity of Care Document ---
:1960 Author Organization [address], [address] [place] [address]- Care Team Providers Name Role Phone Mega POWELL MD, Israel Renteria Primary Care Physician Encounter [facility] [place] Date(s): 04/10/21 - 05/10/[address], [address] [place], [place] [address] Allergies, Adverse Reactions, Alerts Substance Reaction Severity [...]
--- OUTSIDE RECORDS SUMMARY | 2022-12-21 04:28 | XMS_ITS | Continuity of Care Document ---
:1960 Author Organization [address], [address] [place] [address]- Care Team Providers Name Role Phone Israel Ayoub III, MD Primary Care Physician Encounter [facility] [place] Date(s): 11/28/20 - 01/12/[address], [address] [place], [place] [address] Attending Physician: Not on Staff, Attending Referring Physician: Israel Ayoub III, MD Allergies, Adverse Reactions, Alerts Substance Reaction Severity [...]
--- OUTSIDE RECORDS SUMMARY | 2022-12-21 04:28 | XMS_ITS ---
:1960 Author Name Hamlet Ayoub Care Team Providers Name Role Phone Hamlet Ayoub Unavailable Unavailable PROBLEMS ALLERGIES No Known Allergies ENCOUNTERS IMMUNIZATIONS No Known Immunizations SOCIAL HISTORY REASON FOR REFERRAL FUNCTIONAL STATUS PLAN OF CARE VITAL SIGNS MEDICATIONS PROCEDURES RESULTS No Results REASON FOR VISIT Insurance Providers MEDICAL (GENERAL) HISTORY
--- OUTSIDE RECORDS SUMMARY | 2022-12-21 04:28 | XMS_ITS | Continuity of Care Document ---
:1960 Author Organization [address], [address] [place] [address]- Care Team Providers Name Role Phone Mega POWELL MD, Israel Renteria Primary Care Physician [place] [facility] [place] - 03/03/[address], [address] [place], [place] [address] Allergies, Adverse Reactions, Alerts Substance Reaction Severity [...]
--- OUTSIDE RECORDS SUMMARY | 2022-12-21 04:28 | XMS_ITS | Continuity of Care Document ---
:1960 Author Organization [address], [address] [place] [address]- Care Team Providers Name Role Phone Mega POWELL MD, Israel Renteria Primary Care Physician [place] [facility] [place]s): 12/13/20 - 01/12/[address], [address] [place], [place] [address] Attending Physician: Joselito Brown Admitting Physician: Admtr, Joselito Referring Physician: Admtr, Ar8 Allergies, Adverse Reactions, [...]
--- OUTSIDE RECORDS SUMMARY | 2022-12-21 04:28 | XMS_ITS | Continuity of Care Document ---
:1960 Author Organization [address], [address] [place] [address]- Care Team Providers Name Role Phone Israel Ayoub III, MD Primary Care Physician [facility] [place] Date(s): 02/07/21 - 03/18/[address], [address] [place], [place] [address] Attending Physician: Aleksey Mims MD Referring Physician: Israel Ayoub III, MD Allergies, [...] opioid drug. Start Date: 11/08/20 Status: Ordered Vital Signs Most recent to oldest [Reference Range]: 1 Height 185.4 cm (02/15/21 9:06 AM) Weight 80.3 kg (02/15/21 9:06 AM) Body Mass Index [18.5-24.99] 23.36 (02/15/21 9:06 AM)
--- OUTSIDE RECORDS SUMMARY | 2022-12-21 04:28 | XMS_ITS | Continuity of Care Document ---
:1960 Author Organization [address], [address] [place] [address]- Care Team Providers Name Role Phone Israel Ayoub III, MD Primary Care Physician Encounter [place] Date(s): 02/16/21 - 03/18/[address], [address] [place], [place] [address] Attending Physician: Aleksey Mims MD Referring Physician: Israel Ayobu III, MD Allergies, Adverse Reactions, Alerts Substance [...]
--- OUTSIDE RECORDS SUMMARY | 2022-12-21 04:28 | XMS_ITS | Continuity of Care Document ---
:1960 Author Organization [address], [address] [place] [address]- Care Team Providers Name Role Phone Israel Ayoub III, MD Primary Care Physician Encounter [facility] [place] Date(s): 11/08/20 - 12/08/[address], [address] [place], [place] [address] Allergies, Adverse Reactions, Alerts Substance Reaction [...]
--- OUTSIDE RECORDS SUMMARY | 2022-12-21 04:28 | XMS_ITS | Continuity of Care Document ---
:1960 Author Organization [address], [address] [place] [address]- Care Team Providers Name Role Phone Mega POWELL MD, Israel Renteria Primary Care Physician Encounter [facility] [place] Date(s): 02/02/21 - 03/04/[address], [address] [place], [place] [address] Allergies, Adverse Reactions, Alerts Substance Reaction Severity [...]
--- OUTSIDE RECORDS SUMMARY | 2022-12-21 04:28 | XMS_ITS | Continuity of Care Document ---
:1960 Author Organization [address], [address] [place] [address]- Care Team Providers Name Role Phone Mega POWELL MD, Israel Renteria Primary Care Physician [place] [facility] [place] 10/10/20 - 11/09/[address], [address] [place], [place] [address] Allergies, Adverse Reactions, Alerts Substance Reaction Severity [...]
--- OUTSIDE RECORDS SUMMARY | 2022-12-21 04:28 | XMS_ITS | Continuity of Care Document ---
:1960 Author Organization [address], [address] [place] [address]- Care Team Providers Name Role Phone Israel Ayoub III, MD Primary Care Physician Encounter [facility] [place] Date(s): 11/14/20 - 02/16/[address], [address] [place], [place] [address] Attending Physician: Aleksey Mims MD [...]
--- OUTSIDE RECORDS SUMMARY | 2022-12-21 04:28 | XMS_ITS | Continuity of Care Document ---
:1960 Author Organization [address], [address] [place] [address]- Care Team Providers Name Role Phone Israel Ayoub III, MD Primary Care Physician Encounter [facility] [place] Date(s): 02/01/21 - 03/09/[address], [address] [place], [place] [address] Attending Physician: Aleksey Mims MD Referring [...] oldest [Reference Range]: 1 Height 185.4 cm (02/06/21 11:03 AM) Weight 80.3 kg (02/06/21 11:03 AM) Body Mass Index [18.5-24.99] 23.36 (02/06/21 11:03 AM)
--- OUTSIDE RECORDS SUMMARY | 2022-12-21 04:28 | XMS_ITS | Continuity of Care Document ---
:1960 Author Organization [address], [address] [place] [address]- Care Team Providers Name Role Phone Mega POWELL MD, Israel Renteria Primary Care Physician [place] [facility] [place] Date(s): 02/02/21 - 03/04/[address], [address] [place], [place] [address] Allergies, Adverse Reactions, Alerts Substance Reaction Severity [...]
--- OUTSIDE RECORDS SUMMARY | 2022-12-21 04:28 | XMS_ITS | Continuity of Care Document ---
:1960 Author Organization [address], [address] [place] [address]- Care Team Providers Name Role Phone Mega POWELL MD, Israel Renteria Primary Care Physician [place] [facility] [place] - 11/15/[address], [address] [place] [address]- Attending Physician: Aleksey Mims MD Referring Physician: Olaf Turcios MD Allergies, Adverse Reactions, Alerts Substance Reaction [...] oldest [Reference Range]: 1 Height 185.4 cm (11/08/20 12:56 PM) Weight 80.3 kg (11/08/20 12:56 PM) Body Mass Index [18.5-24.99] 23.36 (11/08/20 12:56 PM)
--- OUTSIDE RECORDS SUMMARY | 2022-12-21 04:28 | XMS_ITS | Continuity of Care Document ---
:1960 Author Organization [address], [address] [place] [address]- Care Team Providers Name Role Phone Mega POWELL MD, Israel Renteria Primary Care Physician [place] [facility] [place]s): 02/07/21 - 03/09/[address], [address] [place], [place] [address] Allergies, Adverse Reactions, Alerts Substance [...]
--- OUTSIDE RECORDS SUMMARY | 2022-12-21 04:28 | XMS_ITS | Continuity of Care Document ---
:1960 Author Organization [facility] Address [address] [place] [address]- Care Team Providers Name Role Phone Israel Ayoub III, MD Primary Care Physician En[place] [facility] [place] Date(s): 11/10/20 - 12/21/[address] [address] [place] Attending Physician: Aleksey Mims MD Admitting Physician: Aleksey Mims MD Allergies, Adverse Reactions, Alerts Substance Reaction [...]
--- OUTSIDE RECORDS SUMMARY | 2022-12-21 04:28 | XMS_ITS | Continuity of Care Document ---
:1960 Author Organization [address], [address] [place] [address]- Care Team Providers Name Role Phone Mega POWELL MD, Israel Renteria Primary Care Physician En[place] [facility] [place] Date(s): 11/21/20 - 12/21/[address], [address] [place], [place] [address] Allergies, Adverse Reactions, Alerts Substance Reaction [...]
--- OUTSIDE RECORDS SUMMARY | 2022-12-21 04:28 | XMS_ITS | Continuity of Care Document ---
:1960 Author Organization [facility] Address [address] [place] [address], [address] [place] [address]- Care Team Providers Name Role Phone Mega POWELL MD, Israel Renteria Primary Care Physician Encounter [facility] Date(s): 10/07/20 - 11/06/[address], [address] [place], [place] [address] Allergies, Adverse Reactions, Alerts Substance Reaction Severity Status NKA Active
--- NOTE | 2022-12-21 04:55 | ECG_ITS ---
Test Reason : SHORTNESS OF BREATH Blood Pressure : / mmHG Vent. Rate : 087 BPM Atrial Rate : 087 BPM P-R Int : 162 ms QRS Dur : 102 ms QT Int : 364 ms P-R-T Axes : 067 -74 046 degrees QTc Int : 438 ms Normal sinus rhythm Left axis deviation Pulmonary disease pattern Inferior infarct Abnormal ECG When compared with ECG of 13-JUL-2022 22:03, QRS axis Shifted left Referred By: Mariaelena Holloway Electronically Signed By:Carl Valverde
--- NOTE | 2022-12-21 06:17 | ED.GENADULT ---
HPI - General Adult General Chief complaint: General Medical Stated complaint: Anxiety after substance abuse Time Seen by Provider: 12/21/22 03:53 Source: patient Mode of arrival: EMS History of Present Illness HPI narrative: 62-year-old male presents via EMS for concerns that while he was vaping and smoking marijuana with his windows closed he became very ?out of it? and felt like he was ?suffocating?. Otherwise, he denies any fever, chills, chest pain, GI or symptoms. At this time patient states that he is feeling much better. Related Data Previous Rx's Medication Instructions Recorded folic acid 1 mg tablet 1 mg PO DAILY 30 days #30 tabs 03/14/21 multivitamin with folic acid 400 1 tab PO DAILY 30 days #30 tabs 03/14/21 mcg tablet (Tab-A-Max) benztropine 1 mg tablet 1 mg PO BID #60 tabs 07/18/22 hydroxyzine HCl 50 mg tablet 50 mg PO Q6H PRN agitation, 07/18/22 anxiety #90 tabs naproxen 500 mg tablet 500 mg PO BID PRN back pain #60 07/18/22 tabs gabapentin 300 mg capsule 300 mg PO TID 30 days #90 caps 07/26/22 olanzapine 10 mg tablet 30 mg PO BEDTIME 30 days #90 tabs 07/26/22 Allergies Allergy/AdvReac Type Severity Reaction Status Date / Time No Known Allergies Allergy Mild NA Verified 09/28/20 17:48 Review of Systems Review of Systems: Pertinent positives and negatives as stated in HPI [facility] Past Medical History Source: nursing notes reviewed Medical History Acute paranoia Bursitis Degenerative disc disease, cervical Schizoaffective disorder Surgical History H/O tooth extraction Hx of colonoscopy Family History Family History Mother Diabetes Father Heart disease Social History Social History Household Members: Family Household Members Other:: Sister Housing: House Do you presently have visiting nurse or other home services: No Unable to assess alcohol history related to: Unknown Alcohol intake: current Alcohol intake frequency: holidays/special occasions only Patient Tobacco Use Status: Never used Tobacco Cigarette Packs Per Day: 0.5 Cigarettes Per Day: 10.0 Years Smoked: 40 Smoked in Last 30 Days: Yes Second Hand Smoke Exposure: No Use of substances other than those prescribed or required for medical reasons: Yes Substance Use Type: Marijuana Advance Directives: Yes Advance Directives on File: Yes Advance Directives Date on File: 10/18/20 service: No Sexual orientation: Straight/Heterosexual Physical Exam ED Vital Signs: Vital Signs - 24 hr 12/21/22 03:48 12/21/22 03:54 Temperature 98.6 F 98.6 F Pulse Rate 87 87 Respiratory Rate 16 16 Blood Pressure 144/79 H 144/79 H Pulse Oximetry 99 98 Oxygen Delivery Method Room Air Room Air BMI result Body Mass Index 19.9 VITAL SIGNS: Reviewed. GENERAL: Well developed, well nourished, in no acute distress. HEAD: Normocephalic/atraumatic EYES: PERRLA, EOMI EARS: Ext canals without abnormality OROPHARYNX: no oral lesions noted, posterior pharynx clear LUNGS: Normal breath sounds. No adventitious sounds or accessory muscle use. SpO2<98> CARDIOVASCULAR: Regular rate and rhythm without noted murmurs ABDOMEN: Soft, non-tender, non-distended with bowel sounds. MUSCULOSKELETAL: No tenderness, deformities, or effusions noted on gross inspection. EXTREMITIES: No cyanosis, clubbing or edema. SKIN: Inspection of the skin reveals no rashes NEUROLOGIC: Alert and oriented x 4. Strength and sensation to light touch were grossly intact x 4. Medical Decision Making Medical Decision Making MDM Narrative: 62-year-old male who arrives via EMS and appears to have had an anxious episode and is now reporting that all symptoms have resolved. On review of all investigations my interpretation is that patient likely became anxious from significant they being and smoking as reported by the patient in a small, closed space. He is neither tachypneic, tachycardic, and he is oxygenating well on room air. Patient is otherwise discharged home in stable condition. Differential Diagnosis Differential Diagnoses: The differential diagnosis associated with the presentation includes Please see the discussion above Independent Interpretation I performed an independent interpretation of an: EKG Interpretation: Normal sinus rhythm, HR-87, no STEMI, AZ/QRS/QTC is within normal limits. Radiology Impression Radiologist Impression: My interpretation is in agreement with radiology's impression of the imaging study. Social Determinants Underlying psychiatric condition. Discharge Plan Discharge Clinical Impression: Anxiety Patient Disposition: Home, Self-Care Instructions: Anxiety (ED) Additional Instructions: 1. Please resume all home medications as prescribed. 2. Please follow-up with your primary care provider for re-evaluation. Return to the ER for any worsening symptoms. Prescriptions: No Action folic acid 1 mg Tablet 1 mg PO DAILY 30 Days Qty: 30 0RF multivitamin with folic acid [Tab-A-Max] 400 mcg Tablet 1 tab PO DAILY 30 Days Qty: 30 0RF hydroxyzine HCl 50 mg Tablet 50 mg PO Q6H PRN (Reason: agitation, anxiety) Qty: 90 0RF benztropine 1 mg Tablet 1 mg PO BID Qty: 60 0RF naproxen 500 mg Tablet 500 mg PO BID PRN (Reason: back pain) Qty: 60 0RF gabapentin 300 mg capsule 300 mg PO TID 30 Days Qty: 90 0RF olanzapine 10 mg Tablet 30 mg PO BEDTIME 30 Days Qty: 90 0RF Referrals: Israel Ayoub III, MD [Primary Care Provider] -
[2022-12-21 06:24] VITALS: BP 135/85; PULSE 102; RESP 17; TEMP 36.6; O2SAT 99
== END 2022-12-21 07:13 | disposition home or self-care (01) ==
PROVIDERS: Emergency Provider Student in an Organized Health Care Education/Training Program; PCP Internal Medicine
DX: F43.0 Acute stress reaction (principal); F41.1 Generalized anxiety disorder; R06.02 Shortness of breath; F12.90 Cannabis use, unspecified, uncomplicated; F17.210 Nicotine dependence, cigarettes, uncomplicated; Z71.6 Tobacco abuse counseling; Z79.899 Other long term (current) drug therapy
CPT/HCPCS: 71046; 93005; 99282; 99283; 99284

== ENCOUNTER → 2023-03-15 11:21 | Outpatient (BNVA) | payer MEDICARE, SELFPAY | PROVIDERS: PCP Internal Medicine; Visit Provider Student in an Organized Health Care Education/Training Program | DX: M62.838 Other muscle spasm (principal) | CPT/HCPCS: 99202 ==

== ENCOUNTER 2023-03-17 03:12 | Emergency (ER) | payer MEDICARE, SELFPAY ==
[2023-03-17 03:14] VITALS: BP 202/100; PULSE 89; O2SAT 98
[2023-03-17 03:17] VITALS: BP 202/101; PULSE 89; O2SAT 98
[2023-03-17 03:22] VITALS: PULSE 83; RESP 20; TEMP 36.6; O2SAT 99; BMI 27.0
--- NOTE | 2023-03-17 03:28 | PC.NURSE ---
Pt denies SI/HI on arrival to the hospital
--- NOTE | 2023-03-17 03:42 | PC.NURSE ---
Pt refusing blood work and urine sample at this time. Pt educated that in order to speak to someone about his mental health he needs to be medically cleared by the ER physician. Pt responded I have rights I don't want to do any blood work . aware.
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
== END 2023-03-17 05:09 | disposition home or self-care (01) ==
PROVIDERS: Emergency Provider Emergency Medicine; PCP Internal Medicine
DX: F33.1 Major depressive disorder, recurrent, moderate (principal); F17.210 Nicotine dependence, cigarettes, uncomplicated; Z71.6 Tobacco abuse counseling; Z79.899 Other long term (current) drug therapy
CPT/HCPCS: 99283; 99284

== ENCOUNTER 2023-04-04 18:36 | Inpatient (IN) | payer MEDICARE, SELFPAY ==
[2023-04-04 18:43] VITALS: BMI 25.7
--- NOTE | 2023-04-04 18:45 | PC.NURSE ---
PT IS REFUSING CARE AND TO ANSWER QUESTIONS, WITH SECURITY WHO IS ATTEMPTING TO GET PT CHANGED.
[2023-04-04 19:25] VITALS: RESP 18
[2023-04-04] MEDS: LORazepam 2 MG/ML VIAL IM (19:25)
[2023-04-04] MEDS: diphenhydrAMINE HCL 50 MG/ML VIAL IM (19:25)
[2023-04-04] MEDS: Haloperidol Lactate 5 MG/ML VIAL IM (19:25)
[2023-04-04 19:28] LABS: COVID-19 Test Negative (Negative); IDNOW Serial# 08D9AD1C
[2023-04-04 19:40] VITALS: RESP 18
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
[2023-04-04 19:55] VITALS: BP 174/69; PULSE 75; RESP 17; TEMP 36.4; O2SAT 98
--- NOTE | 2023-04-04 20:36 | MHC.EDTECH ---
t/w and haroon Rangel, attempted to obtain labwork from pt, pt refused stating that it is against his anabaptism will re approach at a later time.
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
--- NOTE | 2023-04-05 | ECG_ITS ---
Test Reason : PT OVER 50 Blood Pressure : / mmHG Vent. Rate : 077 BPM Atrial Rate : 077 BPM P-R Int : 152 ms QRS Dur : 102 ms QT Int : 390 ms P-R-T Axes : 057 -52 050 degrees QTc Int : 441 ms Normal sinus rhythm Left axis deviation Low voltage QRS Abnormal ECG When compared with ECG of 21-DEC-2022 06:07, No significant change was found Referred By: Олег Clemente Electronically Signed By:Carl Valverde
[2023-04-05 05:49] LABS: Appearance Urine Clear; Color Urine Yellow; Glucose Urine UA Negative (Negative); Leukocyte Esterase Urine Moderate (2+) (Negative); Nitrite Urine Negative (Negative); UMIC TRIGGER UA YES; Urine Blood Negative (Negative); Urine Ketones Negative (Negative); Urine Protein Negative (Neg-Trace)
[2023-04-05 05:54] LABS: Bacteria Urine 4+ (None Seen); Hyaline Casts Urine 0-2 /LPF (0-2); RBC Urine 0-2 /HPF (0-2); Squamous Epithelial Cell Urine 0-2 /HPF (0-2)
[2023-04-05 05:59] LABS: Amphetamine Screen Urine Not Detected (Not Detect); Barbiturates, Urine Not Detected (Not Detect); Benzodiazepines Screen Urine Not Detected (Not Detect); Cannabinoid Screen Urine Not Detected (Not Detect); Cocaine Screen Urine Not Detected (Not Detect); Fentanyl, urine Not Detected (Not Detect); Opiate Screen Urine Not Detected (Not Detect); Phencyclidine Screen Urine Not Detected (Not Detect)
[2023-04-05 06:03] VITALS: BP 134/80; PULSE 78; RESP 18; TEMP 36.7; O2SAT 97
[2023-04-05 06:06] LABS: Basophils Absolute Auto 0.1 X10*3/uL (0.0-0.2); Basophils Percent Auto 0.9 % (0-2); Eosinophils Absolute Auto 0.2 X10*3/uL (0.0-0.4); Eosinophils Percent Auto 2.6 % (0-4); Hemoglobin 13.7 g/dl (14.0-18.0); Imm Gran Abs Auto 0.01 X10*3/uL (0.00-0.03); Imm Gran Pct Auto 0.2 % (0.0-0.4); Lymphocytes Absolute Auto 3.1 X10*3/uL (1.2-4.9); Lymphocytes Percent Auto 47.3 % (20-40); MANUAL DIFF FLAG NO; Mean Corpuscular HGB Conc 34.3 g/dl (31.0-36.0); Mean Corpuscular Hemoglobin 29.8 pg (27.0-33.0); Mean Corpuscular Volume 87.1 fL (80.0-98.0); Mean Platelet Volume 9.8 fL (9.4-12.4); Monocytes Absolute Auto 0.5 X10*3/uL (0.1-1.2); Monocytes Percent Auto 7.4 % (2-11); Neutrophils Absolute Auto 2.7 x10*3/uL (2.0-8.3); Neutrophils Percent Auto 41.6 % (45-73); Platelet Count 230 X10*3/uL (160-400); Red Blood Count 4.59 X10*6/uL (4.60-5.80); Red Cell Distribution Width 13.8 % (11.0-16.0); White Blood Count 6.5 X10*3/uL (4.8-10.8)
--- NOTE | 2023-04-05 06:11 | PC.NURSE ---
Patient slept through the night, no distress observed/reported, with difficulties patient eventually agreed to labs, labs completed/pending results, care team pending evaluation, behavior unpredictable, gait unsteady but refuses to use walker, will continue to monitor.
[2023-04-05 06:26] LABS: Ethanol < 10 mg/dL
[2023-04-05 06:27] LABS: Alanine Aminotransferase 19 U/L (0-40); Albumin Level 3.8 g/dL (3.5-5.0); Alkaline Phosphatase 86 U/L (39-117); Anion Gap 11 (12-20); Aspartate Amino Transferase 34 U/L (5-37); Bilirubin Total 0.5 mg/dL (0.0-1.0); Blood Urea Nitrogen 9 mg/dL (9-16); Carbon Dioxide 24 mmol/L (22-29); Chloride 109 mmol/L (96-108); Estimated Glomerular Filt Rate > 60; Glucose Random 96 mg/dL (60-115); Potassium 4.3 mmol/L (3.3-5.1); Sodium 140 mmol/L (135-145); Total Protein 6.3 g/dL (6.5-8.0)
[2023-04-05 10:33] VITALS: RESP 16
[2023-04-05] MEDS: hydrOXYzine HCL 50 MG TABLET PO ×3 (10:33→20:50)
[2023-04-05] MEDS: Multivitamin TABLET 1 TAB PO (10:33)
[2023-04-05] MEDS: Benztropine Mesylate 1 MG TABLET PO ×2 (10:33→20:50)
[2023-04-05] MEDS: Folic Acid 1 MG TABLET PO (10:33)
[2023-04-05] MEDS: OLANZapine 10 MG TABLET PO (10:33)
[2023-04-05] MEDS: Gabapentin 300 MG CAPSULE PO ×3 (10:33→20:49)
[2023-04-05] MEDS: Cholecalciferol (Vitamin D3) 25 MCG TABLET PO (10:33)
[2023-04-05] MEDS: NaPROXEN 500 MG TABLET PO ×2 (10:34→20:49)
--- NOTE | 2023-04-05 14:04 | MHC.CARE ---
Pt signed his CV. Pt appeared to have difficulty comprehending the CV when reading it. CARE Team explained the content of the CV, pt still appeared perplexed. Pt was asked if he understood pt stated he did. Pt also appeared to have difficulty with the motor skills necessary for using a pen. Pt attempted to sign the CV several times but had to frequently reposition the pen in his hand.
[2023-04-05 16:48] VITALS: BP 112/61; PULSE 95; RESP 15; TEMP 36.5; O2SAT 96
[2023-04-05 17:25] VITALS: BP 127/79; PULSE 80; RESP 18; TEMP 36.3; O2SAT 97
[2023-04-05 18:15] VITALS: BMI 27.0
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
[2023-04-05 20:39] VITALS: BP 129/73; PULSE 92; RESP 18; TEMP 36.6; O2SAT 96
[2023-04-06 07:46] LABS: Estimated Average Glucose 108 mg/dL; Hemoglobin A1c % 5.4 %
[2023-04-06 07:58] LABS: Cholesterol 180 mg/dL; HDL Cholesterol 38 mg/dL; LDL Cholesterol Calculated 125 mg/dl; Magnesium 1.8 mg/dL (1.6-2.6); Triglycerides 87 mg/dL
[2023-04-06 08:31] LABS: Folate 17.3 ng/mL (> or = 4.0); Free T4 (Free Thyroxine) 1.11 ng/dL (0.71-1.85); Thyroid Stimulating Hormone 1.44 uIU/mL (0.32-4.0); Vitamin B12 566 pg/mL (200-900)
--- NOTE | 2023-04-06 08:45 | HO.PSYADMNOT ---
HPI Date of Service: 04/06/23 Chief Complaint: Schizoaffective d/o, bipolar type Sources of Information: patient interviewed, chart reviewed and crisis/core team assessment reviewed HPI Subjective Notes: Conditional Voluntary Healthcare Proxy: No Guardianship: No Medical Problems Affecting Mental Status: No Narrative: Juan J is a 62-year-old single, Japanese-speaking, man who is well known to this hospital. He has had over 12 previous hospitalizations. He lives [place]. Yesterday he was brought to the emergency room after he became agitated at his [place]. When the staff tried to given his p.m. medications he slapped the medications at of the staff's hand and went into the kitchen and was angry that there was no coffee, throwing the carafe, breaking it. It he started banging on doors aggressively, dislodging a hinge. 911 was called and he was brought to the emergency room where he continued to be agitated and needed to be restrained chemically and physically. He does have history of aggression, non medication compliance. Some history of substance use. No history of self-harm. He is on Zyprexa 10 mg q.h.s., gabapentin and Cogentin. Current medications were continued on admission. He is followed at [facility]. Past Psychiatric History: Long Hx of Schizoaffective. Similar presentations in the past. OP: [facility] Robert Perez-prescriber Sarbjit Lozano-therapist DMH: [facility] Medical Evaluation Reviewed: Yes [facility] Medical History Acute paranoia Bursitis Degenerative disc disease, cervical Schizoaffective disorder Surgical History H/O tooth extraction Hx of colonoscopy Family History: Depression and schizophrenia Social History: Patient was born and raised in [place] by biological parents. His father worked in a factory and also did his mother. Both parents are , his mother in 2021. He graduated high school and attended some college at [employer] and did work in his earlier years until he started having problems with alcohol abuse. He has had no marriages and no children. He does have a sister. He does have some inheritance which is being withheld and possibly being spent by his sister. He was not willing to go into any details and this information is from the crisis evaluation Substance History: Alcohol abuse but not currently Trauma History: Unknown Diagnostics Vital Signs (24Hr): Vital Signs - 24 hr 04/05/23 10:33 04/05/23 16:48 04/05/23 17:25 Temperature 97.7 F 97.3 F Pulse Rate 95 80 Respiratory Rate 16 15 18 Blood Pressure 112/61 127/79 Pulse Oximetry 96 97 Oxygen Delivery Method Room Air Room Air 04/05/23 20:39 Temperature 97.9 F Pulse Rate 92 Respiratory Rate 18 Blood Pressure 129/73 Pulse Oximetry 96 Oxygen Delivery Method Room Air BMI result Body Mass Index 27.0 Labs 04/05/23 06:01 04/05/23 06:01 Labs: Laboratory Results - last 48 hr 04/04/23 04/05/23 04/05/23 19:09 05:43 05:43 WBC RBC Hgb Hct MCV MCH MCHC RDW Plt Count MPV Immature Gran % (Auto) Neut % (Auto) Lymph % (Auto) Tyrrell % (Auto) Eos % (Auto) Baso % (Auto) Lymph # (Auto) Tyrrell # (Auto) Eos # (Auto) Baso # (Auto) Abs Immat Gran (auto) Absolute Neuts (auto) Absolute Nucleated RBC Nucleated RBC % (auto) Sodium Potassium Chloride Carbon Dioxide Anion Gap BUN Creatinine Estim Creat Clear Calc Estimated GFR Random Glucose Estimat Average Glucose Hemoglobin A1c % Calcium Magnesium Total Bilirubin AST ALT Alkaline Phosphatase Total Protein Albumin Triglycerides Cholesterol LDL Cholesterol, Calc HDL Cholesterol Vitamin B12 Folate TSH Free T4 Urine Color Yellow Urine Appearance Clear Urine pH 6.0 Ur Specific [place] 1.010 Urine Protein Negative Urine Glucose (UA) Negative Urine Ketones Negative Urine Blood Negative Urine Nitrite Negative Ur Leukocyte Esterase Moderate (2+) H Urine RBC 0-2 Urine WBC 11-20 H Ur Squamous Epith Cells 0-2 Urine Bacteria 4+ Hyaline Casts 0-2 Urine Opiates Screen Not Detected Urine Fentanyl Screen Not Detected Ur Barbiturates Screen Not Detected Ur Phencyclidine Scrn Not Detected Ur Amphetamines Screen Not Detected U Benzodiazepines Scrn Not Detected Urine Cocaine Screen Not Detected U Marijuana (THC) Screen Not Detected Ethyl Alcohol COVID-19 (JAMMIE) Negative COVID-19 Clin Com See Note 04/05/23 04/05/23 04/05/23 06:01 06:01 06:01 WBC 6.5 RBC 4.59 L Hgb 13.7 L Hct 40.0 L MCV 87.1 MCH 29.8 MCHC 34.3 RDW 13.8 Plt Count 230 MPV 9.8 Immature Gran % (Auto) 0.2 Neut % (Auto) 41.6 L Lymph % (Auto) 47.3 H Tyrrell % (Auto) 7.4 Eos % (Auto) 2.6 Baso % (Auto) 0.9 Lymph # (Auto) 3.1 Tyrrell # (Auto) 0.5 Eos # (Auto) 0.2 Baso # (Auto) 0.1 Abs Immat Gran (auto) 0.01 Absolute Neuts (auto) 2.7 Absolute Nucleated RBC 0.000 Nucleated RBC % (auto) 0.0 Sodium 140 Potassium 4.3 Chloride 109 H Carbon Dioxide 24 Anion Gap 11 L BUN 9 Creatinine 0.84 Estim Creat Clear Calc 106.0 Estimated GFR > 60 Random Glucose 96 Estimat Average Glucose Hemoglobin A1c % Calcium 9.0 Magnesium Total Bilirubin 0.5 AST 34 ALT 19 Alkaline Phosphatase 86 Total Protein 6.3 L Albumin 3.8 Triglycerides Cholesterol LDL Cholesterol, Calc HDL Cholesterol Vitamin B12 Folate TSH Free T4 Urine Color Urine Appearance Urine pH Ur Specific [place] Urine Protein Urine Glucose (UA) Urine Ketones Urine Blood Urine Nitrite Ur Leukocyte Esterase Urine RBC Urine WBC Ur Squamous Epith Cells Urine Bacteria Hyaline Casts Urine Opiates Screen Urine Fentanyl Screen Ur Barbiturates Screen Ur Phencyclidine Scrn Ur Amphetamines Screen U Benzodiazepines Scrn Urine Cocaine Screen U Marijuana (THC) Screen Ethyl Alcohol < 10 COVID-19 (JAMMIE) COVID-19 Clin Com 04/06/23 04/06/23 07:22 07:22 WBC RBC Hgb Hct MCV MCH MCHC RDW Plt Count MPV Immature Gran % (Auto) Neut % (Auto) Lymph % (Auto) Tyrrell % (Auto) Eos % (Auto) Baso % (Auto) Lymph # (Auto) Tyrrell # (Auto) Eos # (Auto) Baso # (Auto) Abs Immat Gran (auto) Absolute Neuts (auto) Absolute Nucleated RBC Nucleated RBC % (auto) Sodium Potassium Chloride Carbon Dioxide Anion Gap BUN Creatinine Estim Creat Clear Calc Estimated GFR Random Glucose Estimat Average Glucose 108 Hemoglobin A1c % 5.4 Calcium Magnesium 1.8 Total Bilirubin AST ALT Alkaline Phosphatase Total Protein Albumin Triglycerides 87 Cholesterol 180 LDL Cholesterol, Calc 125 HDL Cholesterol 38 Vitamin B12 566 Folate 17.3 TSH 1.44 Free T4 1.11 Urine Color Urine Appearance Urine pH Ur Specific [place] Urine Protein Urine Glucose (UA) Urine Ketones Urine Blood Urine Nitrite Ur Leukocyte Esterase Urine RBC Urine WBC Ur Squamous Epith Cells Urine Bacteria Hyaline Casts Urine Opiates Screen Urine Fentanyl Screen Ur Barbiturates Screen Ur Phencyclidine Scrn Ur Amphetamines Screen U Benzodiazepines Scrn Urine Cocaine Screen U Marijuana (THC) Screen Ethyl Alcohol COVID-19 (JAMMIE) COVID-19 Clin Com Meds/Allergies Meds Home Medications Medication Instructions Recorded Confirmed Type benztropine 1 mg tablet 1 mg PO BID 04/04/23 04/04/23 History cholecalciferol (vitamin D3) 25 25 mcg PO DAILY 04/04/23 04/04/23 History mcg (1,000 unit) tablet (Vitamin D3) gabapentin 300 mg capsule 300 mg PO TID 04/04/23 04/04/23 History hydroxyzine pamoate 50 mg capsule 50 mg PO TID 04/04/23 04/04/23 History naproxen 500 mg tablet 500 mg PO BID 04/04/23 04/04/23 History olanzapine 10 mg tablet 10 mg PO DAILY 04/04/23 04/04/23 History Allergies Allergies Allergy/AdvReac Type Severity Reaction Status Date / Time No Known Allergies Allergy Mild NA Verified 03/15/23 11:33 Mental Status Exam Mental Status Exam Narrative: Juan J was seen the morning after his admission. He is alert, oriented and generally pleasant. Speech is soft-spoken, mumbling at times. Little to no eye contact and had his eyes closed throughout most of the interview. Moderate dysphoria present. Thought processes are tangential, somewhat disorganized and had difficulty giving much details. No elaboration. He denies any auditory or visual hallucinations. No overt delusions but references of been made to some paranoia. He denies any SI/HI. Cognitively he was not willing to be formally tested. Judgment is marginal Assessment & Plan Assessment & Plan (1) Schizoaffective disorder, bipolar type: Status: Acute Code(s): F25.0 - Schizoaffective disorder, bipolar type Plan In conclusion Juan J meets criteria for hospital level of care for stability and safety. Current medications were continued with no changes. Contacts to be made with his treaters. Admission workup to be done. He will meet with his treatment team on 04/08. Patient educated on: diagnosis, medication risk/benefits and therapeutic strategies Reason for continued inpatient stay Substantial Risk for: harm to others and med/psych decompensation Statement Statement: I have reviewed the history and physical and performed a pertinent examination on my patient. No changes have occurred unless specified. If the History and Physical was not performed prior to admission, the Hospitalist's service will be consulted for completing the admission physical. Time Spent With Patient Time: Total time managing care of this patient today ____ minutes.
[2023-04-06 09:03] VITALS: BP 93/63; PULSE 81; RESP 20; TEMP 36.7; O2SAT 98
[2023-04-06] MEDS: Gabapentin 300 MG CAPSULE PO ×3 (09:04→20:05)
[2023-04-06] MEDS: Benztropine Mesylate 1 MG TABLET PO ×2 (09:04→20:05)
[2023-04-06] MEDS: OLANZapine 10 MG TABLET PO (09:04)
[2023-04-06] MEDS: Folic Acid 1 MG TABLET PO (09:04)
[2023-04-06] MEDS: hydrOXYzine HCL 50 MG TABLET PO ×3 (09:04→20:05)
[2023-04-06] MEDS: Cholecalciferol (Vitamin D3) 25 MCG TABLET PO (09:04)
[2023-04-06] MEDS: NaPROXEN 500 MG TABLET PO ×2 (09:04→20:05)
[2023-04-06] MEDS: Multivitamin TABLET 1 TAB PO (09:04)
[2023-04-06 20:00] VITALS: BP 132/61; PULSE 70; RESP 16; TEMP 36.6; O2SAT 97
[2023-04-07 09:02] VITALS: BP 115/66; PULSE 84; RESP 20; TEMP 36.7; O2SAT 98
[2023-04-07] MEDS: Cholecalciferol (Vitamin D3) 25 MCG TABLET PO (09:04)
[2023-04-07] MEDS: Benztropine Mesylate 1 MG TABLET PO ×2 (09:04→20:41)
[2023-04-07] MEDS: Multivitamin TABLET 1 TAB PO (09:04)
[2023-04-07] MEDS: NaPROXEN 500 MG TABLET PO ×2 (09:04→20:41)
[2023-04-07] MEDS: Gabapentin 300 MG CAPSULE PO ×3 (09:04→20:41)
[2023-04-07] MEDS: hydrOXYzine HCL 50 MG TABLET PO ×3 (09:04→20:42)
[2023-04-07] MEDS: Folic Acid 1 MG TABLET PO (09:04)
[2023-04-07] MEDS: OLANZapine 10 MG TABLET PO (09:04)
--- NOTE | 2023-04-07 09:42 | HO.PSYCHPN ---
Subjective Subjective Date of Service: 04/07/23 Reason For Visit: Schizoaffective d/o, bipolar type Subjective Notes: Conditional Voluntary and 3 Day Interim History: Patient was seen and discussed in rounds today. Records and plans were reviewed. He does have a 3 day notice and. Eating and sleeping adequately. Some anxiety present. No SI. Continues to be disorganized. He may be responding to internal stimuli. No behavioral issues. No AVH upon inquiry. No complaints or side effects. Labs were reviewed, indicating slight anemia. No changes were made Medication Compliance: Yes Side effects from medications: No Attending Groups: Intermittent Review of Systems Review of Systems Yes all other systems are reviewed and are negative Mental Status Exam Mental Status Exam Narrative: In today's visit he is alert, oriented and pleasant. Speech is mumbled at times hard to understand. Little to no eye contact and closes his eyes when talking. He denies any auditory or visual hallucinations. Reports of possible response to internal stimuli. He denies any SI. Thought processes are tangential, disorganized. He denies any SI. Judgment is marginal. Diagnostics Vital Signs (24Hr): Vital Signs - 24 hr 04/06/23 20:00 04/07/23 09:02 Temperature 97.9 F 98.0 F Pulse Rate 70 84 Respiratory Rate 16 20 Blood Pressure 132/61 115/66 Pulse Oximetry 97 98 Oxygen Delivery Method Room Air Room Air BMI result Body Mass Index 27.0 Labs 04/05/23 06:01 04/05/23 06:01 Labs: Laboratory Results - last 48 hr 04/06/23 04/06/23 07:22 07:22 Estimat Average Glucose 108 Hemoglobin A1c % 5.4 Magnesium 1.8 Triglycerides 87 Cholesterol 180 LDL Cholesterol, Calc 125 HDL Cholesterol 38 Vitamin B12 566 Folate 17.3 TSH 1.44 Free T4 1.11 Medications Medications Current Medications Acetaminophen (Acetaminophen 325 Mg Tablet) 650 mg PO Q6H PRN PRN Reason: Headache/Pain Mild Scale (1-3) Al Hydroxide/Mg Hydroxide (Magnesium Hydrox/Alum Hydrox 30 Ml Oral.Susp) 30 ml PO Q6H PRN PRN Reason: Heartburn/Nausea Benztropine Mesylate (Benztropine Mesylate 1 Mg Tablet) 1 mg PO BID [facility] Last Admin: 04/07/23 09:04 Dose: 1 mg Folic Acid (Folic Acid 1 Mg Tablet) 1 mg PO DAILY [facility] Last Admin: 04/07/23 09:04 Dose: 1 mg Gabapentin (Gabapentin 300 Mg Capsule) 300 mg PO TID [facility] Last Admin: 04/07/23 09:04 Dose: 300 mg Hydroxyzine HCl (Hydroxyzine Hcl 50 Mg Tablet) 50 mg PO TID [facility] Last Admin: 04/07/23 09:04 Dose: 50 mg Magnesium Hydroxide (Milk Of Magnesia 30 Ml Oral.Susp) 30 ml PO DAILY PRN PRN Reason: Constipation Multivitamins/Vitamin C (Multivitamin Tablet) 1 tab PO DAILY [facility] Last Admin: 04/07/23 09:04 Dose: 1 tab Naproxen (Naproxen 500 Mg Tablet) 500 mg PO BID [facility] Last Admin: 04/07/23 09:04 Dose: 500 mg Olanzapine (Olanzapine 10 Mg Tablet) 10 mg PO DAILY [facility] Last Admin: 04/07/23 09:04 Dose: 10 mg Trazodone HCl (Trazodone Hcl 50 Mg Tablet) 50 mg PO BEDTIME MRX1 PRN PRN Reason: Insomnia Vitamin D (Cholecalciferol (Vitamin D3) 25 Mcg Tablet) 25 mcg PO DAILY [facility] Last Admin: 04/07/23 09:04 Dose: 25 mcg Allergies Allergies Allergy/AdvReac Type Severity Reaction Status Date / Time No Known Allergies Allergy Mild NA Verified 03/15/23 11:33 Assessment & Plan Assessment & Plan (1) Schizoaffective disorder, bipolar type: Status: Acute Code(s): F25.0 - Schizoaffective disorder, bipolar type Plan In conclusion Juan J meets criteria for hospital level of care for stability and safety. Current medications were continued with no changes. Contacts to be made with his treaters. Admission workup to be done. He will meet with his treatment team on 04/07: Continue current regimen and plans Reason for continued inpatient stay Substantial Risk for: med/psych decompensation Time Spent With Patient Time: Total time managing care of this patient today ____ minutes.
[2023-04-07 20:10] VITALS: BP 142/68; PULSE 70; RESP 18; TEMP 36.6; O2SAT 99
[2023-04-08 08:23] VITALS: BP 109/61; PULSE 85; RESP 18; TEMP 36.5; O2SAT 99
[2023-04-08] MEDS: NaPROXEN 500 MG TABLET PO ×2 (08:40→21:19)
[2023-04-08] MEDS: Folic Acid 1 MG TABLET PO (08:41)
[2023-04-08] MEDS: Benztropine Mesylate 1 MG TABLET PO ×2 (08:41→21:19)
[2023-04-08] MEDS: hydrOXYzine HCL 50 MG TABLET PO ×3 (08:41→21:19)
[2023-04-08] MEDS: Multivitamin TABLET 1 TAB PO (08:41)
[2023-04-08] MEDS: Gabapentin 300 MG CAPSULE PO ×3 (08:41→21:19)
[2023-04-08] MEDS: OLANZapine 10 MG TABLET PO (08:41)
[2023-04-08] MEDS: Cholecalciferol (Vitamin D3) 25 MCG TABLET PO (08:41)
--- NOTE | 2023-04-08 15:48 | P.PNPSI_ITS ---
Subjective Subjective Date of Service: 04/08/23 Reason For Visit: Schizoaffective d/o, bipolar type Interim History: calm, cooperative. digressive. states he feels well on current regimen. reports that at his [facility] people were going into my room. an old man. taking little things. he also alleged that workers come in and mess around with things. he denied any such incidents were happening here. he is interested in returning to his [facility]. he was informed there will likely be a treaters' meeting prior. he remained unmoved. per staff, 3-day notice up 04/10. c/o back pain. spending much time in bed. no AVH. disorganized. no agitation or aggression. slept all durga. med-compliant. sleeping through the NOC. Mental Status Exam Mental Status Exam Narrative: In today's visit he is alert, oriented and pleasant. Speech is mumbled at times hard to understand. Little to no eye contact and closes his eyes when talking. Thought processes are tangential, disorganized. no SI/HI/AVH expressed. Judgment is marginal. Diagnostics Vital Signs (24Hr): Vital Signs - 24 hr 04/07/23 20:10 04/08/23 08:23 Temperature 97.9 F 97.7 F Pulse Rate 70 85 Respiratory Rate 18 18 Blood Pressure 142/68 H 109/61 Pulse Oximetry 99 99 Oxygen Delivery Method Room Air Room Air BMI result Body Mass Index 27.0 Labs 04/05/23 06:01 04/05/23 06:01 Medications Medications Current Medications Acetaminophen (Acetaminophen 325 Mg Tablet) 650 mg PO Q6H PRN PRN Reason: Headache/Pain Mild Scale (1-3) Al Hydroxide/Mg Hydroxide (Magnesium Hydrox/Alum Hydrox 30 Ml Oral.Susp) 30 ml PO Q6H PRN PRN Reason: Heartburn/Nausea Benztropine Mesylate (Benztropine Mesylate 1 Mg Tablet) 1 mg PO BID [facility] Last Admin: 04/08/23 08:41 Dose: 1 mg Folic Acid (Folic Acid 1 Mg Tablet) 1 mg PO DAILY [facility] Last Admin: 04/08/23 08:41 Dose: 1 mg Gabapentin (Gabapentin 300 Mg Capsule) 300 mg PO TID [facility] Last Admin: 04/08/23 15:06 Dose: 300 mg Hydroxyzine HCl (Hydroxyzine Hcl 50 Mg Tablet) 50 mg PO TID [facility] Last Admin: 04/08/23 15:06 Dose: 50 mg Magnesium Hydroxide (Milk Of Magnesia 30 Ml Oral.Susp) 30 ml PO DAILY PRN PRN Reason: Constipation Multivitamins/Vitamin C (Multivitamin Tablet) 1 tab PO DAILY [facility] Last Admin: 04/08/23 08:41 Dose: 1 tab Naproxen (Naproxen 500 Mg Tablet) 500 mg PO BID [facility] Last Admin: 04/08/23 08:40 Dose: 500 mg Olanzapine (Olanzapine 10 Mg Tablet) 10 mg PO DAILY [facility] Last Admin: 04/08/23 08:41 Dose: 10 mg Trazodone HCl (Trazodone Hcl 50 Mg Tablet) 50 mg PO BEDTIME MRX1 PRN PRN Reason: Insomnia Vitamin D (Cholecalciferol (Vitamin D3) 25 Mcg Tablet) 25 mcg PO DAILY [facility] Last Admin: 04/08/23 08:41 Dose: 25 mcg Allergies Allergies Allergy/AdvReac Type Severity Reaction Status Date / Time No Known Allergies Allergy Mild NA Verified 03/15/23 11:33 Assessment & Plan Assessment & Plan (1) Schizoaffective disorder, bipolar type: Status: Acute Code(s): F25.0 - Schizoaffective disorder, bipolar type Plan In conclusion Juan J meets criteria for hospital level of care for stability and safety. Current medications were continued with no changes. Contacts to be made with his treaters. Admission workup to be done. He will meet with his treatment team on 04/08. 04/07: Continue current regimen and plans 04/08: continue home meds. arrange for mtg with treaters prior to discharge. 3-day notice up 04/10. Reason for continued inpatient stay Substantial Risk for: harm to others, inability to function and rapid decompensation Time Spent With Patient Time: Total time managing care of this patient today _25___ minutes.
[2023-04-08 20:15] VITALS: BP 138/75; PULSE 77; RESP 18; TEMP 36.4; O2SAT 97
[2023-04-09 09:26] VITALS: BP 105/50; PULSE 88; RESP 16; TEMP 36.3; O2SAT 98
[2023-04-09] MEDS: Benztropine Mesylate 1 MG TABLET PO ×2 (09:27→20:16)
[2023-04-09] MEDS: hydrOXYzine HCL 50 MG TABLET PO ×3 (09:27→20:15)
[2023-04-09] MEDS: Folic Acid 1 MG TABLET PO (09:27)
[2023-04-09] MEDS: OLANZapine 10 MG TABLET PO (09:27)
[2023-04-09] MEDS: Cholecalciferol (Vitamin D3) 25 MCG TABLET PO (09:28)
[2023-04-09] MEDS: NaPROXEN 500 MG TABLET PO ×2 (09:28→20:16)
[2023-04-09] MEDS: Gabapentin 300 MG CAPSULE PO ×3 (09:28→20:15)
[2023-04-09] MEDS: Multivitamin TABLET 1 TAB PO (09:28)
--- NOTE | 2023-04-09 11:01 | PC.NURSE ---
Pt was administered a MOCA on 04/09/2023. Pt scored 17 out of 30, indicating moderate cognitive impairment. Provider was notified of pt's score.
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
[2023-04-09 20:24] VITALS: BP 118/84; PULSE 80; RESP 18; TEMP 36.2; O2SAT 99
[2023-04-10] MEDS: hydrOXYzine HCL 50 MG TABLET PO (08:37)
[2023-04-10] MEDS: NaPROXEN 500 MG TABLET PO (08:37)
[2023-04-10] MEDS: Benztropine Mesylate 1 MG TABLET PO (08:37)
[2023-04-10] MEDS: OLANZapine 10 MG TABLET PO (08:37)
[2023-04-10] MEDS: Cholecalciferol (Vitamin D3) 25 MCG TABLET PO (08:37)
[2023-04-10] MEDS: Gabapentin 300 MG CAPSULE PO (08:38)
[2023-04-10] MEDS: Multivitamin TABLET 1 TAB PO (08:38)
[2023-04-10] MEDS: Folic Acid 1 MG TABLET PO (08:38)
[2023-04-10 09:09] VITALS: BP 111/59; PULSE 73; RESP 16; TEMP 36.2; O2SAT 93
== END 2023-04-10 11:11 | disposition home or self-care (01) | DRG 885 ==
LOC: HO.ED 04-05 06:43 → HO.PADLT16 04-05 16:54
PROVIDERS: Clinical Nurse Specialist Psychiatric/Mental Health, Adult; Internal Medicine; Admitting Provider Psychiatry & Neurology Psychiatry; Emergency Provider Emergency Medicine Emergency Medical Services; PCP Internal Medicine; Visit Provider Psychiatry & Neurology Psychiatry
DX: F25.0 Schizoaffective disorder, bipolar type (principal); F17.210 Nicotine dependence, cigarettes, uncomplicated; Z71.6 Tobacco abuse counseling; Z78.1 Physical restraint status; Z20.822 Contact with and (suspected) exposure to COVID-19; Z79.899 Other long term (current) drug therapy
CPT/HCPCS: 36415; 80053; 80061; 80307; 81001; 82607; 82746; 83036; 83735; 84439; 84443; 85025; 87635; 93005; 99285; J1200; J2060; S9485

== ENCOUNTER 2023-06-06 19:46 | Inpatient (IN) | payer MEDICARE, SELFPAY ==
[2023-06-06 19:55] VITALS: PULSE 110; RESP 16; O2SAT 96; BMI 28.4
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
[2023-06-06 20:22] LABS: MANUAL DIFF FLAG NO
[2023-06-06 20:24] LABS: Basophils Absolute Auto 0.1 X10*3/uL (0.0-0.2); Basophils Percent Auto 0.8 % (0-2); Eosinophils Absolute Auto 0.1 X10*3/uL (0.0-0.4); Eosinophils Percent Auto 1.3 % (0-4); Hematocrit 39.6 % (42.0-52.0); Hemoglobin 13.8 g/dl (14.0-18.0); Imm Gran Abs Auto 0.01 X10*3/uL (0.00-0.03); Imm Gran Pct Auto 0.1 % (0.0-0.4); Lymphocytes Absolute Auto 2.9 X10*3/uL (1.2-4.9); Lymphocytes Percent Auto 36.6 % (20-40); Mean Corpuscular HGB Conc 34.8 g/dl (31.0-36.0); Mean Corpuscular Hemoglobin 30.5 pg (27.0-33.0); Mean Corpuscular Volume 87.6 fL (80.0-98.0); Monocytes Absolute Auto 0.6 X10*3/uL (0.1-1.2); Monocytes Percent Auto 7.9 % (2-11); Neutrophils Absolute Auto 4.2 x10*3/uL (2.0-8.3); Neutrophils Percent Auto 53.3 % (45-73); Platelet Count 222 X10*3/uL (160-400); Red Blood Count 4.52 X10*6/uL (4.60-5.80); Red Cell Distribution Width 13.2 % (11.0-16.0); White Blood Count 7.9 X10*3/uL (4.8-10.8)
[2023-06-06 20:42] LABS: Alanine Aminotransferase 14 U/L (0-40); Albumin Level 4.1 g/dL (3.5-5.0); Alkaline Phosphatase 81 U/L (39-117); Anion Gap 14 (12-20); Aspartate Amino Transferase 21 U/L (5-37); Bilirubin Total 0.3 mg/dL (0.0-1.0); Blood Urea Nitrogen 14 mg/dL (9-16); Calcium 9.6 mg/dL (8.4-10.2); Carbon Dioxide 23 mmol/L (22-29); Chloride 103 mmol/L (96-108); Creatinine Clr Calc Pharmacy 94.1; Estimated Glomerular Filt Rate > 60; Ethanol < 10 mg/dL; Glucose Random 88 mg/dL (60-115); Potassium 4.3 mmol/L (3.3-5.1); Sodium 136 mmol/L (135-145)
[2023-06-06 20:44] LABS: Acetaminophen LAB < 17 mcg/mL (<30); Salicylate < 5.0 mg/dL (15-30)
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
--- NOTE | 2023-06-06 21:47 | PHA.MEDREC ---
Pharmacy Consult ? Medication Reconciliation Pharmacy has completed the medication reconciliation. REVIEWED MED REC DONE BY NURSING USING LIST FROM LONGTERM
[2023-06-07 04:37] LABS: Appearance Urine Clear; Color Urine Yellow; Glucose Urine UA Negative (Negative); Leukocyte Esterase Urine Small (1+) (Negative); Nitrite Urine Negative (Negative); PH 6.5 (5.0-9.0); UMIC TRIGGER UACC YES; Urine Blood Negative (Negative); Urine Ketones Negative (Negative); Urine Protein Negative (Neg-Trace)
[2023-06-07 04:41] LABS: Bacteria Urine 4+ (None Seen); Hyaline Casts Urine 0-2 /LPF (0-2); RBC Urine 0-2 /HPF (0-2); Squamous Epithelial Cell Urine 0-2 /HPF (0-2); UACC Culture Trigger YES
[2023-06-07 04:45] LABS: Amphetamine Screen Urine Not Detected (Not Detect); Barbiturates, Urine Not Detected (Not Detect); Benzodiazepines Screen Urine Not Detected (Not Detect); Cannabinoid Screen Urine Not Detected (Not Detect); Cocaine Screen Urine Not Detected (Not Detect); Fentanyl, urine Not Detected (Not Detect); Opiate Screen Urine Not Detected (Not Detect); Phencyclidine Screen Urine Not Detected (Not Detect)
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
[2023-06-07 06:54] VITALS: RESP 16
[2023-06-07 08:26] VITALS: BP 144/82; PULSE 68; RESP 18; TEMP 36; O2SAT 97
[2023-06-07] MEDS: Folic Acid 1 MG TABLET PO (08:36)
[2023-06-07] MEDS: Cholecalciferol (Vitamin D3) 25 MCG TABLET PO (08:36)
[2023-06-07] MEDS: Benztropine Mesylate 1 MG TABLET PO ×2 (08:36→22:17)
[2023-06-07] MEDS: NaPROXEN 500 MG TABLET PO ×2 (08:36→22:17)
[2023-06-07] MEDS: Gabapentin 300 MG CAPSULE PO ×3 (08:36→22:17)
[2023-06-07] MEDS: hydrOXYzine HCL 50 MG TABLET PO ×3 (08:39→22:17)
[2023-06-07] MEDS: Multivitamin TABLET 1 TAB PO (08:41)
--- NOTE | 2023-06-07 08:57 | PC.NURSE ---
Pt woke for breakfast, ate, took meds, alert and oriented, able to make needs known, back to room, Care Team in.
--- NOTE | 2023-06-07 09:01 | ECG_ITS ---
Test Reason : antipsych meds Blood Pressure : / mmHG Vent. Rate : 059 BPM Atrial Rate : 059 BPM P-R Int : 164 ms QRS Dur : 102 ms QT Int : 402 ms P-R-T Axes : 047 -35 047 degrees QTc Int : 397 ms Sinus bradycardia Left axis deviation Low voltage QRS Abnormal ECG When compared with ECG of 05-APR-2023 14:00, No significant change was found Referred By: Fredi Alston Electronically Signed By:Carl Valverde
[2023-06-07 10:27] LABS: COVID-19 Test Negative (Negative); IDNOW Serial# BCCEAD1C
--- NOTE | 2023-06-07 14:08 | MHC.CARE ---
CARE Team spoke with Pts [facility] worker Damian Lovell and provided update regarding disposition and plan of care.
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
[2023-06-07 22:00] VITALS: BP 141/70; PULSE 60; RESP 18; TEMP 36.1; O2SAT 100
[2023-06-07] MEDS: traZODone HCL 50 MG TABLET PO (22:17)
[2023-06-07] MEDS: OLANZapine 10 MG TABLET PO (22:17)
[2023-06-08 07:41] LABS: Alanine Aminotransferase 13 U/L (0-40); Albumin Level 3.8 g/dL (3.5-5.0); Alkaline Phosphatase 82 U/L (39-117); Anion Gap 10 (12-20); Aspartate Amino Transferase 19 U/L (5-37); Bilirubin Total 0.3 mg/dL (0.0-1.0); Blood Urea Nitrogen 10 mg/dL (9-16); Calcium 9.2 mg/dL (8.4-10.2); Carbon Dioxide 28 mmol/L (22-29); Chloride 107 mmol/L (96-108); Cholesterol 174 mg/dL; Creatinine Clr Calc Pharmacy 103.5; Estimated Glomerular Filt Rate > 60; Glucose Fasting 107 mg/dL (60-99); HDL Cholesterol 36 mg/dL; LDL Cholesterol Calculated 119 mg/dl; Potassium 4.9 mmol/L (3.3-5.1); Sodium 140 mmol/L (135-145); Total Protein 6.5 g/dL (6.5-8.0); Triglycerides 96 mg/dL
[2023-06-08 07:56] LABS: Free T4 (Free Thyroxine) 1.09 ng/dL (0.71-1.85); Thyroid Stimulating Hormone 1.86 uIU/mL (0.32-4.0)
[2023-06-08 08:02] LABS: Estimated Average Glucose 103 mg/dL; Hemoglobin A1C 125.3191 umol/L; Hemoglobin A1c % 5.2 %
[2023-06-08 08:09] LABS: Folate 16.4 ng/mL (> or = 4.0); Vitamin B12 677 pg/mL (200-900)
[2023-06-08 09:39] VITALS: BP 114/56; PULSE 86; RESP 18; TEMP 36.6; O2SAT 100
[2023-06-08] MEDS: NaPROXEN 500 MG TABLET PO ×2 (09:42→23:25)
[2023-06-08] MEDS: hydrOXYzine HCL 50 MG TABLET PO ×3 (09:42→23:25)
[2023-06-08] MEDS: Cholecalciferol (Vitamin D3) 25 MCG TABLET PO (09:42)
[2023-06-08] MEDS: Gabapentin 300 MG CAPSULE PO ×3 (09:42→23:25)
[2023-06-08] MEDS: Folic Acid 1 MG TABLET PO (09:42)
[2023-06-08] MEDS: Benztropine Mesylate 1 MG TABLET PO ×2 (09:42→23:25)
[2023-06-08] MEDS: Multivitamin TABLET 1 TAB PO (09:42)
[2023-06-08 13:34] VITALS: BP 114/56; PULSE 86; O2SAT 100
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
[2023-06-08 22:55] VITALS: BP 116/55; PULSE 79; RESP 18; TEMP 36.4
[2023-06-08] MEDS: OLANZapine 10 MG TABLET PO (23:25)
[2023-06-08] MEDS: traZODone HCL 50 MG TABLET PO (23:25)
[2023-06-09 08:58] VITALS: BP 156/72; PULSE 66; RESP 18; TEMP 35.8; O2SAT 100
[2023-06-09] MEDS: Benztropine Mesylate 1 MG TABLET PO ×2 (08:59→22:21)
[2023-06-09] MEDS: NaPROXEN 500 MG TABLET PO ×2 (08:59→22:20)
[2023-06-09] MEDS: Gabapentin 300 MG CAPSULE PO ×3 (08:59→22:21)
[2023-06-09] MEDS: Folic Acid 1 MG TABLET PO (09:00)
[2023-06-09] MEDS: Multivitamin TABLET 1 TAB PO (09:00)
[2023-06-09] MEDS: Cholecalciferol (Vitamin D3) 25 MCG TABLET PO (09:00)
[2023-06-09] MEDS: hydrOXYzine HCL 50 MG TABLET PO ×3 (09:00→22:20)
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
[2023-06-09 19:55] VITALS: BP 136/72; PULSE 72; RESP 16; TEMP 36.4; O2SAT 98
[2023-06-09] MEDS: OLANZapine 10 MG TABLET PO (22:21)
[2023-06-10 08:00] VITALS: BP 123/60; PULSE 85; RESP 18; TEMP 36.6; O2SAT 100
[2023-06-10] MEDS: Folic Acid 1 MG TABLET PO (09:12)
[2023-06-10] MEDS: Benztropine Mesylate 1 MG TABLET PO ×2 (09:12→20:34)
[2023-06-10] MEDS: hydrOXYzine HCL 50 MG TABLET PO ×3 (09:12→20:34)
[2023-06-10] MEDS: Cholecalciferol (Vitamin D3) 25 MCG TABLET PO (09:13)
[2023-06-10] MEDS: NaPROXEN 500 MG TABLET PO ×2 (09:13→20:34)
[2023-06-10] MEDS: Gabapentin 300 MG CAPSULE PO ×3 (09:13→20:34)
[2023-06-10] MEDS: Multivitamin TABLET 1 TAB PO (09:14)
[2023-06-10 11:51] VITALS: BP 123/60; PULSE 85; O2SAT 100
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
[2023-06-10 19:40] VITALS: BP 126/78; PULSE 70; RESP 18; TEMP 36.4; O2SAT 98
[2023-06-10] MEDS: OLANZapine 10 MG TABLET PO (20:34)
[2023-06-11] MEDS: Gabapentin 300 MG CAPSULE PO ×3 (09:55→20:16)
[2023-06-11] MEDS: Multivitamin TABLET 1 TAB PO (09:55)
[2023-06-11] MEDS: Cholecalciferol (Vitamin D3) 25 MCG TABLET PO (09:56)
[2023-06-11] MEDS: hydrOXYzine HCL 50 MG TABLET PO ×3 (09:56→20:18)
[2023-06-11] MEDS: Folic Acid 1 MG TABLET PO (09:56)
[2023-06-11] MEDS: NaPROXEN 500 MG TABLET PO ×2 (09:56→20:16)
[2023-06-11] MEDS: Benztropine Mesylate 1 MG TABLET PO ×2 (09:57→20:16)
[2023-06-11 10:00] VITALS: BP 112/70; PULSE 84; TEMP 36.2; O2SAT 100
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
--- NOTE | 2023-06-11 12:11 | PC.NURSE ---
Pt asked if we could document his sister Thalia's phone number as a contact: [phone]
[2023-06-11] MEDS: traZODone HCL 50 MG TABLET PO (20:16)
[2023-06-11] MEDS: OLANZapine 10 MG TABLET PO (20:16)
[2023-06-11 21:16] VITALS: BP 145/73; PULSE 70; RESP 18; TEMP 36.4; O2SAT 99
[2023-06-12 09:30] VITALS: BP 117/55; PULSE 101; TEMP 36.4; O2SAT 100
[2023-06-12] MEDS: Multivitamin TABLET 1 TAB PO (09:38)
[2023-06-12] MEDS: Gabapentin 300 MG CAPSULE PO ×2 (09:39→15:34)
[2023-06-12] MEDS: hydrOXYzine HCL 50 MG TABLET PO ×2 (09:39→15:34)
[2023-06-12] MEDS: Benztropine Mesylate 1 MG TABLET PO (09:39)
[2023-06-12] MEDS: NaPROXEN 500 MG TABLET PO (09:39)
[2023-06-12] MEDS: Cholecalciferol (Vitamin D3) 25 MCG TABLET PO (09:39)
[2023-06-12] MEDS: Folic Acid 1 MG TABLET PO (09:40)
== END 2023-06-12 16:42 | disposition home or self-care (01) | DRG 885 ==
LOC: HO.ED 06-07 06:59 → HO.PADLT16 06-07 15:27
PROVIDERS: Emergency Medicine; Admitting Provider Psychiatry & Neurology Psychiatry; Emergency Provider Internal Medicine; PCP Internal Medicine; Visit Provider Psychiatry & Neurology Psychiatry
DX: F25.9 Schizoaffective disorder, unspecified (principal); F17.210 Nicotine dependence, cigarettes, uncomplicated; Z71.6 Tobacco abuse counseling; Z79.899 Other long term (current) drug therapy
CPT/HCPCS: 36415; 80053; 80061; 80143; 80179; 80307; 81001; 82607; 82746; 83036; 84439; 84443; 85025; 87086; 87635; 93005; 97110; 97116; 97161; 99285; S9485

== ENCOUNTER → 2023-06-07 09:01 | Outpatient (BNV) | payer MEDICARE, SELFPAY | PROVIDERS: Admitting Provider Psychiatry & Neurology Psychiatry; Emergency Provider Internal Medicine; PCP Internal Medicine; Visit Provider Internal Medicine Cardiovascular Disease | DX: R00.1 Bradycardia, unspecified (principal); R94.31 Abnormal electrocardiogram [ECG] [EKG] | CPT/HCPCS: 93010 ==

== ENCOUNTER → 2023-06-07 15:06 | Outpatient (BNV) | payer MEDICARE, SELFPAY | PROVIDERS: Admitting Provider Psychiatry & Neurology Psychiatry; Emergency Provider Internal Medicine; PCP Internal Medicine; Visit Provider Psychiatry & Neurology Psychiatry | DX: F25.1 Schizoaffective disorder, depressive type (principal) | CPT/HCPCS: 90792; 99231; 99239 ==

== ENCOUNTER 2023-07-12 13:56 | Outpatient (REF) | payer MEDICARE, SELFPAY ==
--- NOTE | ~2023-07-12 | XR_ITS ---
EXAMINATION: XR KNEE, LEFT CLINICAL INFORMATION: Rheumatoid arthritis COMPARISON: None available. TECHNIQUE: Four views of the left knee. FINDINGS: No fracture or joint effusion. Alignment is anatomic. Joint spaces are maintained. No abnormal soft tissue calcification. XR/XR knee RT 4V IMPRESSION: Normal left knee. EXAMINATION: XR KNEE, RIGHT CLINICAL INFORMATION: Rheumatoid arthritis COMPARISON: None available. TECHNIQUE: Four views of the right knee. FINDINGS: No fracture or joint effusion. Alignment is anatomic. The joint spaces are relatively narrowed in the medial and lateral compartment without significant marginal osteophyte. There is mild marginal osteophyte in the patellofemoral compartment.. No erosive changes are seen. No abnormal soft tissue calcification. IMPRESSION: Joint space narrowing in the right knee likely representing early osteoarthritic change.
--- NOTE | ~2023-07-12 | XR_ITS ---
EXAMINATION: XR HAND, RIGHT XR HAND, LEFT CLINICAL INFORMATION: Rheumatoid arthritis COMPARISON: None available. TECHNIQUE: PA, lateral, and oblique views of each hand. FINDINGS: RIGHT HAND: The bones and soft tissues are normal. No fracture. Alignment is anatomic. Joint spaces are maintained. No erosions or soft tissue calcifications. LEFT HAND : The bones and soft tissues are normal. No fracture. Alignment is anatomic. Joint spaces are maintained. No erosions or soft tissue calcifications. There is evidence of hyperextension at the second, third and fourth proximal interphalangeal joints. XR/XR hand wrist LT IMPRESSION: No significant arthritic changes are seen. Hyperextension at the left second, third and fourth PIP joints is of uncertain significance, possibly representing swan-neck deformity. Clinical correlation is recommended.
--- NOTE | ~2023-07-12 | XR_ITS ---
EXAMINATION: XR KNEE, LEFT CLINICAL INFORMATION: Rheumatoid arthritis COMPARISON: None available. TECHNIQUE: Four views of the left knee. FINDINGS: No fracture or joint effusion. Alignment is anatomic. Joint spaces are maintained. No abnormal soft tissue calcification. XR/XR knee LT 4V IMPRESSION: Normal left knee. EXAMINATION: XR KNEE, RIGHT CLINICAL INFORMATION: Rheumatoid arthritis COMPARISON: None available. TECHNIQUE: Four views of the right knee. FINDINGS: No fracture or joint effusion. Alignment is anatomic. The joint spaces are relatively narrowed in the medial and lateral compartment without significant marginal osteophyte. There is mild marginal osteophyte in the patellofemoral compartment.. No erosive changes are seen. No abnormal soft tissue calcification. IMPRESSION: Joint space narrowing in the right knee likely representing early osteoarthritic change.
--- NOTE | ~2023-07-12 | XR_ITS ---
EXAMINATION: XR HAND, RIGHT XR HAND, LEFT CLINICAL INFORMATION: Rheumatoid arthritis COMPARISON: None available. TECHNIQUE: PA, lateral, and oblique views of each hand. FINDINGS: RIGHT HAND: The bones and soft tissues are normal. No fracture. Alignment is anatomic. Joint spaces are maintained. No erosions or soft tissue calcifications. LEFT HAND : The bones and soft tissues are normal. No fracture. Alignment is anatomic. Joint spaces are maintained. No erosions or soft tissue calcifications. There is evidence of hyperextension at the second, third and fourth proximal interphalangeal joints. XR/XR hand wrist RT IMPRESSION: No significant arthritic changes are seen. Hyperextension at the left second, third and fourth PIP joints is of uncertain significance, possibly representing swan-neck deformity. Clinical correlation is recommended.
[2023-07-12 14:15] LABS: MANUAL DIFF FLAG NO
[2023-07-12 15:19] LABS: Basophils Absolute Auto 0.1 X10*3/uL (0.0-0.2); Basophils Percent Auto 0.7 % (0-2); Eosinophils Absolute Auto 0.2 X10*3/uL (0.0-0.4); Hematocrit 43.4 % (42.0-52.0); Hemoglobin 14.5 g/dl (14.0-18.0); Imm Gran Abs Auto 0.01 X10*3/uL (0.00-0.03); Imm Gran Pct Auto 0.1 % (0.0-0.4); Lymphocytes Absolute Auto 3.6 X10*3/uL (1.2-4.9); Lymphocytes Percent Auto 48.9 % (20-40); Mean Corpuscular HGB Conc 33.4 g/dl (31.0-36.0); Mean Corpuscular Hemoglobin 29.5 pg (27.0-33.0); Mean Corpuscular Volume 88.4 fL (80.0-98.0); Mean Platelet Volume 10.7 fL (9.4-12.4); Monocytes Absolute Auto 0.5 X10*3/uL (0.1-1.2); Monocytes Percent Auto 6.9 % (2-11); Neutrophils Absolute Auto 3.1 x10*3/uL (2.0-8.3); Neutrophils Percent Auto 41.4 % (45-73); Platelet Count 232 X10*3/uL (160-400); Red Blood Count 4.91 X10*6/uL (4.60-5.80); Red Cell Distribution Width 13.2 % (11.0-16.0); White Blood Count 7.4 X10*3/uL (4.8-10.8)
[2023-07-12 15:48] LABS: Alanine Aminotransferase 15 U/L (0-40); Albumin Level 4.2 g/dL (3.5-5.0); Alkaline Phosphatase 78 U/L (39-117); Anion Gap 9 (12-20); Aspartate Amino Transferase 19 U/L (5-37); Bilirubin Total 0.3 mg/dL (0.0-1.0); Blood Urea Nitrogen 10 mg/dL (9-16); C Reactive Protein 0.23 mg/dL (< or = 0.50); Calcium 9.6 mg/dL (8.4-10.2); Carbon Dioxide 29 mmol/L (22-29); Chloride 105 mmol/L (96-108); Estimated Glomerular Filt Rate > 60; Glucose Random 62 mg/dL (60-115); Sodium 139 mmol/L (135-145); Total Protein 7.1 g/dL (6.5-8.0); Uric Acid 4.5 mg/dL (3.4-7.0)
[2023-07-12 16:06] LABS: Erythrocyte Sedimentation Rate 5 MM/HR (0-15)
[2023-07-12 16:29] LABS: Rheumatoid Factor < 13.0 IU/mL (<15.0)
[2023-07-13 04:38] LABS: HBS Num1 0.49 mIU/mL (0-7.99); HBc Num1 0.13 S/CO (0.00-0.79); HBsAGNum1 0.36 S/CO (0.00-0.99); Hepatitis B Core Antibody Nonreactive (Nonreactive); Hepatitis B Surface Antigen Negative (Negative); ~HepC Num1 0.24 S/CO (0.00-0.79); ~Hepatitis A Antibody IgM Nonreactive (Nonreactive); ~Hepatitis B Surface Antibody NONREACTIVE (Nonreactive); ~Hepatitis C Antibody Nonreactive (Nonreactive)
[2023-07-15 15:23] LABS: Cyclic Citrullinated Peptide <16 UNITS
[2023-07-15 15:28] LABS: TS Negative Control Passed; TS Panel A 3; TS Panel B 0; TS Positive Control Passed; TSpotTB Negative (Negative)
[2023-07-15 15:38] LABS: IgA 200 mg/dL (70-320); IgG 1173 mg/dL (600-1540); IgM 164 mg/dL (50-300)
[2023-07-15 21:23] LABS: Lyme Abs Screen <0.90 index
[2023-07-17 11:29] LABS: Prot Elec - Albumin 4.2 g/dL (3.8-4.8); Prot Elec - Alpha1 0.3 g/dL (0.2-0.3); Prot Elec - Alpha2 0.5 g/dL (0.5-0.9); Prot Elec - Beta 1 0.4 g/dL (0.4-0.6); Prot Elec - Beta 2 0.3 g/dL (0.2-0.5); Prot Elec - Total Protein 6.6 g/dL (6.1-8.1)
== END 2023-07-12 13:57 | disposition home or self-care (01) ==
LOC: HO.XRAY 13:56
PROVIDERS: Visit Provider Student in an Organized Health Care Education/Training Program
DX: M06.9 Rheumatoid arthritis, unspecified (principal); M25.561 Pain in right knee; Z11.7 Encounter for testing for latent tuberculosis infection; Z11.59 Encounter for screening for other viral diseases; Z72.89 Other problems related to lifestyle
CPT/HCPCS: 36415; 73110; 73130; 73564; 80053; 82784; 84165; 84550; 85025; 85652; 86140; 86200; 86334; 86431; 86481; 86617; 86618; 86704; 86706; 86709; 86803; 87340

== ENCOUNTER 2023-07-16 14:24 | Outpatient (AMB) | payer MEDICARE, SELFPAY ==
--- NOTE | 2023-07-16 14:26 | A.OFFVIS_ITS ---
Intake Vital Signs 07/16/23 14:32 Height 6 ft 2 in Weight 214 lb 4.629 oz BMI 27.5 BP 118/66 Blood Pressure Location Rt brachial Position Sitting Pulse 78 Pulse Source Pulse Oximeter Temp 97.9 F Temp Source Skin Pulse Oximetry (%) 96 Intake Visit Reasons: RA Intake Note: Pt seen today for RA follow up. Reports discomfort in legs and back Equipment [employer] Required: No Accompanied by: Self / Same As Patient Allergies No Known Allergies Allergy (Mild, Verified 03/15/23 11:33) NA HPI HPI Comments History of Present Illness Details Patient presents for follow-up after completion of his diagnostic workup. Continues to feel about the same. Initial history: This is a 62-year-old male with history of schizoaffective disorder who is brought from his [facility] for evaluation of joint pain. Patient states that for the last 1-2 years he has been having joint pains and spasms of his arms, shoulders, especially his right thigh. That is interfering with his gait. Feels his gait is unsteady. Has to use a cane. He states that he was told by his PCP that he might have rheumatoid arthritis. He has never been evaluated by brand marketing intern and was never started on medications specifically for rheumatoid arthritis. [facility] Medical History Acute paranoia Bursitis Degenerative disc disease, cervical Schizoaffective disorder Surgical History H/O tooth extraction Hx of colonoscopy Family History Mother Diabetes Father Heart disease Social History Household Members: None Household Members Other:: Residents at [facility] Housing: Other Housing Other:: detention Do you presently have visiting nurse or other home services: No Unable to assess alcohol history related to: Unknown Alcohol intake: never Patient Tobacco Use Status: Current everyday Tobacco user Tobacco use type: Cigarette Cigarette Packs Per Day: 1 Cigarettes Per Day: 20.0 Years Smoked: 40 Second Hand Smoke Exposure: No Substance Use Type: Marijuana Advance Directives Date on File: 10/18/20 service: No Sexual orientation: Straight/Heterosexual Review of Systems Musc Details: Muscle spasms Psych Reports anxiety Physical Exam Vital Signs: Last Vital Signs Temp 97.9 F 07/16/23 14:32 Pulse 78 07/16/23 14:32 BP 118/66 07/16/23 14:32 Pulse Ox 96 07/16/23 14:32 BMI result Body Mass Index 27.5 Const General: cooperative, healthy appearing and comfortable Nutritional Appearance: overweight Limitations: no limitations HEENT Head: Yes normocephalic and Yes atraumatic Resp Effort & Inspection: normal respiratory effort and able to speak in complete sentences Extrem Other: Osteoarthritic changes of both hands with no swollen or tender joints Mildly hyperextensible PIPs bilaterally and few Heberden's nodes normal range of motion of both elbows and shoulders with no pain Normal range of motion of both knees without pain No swollen or tender joints in the ankles and feet. Intermittent Spasms of right hamstring muscle and quadriceps muscles Assessment & Plan Assessment & Plan (1) Muscle spasm: Code(s): M62.838 - Other muscle spasm Plan: This is a 62-year-old male with schizoaffective disorder who is referred for evaluation of inflammatory arthritis. Patient's main complaint aide muscle spasms especially of his right thigh. He has intermittent spasms of his right hamstring on evaluation. I do not see any signs suggestive of autoimmune rheumatic disease. He has negative RF/CCP with normal inflammatory markers. I do not see any evidence of autoimmune rheumatic disease. Follow-up as needed I suggest evaluation by Neurology Plan I spent 18 minutes reviewing patient's chart, evaluating patient, counseling patient and documenting in the chart Medications: Discontinued multivitamin with folic acid 400 mcg 1 tab PO DAILY 30 days 30 tabs 0RF folic acid 1 mg PO DAILY 30 days 30 tabs 0RF Coding Level of Care Code Est Pt Level 3 (55356) Diagnoses Muscle spasm M62.838
[2023-07-16 14:32] VITALS: BP 118/66; PULSE 78; TEMP 36.6; O2SAT 96; BMI 27.5
== END 2023-07-16 14:57 | disposition home or self-care (01) ==
PROVIDERS: PCP Internal Medicine; Visit Provider Student in an Organized Health Care Education/Training Program
DX: M62.838 Other muscle spasm (principal)
CPT/HCPCS: 99213

== ENCOUNTER → 2023-07-16 14:24 | Outpatient (BNVA) | payer MEDICARE, SELFPAY | PROVIDERS: PCP Internal Medicine; Visit Provider Student in an Organized Health Care Education/Training Program | DX: M62.838 Other muscle spasm (principal) | CPT/HCPCS: 99212 ==

== ENCOUNTER 2023-12-16 15:07 | Inpatient (IN) | payer MEDICARE, SELFPAY ==
--- NOTE | ~2023-12-16 | XR_ITS ---
EXAMINATION: XR TIBIA AND FIBULA, RIGHT CLINICAL INFORMATION: Right lower extremity chronic wound. COMPARISON: None available. TECHNIQUE: AP and lateral views of the right tibia and fibula were obtained. FINDINGS: Diffuse soft tissue swelling. Scattered vascular calcifications. No unexpected radiopaque foreign bodies. No discrete focal cortical disruption or erosive changes to suspect osteomyelitis. No fractures or malalignment. Moderate degenerative osteoarthritis of the knee and ankle. XR/XR tibia fibula RT 2V IMPRESSION: Diffuse soft tissue swelling. No radiograph evidence of osteomyelitis. However, early osteomyelitis can be radiographically occult, therefore further evaluation with MRI could be obtained as clinically warranted.
[2023-12-16 15:30] VITALS: BP 140/83; BP 158/92; PULSE 87; PULSE 88; RESP 16; TEMP 36.2; O2SAT 100; O2SAT 99; BMI 30.5
[2023-12-16 16:55] LABS: MANUAL DIFF FLAG NO
[2023-12-16 16:57] LABS: Basophils Absolute Auto 0.1 X10*3/uL (0.0-0.2); Basophils Percent Auto 1.2 % (0-2); Eosinophils Absolute Auto 0.1 X10*3/uL (0.0-0.4); Eosinophils Percent Auto 2.1 % (0-4); Hematocrit 39.4 % (42.0-52.0); Hemoglobin 13.5 g/dl (14.0-18.0); Imm Gran Abs Auto 0.02 X10*3/uL (0.00-0.03); Imm Gran Pct Auto 0.3 % (0.0-0.4); Lymphocytes Absolute Auto 1.9 X10*3/uL (1.2-4.9); Lymphocytes Percent Auto 30.9 % (20-40); Mean Corpuscular HGB Conc 34.3 g/dl (31.0-36.0); Mean Corpuscular Hemoglobin 30.5 pg (27.0-33.0); Mean Corpuscular Volume 88.9 fL (80.0-98.0); Mean Platelet Volume 10.1 fL (9.4-12.4); Monocytes Absolute Auto 0.6 X10*3/uL (0.1-1.2); Monocytes Percent Auto 10.4 % (2-11); Neutrophils Absolute Auto 3.3 x10*3/uL (2.0-8.3); Neutrophils Percent Auto 55.1 % (45-73); Platelet Count 259 X10*3/uL (160-400); Red Blood Count 4.43 X10*6/uL (4.60-5.80); Red Cell Distribution Width 12.8 % (11.0-16.0); White Blood Count 6.1 X10*3/uL (4.8-10.8)
[2023-12-16 17:10] LABS: Alanine Aminotransferase 16 U/L (0-40); Albumin Level 4.1 g/dL (3.5-5.0); Alkaline Phosphatase 106 U/L (39-117); Anion Gap 11 (12-20); Aspartate Amino Transferase 23 U/L (5-37); Bilirubin Direct < 0.2 mg/dL (0.0-0.5); Bilirubin Total 0.2 mg/dL (0.0-1.0); Blood Urea Nitrogen 19 mg/dL (9-16); Calcium 9.6 mg/dL (8.4-10.2); Carbon Dioxide 27 mmol/L (22-29); Chloride 104 mmol/L (96-108); Creatinine Clr Calc Pharmacy 81.9; Estimated Glomerular Filt Rate > 60; Glucose Random 102 mg/dL (60-115); Potassium 3.9 mmol/L (3.3-5.1); Sodium 138 mmol/L (135-145); Total Protein 7.6 g/dL (6.5-8.0)
--- NOTE | 2023-12-16 17:35 | ED_ITS ---
HPI - General Adult General Chief complaint: Wound/Laceration Stated complaint: rle open wound,from retirement per ems Time Seen by Provider: 12/16/23 15:20 Source: patient and RN notes reviewed Mode of arrival: ambulatory Limitations: no limitations History of Present Illness HPI narrative: This is a 63-year-old male, with a past medical history of depression and schizophrenia, presenting to the emergency department, from [facility] retirement, for evaluation of chronic right lower extremity wound. Patient is a poor historian, uncertain how he got the wound. His retirement psychotherapist social worker, Heather, states that patient was prescribed a 10 day course of Keflex on November 21 which he completed. 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 Patient reports that he is feeling well, no current pain. No other complaints or concerns at this time. MD complaint: Wound Onset (ago): unknown Location: lower extremity Relieving factors: none Exacerbating factors: none Associated symptoms: denies other symptoms Treatments prior to arrival: none Related Data Home Medications Medication Instructions Recorded Confirmed cephalexin 500 mg capsule 500 mg PO BID 12/16/23 12/16/23 olanzapine 10 mg tablet 10 mg PO DAILY 12/16/23 12/16/23 sulfamethoxazole 800 1 tab PO BID 12/16/23 12/16/23 mg-trimethoprim 160 mg tablet Previous Rx's Medication Instructions Recorded benztropine 1 mg tablet 1 mg PO BID 30 days #60 tabs 06/12/23 cholecalciferol (vitamin D3) 25 25 mcg PO DAILY 30 days #30 tabs 06/12/23 mcg (1,000 unit) tablet (Vitamin D3) folic acid 1 mg tablet 1 mg PO DAILY 30 days #30 tabs 06/12/23 gabapentin 300 mg capsule 300 mg PO TID 30 days #90 caps 06/12/23 hydroxyzine pamoate 50 mg capsule 50 mg PO TID 30 days #90 caps 06/12/23 multivitamin with folic acid 400 1 tab PO DAILY 30 days #30 tabs 06/12/23 mcg tablet (Tab-A-Max) naproxen 500 mg tablet 500 mg PO BID 30 days #60 tabs 06/12/23 Allergies Allergy/AdvReac Type Severity Reaction Status Date / Time No Known Allergies Allergy Mild NA Verified 12/16/23 15:29 Review of Systems 2 Review of Systems: Yes all other systems are reviewed and are negative Constitutional: Constitutional: Reports as per [facility] Past Medical History Medical History Acute paranoia Bursitis Schizoaffective disorder Degenerative disc disease, cervical Surgical History Hx of colonoscopy H/O tooth extraction Family History Family History Mother Diabetes Father Heart disease Social History Social History Household Members: Other Household Members Other:: retirement 5 Housing: Assisted Living Facility Housing Other:: [facility] Do you presently have visiting nurse or other home services: No Unable to assess alcohol history related to: Unknown Alcohol intake: never Comment: patient uses can to walk Patient Tobacco Use Status: Current everyday Tobacco user Tobacco use type: Cigarette Cigarette Packs Per Day: 1 Cigarettes Per Day: 15 Years Smoked: 40 Smoked in Last 30 Days: Yes Patient Interested in Nicotine Replacement: No Patient Given Instructions on How to Stop Smoking: No Second Hand Smoke Exposure: No Use of substances other than those prescribed or required for medical reasons: Yes Substance Use Type: Marijuana Substance Use Frequency: Occasionally Currently Displaying Signs/Symptoms of Drug Intoxication Withdrawal: No Have you been hit, kicked, punched, or otherwise hurt by someone within the past year? If so, by whom?: No Do you feel safe in your current relationship?: No Is there a partner from a previous relationship who is making you feel unsafe now?: No Are you made to feel afraid or neglected: No Advance Directives: Yes Advance Directives on File: Yes Advance Directives Date on File: 10/18/20 Do you have thoughts of harming others: None Do you have a plan to hurt others: No Plan Recently lost weight without trying: No Eating poorly because of decreased appetite: No Poor oral hygiene: No service: No Sexual orientation: Straight/Heterosexual Physical Exam ED Vital Signs: Vital Signs - 24 hr 12/16/23 15:30 Temperature 97.2 F Pulse Rate 88 Respiratory Rate 16 Blood Pressure 140/83 H Pulse Oximetry 100 Oxygen Delivery Method Room Air BMI result Body Mass Index 30.5 Const General: cooperative, comfortable and no acute distress Orientation/consciousness: patient oriented x3 Limitations: no limitations HENMT Head: Yes normal to inspection, Yes normocephalic and Yes atraumatic Ears: hearing grossly normal bilaterally General nose exam: Normal external nose present Face and sinus: Yes normal facial exam Mouth: Normal oral and palatal mucosa present, oropharynx normal and moist mucous membranes Throat: Yes posterior oropharynx normal Eyes General: appearance normal, both eyes and all related structures Eyelids: Yes eyelids normal Conjunctivae: conjunctivae normal Sclerae: sclerae normal Pupils: Equal, round and reactive pupils present EOM: EOMs intact bilaterally Neck Neck: Yes normal visual inspection, Yes full ROM and Yes no lymphadenopathy Lymphatic: no lymphadenopathy noted Chest Chest palpation & inspection: normal inspection of the chest Resp Effort & Inspection: normal respiratory effort and able to speak in complete sentences Auscultation: clear to auscultation bilaterally, no crackles, no rales, no rhonchi and no wheezes Cardio Rate: regular rate Rhythm: regular rhythm Heart sounds: S1 normal heart sound present and S2 normal heart sound present GI Other: Abdomen is soft and nontender Inspection: Yes normal to inspection Skin General skin exam: no rashes or lesions noted Trauma: no lacerations or abrasions Wounds: no wounds Neuro General: patient oriented x3 and moves all extremities Cranial nerves: Yes Equal, round and reactive pupils present Extrem Other: Right lower extremity, medial aspect there is a 10 cm by 3 cm chronic, eschar like lesion noted with surrounding warmth, erythema, 2+ pitting edema noted, no calf tenderness. General: Yes normal to inspection Right upper extremity: normal to inspection Left upper extremity: normal to inspection Right lower extremity: normal to inspection Left lower extremity: normal to inspection Course Reevaluation(s) Reevaluation #1: Patient has no leukocytosis however given patient's wound appears cellulitic in nature, with failed p.o. antibiotics, he should be admitted to the hospital for further workup and management of wound. I discussed with my attending physician, Dr. Smiley who is in agreement with this plan. Time: 17:49 Reevaluation #2: Patient seen by Dr. Spann, hospitalist, transfer of care initiated. Recommending starting vanco 2 g IV and Zosyn 4.5g Time: 18:27 Medications Administered Generic Name Dose Route Start Last Admin Trade Name Chivo PRN Reason Stop Dose Admin Acetaminophen 650 mg 12/16/23 18:37 12/17/23 06:20 Acetaminophen 325 Mg Tablet PO 650 mg Q6H PRN Administration Pain, Mild (Pain Scale 1-3) Benztropine Mesylate 1 mg 12/16/23 21:00 12/18/23 09:30 Benztropine Mesylate 1 Mg Tablet PO 1 mg BID YORDY Administration Enoxaparin Sodium 40 mg 12/16/23 19:00 12/17/23 18:46 Enoxaparin Sodium 40 Mg/0.4 Ml Syringe SUBCUT 40 mg Q24H YORDY Administration Folic Acid 1 mg 12/17/23 09:00 12/18/23 09:30 Folic Acid 1 Mg Tablet PO 1 mg DAILY YORDY Administration Gabapentin 300 mg 12/16/23 21:00 12/18/23 09:29 Gabapentin 300 Mg Capsule PO 300 mg TID YORDY Administration Hydroxyzine HCl 50 mg 12/16/23 21:00 12/18/23 09:29 Hydroxyzine Hcl 50 Mg Tablet PO 50 mg TID YORDY Administration Piperacillin Sod/Tazobactam 100 mls @ 200 mls/hr 12/17/23 01:00 12/18/23 06:33 Sod 4.5 gm/ Sodium Chloride IV Infused Q6H YORDY Infusion Vancomycin HCl 1,250 mg/ 250 mls @ 166.667 mls/hr 12/18/23 08:00 12/18/23 11:59 Sodium Chloride IV Infused Q12H YORDY Infusion Multivitamins/Vitamin C 1 tab 12/17/23 09:00 12/18/23 09:30 Multivitamin Tablet PO 1 tab DAILY YORDY Administration Naproxen 500 mg 12/16/23 21:00 12/18/23 09:29 Naproxen 500 Mg Tablet PO 500 mg BID YORDY Administration Olanzapine 10 mg 12/17/23 09:00 12/18/23 09:30 Olanzapine 10 Mg Tablet PO 10 mg DAILY YORDY Administration Sodium Chloride 3 ml 12/17/23 00:00 12/18/23 09:29 0.9 % Sodium Chloride Flush 3 Ml Syringe IVFLUSH 3 ml QSHIFT [facility] Administration Vitamin D 25 mcg 12/17/23 09:00 12/18/23 09:30 Cholecalciferol (Vitamin D3) 25 Mcg Tablet PO 25 mcg DAILY YORDY Administration Discontinued Medications Generic Name Dose Route Start Last Admin Trade Name Chivo PRN Reason Stop Dose Admin Vancomycin HCl 2,000 mg in 520 mls @ 250 mls/hr 12/16/23 18:29 12/16/23 22:32 Vancomycin/Ns IV 12/16/23 20:33 Infused ONCE ONE Infusion Piperacillin Sod/Tazobactam 100 mls @ 200 mls/hr 12/16/23 18:29 12/16/23 19:08 Sod 4.5 gm/ Sodium Chloride IV 12/16/23 18:58 Infused ONCE ONE Infusion Vancomycin HCl 1,000 mg/ 270 mls @ 270 mls/hr 12/17/23 08:00 12/17/23 20:29 Sodium Chloride IV Infused Q12H YORDY Infusion Medical Decision Making Medical Decision Making [facility] Narrative: This is a 63-year-old male, with a past medical history of schizoaffective disorder, presenting to the emergency department with complaints of wound to the right lower leg. Arrival vital signs revealing mildly elevated blood pressure 140/83. He is afebrile he is nontoxic appearing. He has a poor historian. Lower extremity appears to have a chronic wound, with questionable surrounding cellulitis. He has had multiple courses of antibiotics however per staff members area of erythema and warmth has only increased. Staff member Heather at [facility] cell #: [phone] Plan: Labs, blood cultures Differential Diagnosis Differential Diagnoses: The differential diagnosis associated with the presentation includes Cellulitis, chronic wound, abscess, osteomyelitis-unlikely Lab Data [facility] Lab Attestation statement: I reviewed the patient's lab results. No leukocytosis normocytic anemia noted. Chemistry nondiagnostic. 12/17/23 06:14 12/18/23 05:11 Labs: Lab Results 12/16/23 Range/Units 16:50 WBC 6.1 (4.8-10.8) X10*3/uL RBC 4.43 L (4.60-5.80) X10*6/uL Hgb 13.5 L (14.0-18.0) g/dl Hct 39.4 L (42.0-52.0) % MCV 88.9 (80.0-98.0) fL MCH 30.5 (27.0-33.0) pg MCHC 34.3 (31.0-36.0) g/dl RDW 12.8 (11.0-16.0) % Plt Count 259 (160-400) X10*3/uL MPV 10.1 (9.4-12.4) fL Immature Gran % (Auto) 0.3 (0.0-0.4) % Neut % (Auto) 55.1 (45-73) % Lymph % (Auto) 30.9 (20-40) % [place]unnels % (Auto) 10.4 (2-11) % Eos % (Auto) 2.1 (0-4) % Baso % (Auto) 1.2 (0-2) % Lymph # (Auto) 1.9 (1.2-4.9) X10*3/uL Runnels # (Auto) 0.6 (0.1-1.2) X10*3/uL Eos # (Auto) 0.1 (0.0-0.4) X10*3/uL Baso # (Auto) 0.1 (0.0-0.2) X10*3/uL Abs Immat Gran (auto) 0.02 (0.00-0.03) X10*3/uL Absolute Neuts (auto) 3.3 (2.0-8.3) x10*3/uL Absolute Nucleated RBC 0.000 (0.0-0.012) X10*3/uL Nucleated RBC % (auto) 0.0 (0.0-0.2) /100WBC ESR 18 H (0-15) MM/HR Sodium 138 (135-145) mmol/L Potassium 3.9 (3.3-5.1) mmol/L Chloride 104 (96-108) mmol/L Carbon Dioxide 27 (22-29) mmol/L Anion Gap 11 L (12-20) BUN 19 H (9-16) mg/dL Creatinine 1.14 (0.5-1.4) mg/dL Estim Creat Clear Calc 81.9 Estimated GFR > 60 Random Glucose 102 (60-115) mg/dL Calcium 9.6 (8.4-10.2) mg/dL Total Bilirubin 0.2 (0.0-1.0) mg/dL Direct Bilirubin < 0.2 (0.0-0.5) mg/dL AST 23 (5-37) U/L ALT 16 (0-40) U/L Alkaline Phosphatase 106 (39-117) U/L Total Protein 7.6 (6.5-8.0) g/dL Albumin 4.1 (3.5-5.0) g/dL External Record Review External record reviewed: Inpatient record, Office record, Outpatient record, Prior outpatient labs, Prior outpatient radiology, Primary care record and Outside ED record Critical Care Time Critical Care Time Critical Care Time: Yes Total Critical Care Time: 35 Attestation: I have personally provided critical care time exclusive of time spent on separately billable procedures. Time includes review of lab data, radiology results, discussion with consultants, and monitoring for potential decompensation. Intervention performed as documented. Discharge Plan Discharge Clinical Impression: Cellulitis of leg, right Patient Disposition: Admitted As Inpatient Interventions: Admission Worksheet (ED) Last Done: 12/17/23 08:40 Discharge Date/Time: 12/17/23 09:14
[2023-12-16] MEDS: Piperacillin Sodium/Tazobactam 4.5 GM in 0.9 % Sodium Chloride 100 ML IV (18:38)
--- NOTE | 2023-12-16 18:42 | P.HPHOSP_ITS ---
History of Present Illness Date of Service: 12/16/23 Chief Complaint: cellulitis RLE 63-year-old male with a past medical history significant for depression schizophrenia presents through the emergency room from intermediate for right lower extremity wound that has failed outpatient therapy with Keflex. Per intermediate you started on a 10 day course of Keflex on November 21 which she completed. shelter states that his wound has not changed and Bactrim was added again with no change. shelter reports surrounding erythema worsening over the 2 days prior to admission. Denies fever chills. He will be admitted for treatment having failed outpatient therapies Review of Systems 2 Review of Systems: Denies chest pain Denies shortness of breath Denies nausea vomiting diarrhea Denies fever chills PMFSH Medical History Acute paranoia Bursitis Schizoaffective disorder Degenerative disc disease, cervical Family History Mother Diabetes Father Heart disease Surgical History Hx of colonoscopy H/O tooth extraction Social History Household Members: None Household Members Other:: Residents at intermediate Housing: Other Housing Other:: shelter Do you presently have visiting nurse or other home services: No Unable to assess alcohol history related to: Unknown Alcohol intake: never Comment: patient uses can to walk Patient Tobacco Use Status: Current everyday Tobacco user Tobacco use type: Cigarette Cigarette Packs Per Day: 1 Cigarettes Per Day: 20.0 Years Smoked: 40 Second Hand Smoke Exposure: No Substance Use Type: Marijuana Advance Directives: Yes Advance Directives on File: Yes Advance Directives Date on File: 10/18/20 service: No Sexual orientation: Straight/Heterosexual Meds Allergies Allergy/AdvReac Type Severity Reaction Status Date / Time No Known Allergies Allergy Mild NA Verified 12/16/23 15:29 Active Medications: Current Medications Acetaminophen (Acetaminophen 325 Mg Tablet) 650 mg PO Q6H PRN PRN Reason: Pain, Mild (Pain Scale 1-3) Al Hydroxide/Mg Hydroxide (Magnesium Hydrox/Alum Hydrox 30 Ml Oral.Susp) 30 ml PO Q4H PRN PRN Reason: Heartburn/Nausea Enoxaparin Sodium (Enoxaparin Sodium 40 Mg/0.4 Ml Syringe) 40 mg SUBCUT Q24H [facility] Vancomycin HCl (Vancomycin/Ns) 2,000 mg in 520 mls @ 250 mls/hr IV ONCE ONE Stop: 12/16/23 20:33 Piperacillin Sod/Tazobactam (Sod 4.5 gm/ Sodium Chloride) 100 mls @ 200 mls/hr IV ONCE ONE Stop: 12/16/23 18:58 Last Admin: 12/16/23 18:38 Dose: 200 mls/hr Ondansetron HCl (Ondansetron Hcl 4 Mg/2 Ml Vial) 4 mg IVPUSH Q8H PRN PRN Reason: Nausea and Vomiting Sodium Chloride (0.9 % Sodium Chloride Flush 3 Ml Syringe) 3 ml IVFLUSH QSHIFT [facility] Home Medications Medication Instructions Recorded Confirmed Last Taken Type gabapentin 100 mg capsule 100 mg PO TID 07/16/23 Unknown History olanzapine 20 mg tablet 20 mg PO DAILY 07/16/23 Unknown History Physical Exam 2 Vital Signs and Narrative: Vital Signs: Last Vital Signs Temp 97.2 F 12/16/23 15:30 Pulse 88 12/16/23 15:30 Resp 16 12/16/23 15:30 BP 140/83 H 12/16/23 15:30 Pulse Ox 100 12/16/23 15:30 O2 Del Method Room Air 12/16/23 15:30 BMI result Body Mass Index 30.5 Const: Other: Awake alert cooperative no acute distress Resp: Other: Clear to auscultation bilaterally no rales rhonchi or wheezes Cardio: Other: No S4; positive S1-S2; no S3 murmurs rubs or gallops GI: Other: Soft nontender nondistended normoactive bowel sounds Extrem: Other: 10 x 3 cm scabbed lesion right lower ext remity with surrounding erythema Results Labs 12/16/23 16:50 12/16/23 16:50 Labs: Laboratory Results - last 24 hr 12/16/23 16:50 MCV 88.9 MCH 30.5 MCHC 34.3 RDW 12.8 Plt Count 259 MPV 10.1 Immature Gran % (Auto) 0.3 Neut % (Auto) 55.1 Lymph % (Auto) 30.9 [place] % (Auto) 10.4 Eos % (Auto) 2.1 Baso % (Auto) 1.2 Lymph # (Auto) 1.9 [place] # (Auto) 0.6 Eos # (Auto) 0.1 Baso # (Auto) 0.1 Abs Immat Gran (auto) 0.02 Absolute Neuts (auto) 3.3 Absolute Nucleated RBC 0.000 Nucleated RBC % (auto) 0.0 Anion Gap 11 L Estim Creat Clear Calc 81.9 Estimated GFR > 60 Random Glucose 102 Calcium 9.6 Total Bilirubin 0.2 Direct Bilirubin < 0.2 AST 23 ALT 16 Alkaline Phosphatase 106 Total Protein 7.6 Albumin 4.1 Assessment and Plan (1) Cellulitis of leg, right: Status: Acute (2) Schizoaffective disorder: Qualifiers: Schizoaffective disorder type: bipolar Qualified Code(s): F25.0 - Schizoaffective disorder, bipolar type Status: Acute Plan 63-year-old male with a history of schizoaffective disorder bipolar type presents with worsening cellulitis that has failed outpatient therapies. shelter states that he was started on Keflex with the addition of Bactrim with no improvement. They deny fever chills 1. Cellulitis. .. Right lower extremity -vancomycin/Zosyn (1) -wound care consult -await cultures; adjust as indicated 2. Schizoaffective disorder bipolar type -well compensated at this time -continue outpatient therapies Full code Lovenox Patient will require at least 2 nights inpatient stay to treat cellulitis with IV antibiotics having failed outpatient therapies. This can not be achieved a lesser acute setting Quality Stroke Does the patient have a stroke diagnosis?: No VTE Prior VTE?: No VTE Risk Level:: Medical - moderate - high VTE Device Contraindication: Treatment Not Indicated VTE Drug Contraindication: N/A - Med Ordered
[2023-12-16 18:55] VITALS: BP 131/57; PULSE 72; RESP 18; TEMP 36.6; O2SAT 97
--- NOTE | 2023-12-16 19:45 | PHA.MEDREC ---
Pharmacy Consult ? Medication Reconciliation Pharmacy has completed the medication reconciliation. Patient had no idea what medications he takes. Reported he takes all the medications he picks up from the pharmacy. Utilized claim history for med rec. Gen HernándezD
[2023-12-16] MEDS: Enoxaparin Sodium 40 MG/0.4 ML SYRINGE SUBCUT (20:07)
--- NOTE | 2023-12-16 20:10 | PC.NURSE ---
pt medicated with vanco per order
--- NOTE | 2023-12-16 20:21 | PHA.PROG ---
Admission Date/Time: December 16, 2023 18:38 Indication: Cellulitis - Right lower extremity Weight in k.058 kg Adjusted body weight in K.383 KG [place] body weight in K.401 kg Obesity Dosing Indication % IBW: 140% Serum Creatinine - Last 168 Hours 12/16/23 16:50 Creatinine 1.14 Estimated CrCl and GFR - Last 168 Hours 12/16/23 16:50 Estim Creat Clear Calc 81.9 Estimated GFR > 60 Vancomycin Loading Dose: 2000 mg Current Vancomycin Dosing Regimen: 1000 mg Q12H Date and Time for next Vancomycin Level to be drawn: 12/18 @ 0600 Pharmacist Comments on Vancomycin Plan: Patient received an adequate load dose in the ER 12/16 @ 2006 Maintenance dose vancomycin 1000 mg Q12H is scheduled to start 12/17 @ 0800. Predicted AUC 522 with a trough of 17.5 Level will be drawn prior 4th dose Pharmacy will monitor renal function daily Andra Melton PharmD Vancomycin dosing will take advantage of [employer] as a clinical decision support tool that uses Bayesian modeling to calculate individual patient's pharmacokinetic parameters and forecast the patient's drug concentration time course with the target goal AUC 24 range of 400 - 600 mg/L/hr.
[2023-12-17] MEDS: Piperacillin Sodium/Tazobactam 4.5 GM in 0.9 % Sodium Chloride 100 ML IV ×4 (02:08→18:46)
[2023-12-17 02:15] VITALS: BP 117/60; PULSE 83; RESP 16; TEMP 36.8; O2SAT 98
--- NOTE | 2023-12-17 02:31 | PC.NURSE ---
Assumed care for pt. Pt aox4 resting at the bedside. No apparent distress noted. VSS. Pending bed assingment.
[2023-12-17 06:12] VITALS: BP 129/66; PULSE 80; RESP 14; TEMP 36.9; O2SAT 98
--- NOTE | 2023-12-17 06:17 | PC.NURSE ---
Heather at [facility] fdc cell #: [phone]
[2023-12-17] MEDS: Acetaminophen 325 MG TABLET 650 MG PO (06:20)
[2023-12-17 06:28] LABS: MANUAL DIFF FLAG NO
[2023-12-17 06:49] LABS: Basophils Absolute Auto 0.1 X10*3/uL (0.0-0.2); Basophils Percent Auto 1.1 % (0-2); Eosinophils Absolute Auto 0.1 X10*3/uL (0.0-0.4); Eosinophils Percent Auto 2.1 % (0-4); Hematocrit 37.2 % (42.0-52.0); Hemoglobin 12.7 g/dl (14.0-18.0); Imm Gran Abs Auto 0.01 X10*3/uL (0.00-0.03); Imm Gran Pct Auto 0.2 % (0.0-0.4); Lymphocytes Absolute Auto 1.8 X10*3/uL (1.2-4.9); Lymphocytes Percent Auto 32.1 % (20-40); Mean Corpuscular HGB Conc 34.1 g/dl (31.0-36.0); Mean Corpuscular Hemoglobin 29.7 pg (27.0-33.0); Mean Corpuscular Volume 87.1 fL (80.0-98.0); Mean Platelet Volume 10.4 fL (9.4-12.4); Monocytes Absolute Auto 0.8 X10*3/uL (0.1-1.2); Monocytes Percent Auto 13.7 % (2-11); Neutrophils Absolute Auto 2.9 x10*3/uL (2.0-8.3); Neutrophils Percent Auto 50.8 % (45-73); Platelet Count 245 X10*3/uL (160-400); Red Blood Count 4.27 X10*6/uL (4.60-5.80); Red Cell Distribution Width 12.9 % (11.0-16.0); White Blood Count 5.6 X10*3/uL (4.8-10.8)
[2023-12-17 06:50] LABS: Alanine Aminotransferase 13 U/L (0-40); Albumin Level 3.6 g/dL (3.5-5.0); Alkaline Phosphatase 85 U/L (39-117); Anion Gap 8 (12-20); Aspartate Amino Transferase 19 U/L (5-37); Bilirubin Total 0.4 mg/dL (0.0-1.0); Blood Urea Nitrogen 18 mg/dL (9-16); Calcium 8.8 mg/dL (8.4-10.2); Carbon Dioxide 23 mmol/L (22-29); Chloride 109 mmol/L (96-108); Creatinine Clr Calc Pharmacy 88.1; Estimated Glomerular Filt Rate > 60; Glucose Random 104 mg/dL (60-115); Potassium 4.1 mmol/L (3.3-5.1); Sodium 136 mmol/L (135-145); Total Protein 6.6 g/dL (6.5-8.0)
[2023-12-17] MEDS: vancomycin HCL 1,000 MG in 0.9 % Sodium Chloride 250 ML 270 MG IV ×2 (07:50→19:16)
[2023-12-17 08:16] VITALS: BP 106/63; PULSE 85; RESP 14; O2SAT 95
--- NOTE | 2023-12-17 08:29 | HE.PHANOTE ---
RE: VANCO Patient got an appropriate load, has only gotten 1 dose of 1000 mg so far. Renal function improved from 1.14 yesterday to 1.06 today. Predicted AUC is 498. Next level due for 12/18 @0600
--- NOTE | 2023-12-17 08:58 | PC.NURSE ---
Pt awake, alert and oriented. Breathing even and unlabored. Pt reports pain in right lower extremity 06/27. Vanco infusing at this time per MAR.
--- NOTE | 2023-12-17 08:59 | PC.NURSE ---
Call from RN at [facility] Heather, number is [phone], said to call her if we need any info.
[2023-12-17 09:31] LABS: C Reactive Protein 0.93 mg/dL (< or = 0.50)
[2023-12-17] MEDS: OLANZapine 10 MG TABLET PO (09:39)
[2023-12-17] MEDS: Benztropine Mesylate 1 MG TABLET PO ×2 (09:40→20:17)
[2023-12-17] MEDS: Multivitamin TABLET 1 TAB PO (09:40)
[2023-12-17] MEDS: Folic Acid 1 MG TABLET PO (09:40)
[2023-12-17] MEDS: Gabapentin 300 MG CAPSULE PO ×3 (09:40→20:17)
[2023-12-17] MEDS: NaPROXEN 500 MG TABLET PO ×2 (09:40→20:17)
[2023-12-17] MEDS: hydrOXYzine HCL 50 MG TABLET PO ×3 (09:40→20:18)
[2023-12-17] MEDS: Cholecalciferol (Vitamin D3) 25 MCG TABLET PO (09:40)
[2023-12-17 10:09] LABS: Erythrocyte Sedimentation Rate 18 MM/HR (0-15)
[2023-12-17 10:39] VITALS: BMI 28.7
--- NOTE | 2023-12-17 12:10 | HO.PM.IMPN ---
Subjective Subjective Date of Service: 12/17/23 Interval History: No acute issues overnight. Remains tolerant of therapies Review of Systems Denies chest pain Denies shortness of breath Denies nausea vomiting diarrhea Denies fever chills Physical Exam Vital Signs: Vital Signs: Last Vital Signs Temp 98.4 F 12/17/23 06:12 Pulse 85 12/17/23 08:16 Resp 14 12/17/23 08:16 BP 106/63 12/17/23 08:16 Pulse Ox 95 12/17/23 08:16 O2 Del Method Room Air 12/17/23 08:16 BMI result Body Mass Index 28.7 Const: Other: Awake alert cooperative no acute distress Resp: Other: Clear to auscultation bilaterally no rales rhonchi or wheezes Cardio: Other: No S4; positive S1-S2; no S3 murmurs rubs or gallops GI: Other: Soft nontender nondistended normoactive bowel sounds Extrem: Other: 10 x 3 cm scabbed lesion right lower extremity with surrounding erythema Objective Data Active Medications Acetaminophen (Acetaminophen 325 Mg Tablet) 650 mg PO Q6H PRN PRN Reason: Pain, Mild (Pain Scale 1-3) Last Admin: 12/17/23 06:20 Dose: 650 mg Documented By: RK Al Hydroxide/Mg Hydroxide (Magnesium Hydrox/Alum Hydrox 30 Ml Oral.Susp) 30 ml PO Q4H PRN PRN Reason: Heartburn/Nausea Benztropine Mesylate (Benztropine Mesylate 1 Mg Tablet) 1 mg PO BID [facility] Last Admin: 12/17/23 09:40 Dose: 1 mg Documented By: PASTOR Enoxaparin Sodium (Enoxaparin Sodium 40 Mg/0.4 Ml Syringe) 40 mg SUBCUT Q24H [facility] Last Admin: 12/16/23 20:07 Dose: 40 mg Documented By: DALY Folic Acid (Folic Acid 1 Mg Tablet) 1 mg PO DAILY [facility] Last Admin: 12/17/23 09:40 Dose: 1 mg Documented By: PASTOR Gabapentin (Gabapentin 300 Mg Capsule) 300 mg PO TID [facility] Last Admin: 12/17/23 09:40 Dose: 300 mg Documented By: PASTOR Hydroxyzine HCl (Hydroxyzine Hcl 50 Mg Tablet) 50 mg PO TID [facility] Last Admin: 12/17/23 09:40 Dose: 50 mg Documented By: PASTOR Piperacillin Sod/Tazobactam (Sod 4.5 gm/ Sodium Chloride) 100 mls @ 200 mls/hr IV Q6H [facility] Last Infusion: 12/17/23 06:48 Dose: Infused Documented By: RK Vancomycin HCl 1,000 mg/ (Sodium Chloride) 270 mls @ 270 mls/hr IV Q12H [facility] Last Infusion: 12/17/23 08:50 Dose: Infused Documented By: PASTOR Multivitamins/Vitamin C (Multivitamin Tablet) 1 tab PO DAILY [facility] Last Admin: 12/17/23 09:40 Dose: 1 tab Documented By: PASTOR Naproxen (Naproxen 500 Mg Tablet) 500 mg PO BID [facility] Last Admin: 12/17/23 09:40 Dose: 500 mg Documented By: PASTOR Olanzapine (Olanzapine 10 Mg Tablet) 10 mg PO DAILY [facility] Last Admin: 12/17/23 09:39 Dose: 10 mg Documented By: PASTOR Ondansetron HCl (Ondansetron Hcl 4 Mg/2 Ml Vial) 4 mg IVPUSH Q8H PRN PRN Reason: Nausea and Vomiting Pharmacy Consult (Consult Rx Vancomycin Dosing) 1 each MISCELLANE DAILY PRN PRN Reason: Consult order Sodium Chloride (0.9 % Sodium Chloride Flush 3 Ml Syringe) 3 ml IVFLUSH QSHIFT [facility] Last Admin: 12/17/23 09:34 Dose: Not Given Documented By: PASTOR Non-Admin Reason: IV Running Vitamin D (Cholecalciferol (Vitamin D3) 25 Mcg Tablet) 25 mcg PO DAILY [facility] Last Admin: 12/17/23 09:40 Dose: 25 mcg Documented By: PASTOR Labs 12/17/23 06:14 12/17/23 06:14 Labs: Laboratory Results - last 24 hr 12/16/23 12/17/23 16:50 06:14 MCV 88.9 87.1 MCH 30.5 29.7 MCHC 34.3 34.1 RDW 12.8 12.9 Plt Count 259 245 MPV 10.1 10.4 Immature Gran % (Auto) 0.3 0.2 Neut % (Auto) 55.1 50.8 Lymph % (Auto) 30.9 32.1 [place] % (Auto) 10.4 13.7 H Eos % (Auto) 2.1 2.1 Baso % (Auto) 1.2 1.1 Lymph # (Auto) 1.9 1.8 [place] # (Auto) 0.6 0.8 Eos # (Auto) 0.1 0.1 Baso # (Auto) 0.1 0.1 Abs Immat Gran (auto) 0.02 0.01 Absolute Neuts (auto) 3.3 2.9 Absolute Nucleated RBC 0.000 0.000 Nucleated RBC % (auto) 0.0 0.0 ESR 18 H Anion Gap 11 L 8 L Estim Creat Clear Calc 81.9 88.1 Estimated GFR > 60 > 60 Random Glucose 102 104 Calcium 9.6 8.8 D Total Bilirubin 0.2 0.4 Direct Bilirubin < 0.2 AST 23 19 ALT 16 13 Alkaline Phosphatase 106 85 C-Reactive Protein 0.93 H Total Protein 7.6 6.6 Albumin 4.1 3.6 Assessment and Plan (1) Cellulitis of leg, right: Status: Acute (2) Schizoaffective disorder: Status: Acute Plan 63-year-old male with a history of schizoaffective disorder bipolar type presents with worsening cellulitis that has failed outpatient therapies. care home states that he was started on Keflex with the addition of Bactrim with no improvement. They deny fever chills 1. Cellulitis. .. Right lower extremity -vancomycin/Zosyn (2) -wound care consult -await cultures; adjust as indicated 2. Schizoaffective disorder bipolar type -well compensated at this time -continue outpatient therapies Full code Lovenox Patient will require at least 2 nights inpatient stay to treat cellulitis with IV antibiotics having failed outpatient therapies. This can not be achieved a lesser acute setting Quality Stroke Does the patient have a stroke diagnosis?: No VTE Prior VTE?: No VTE Risk Level:: Medical - moderate - high VTE Device Contraindication: Treatment Not Indicated VTE Drug Contraindication: N/A - Med Ordered
--- NOTE | 2023-12-17 13:27 | MHC.CM.PN ---
IMM 12/17/23 Male 63 DX RLE non healing wound infection. Out patient Keflex failed. He lives at the [facility], in [place]. ph [phone]. nurse Prudence [phone]. He is independent with ADLs. He uses a cane PRN. He has a HCP on file. It lists his sis, Thalia. A signed discharge summary will be all that is required by the . for patient to return. There is no additional paperwork forms or orders. DP return to the .. They will provide transport home.
[2023-12-17] MEDS: 0.9 % Sodium Chloride Flush 3 ML SYRINGE IVFLUSH ×2 (15:24→19:25)
[2023-12-17 16:00] VITALS: BP 104/55; PULSE 80; RESP 15; TEMP 36.1; O2SAT 96
[2023-12-17] MEDS: Enoxaparin Sodium 40 MG/0.4 ML SYRINGE SUBCUT (18:46)
[2023-12-17 19:48] VITALS: BP 122/76; PULSE 77; RESP 18; TEMP 36.5; O2SAT 98
[2023-12-18] MEDS: Piperacillin Sodium/Tazobactam 4.5 GM in 0.9 % Sodium Chloride 100 ML IV ×2 (00:31→05:59)
[2023-12-18 03:32] VITALS: BP 119/61; PULSE 78; RESP 18; TEMP 36.9; O2SAT 97
[2023-12-18 05:32] LABS: Creatinine Clr Calc Pharmacy 84.1; Estimated Glomerular Filt Rate > 60; Vancomycin Trough 11.3 mcg/mL (10.0-20.0)
--- NOTE | 2023-12-18 06:08 | HE.PHANOTE ---
re [facility] Patients level came back this morning at 11.3. Will increase dose to 1250 mg Q12H. Predicted AUC 498, indication is cellulitis. Will get another level tomorrow 12/19 @0600 to ensure safety/ efficacy as patients renal function remains unstable.
[2023-12-18 07:59] VITALS: BP 127/59; PULSE 81; RESP 17; TEMP 36.6; O2SAT 97
[2023-12-18] MEDS: 0.9 % Sodium Chloride Flush 3 ML SYRINGE IVFLUSH (09:29)
[2023-12-18] MEDS: hydrOXYzine HCL 50 MG TABLET PO (09:29)
[2023-12-18] MEDS: Gabapentin 300 MG CAPSULE PO (09:29)
[2023-12-18] MEDS: NaPROXEN 500 MG TABLET PO (09:29)
[2023-12-18] MEDS: vancomycin HCL 1,250 MG in 0.9 % Sodium Chloride 250 ML 166.67 MG IV (09:29)
[2023-12-18] MEDS: Folic Acid 1 MG TABLET PO (09:30)
[2023-12-18] MEDS: OLANZapine 10 MG TABLET PO (09:30)
[2023-12-18] MEDS: Multivitamin TABLET 1 TAB PO (09:30)
[2023-12-18] MEDS: Benztropine Mesylate 1 MG TABLET PO (09:30)
[2023-12-18] MEDS: Cholecalciferol (Vitamin D3) 25 MCG TABLET PO (09:30)
--- NOTE | 2023-12-18 09:30 | MHC.CLN ---
NUTRITION CONSULT FOR CELLULITIS AND REDNESS TO RIGHT LOWER EXTREMITY. WOUND ETIOLOGY NOT PRESSURE RELATED. NO ADDITIONAL NUTRITION INTERVENTIONS THIS TIME.
--- NOTE | 2023-12-18 12:41 | P.DS_ITS ---
DS: Providers Provider Date of Service: 12/18/23 Date of admission: 12/16/23 18:38 Date of discharge: 12/18/23 Primary care physician: Israel Ayoub III, MD Consults: 12/17/23 23:57 Consult to Wound Care Routine Reason for consultation: cellulitis/scabbed area to left lower leg 12/18/23 08:12 Consult to General Surgery Stat Consulting Provider: [facility] General Surgeons Reason for consultation: cellulitis..?debridement Has provider been notified: Yes DS: Diagnosis Discharge Diagnosis (1) Cellulitis of leg, right: Status: Acute (2) Schizoaffective disorder: Status: Acute DS: Summary Hospital Course Hospital Course: 63-year-old male with a past medical history significant for depression schizophrenia presents through the emergency room from detention for right lower extremity wound that has failed outpatient therapy with Keflex. Per detention you started on a 10 day course of Keflex on November 21 which she completed . [facility] states that his wound has not changed and Bactrim was added again with no change. [facility] reports surrounding erythema worsening over the 2 days prior to admission. Denies fever chills. He will be admitted for treatment having failed outpatient therapies Hospital course Patient admitted to general medical floor and started on Zosyn and vancomycin. Was seen by surgery who felt there was no indication for any debridement. Over the course of 48 hours the erythema improved dramatically inpatient is medically acceptable to be discharged home to complete a course of Augmentin and doxycycline Time Attestation Discharge coordination time: Greater than 30 minutes Quality: Safe Use of Opioids Does Pt have an Active Cancer Diagnosis on the Problem List?: No Quality: Stroke Does the patient have a stroke diagnosis?: No Physical Exam Vital Signs: Vital Signs: Last Vital Signs Temp 97.9 F 12/18/23 07:59 Pulse 81 12/18/23 07:59 Resp 17 12/18/23 07:59 BP 127/59 L 12/18/23 07:59 Pulse Ox 97 12/18/23 07:59 O2 Del Method Room Air 12/18/23 07:59 BMI result Body Mass Index 28.7 Const: Other: Awake alert cooperative no acute distress Resp: Other: Clear to auscultation bilaterally no rales rhonchi or wheezes Cardio: Other: No S4; positive S1-S2; no S3 murmurs rubs or gallops GI: Other: Soft nontender nondistended normoactive bowel sounds Extrem: Other: 10 x 3 cm scabbed lesion right lower ext remity with minimal surrounding erythema DS: Data Data Completed and Pending Labs on day of discharge: Laboratory Results - last 24 hr 12/18/23 05:11 Hold Purple Top SEE NOTE Creatinine 1.08 Estim Creat Clear Calc 84.1 Estimated GFR > 60 Vancomycin Trough 11.3 Preliminary micro results at discharge 12/16/23 17:03 Blood Culture - Preliminary Blood - Arterial No growth after 24 hours. 12/16/23 16:50 Blood Culture - Preliminary Blood - Arterial No growth after 24 hours. Discharge Plan Discharge Anticipated Discharge Date/Time: 12/18/23 12:38 Patient Disposition: Xfer Other Discharge Diagnosis: Cellulitis of right lower extremity Referrals: Israel Ayoub III, MD [Primary Care Provider] - 1 Week Discharge Medications: New doxycycline hyclate 100 mg tablet 100 mg PO BID Qty: 20 0RF amoxicillin-pot clavulanate 875-125 mg tablet 1 tab PO BID Qty: 20 0RF Continued hydroxyzine pamoate 50 mg capsule 50 mg PO TID 30 Days Qty: 90 0RF benztropine 1 mg tablet 1 mg PO BID 30 Days Qty: 60 0RF gabapentin 300 mg capsule 300 mg PO TID 30 Days Qty: 90 0RF folic acid 1 mg Tablet 1 mg PO DAILY 30 Days Qty: 30 0RF naproxen 500 mg tablet 500 mg PO BID 30 Days Qty: 60 0RF cholecalciferol (vitamin D3) [Vitamin D3] 25 mcg (1,000 unit) tablet 25 mcg PO DAILY 30 Days Qty: 30 0RF multivitamin with folic acid [Tab-A-Max] 400 mcg Tablet 1 tab PO DAILY 30 Days Qty: 30 0RF olanzapine 10 mg tablet 10 mg PO DAILY Discontinued sulfamethoxazole-trimethoprim 800-160 mg tablet 1 tab PO BID cephalexin 500 mg capsule 500 mg PO BID Discharge Orders: Discharge Order (Routine); Ordered 12/18/23 Ordered By: Van Spann Diet: Advance to usual diet Activity on Discharge: As tolerated Stand Alone Forms: Patient Portal Discharge page Care Plan Goals: Resume all medicines as taken prior to hospitalization Health Concerns: Complete course of Augmentin and doxycycline both twice daily for 10 days Plan of Treatment: Follow-up with PCP next available Assessment: See discharge summary
--- NOTE | 2023-12-18 13:15 | HO.WOUND ---
Addendum entered by Carine Singh RN 12/18/23 14:13: @1410 Topical wound care teaching provided to patient as he will need to perform dressing changes independently per direct care nurses conversation with care home RN. Arrival to bedside patient is agreeable to teaching and feels confident in performing his own dressing changes. He shows appropriate decision making capabilities as he states if he has questions or something doesn't look right he knows he is able to ask the senior care nurse to assess and for help. I instructed him I wanted him to follow up with the out pt wound clinic and he reports again his nurse will help him coordinate care if he has the address and phone number - I informed him it will be listed in his discharge paperwork - he reports being comfortable with the plan and understanding. He was taught step by step instruction on topical wound care - he was able to repeat back to me the appropriate steps in the appropriate order for topical care. We briefly discussed when to seek immediate care and assistance - he reports understanding - teach back method used. Supplies provided to patient for proper wound care. Topical instructions as follows: Right Lower Medial Leg - Cleanse with normal saline or routine bathing with soap and water. Dry well. Apply skin barrier to periwound. Cover wound bed with Woun 'Dress - Collogen hydrogel followed by dry gauze, ABD pad and gauze wrap. Change every other day. Recommend follow up out patient Wound Clinic at [address] [place] [address] and to call for an appointment at time of discharge. [phone].? Original Note: Wound Consult: Initial 63yr old?M admitted to [facility] on 12/16 - See progress notes and H&P for detailed history.? Wound consult placed for Right Lower Extremity wound.? Patient agreeable to assessment and photo documentation.? Pt reports he is unsure how the wound occurred he denied heat and or chemical he denies trauma. The wound bed has an atypical appearance would recommend outpt wound care clinic follow up for topical treatment and etiology diagnostics at time of discharge. Right Medial Lower Leg Etiology: Unknown Etiology - ??Present on Admission Not consistent with pressure and not consisient with moisture Measurements: 15cm x 6cm x0.2cm Wound Bed: dry leather like eschar inferior portion of wound - upper slough and moist necrotic tissue loosely adherent to wound bed Drainage / Odor: No odor and scant sero sang drainage noted Edges: ? irregular Cele wound: red blanchable erythema with mild swelling noted - ? No Induration, Fluctuance or Warmth noted Pain: pt denies pain and reports tingling sensation at times. Goals of Treatment: ? Moist wound healing and autolytic debridement with hydrogel Recommendations: 1. Right Lower Medial Leg - Cleanse with normal saline or routine bathing with soap and water. Dry well. Apply skin barrier to periwound. Cover wound bed with Woun 'Dress - Collogen hydrogel followed by dry gauze, ABD pad and gauze wrap. Change every other day. Recommend follow up out patient Wound Clinic at [address] [place] [id number] and to call for an appointment at time of discharge. [phone].? 2. Provide adequate and supplemental nutrition if needed.? 3. When applicable maintain blood glucose levels per Providers order. Re-consult wound care Nurse for wound deterioration or wound changes.
--- NOTE | 2023-12-18 13:47 | PM.CNGS ---
History of Present Illness Consult details Consult date: 12/18/23 Narrative: 63-year-old male patient with a history of schizophrenia and depression, resident of a care home presenting for evaluation of a right leg area of cellulitis and crusted lesion located on the medial calf. The patient is unclear as the original etiology of this wound but apparently he was placed on oral antibiotics earlier this month the wounds did not appear to be improving. He presented to the emergency department 12/16/2023 due to increased cellulitis surrounding the wound. He was subsequently placed on intravenous antibiotics by the hospitalist team and now is found to be much improved in terms of the cellulitis. The original crusted wound however remains. Surgical consultation was requested for possible debridement. The patient denies any pain associated with the wound and there has been minimal discharge appreciated. Review of Systems Review of Systems: Yes Unobtainable due to mental condition PMFSH Past Medical History Medical History Acute paranoia Bursitis Schizoaffective disorder Degenerative disc disease, cervical Family History Family History Mother Diabetes Father Heart disease Surgical History Surgical History Hx of colonoscopy H/O tooth extraction Social History Social History Household Members: Other Household Members Other:: care home 5 Housing: Assisted Living Facility Housing Other:: snf Do you presently have visiting nurse or other home services: No Unable to assess alcohol history related to: Unknown Alcohol intake: never Comment: patient uses can to walk Patient Tobacco Use Status: Current everyday Tobacco user Tobacco use type: Cigarette Cigarette Packs Per Day: 1 Cigarettes Per Day: 15 Years Smoked: 40 Smoked in Last 30 Days: Yes Patient Interested in Nicotine Replacement: No Patient Given Instructions on How to Stop Smoking: No Second Hand Smoke Exposure: No Use of substances other than those prescribed or required for medical reasons: Yes Substance Use Type: Marijuana Substance Use Frequency: Occasionally Currently Displaying Signs/Symptoms of Drug Intoxication Withdrawal: No Have you been hit, kicked, punched, or otherwise hurt by someone within the past year? If so, by whom?: No Do you feel safe in your current relationship?: No Is there a partner from a previous relationship who is making you feel unsafe now?: No Are you made to feel afraid or neglected: No Advance Directives: Yes Advance Directives on File: Yes Advance Directives Date on File: 10/18/20 Do you have thoughts of harming others: None Do you have a plan to hurt others: No Plan Recently lost weight without trying: No Eating poorly because of decreased appetite: No Poor oral hygiene: No service: No Sexual orientation: Straight/Heterosexual Meds Allergies Allergy/AdvReac Type Severity Reaction Status Date / Time No Known Allergies Allergy Mild NA Verified 12/16/23 15:29 Active Medications: Current Medications Acetaminophen (Acetaminophen 325 Mg Tablet) 650 mg PO Q6H PRN PRN Reason: Pain, Mild (Pain Scale 1-3) Last Admin: 12/17/23 06:20 Dose: 650 mg Al Hydroxide/Mg Hydroxide (Magnesium Hydrox/Alum Hydrox 30 Ml Oral.Susp) 30 ml PO Q4H PRN PRN Reason: Heartburn/Nausea Benztropine Mesylate (Benztropine Mesylate 1 Mg Tablet) 1 mg PO BID [facility] Last Admin: 12/18/23 09:30 Dose: 1 mg Enoxaparin Sodium (Enoxaparin Sodium 40 Mg/0.4 Ml Syringe) 40 mg SUBCUT Q24H [facility] Last Admin: 12/17/23 18:46 Dose: 40 mg Folic Acid (Folic Acid 1 Mg Tablet) 1 mg PO DAILY [facility] Last Admin: 12/18/23 09:30 Dose: 1 mg Gabapentin (Gabapentin 300 Mg Capsule) 300 mg PO TID [facility] Last Admin: 12/18/23 09:29 Dose: 300 mg Hydroxyzine HCl (Hydroxyzine Hcl 50 Mg Tablet) 50 mg PO TID [facility] Last Admin: 12/18/23 09:29 Dose: 50 mg Piperacillin Sod/Tazobactam (Sod 4.5 gm/ Sodium Chloride) 100 mls @ 200 mls/hr IV Q6H [facility] Last Infusion: 12/18/23 06:33 Dose: Infused Vancomycin HCl 1,250 mg/ (Sodium Chloride) 250 mls @ 166.667 mls/hr IV Q12H [facility] Last Infusion: 12/18/23 11:59 Dose: Infused Multivitamins/Vitamin C (Multivitamin Tablet) 1 tab PO DAILY [facility] Last Admin: 12/18/23 09:30 Dose: 1 tab Naproxen (Naproxen 500 Mg Tablet) 500 mg PO BID [facility] Last Admin: 12/18/23 09:29 Dose: 500 mg Olanzapine (Olanzapine 10 Mg Tablet) 10 mg PO DAILY [facility] Last Admin: 12/18/23 09:30 Dose: 10 mg Ondansetron HCl (Ondansetron Hcl 4 Mg/2 Ml Vial) 4 mg IVPUSH Q8H PRN PRN Reason: Nausea and Vomiting Pharmacy Consult (Consult Rx Vancomycin Dosing) 1 each MISCELLANE DAILY PRN PRN Reason: Consult order Sodium Chloride (0.9 % Sodium Chloride Flush 3 Ml Syringe) 3 ml IVFLUSH QSHIFT [facility] Last Admin: 12/18/23 09:29 Dose: 3 ml Vitamin D (Cholecalciferol (Vitamin D3) 25 Mcg Tablet) 25 mcg PO DAILY [facility] Last Admin: 12/18/23 09:30 Dose: 25 mcg Home Medications Medication Instructions Recorded Confirmed Last Taken Type olanzapine 10 mg tablet 10 mg PO DAILY 12/16/23 12/16/23 12/16/23 History Physical Exam Vital Signs: Vital Signs: Last Vital Signs Temp 97.9 F 12/18/23 07:59 Pulse 81 12/18/23 07:59 Resp 17 12/18/23 07:59 BP 127/59 L 12/18/23 07:59 Pulse Ox 97 12/18/23 07:59 O2 Del Method Room Air 12/18/23 07:59 BMI result Body Mass Index 28.7 Const: General: cooperative and no acute distress Nutritional Appearance: well nourished HEENT: Head: Yes normocephalic and Yes atraumatic Ears: hearing grossly normal bilaterally Resp: Effort & Inspection: normal respiratory effort, no audible wheezes, no cough and no respiratory distress Cardio: Jugular venous distension: no JVD GI: Inspection: Yes normal to inspection Skin: Other: Warm, dry, no rash Extrem: Other: Right medial calf with a elongated area of dry eschar which is nontender. There is no residual cellulitis noted around the wound as compared to the picture obtained in the emergency department prior to admission. No evidence of underlying abscess. General: Yes no clubbing, cyanosis or edema Ankle/foot/toe images: 1. Site of eschar, right medial calf Results Labs 12/17/23 06:14 12/18/23 05:11 Labs: BMP 12/18/23 05:11 Creatinine 1.08 All other labs normal. Imaging Additional studies: XR/XR tibia fibula RT 2V IMPRESSION: Diffuse soft tissue swelling. No radiograph evidence of osteomyelitis. However, early osteomyelitis can be radiographically occult, therefore further evaluation with MRI could be obtained as clinically warranted. Assessment and Plan (1) Cellulitis of leg, right: Status: Acute Plan 63-year-old male patient presenting with a eschar located on the medial right calf of unknown duration admitted for a surrounding cellulitis which is now improved. The eschar has the appearance of a cutaneous burn although the patient is unaware of any injury. The wound is currently clean with no evidence of underlying abscess. X-rays are negative for underlying evidence of osteomyelitis. The eschar may gradually lift without the need for further debridement at this time. Recommend applying a dry sterile dressing with ABD and 4 in Kerlix on a daily basis. He may either follow-up in our office or at the [facility] if discharge. Procedures Date of Service Date of Service: 12/18/23
--- NOTE | 2023-12-18 14:06 | W.MHC.F2F ---
Service Date Service Date: 12/18/23 Encounter Date of encounter: 12/18/23 Encounter: Acute hospitalization Reasons for Services Signs and symptoms assessed: Acute cellulitis of right lower extremity; assess response to therapy has has failed outpatient therapies once before Reason for [facility]: wound care and medication management Homebound: Leaving the home is medically contraindicated at this time without the asist of a device and/or another person due th the listed conditions above and below. Reason homebound: unsteady gait / fall risk and cognitively impaired / unsafe Certification: Based on the above findings, I certify that this patient is confined to the home and needs intermittent [facility] care, physical therapy and/or speech therapy, or continues to need occupational therapy. The patient is under my care, and I have initiated the establishment of the plan of care. The patient will be followed by a physician who will periodically review the plan of care. Time Spent With Patient Time: Total time managing care of this patient today ____ minutes.
--- NOTE | 2023-12-18 14:23 | MHC.CM.PN ---
IMM 12/17/23 Patient is discharged today . He will return to his .. DC Summary and Packet have been faxed to the .. The nurse Prudence has been called. A VM was left requesting a return call with questions. Report has been called by the R.N. Home care preference obtained. Referral sent to [facility]. They will provide home services. The wound nurse confirmed Patient is competent to perform wound care. Supplies for wound care will be sent with the patient. Transport is scheduled for 2:30pm picker. [facility] van is set up with [facility] Transport.
== END 2023-12-18 14:29 | disposition home health service (06) | DRG 603 ==
LOC: HO.ED 18:30 → HO.EDOVER 19:42 → HO.S3 12-17 08:05
PROVIDERS: Physician Assistant Medical; Admitting Provider Hospitalist; Emergency Provider Emergency Medicine; PCP Internal Medicine; Visit Provider Hospitalist
DX: L03.115 Cellulitis of right lower limb (principal); F25.0 Schizoaffective disorder, bipolar type; F17.210 Nicotine dependence, cigarettes, uncomplicated; Z71.6 Tobacco abuse counseling; Z79.899 Other long term (current) drug therapy
CPT/HCPCS: 36415; 73590; 80048; 80053; 80076; 80202; 82565; 85025; 85652; 86140; 87040; 99221; 99285; J1650; J2543; J3370; J3371

== ENCOUNTER → 2023-12-16 16:25 | Outpatient (BNV) | payer MEDICARE, SELFPAY | PROVIDERS: Emergency Provider Emergency Medicine; PCP Internal Medicine; Visit Provider Hospitalist | DX: L03.115 Cellulitis of right lower limb (principal); F25.0 Schizoaffective disorder, bipolar type | CPT/HCPCS: 99223; 99233; 99239; G0180 ==

== ENCOUNTER → 2023-12-16 18:38 | Outpatient (BNV) | payer MEDICARE, SELFPAY | PROVIDERS: Admitting Provider Hospitalist; Emergency Provider Emergency Medicine; PCP Internal Medicine; Visit Provider Surgery | DX: L03.115 Cellulitis of right lower limb (principal) | CPT/HCPCS: 99222 ==

== ENCOUNTER 2024-01-01 12:43 | Inpatient (IN) | payer MEDICARE, SELFPAY ==
[2024-01-01] VITALS (7 sets, daily range): BP systolic 120–150; BP diastolic 64–92; PULSE 62–83; RESP 16–18; TEMP 36.7–37; O2SAT 96–100; BMI 25.7
--- NOTE | ~2024-01-01 | CT_ITS ---
EXAMINATION: CT HEAD WITHOUT CONTRAST CLINICAL INFORMATION: Syncope. COMPARISON: Head CT dated 10/07/2020. TECHNIQUE: Contiguous axial imaging was performed from the skullbase to vertex without intravenous administration of contrast. This CT examination was performed using dose optimization techniques as appropriate, variously including the following: *Automated exposure control *Adjustment of mA and/or kV according to patient size (this includes techniques or standardized protocols for targeted exams where dose is matched to indication/reason for exam; i.e. extremities or head) *Use of iterative reconstruction technique DLP: 738 mGy-cm. FINDINGS: There is no evidence of acute intracranial hemorrhage or territorial infarction. No abnormal mass effect or midline shift is seen. Caldera to white matter differentiation is well preserved. No extra-axial fluid collections are identified. The ventricles are normal in size. There is no abnormal attenuation within the brain parenchyma. The osseous structures and soft tissues are normal. The mastoid air cells are well aerated. Mild left maxillary sinus mucosal thickening noted. CT/CT head/brain wo IV con IMPRESSION: No acute intracranial pathology.
--- NOTE | 2024-01-01 13:13 | PC.NURSE ---
received call from [facility] nurse (Prudence), pt has had worsening leg wounds - followed by Wound Care, also had a recent fall today after smoking marijuana. pt observed leaving the ED , this RN called after pt but he declined to return for triage. Prudence notified.
--- NOTE | 2024-01-01 17:43 | MHC.EDTECH ---
PATIENT HAS A TURKEY SANDWICH AND A AUSTEN DIANNE FOR SNACK .
--- NOTE | 2024-01-01 18:38 | ECG_ITS ---
Test Reason : SYNCOPE Blood Pressure : / mmHG Vent. Rate : 070 BPM Atrial Rate : 070 BPM P-R Int : 160 ms QRS Dur : 090 ms QT Int : 376 ms P-R-T Axes : 037 -68 037 degrees QTc Int : 406 ms Normal sinus rhythm Left axis deviation Pulmonary disease pattern Abnormal ECG When compared with ECG of 07-JUN-2023 09:13, No significant change was found Referred By: Thalia Reynoso Electronically Signed By:Carl Valverde
--- NOTE | 2024-01-01 19:00 | ED.GENADULT ---
HPI - General Adult General Chief complaint: Behavioral Concerns Stated complaint: SMOKED WEED,LEGS BECAME NUMB Time Seen by Provider: 01/01/24 13:31 Source: patient and RN notes reviewed Mode of arrival: ambulatory Limitations: no limitations History of Present Illness HPI narrative: This is a 63-year-old male, with a past medical history of depression and schizophrenia, presenting to the emergency department from [facility], for evaluation of syncopal episode as well as chronic right lower extremity wound. He has a poor historian, uncertain how he got the wound, he was admitted on December 16, 2023 and was discharged on December 18, 2023 after treated with Zosyn and vancomycin. It appears as though patient was discharged on December 18, 2023 on Keflex and Bactrim. No fevers or chills. Patient states that today he was smoking THC and states that he ?smoked too much? and felt lightheaded and fell to the ground. He states that he hit his head and states that he lost his balance for several seconds. He states that at this moment he is feeling well and is only concern for his wound. He denies any fevers, chills, chest pain, shortness of breath, abdominal pain, nausea, vomiting or diarrhea. No other complaints or concerns at this time. MD complaint: Wound, syncope Onset (ago): day(s) Radiation: non-radiation Relieving factors: none Exacerbating factors: none Associated symptoms: denies other symptoms Treatments prior to arrival: none Related Data Home Medications Medication Instructions Recorded Confirmed olanzapine 10 mg tablet 10 mg PO DAILY 12/16/23 12/16/23 Previous Rx's Medication Instructions Recorded benztropine 1 mg tablet 1 mg PO BID 30 days #60 tabs 06/12/23 cholecalciferol (vitamin D3) 25 25 mcg PO DAILY 30 days #30 tabs 06/12/23 mcg (1,000 unit) tablet (Vitamin D3) folic acid 1 mg tablet 1 mg PO DAILY 30 days #30 tabs 06/12/23 gabapentin 300 mg capsule 300 mg PO TID 30 days #90 caps 06/12/23 hydroxyzine pamoate 50 mg capsule 50 mg PO TID 30 days #90 caps 06/12/23 multivitamin with folic acid 400 1 tab PO DAILY 30 days #30 tabs 06/12/23 mcg tablet (Tab-A-Max) naproxen 500 mg tablet 500 mg PO BID 30 days #60 tabs 06/12/23 amoxicillin 875 mg-potassium 1 tab PO BID #20 tabs 12/18/23 clavulanate 125 mg tablet doxycycline hyclate 100 mg tablet 100 mg PO BID #20 tabs 12/18/23 Allergies Allergy/AdvReac Type Severity Reaction Status Date / Time No Known Allergies Allergy Mild NA Verified 12/16/23 15:29 Review of Systems Review of Systems: Yes all other systems are reviewed and are negative Constitutional: Constitutional: Reports as per [facility] Past Medical History Attestation statement: The following information was validated with the patient. Medical History Schizoaffective disorder Acute paranoia Bursitis Schizoaffective disorder Degenerative disc disease, cervical Surgical History Hx of colonoscopy H/O tooth extraction Family History Family History Mother Diabetes Father Heart disease Social History Social History Household Members: Other Household Members Other:: detention 5 Housing: Assisted Living Facility Housing Other:: shelter Do you presently have visiting nurse or other home services: No Unable to assess alcohol history related to: Unknown Alcohol intake: never Comment: patient uses can to walk Patient Tobacco Use Status: Tobacco use Unknown Tobacco use type: Cigarette Cigarette Packs Per Day: 1 Cigarettes Per Day: 15 Years Smoked: 40 Second Hand Smoke Exposure: No Substance Use Type: Marijuana Advance Directives: Yes Advance Directives on File: Yes Advance Directives Date on File: 10/18/20 Nutrition Risks: No Nutritional Risk service: No Sexual orientation: Straight/Heterosexual Physical Exam ED Vital Signs: Vital Signs - 24 hr 01/01/24 14:00 01/01/24 16:15 01/01/24 17:40 Temperature 98.6 F 98.2 F 98.2 F Pulse Rate 80 71 83 Respiratory Rate 18 16 16 Blood Pressure 133/74 150/79 H 120/80 Pulse Oximetry 100 97 97 Oxygen Delivery Method Room Air Room Air Room Air 01/01/24 19:53 01/01/24 21:48 01/01/24 23:23 Temperature 98.4 F 98.4 F 98.1 F Pulse Rate 78 67 68 Respiratory Rate 16 16 16 Blood Pressure 120/69 147/70 H 122/64 Pulse Oximetry 97 98 97 Oxygen Delivery Method Room Air Room Air Room Air BMI result Body Mass Index 25.7 Const General: cooperative, comfortable and no acute distress Orientation/consciousness: patient oriented x3 Limitations: no limitations HENMT Head: Yes normal to inspection, Yes normocephalic and Yes atraumatic Ears: hearing grossly normal bilaterally General nose exam: Normal external nose present Face and sinus: Yes normal facial exam Mouth: Normal oral and palatal mucosa present, oropharynx normal and moist mucous membranes Throat: Yes posterior oropharynx normal Eyes General: appearance normal, both eyes and all related structures Eyelids: Yes eyelids normal Conjunctivae: conjunctivae normal Sclerae: sclerae normal Pupils: Equal, round and reactive pupils present EOM: EOMs intact bilaterally Neck Neck: Yes normal visual inspection, Yes full ROM and Yes no lymphadenopathy Lymphatic: no lymphadenopathy noted Chest Chest palpation & inspection: normal inspection of the chest Resp Effort & Inspection: normal respiratory effort and able to speak in complete sentences Auscultation: clear to auscultation bilaterally, no crackles, no rales, no rhonchi and no wheezes Cardio Rate: regular rate Rhythm: regular rhythm Heart sounds: S1 normal heart sound present and S2 normal heart sound present GI Inspection: Yes normal to inspection Skin Other: Right lower extremity, medial aspect there is a 10 cm by 3 cm chronic, wet lesion with green/blue discharge noted with surrounding warmth, erythema, 2+ pitting edema noted, no calf tenderness. Trauma: no lacerations or abrasions Wounds: no wounds Neuro General: patient oriented x3 and moves all extremities Cranial nerves: Yes CN's II-XII intact bilaterally and Yes Equal, round and reactive pupils present Cognition (Neuro): normal cognition Gait exam (Neuro): Normal gait present Motor exam (neuro): 5/5 motor strength present throughout Extrem General: Yes normal to inspection Right upper extremity: normal to inspection Left upper extremity: normal to inspection Right lower extremity: normal to inspection Left lower extremity: normal to inspection Course Reevaluation(s) Reevaluation #1: No leukocytosis, normocytic anemia noted with an H&H of 13.3/38.4, chemistry nondiagnostic. Ethyl alcohol less than 10. Head CT unremarkable. EKG normal sinus rhythm. Wound appears worse than previous picture seen on 12/16/2023. Given that he is failed p.o. antibiotics as he was discharged several days ago on Bactrim and Keflex ( per d/c instructions) should be admitted to the hospital for further workup and management of the wound. Spoke to Dr. Downs, transfer care initiated Time: 22:51 Medications Administered Generic Name Dose Route Start Last Admin Trade Name Freq PRN Reason Stop Dose Admin Enoxaparin Sodium 40 mg 01/01/24 23:45 01/02/24 00:09 Enoxaparin Sodium 40 Mg/0.4 Ml Syringe SUBCUT Not Given Q24H YORDY Vancomycin HCl 2,000 mg in 500 mls @ 250 mls/hr 01/01/24 23:10 01/02/24 00:07 Vancomycin/Ns IV 01/02/24 01:09 250 mls/hr ONCE ONE Administration Sodium Chloride 3 ml 01/02/24 00:00 01/02/24 00:12 0.9 % Sodium Chloride Flush 3 Ml Syringe IVFLUSH Not Given QSHIFT YORDY Discontinued Medications Generic Name Dose Route Start Last Admin Trade Name Freq PRN Reason Stop Dose Admin Piperacillin Sod/Tazobactam 50 mls @ 100 mls/hr 01/01/24 22:59 01/02/24 00:07 Sod 3.375 gm/ Sodium Chloride IV 01/01/24 23:28 Infused ONCE ONE Infusion Sodium Chloride 1,000 mls @ 999 mls/hr 01/01/24 23:44 01/02/24 00:10 Ns IV 01/02/24 00:44 999 mls/hr .Q1H1M ONE Administration Medical Decision Making Medical Decision Making [facility] Narrative: This is a 63-year-old male, with a past medical history of schizoaffective disorder, presenting to the emergency department with complaints of wound to right lower leg and syncope. On arrival, vital signs within normal limits. He is neurologically intact. He has a poor historian. Wound appears chronic, no warmth or surrounding erythema noted. Given syncopal episode, will obtain labs, EKG, CT head and neck. Given worsening appearance of wound, likely admit for IV abx. Differential Diagnosis Differential Diagnoses: The differential diagnosis associated with the presentation includes Cellulitis, wound dehiscence, chronic wound, electrolyte derangement, syncope, ACS Admission/Observation Consideration of admission/observation: Escalation of care including admission/observation considered Lab Data MDM Lab Attestation statement: I reviewed the patient's lab results. 01/01/24 19:46 01/01/24 19:46 Labs: Lab Results 01/01/24 Range/Units 19:46 WBC 8.9 (4.8-10.8) X10*3/uL RBC 4.45 L (4.60-5.80) X10*6/uL Hgb 13.3 L (14.0-18.0) g/dl Hct 38.4 L (42.0-52.0) % MCV 86.3 (80.0-98.0) fL MCH 29.9 (27.0-33.0) pg MCHC 34.6 (31.0-36.0) g/dl RDW 12.7 (11.0-16.0) % Plt Count 191 (160-400) X10*3/uL MPV 10.4 (9.4-12.4) fL Immature Gran % (Auto) 0.2 (0.0-0.4) % Neut % (Auto) 60.4 (45-73) % Lymph % (Auto) 31.0 (20-40) % Patrick % (Auto) 7.2 (2-11) % Eos % (Auto) 0.7 (0-4) % Baso % (Auto) 0.5 (0-2) % Lymph # (Auto) 2.8 (1.2-4.9) X10*3/uL Patrick # (Auto) 0.6 (0.1-1.2) X10*3/uL Eos # (Auto) 0.1 (0.0-0.4) X10*3/uL Baso # (Auto) 0.0 (0.0-0.2) X10*3/uL Abs Immat Gran (auto) 0.02 (0.00-0.03) X10*3/uL Absolute Neuts (auto) 5.4 (2.0-8.3) x10*3/uL Absolute Nucleated RBC 0.000 (0.0-0.012) X10*3/uL Nucleated RBC % (auto) 0.0 (0.0-0.2) /100WBC Sodium 138 (135-145) mmol/L Potassium 4.4 (3.3-5.1) mmol/L Chloride 106 (96-108) mmol/L Carbon Dioxide 22 (22-29) mmol/L Anion Gap 14 (12-20) BUN 18 H (9-16) mg/dL Creatinine 0.84 (0.5-1.4) mg/dL Estim Creat Clear Calc 104.6 Estimated GFR > 60 Random Glucose 109 (60-115) mg/dL Calcium 9.2 (8.4-10.2) mg/dL Magnesium 2.0 (1.6-2.6) mg/dL Total Bilirubin 0.2 (0.0-1.0) mg/dL Direct Bilirubin < 0.2 (0.0-0.5) mg/dL AST 22 (5-37) U/L ALT 15 (0-40) U/L Alkaline Phosphatase 93 (39-117) U/L Troponin I High Sens < 2.7 (<3.5-35.0) ng/L Total Protein 7.1 (6.5-8.0) g/dL Albumin 3.9 (3.5-5.0) g/dL Lipase 17 (8-78) U/L Ethyl Alcohol < 10 mg/dL Radiology Impression Discussion of test interpretation with radiology: I have reviewed the radiologist's reading. Radiologist Impression: EXAMINATION: CT HEAD WITHOUT CONTRAST CLINICAL INFORMATION: Syncope. COMPARISON: Head CT dated 10/07/2020. TECHNIQUE: Contiguous axial imaging was performed from the skullbase to vertex without intravenous administration of contrast. This CT examination was performed using dose optimization techniques as appropriate, variously including the following: *Automated exposure control *Adjustment of mA and/or kV according to patient size (this includes techniques or standardized protocols for targeted exams where dose is matched to indication/reason for exam; i.e. extremities or head) *Use of iterative reconstruction technique DLP: 738 mGy-cm. FINDINGS: There is no evidence of acute intracranial hemorrhage or territorial infarction. No abnormal mass effect or midline shift is seen. Caldera to white matter differentiation is well preserved. No extra-axial fluid collections are identified. The ventricles are normal in size. There is no abnormal attenuation within the brain parenchyma. The osseous structures and soft tissues are normal. The mastoid air cells are well aerated. Mild left maxillary sinus mucosal thickening noted. CT/CT head/brain wo IV con IMPRESSION: No acute intracranial pathology. Dictated By: JULITO PIERCE MD Critical Care Time Critical Care Time Critical Care Time: Yes Total Critical Care Time: 35 Attestation: I have personally provided critical care time exclusive of time spent on separately billable procedures. Time includes review of lab data, radiology results, discussion with consultants, and monitoring for potential decompensation. Intervention performed as documented. Discharge Plan Discharge Clinical Impression: Cellulitis Patient Disposition: Admitted As Inpatient
[2024-01-01 19:50] LABS: MANUAL DIFF FLAG NO
[2024-01-01 19:51] LABS: Basophils Percent Auto 0.5 % (0-2); Eosinophils Absolute Auto 0.1 X10*3/uL (0.0-0.4); Eosinophils Percent Auto 0.7 % (0-4); Hematocrit 38.4 % (42.0-52.0); Hemoglobin 13.3 g/dl (14.0-18.0); Imm Gran Abs Auto 0.02 X10*3/uL (0.00-0.03); Imm Gran Pct Auto 0.2 % (0.0-0.4); Lymphocytes Absolute Auto 2.8 X10*3/uL (1.2-4.9); Mean Corpuscular HGB Conc 34.6 g/dl (31.0-36.0); Mean Corpuscular Hemoglobin 29.9 pg (27.0-33.0); Mean Corpuscular Volume 86.3 fL (80.0-98.0); Mean Platelet Volume 10.4 fL (9.4-12.4); Monocytes Absolute Auto 0.6 X10*3/uL (0.1-1.2); Monocytes Percent Auto 7.2 % (2-11); Neutrophils Absolute Auto 5.4 x10*3/uL (2.0-8.3); Neutrophils Percent Auto 60.4 % (45-73); Platelet Count 191 X10*3/uL (160-400); Red Blood Count 4.45 X10*6/uL (4.60-5.80); Red Cell Distribution Width 12.7 % (11.0-16.0); White Blood Count 8.9 X10*3/uL (4.8-10.8)
[2024-01-01 20:18] LABS: Alanine Aminotransferase 15 U/L (0-40); Albumin Level 3.9 g/dL (3.5-5.0); Alkaline Phosphatase 93 U/L (39-117); Anion Gap 14 (12-20); Aspartate Amino Transferase 22 U/L (5-37); Bilirubin Direct < 0.2 mg/dL (0.0-0.5); Bilirubin Total 0.2 mg/dL (0.0-1.0); Blood Urea Nitrogen 18 mg/dL (9-16); Calcium 9.2 mg/dL (8.4-10.2); Carbon Dioxide 22 mmol/L (22-29); Chloride 106 mmol/L (96-108); Creatinine Clr Calc Pharmacy 104.6; Estimated Glomerular Filt Rate > 60; Ethanol < 10 mg/dL; Glucose Random 109 mg/dL (60-115); Lipase 17 U/L (8-78); Potassium 4.4 mmol/L (3.3-5.1); Sodium 138 mmol/L (135-145); Total Protein 7.1 g/dL (6.5-8.0)
[2024-01-01 20:22] LABS: Troponin-I High Sensitivity < 2.7 ng/L (<3.5-35.0)
--- NOTE | 2024-01-01 20:41 | PC.NURSE ---
jail number to call for report when going home- [phone]
[2024-01-01] MEDS: Piperacillin Sodium/Tazobactam 3.375 GM in 0.9 % Sodium Chloride 50 ML IV (23:27)
--- NOTE | 2024-01-01 23:28 | MHC.EDTECH ---
Both sets of blood culture drawn and sent to lab ,wound culture was collected and sent to lab ,vitals taken ,Patient belonging list done ,Patient refused to change into hospital attire until he been put in a room ,JAGDEEP Willams aware .
--- NOTE | 2024-01-01 23:44 | P.HPHOSP_ITS ---
History of Present Illness Date of Service: 01/01/24 Chief Complaint: Syncope This is a 63-year-old male with pertinent history of mood disorder who presents to the emergency department for evaluation after a syncopal episode. Patient is a poor historian and states that he passed out and fell. Does not remember what he was doing when he passed out. States he smoked pot earlier in the day and may have smoked a bit too much. Admits lightheadedness prior to passing out. No chest pain or palpitations. No rhythmic jerking movement of extremities or tongue bite. Patient also states that he has had a chronic right lower extremity wound which is red and painful. No drainage from the wound. Patient was recently admitted for right lower extremity cellulitis and discharged on p.o. antibiotics. Patient unsure if he took his p.o. antibiotics. No fever, chills, chest discomfort, palpitations, abdominal pain, changes in urinary or bowel habits. Review of Systems 2 Constitutional: Constitutional: Reports no additional constitutional complaints ENT: Reports dizziness Cardiovascular: Cardiovascular: Reports no additional cardiovascular complaints and Reports syncope Respiratory: Respiratory: Reports no additional respiratory complaints Gastrointestinal: Gastrointestinal: Reports no additional gastrointestinal complaints Genitourinary: Genitourinary: Reports no additional male genitourinary complaints Neurologic: Reports dizziness and Reports syncope [facility] Medical History Schizoaffective disorder Acute paranoia Bursitis Schizoaffective disorder Degenerative disc disease, cervical Family History Mother Diabetes Father Heart disease Surgical History Hx of colonoscopy H/O tooth extraction Social History Household Members: Other Household Members Other:: residential 5 Housing: Assisted Living Facility Housing Other:: skilled nursing Do you presently have visiting nurse or other home services: No Unable to assess alcohol history related to: Unknown Alcohol intake: never Comment: patient uses can to walk Patient Tobacco Use Status: Tobacco use Unknown Tobacco use type: Cigarette Cigarette Packs Per Day: 1 Cigarettes Per Day: 15 Years Smoked: 40 Second Hand Smoke Exposure: No Substance Use Type: Marijuana Advance Directives: Yes Advance Directives on File: Yes Advance Directives Date on File: 10/18/20 Nutrition Risks: No Nutritional Risk service: No Sexual orientation: Straight/Heterosexual Meds Allergies Allergy/AdvReac Type Severity Reaction Status Date / Time No Known Allergies Allergy Mild NA Verified 12/16/23 15:29 Active Medications: Current Medications Acetaminophen (Acetaminophen 325 Mg Tablet) 650 mg PO Q6H PRN PRN Reason: Pain, Mild (Pain Scale 1-3) Enoxaparin Sodium (Enoxaparin Sodium 40 Mg/0.4 Ml Syringe) 40 mg SUBCUT Q24H YORDY Vancomycin HCl (Vancomycin/Ns) 2,000 mg in 500 mls @ 250 mls/hr IV ONCE ONE Stop: 01/02/24 01:09 Melatonin (Melatonin 3 Mg Tablet) 6 mg PO BEDTIME PRN PRN Reason: Insomnia Ondansetron HCl (Ondansetron Hcl 4 Mg/2 Ml Vial) 4 mg IVPUSH Q8H PRN PRN Reason: Nausea and Vomiting Pharmacy Consult (Consult Rx Vancomycin Dosing) 1 each MISCELLANE DAILY PRN PRN Reason: Consult order Sodium Chloride (0.9 % Sodium Chloride Flush 3 Ml Syringe) 3 ml IVFLUSH QSHIFT [facility] Home Medications Medication Instructions Recorded Confirmed Last Taken Type olanzapine 10 mg tablet 10 mg PO DAILY 12/16/23 12/16/23 12/16/23 History Physical Exam 2 Vital Signs and Narrative: Vital Signs: Last Vital Signs Temp 98.1 F 01/01/24 23:23 Pulse 68 01/01/24 23:23 Resp 16 01/01/24 23:23 BP 122/64 01/01/24 23:23 Pulse Ox 97 01/01/24 23:23 O2 Del Method Room Air 01/01/24 23:23 BMI result Body Mass Index 25.7 Middle-aged male lying in bed in no distress Neck supple, no JVD Regular rate and rhythm, S1-S2 heard Regular breath sounds bilaterally, no wheezing or crackles appreciated Abdomen soft nontender, no guarding, no rigidity Patient is awake, alert and oriented to self, place, time and person ; no focal motor deficit Extremity: Right lower extremity wound as pictured below with surrounding erythema and warmth Psych: Normal mood Skin: Other: Results Labs 01/01/24 19:46 01/01/24 19:46 Labs: Laboratory Results - last 24 hr 01/01/24 19:46 MCV 86.3 MCH 29.9 MCHC 34.6 RDW 12.7 Plt Count 191 MPV 10.4 Immature Gran % (Auto) 0.2 Neut % (Auto) 60.4 Lymph % (Auto) 31.0 Letcher % (Auto) 7.2 Eos % (Auto) 0.7 Baso % (Auto) 0.5 Lymph # (Auto) 2.8 Letcher # (Auto) 0.6 Eos # (Auto) 0.1 Baso # (Auto) 0.0 Abs Immat Gran (auto) 0.02 Absolute Neuts (auto) 5.4 Absolute Nucleated RBC 0.000 Nucleated RBC % (auto) 0.0 Anion Gap 14 Estim Creat Clear Calc 104.6 Estimated GFR > 60 Random Glucose 109 Calcium 9.2 Magnesium 2.0 Total Bilirubin 0.2 Direct Bilirubin < 0.2 AST 22 ALT 15 Alkaline Phosphatase 93 Troponin I High Sens < 2.7 Total Protein 7.1 Albumin 3.9 Lipase 17 Ethyl Alcohol < 10 Imaging Radiologist's Impressions: Impressions Head CT 01/01/24 19:04 IMPRESSION: No acute intracranial pathology. Assessment and Plan (1) Syncope: Status: Acute (2) Cellulitis: Status: Acute Plan This is a 63-year-old male with pertinent history of mood disorder who presents to the emergency department for evaluation after a syncopal episode. #. Syncope, likely orthostatic: Will admit patient with cardiac monitoring. Resuscitated with IV crystalloids. Obtain orthostatic vital signs #. Right lower extremity cellulitis, recurrent in a patient with nonhealing wound: Questionable compliance of p.o. antibiotics. Initiating empiric IV antibiotics. Consulting Wound Care #. Mood disorder: Continue home mood stabilizers Med rec pending DVT prophylaxis: Lovenox Full code Admit as inpatient and will require two night minimum hospital stay for IV antibiotics (as above), which is not possible in a lesser acute setting. Quality Stroke Does the patient have a stroke diagnosis?: No VTE Prior VTE?: No VTE Risk Level:: Medical - moderate - high VTE Device Contraindication: Treatment Not Indicated VTE Drug Contraindication: N/A - Med Ordered
[2024-01-02] VITALS (11 sets, daily range): BP systolic 95–137; BP diastolic 49–77; PULSE 70–99; RESP 16–20; TEMP 36.1–37.2; O2SAT 95–99
[2024-01-02] MEDS: vancomycin/NS 2,000 MG/500 ML PLAST..BAG 250 MG IV (00:07)
[2024-01-02] MEDS: 0.9 % Sodium Chloride 1,000 ML 999 ML IV (00:10)
--- NOTE | 2024-01-02 01:11 | PC.NURSE ---
presents from [facility] with possible syncopal episode after smoking cannabis and R lower extremity wound . Will be admitted for cellulits of the R leg and given IV antibiotics. 20 R. AC. VITALS Q [address]- wnl PMH: schizophrenia, depression
[2024-01-02 05:29] LABS: MANUAL DIFF FLAG NO
[2024-01-02 05:31] LABS: Basophils Percent Auto 0.4 % (0-2); Eosinophils Absolute Auto 0.2 X10*3/uL (0.0-0.4); Eosinophils Percent Auto 1.8 % (0-4); Hematocrit 41.9 % (42.0-52.0); Hemoglobin 13.9 g/dl (14.0-18.0); Imm Gran Abs Auto 0.02 X10*3/uL (0.00-0.03); Imm Gran Pct Auto 0.2 % (0.0-0.4); Lymphocytes Absolute Auto 3.3 X10*3/uL (1.2-4.9); Lymphocytes Percent Auto 32.5 % (20-40); Mean Corpuscular HGB Conc 33.2 g/dl (31.0-36.0); Mean Corpuscular Hemoglobin 29.5 pg (27.0-33.0); Mean Platelet Volume 10.7 fL (9.4-12.4); Monocytes Absolute Auto 0.7 X10*3/uL (0.1-1.2); Monocytes Percent Auto 6.7 % (2-11); Neutrophils Absolute Auto 5.8 x10*3/uL (2.0-8.3); Neutrophils Percent Auto 58.4 % (45-73); Platelet Count 213 X10*3/uL (160-400); Red Blood Count 4.71 X10*6/uL (4.60-5.80)
[2024-01-02 05:46] LABS: Anion Gap 10 (12-20); Blood Urea Nitrogen 18 mg/dL (9-16); Carbon Dioxide 25 mmol/L (22-29); Chloride 108 mmol/L (96-108); Creatinine Clr Calc Pharmacy 99.8; Estimated Glomerular Filt Rate > 60; Glucose Random 105 mg/dL (60-115); Potassium 4.3 mmol/L (3.3-5.1); Sodium 139 mmol/L (135-145)
--- NOTE | 2024-01-02 06:40 | PC.NURSE ---
Prudence (Correction RN) [phone]
[2024-01-02] MEDS: 0.9 % Sodium Chloride Flush 3 ML SYRINGE IVFLUSH ×3 (08:47→22:11)
--- NOTE | 2024-01-02 08:48 | PHA.PROG ---
Admission Date/Time: January 01, 2024 23:41 Indication: skin Weight in k.718 kg Adjusted body weight in K.718 Serum Creatinine - Last 168 Hours 01/01/24 01/02/24 19:46 05:14 Creatinine 0.84 0.88 Estimated CrCl and GFR - Last 168 Hours 01/01/24 01/02/24 19:46 05:14 Estim Creat Clear Calc 104.6 99.8 Estimated GFR > 60 > 60 Vancomycin Loading Dose: 2,000mg Current Vancomycin Dosing Regimen: 1,250mg Q12H Vancomycin Monitoring using AUC goal of 400 - 600 range with trough as surrogate marker: 588 Date and Time for next Vancomycin Level to be drawn: 01/03 21:00 Pharmacist Comments on Vancomycin Plan: Vancomycin dosing will take advantage of [employer] as a clinical decision support tool that uses Bayesian modeling to calculate individual patient's pharmacokinetic parameters and forecast the patient's drug concentration time course with the target goal AUC 24 range of 400 - 600 mg/L/hr.
--- NOTE | 2024-01-02 08:59 | PC.NURSE ---
Updated Heather from [facility] on status
--- NOTE | 2024-01-02 09:19 | MHC.CM.PN ---
Patient is documented to be a poor Historian and to show s/s of forgetfulness; CM spoke with Sister/HCP/Thalia @ [phone] address for Thalia is [address] [place] [address] in [place] [address]) and addressed IMM with her (original will be mailed certified letter to Thalia and a copy has been placed on the chart). Patient lives in a [facility] called [facility] in [place] (# [phone]) and returning there is the dc goal. CM has initiated and will follow for dc planning. Patient's [facility] CM is Damian Orellana @ [phone] and the On-Call # is [phone]. PCP is Dr. Israel Ayoub.
--- NOTE | 2024-01-02 09:59 | PHA.MEDREC ---
Pharmacy Consult ? Medication Reconciliation Pharmacy has completed the medication reconciliation. Spoke to Prudence (nurse at [facility] [phone]) and confirmed medication list.
--- NOTE | 2024-01-02 11:10 | P.PNIM_ITS ---
Subjective Subjective Date of Service: 01/02/24 Interval History: seen and examined this morning follow up for syncope and right leg wound vague historian, says he passed out due to smoking marijuana denies dizziness, sob, chest pain at this time Review of Systems Review of Systems: Yes all other systems are reviewed and are negative Constitutional Constitutional: Denies chills and Denies fever(s) Cardiovascular Cardiovascular: Denies chest pain, Denies palpitations and Denies dyspnea Respiratory Respiratory: Denies cough and Denies dyspnea Gastrointestinal Gastrointestinal: Denies abdominal pain, Denies nausea and Denies vomiting Endocrine Endocrine: Denies palpitations Physical Exam 2 Vital Signs: Vital Signs: Last Vital Signs Temp 96.9 F 01/02/24 09:32 Pulse 89 01/02/24 09:32 Resp 18 01/02/24 09:32 BP 96/56 L 01/02/24 09:32 Pulse Ox 99 01/02/24 09:32 O2 Del Method Room Air 01/02/24 09:32 BMI result Body Mass Index 25.7 Const: General: cooperative, comfortable, no acute distress, alert and awake Nutritional Appearance: average body habitus Orientation/consciousness: p atient oriented x3 Resp: Effort & Inspection: normal respiratory effort, able to speak in complete sentences, no respiratory distress and no use of accessory muscles Cardio: Rate: regular rate GI: Inspection: No distended Palpation (GI): Soft to palpation and nontender Skin: Other: Neuro: General: patient oriented x3 Objective Data Active Medications Acetaminophen (Acetaminophen 325 Mg Tablet) 650 mg PO Q6H PRN PRN Reason: Pain, Mild (Pain Scale 1-3) Enoxaparin Sodium (Enoxaparin Sodium 40 Mg/0.4 Ml Syringe) 40 mg SUBCUT Q24H [facility] Last Admin: 01/02/24 00:09 Dose: Not Given Documented By: VELMA Non-Admin Reason: Patient Refused Vancomycin HCl 1,250 mg/ (Sodium Chloride) 250 mls @ 166.667 mls/hr IV Q12H [facility] Melatonin (Melatonin 3 Mg Tablet) 6 mg PO BEDTIME PRN PRN Reason: Insomnia Ondansetron HCl (Ondansetron Hcl 4 Mg/2 Ml Vial) 4 mg IVPUSH Q8H PRN PRN Reason: Nausea and Vomiting Pharmacy Consult (Consult Rx Vancomycin Dosing) 1 each MISCELLANE DAILY PRN PRN Reason: Consult order Sodium Chloride (0.9 % Sodium Chloride Flush 3 Ml Syringe) 3 ml IVFLUSH QSHIFT [facility] Last Admin: 01/02/24 08:47 Dose: 3 ml Documented By: STELLA Labs 01/02/24 05:14 01/02/24 05:14 Labs: Laboratory Results - last 24 hr 01/01/24 01/02/24 19:46 05:14 MCV 86.3 89.0 MCH 29.9 29.5 MCHC 34.6 33.2 RDW 12.7 13.0 Plt Count 191 213 MPV 10.4 10.7 Immature Gran % (Auto) 0.2 0.2 Neut % (Auto) 60.4 58.4 Lymph % (Auto) 31.0 32.5 Carlton % (Auto) 7.2 6.7 Eos % (Auto) 0.7 1.8 Baso % (Auto) 0.5 0.4 Lymph # (Auto) 2.8 3.3 Carlton # (Auto) 0.6 0.7 Eos # (Auto) 0.1 0.2 Baso # (Auto) 0.0 0.0 Abs Immat Gran (auto) 0.02 0.02 Absolute Neuts (auto) 5.4 5.8 Absolute Nucleated RBC 0.000 0.000 Nucleated RBC % (auto) 0.0 0.0 Anion Gap 14 10 L Estim Creat Clear Calc 104.6 99.8 Estimated GFR > 60 > 60 Random Glucose 109 105 Calcium 9.2 9.0 Magnesium 2.0 Total Bilirubin 0.2 Direct Bilirubin < 0.2 AST 22 ALT 15 Alkaline Phosphatase 93 Troponin I High Sens < 2.7 Total Protein 7.1 Albumin 3.9 Lipase 17 Ethyl Alcohol < 10 Microbiology Microbiology Results: Microbiology 01/01/24 23:13 Gram Stain - Final Leg Right Assessment and Plan (1) Syncope: Status: Acute (2) Cellulitis: Status: Acute Plan This is a 63-year-old male with pertinent history of mood disorder who presents to the emergency department for evaluation after a syncopal episode. Syncope possibly in the setting of marijuana use vs orthostatic close cardiac monitoring check orthostatic vital signs Right lower extremity cellulitis, recurrent in a patient with nonhealing wound: no sepsis Questionable compliance of p.o. antibiotics, started on IV vanco wound care consult pending surgical consult pending blood cultures pending Schizoaffective disorder bipolar type Continue home meds DVT prophylaxis: Lovenox Full code Admit as inpatient and will require two night minimum hospital stay for IV antibiotics (as above), which is not possible in a lesser acute setting. Quality Stroke Does the patient have a stroke diagnosis?: No VTE Prior VTE?: No VTE Risk Level:: Medical - moderate - high VTE Device Contraindication: Treatment Not Indicated VTE Drug Contraindication: N/A - Med Ordered
[2024-01-02] MEDS: vancomycin HCL 1,250 MG in 0.9 % Sodium Chloride 250 ML 166.67 MG IV ×2 (12:43→22:03)
[2024-01-02] MEDS: Benztropine Mesylate 1 MG TABLET PO ×2 (13:10→21:54)
[2024-01-02 14:11] LABS: Amphetamine Screen Urine Not Detected (Not Detect); Barbiturates, Urine Not Detected (Not Detect); Benzodiazepines Screen Urine Not Detected (Not Detect); Cannabinoid Screen Urine POSITIVE (Not Detect); Cocaine Screen Urine Not Detected (Not Detect); Fentanyl, urine Not Detected (Not Detect); Opiate Screen Urine Not Detected (Not Detect); Phencyclidine Screen Urine Not Detected (Not Detect)
--- NOTE | 2024-01-02 14:53 | P.CONGS_ITS ---
History of Present Illness Consult details Consult date: 01/02/24 Reason for consult: wound care Narrative: 63-year-old male with pertinent history of mood disorder who presented to the emergency department for evaluation after a syncopal episode thought secondary to marijuana use or orthostasis. He was admitted to the hospitalist for further workup. He was recently admitted to [facility] for right lower leg cellulitis. Apparently at that time, he had a small lesion of unclear etiology on the medial calf and woke up one day with redness and pain. He was treated with IV antibiotics and discharged on a course of PO antibiotics. He is unsure if he subsequently took his antibiotics. He has been started on IV vanco for further treatment of the right led cellulitis and leg wound. Review of Systems 2 Constitutional: Constitutional: Denies chills and Denies fever(s) ENT: Denies dizziness Cardiovascular: Cardiovascular: Denies chest pain and Denies dyspnea Respiratory: Respiratory: Denies cough and Denies dyspnea Integumentary/Breasts: Skin/Breast: Denies rash Neurologic: Denies dizziness PMFSH Past Medical History Medical History Schizoaffective disorder Acute paranoia Bursitis Schizoaffective disorder Degenerative disc disease, cervical Family History Family History Mother Diabetes Father Heart disease Surgical History Surgical History Hx of colonoscopy H/O tooth extraction Social History Social History Household Members: Other Household Members Other:: long term 5 Housing: Assisted Living Facility Housing Other:: snf Do you presently have visiting nurse or other home services: No Unable to assess alcohol history related to: Unknown Alcohol intake: never Comment: patient uses can to walk Patient Tobacco Use Status: Tobacco use Unknown Tobacco use type: Cigarette Cigarette Packs Per Day: 1 Cigarettes Per Day: 15 Years Smoked: 40 Second Hand Smoke Exposure: No Substance Use Type: Marijuana Advance Directives Date on File: 10/18/20 service: No Sexual orientation: Straight/Heterosexual Meds Allergies Allergy/AdvReac Type Severity Reaction Status Date / Time No Known Allergies Allergy Mild NA Verified 01/29/24 15:29 Active Medications: Current Medications Acetaminophen (Acetaminophen 325 Mg Tablet) 650 mg PO Q6H PRN PRN Reason: Pain, Mild (Pain Scale 1-3) Benztropine Mesylate (Benztropine Mesylate 1 Mg Tablet) 1 mg PO BID [facility] Last Admin: 01/02/24 13:10 Dose: 1 mg Enoxaparin Sodium (Enoxaparin Sodium 40 Mg/0.4 Ml Syringe) 40 mg SUBCUT Q24H [facility] Last Admin: 01/02/24 00:09 Dose: Not Given Folic Acid (Folic Acid 1 Mg Tablet) 1 mg PO DAILY [facility] Gabapentin (Gabapentin 300 Mg Capsule) 300 mg PO TID [facility] Hydroxyzine HCl (Hydroxyzine Hcl 50 Mg Tablet) 50 mg PO TID [facility] Vancomycin HCl 1,250 mg/ (Sodium Chloride) 250 mls @ 166.667 mls/hr IV Q12H [facility] Last Admin: 01/02/24 12:43 Dose: 166.67 mls/hr Melatonin (Melatonin 3 Mg Tablet) 6 mg PO BEDTIME PRN PRN Reason: Insomnia Multivitamins/Vitamin C (Multivitamin Tablet) 1 tab PO DAILY [facility] Olanzapine (Olanzapine 10 Mg Tablet) 10 mg PO BEDTIME [facility] Pharmacy Consult (Consult Rx Vancomycin Dosing) 1 each MISCELLANE DAILY PRN PRN Reason: Consult order Sodium Chloride (0.9 % Sodium Chloride Flush 3 Ml Syringe) 3 ml IVFLUSH QSHIFT [facility] Last Admin: 01/02/24 08:47 Dose: 3 ml Vitamin D (Cholecalciferol (Vitamin D3) 25 Mcg Tablet) 25 mcg PO DAILY [facility] Home Medications Medication Instructions Recorded Confirmed Last Taken Type olanzapine 10 mg tablet 10 mg PO BEDTIME 12/16/23 01/02/24 12/31/23 History Physical Exam 2 Vital Signs: Vital Signs: Last Vital Signs Temp 98.9 F 01/02/24 11:53 Pulse 80 01/02/24 11:53 Resp 18 01/02/24 11:53 BP 100/49 L 01/02/24 11:56 Pulse Ox 99 01/02/24 11:53 O2 Del Method Room Air 01/02/24 11:53 BMI result Body Mass Index 25.7 Const: General: comfortable, no acute distress and alert O rientation/consciousness: patient oriented x3 Resp: Effort & Inspection: normal respiratory effort Cardio: Rate: regular rate Skin: General skin exam: no rashes or lesions noted Neuro: General: patient oriented x3 and moves all extremities Extrem: Other: right anteromedial calf with 13 x 6cm wound with thick eschar, smaller 2 x 1 cm wound more proximally clean appearing; mild surrounding erythema and edema Results Labs 01/02/24 05:14 01/02/24 05:14 Labs: Abnormal lab results 01/01/24 01/02/24 01/02/24 Range/Units 19:46 05:14 13:25 RBC 4.45 L (4.60-5.80) X10*6/uL Hgb 13.3 L 13.9 L (14.0-18.0) g/dl Hct 38.4 L 41.9 L (42.0-52.0) % Anion Gap 10 L (12-20) BUN 18 H 18 H (9-16) mg/dL U Marijuana (THC) Screen POSITIVE H (Not Detect) Short CBC 01/01/24 01/02/24 Range/Units 19:46 05:14 WBC 8.9 10.0 (4.8-10.8) X10*3/uL Hgb 13.3 L 13.9 L (14.0-18.0) g/dl Hct 38.4 L 41.9 L (42.0-52.0) % Plt Count 191 213 (160-400) X10*3/uL BMP 01/01/24 01/02/24 19:46 05:14 Sodium 138 139 Potassium 4.4 4.3 Chloride 106 108 Carbon Dioxide 22 25 BUN 18 H 18 H Creatinine 0.84 0.88 Calcium 9.2 9.0 Liver Function 01/01/24 Range/Units 19:46 Total Bilirubin 0.2 (0.0-1.0) mg/dL Direct Bilirubin < 0.2 (0.0-0.5) mg/dL AST 22 (5-37) U/L ALT 15 (0-40) U/L Alkaline Phosphatase 93 (39-117) U/L Albumin 3.9 (3.5-5.0) g/dL All other labs normal. Assessment and Plan (1) Cellulitis: Status: Acute Plan 63 year old male admitted following a syncopal episode with right lower leg cellulitis and wound with thick superficial eschar. Sharp excisional debridement of the eschar was performed at bedside with scissors. The underlying tissue was clean appearing. The patient tolerated this well. Wet to dry dressing was placed followed by fluffs, abd dressing and kerlix wrap. Can continue dressing changes daily. Procedures Date of Service Date of Service: 01/02/24
[2024-01-02] MEDS: Gabapentin 300 MG CAPSULE PO ×2 (15:48→21:54)
[2024-01-02] MEDS: hydrOXYzine HCL 50 MG TABLET PO ×2 (15:49→21:54)
[2024-01-02] MEDS: Lactated Ringers 1,000 ML 100 ML IVCONT (17:39)
[2024-01-02] MEDS: OLANZapine 10 MG TABLET PO (21:54)
[2024-01-02] MEDS: Acetaminophen 325 MG TABLET 650 MG PO (21:55)
[2024-01-03 03:30] VITALS: BP 124/58; PULSE 67; RESP 16; TEMP 36.7; O2SAT 97
[2024-01-03] MEDS: Lactated Ringers 1,000 ML 100 ML IVCONT (05:17)
[2024-01-03 06:16] LABS: Creatinine Clr Calc Pharmacy 114.1; Estimated Glomerular Filt Rate > 60
[2024-01-03 07:15] VITALS: BP 135/63; PULSE 87; RESP 20; TEMP 36.1; O2SAT 97
[2024-01-03 09:44] VITALS: BP 124/64; PULSE 93
[2024-01-03 09:45] VITALS: BP 121/83; BP 124/74; PULSE 84; PULSE 96
[2024-01-03] MEDS: Cholecalciferol (Vitamin D3) 25 MCG TABLET PO (10:52)
[2024-01-03] MEDS: Gabapentin 300 MG CAPSULE PO ×2 (10:52→16:09)
[2024-01-03] MEDS: Benztropine Mesylate 1 MG TABLET PO (10:52)
[2024-01-03] MEDS: hydrOXYzine HCL 50 MG TABLET PO ×2 (10:52→16:09)
[2024-01-03] MEDS: Folic Acid 1 MG TABLET PO (10:52)
[2024-01-03] MEDS: Multivitamin TABLET 1 TAB PO (10:52)
[2024-01-03] MEDS: vancomycin HCL 1,250 MG in 0.9 % Sodium Chloride 250 ML 166.67 MG IV (10:52)
[2024-01-03] MEDS: 0.9 % Sodium Chloride Flush 3 ML SYRINGE IVFLUSH ×2 (10:53→16:10)
[2024-01-03 12:00] VITALS: BP 143/65; PULSE 78; RESP 20; TEMP 36.9; O2SAT 98
--- NOTE | 2024-01-03 12:30 | HO.PM.IMPN ---
Subjective Subjective Date of Service: 01/03/24 Interval History: seen and examined this morning follow up for syncope, leg wound no overnight events feeling well this am, no dizziness Review of Systems Review of Systems: Yes all other systems are reviewed and are negative Constitutional Constitutional: Denies chills and Denies fever(s) Cardiovascular Cardiovascular: Denies chest pain, Denies palpitations and Denies dyspnea Respiratory Respiratory: Denies cough and Denies dyspnea Endocrine Endocrine: Denies palpitations Physical Exam Vital Signs: Vital Signs: Last Vital Signs Temp 98.4 F 01/03/24 12:00 Pulse 78 01/03/24 12:00 Resp 20 01/03/24 12:00 BP 143/65 H 01/03/24 12:00 Pulse Ox 98 01/03/24 12:00 O2 Del Method Room Air 01/03/24 12:00 BMI result Body Mass Index 25.7 Const: General: cooperative, comfortable, no acute distress, alert and awake Nutritional Appearance: average body habitus Orientation/consciousness: patient oriented x3 Resp: Effort & Inspection: normal respiratory effort, able to speak in complete sentences, no respiratory distress and no use of accessory muscles Cardio: Rate: regular rate GI: Inspection: No distended Palpation (GI): Soft to palpation and nontender Skin: Other: right lower leg wound s/p debridement at bedside with removal of overlying eschar, underlying skin pink, clean, minimal surrounding erythema Neuro: General: patient oriented x3 Objective Data Active Medications Acetaminophen (Acetaminophen 325 Mg Tablet) 650 mg PO Q6H PRN PRN Reason: Pain, Mild (Pain Scale 1-3) Last Admin: 01/02/24 21:55 Dose: 650 mg Documented By: GUY Benztropine Mesylate (Benztropine Mesylate 1 Mg Tablet) 1 mg PO BID [facility] Last Admin: 01/03/24 10:52 Dose: 1 mg Documented By: JERSON Enoxaparin Sodium (Enoxaparin Sodium 40 Mg/0.4 Ml Syringe) 40 mg SUBCUT Q24H [facility] Last Admin: 01/03/24 00:19 Dose: Not Given Documented By: JOYCE Non-Admin Reason: Patient Refused Folic Acid (Folic Acid 1 Mg Tablet) 1 mg PO DAILY [facility] Last Admin: 01/03/24 10:52 Dose: 1 mg Documented By: JERSON Gabapentin (Gabapentin 300 Mg Capsule) 300 mg PO TID [facility] Last Admin: 01/03/24 10:52 Dose: 300 mg Documented By: JERSON Hydroxyzine HCl (Hydroxyzine Hcl 50 Mg Tablet) 50 mg PO TID [facility] Last Admin: 01/03/24 10:52 Dose: 50 mg Documented By: JERSON Vancomycin HCl 1,250 mg/ (Sodium Chloride) 250 mls @ 166.667 mls/hr IV Q12H [facility] Last Admin: 01/03/24 10:52 Dose: 166.67 mls/hr Documented By: JERSON Lactated Ringer's (Lr) 1,000 mls @ 100 mls/hr IVCONT .Q10H [facility] Last Admin: 01/03/24 05:17 Dose: 100 mls/hr Documented By: JOYCE Melatonin (Melatonin 3 Mg Tablet) 6 mg PO BEDTIME PRN PRN Reason: Insomnia Multivitamins/Vitamin C (Multivitamin Tablet) 1 tab PO DAILY [facility] Last Admin: 01/03/24 10:52 Dose: 1 tab Documented By: JERSON Olanzapine (Olanzapine 10 Mg Tablet) 10 mg PO BEDTIME [facility] Last Admin: 01/02/24 21:54 Dose: 10 mg Documented By: GUY Pharmacy Consult (Consult Rx Vancomycin Dosing) 1 each MISCELLANE DAILY PRN PRN Reason: Consult order Sodium Chloride (0.9 % Sodium Chloride Flush 3 Ml Syringe) 3 ml IVFLUSH QSHIFT [facility] Last Admin: 01/03/24 10:53 Dose: 3 ml Documented By: JERSON Vitamin D (Cholecalciferol (Vitamin D3) 25 Mcg Tablet) 25 mcg PO DAILY [facility] Last Admin: 01/03/24 10:52 Dose: 25 mcg Documented By: JERSON Labs 01/02/24 05:14 01/03/24 05:48 Labs: Laboratory Results - last 24 hr 01/02/24 01/03/24 13:25 05:48 Hold Purple Top SEE NOTE Estim Creat Clear Calc 114.1 Estimated GFR > 60 Urine Opiates Screen Not Detected Urine Fentanyl Screen Not Detected Ur Barbiturates Screen Not Detected Ur Phencyclidine Scrn Not Detected Ur Amphetamines Screen Not Detected U Benzodiazepines Scrn Not Detected Urine Cocaine Screen Not Detected U Marijuana (THC) Screen POSITIVE H Microbiology Microbiology Results: Microbiology 01/01/24 23:13 Gram Stain - Final Leg Right Routine Culture - Preliminary Pseudomonas species 01/01/24 23:22 Blood Culture - Preliminary Blood - Venous No growth after 24 hours. 01/01/24 23:13 Blood Culture - Preliminary Blood - Venous No growth after 24 hours. Assessment and Plan Plan This is a 63-year-old male with pertinent history of mood disorder who presents to the emergency department for evaluation after a syncopal episode. Syncope likely multifactorial, orthostatic blood pressures positive also in the setting of marijuana use treated with IVF, orthostatics Right lower extremity cellulitis, recurrent in a patient with nonhealing wound: no sepsis Questionable compliance of p.o. antibiotics, started on IV vanco wound care consult pending surgical consult pending blood cultures pending Schizoaffective disorder bipolar type Continue home meds DVT prophylaxis: Lovenox Full code Admit as inpatient and will require two night minimum hospital stay for IV antibiotics (as above), which is not possible in a lesser acute setting. Quality Stroke Does the patient have a stroke diagnosis?: No VTE Prior VTE?: No VTE Risk Level:: Medical - moderate - high VTE Device Contraindication: Treatment Not Indicated VTE Drug Contraindication: N/A - Med Ordered
--- NOTE | 2024-01-03 12:43 | MHC.CM.PN ---
EMR REVIEWED AND PER MD ROUNDS, PT WILL NEED TO SEE ID BEFORE DC DUE TO CULTURES. USP NURSE NAWAF UPDATED. ON DC SHE IS REQUESTING DC SUMMARY TO BE FAXED TO [phone] ATT: [facility]. [facility] UPDATED. SISTER BIBI UPDATED. CM WILL CONTINUE TO FOLLOW FOR ANY CHANGE IN DC NEEDS/PLAN.
[2024-01-03 15:29] VITALS: BP 129/68; PULSE 86; RESP 18; TEMP 36.3; O2SAT 97
--- NOTE | 2024-01-03 15:49 | P.DS_ITS ---
DS: Providers Provider Date of Service: 01/03/24 Date of admission: 01/01/24 23:41 Date of discharge: 01/03/24 Primary care physician: Israel Ayoub III, MD Consults: 01/02/24 10:45 Consult to General Surgery Routine Consulting Provider: [facility] [place] [facility] Sur[facility] Reason for consultation: right leg wound ?debridement Has provider been notified: No 01/03/24 10:37 Consult to Infectious Diseases Routine Consulting Provider: [facility] [place] Infectious Disease Reason for consultation: RLE wound,recurrent cellulitis,multiple po abx outpt Has provider been notified: No 01/03/24 12:21 Consult to Wound Care Routine Reason for consultation: Lower extremity open wound Attending physician on discharge: Mahin Montero Discharging clinician: Angela Sears DS: Diagnosis Discharge Diagnosis (1) Cellulitis: Status: Acute (2) Syncope: Status: Acute DS: Summary Hospital Course Hospital Course: From H&P on the day of admission This is a 63-year-old male with pertinent history of mood disorder who presents to the emergency department for evaluation after a syncopal episode. Patient is a poor historian and states that he passed out and fell. Does not remember what he was doing when he passed out. States he smoked pot earlier in the day and may have smoked a bit too much. Admits lightheadedness prior to passing out. No chest pain or palpitations. No rhythmic jerking movement of extremities or tongue bite. Patient also states that he has had a chronic right lower extremity wound which is red and painful. No drainage from the wound. Patient was recently admitted for right lower extremity cellulitis and discharged on p.o. antibiotics. Patient unsure if he took his p.o. antibiotics. No fever, chills, chest discomfort, palpitations, abdominal pain, changes in urinary or bowel habits. Syncope multifactorial related to marijuana and orthostatic hypotension orthostatic were positive, he was treated with IVF and repeat orthostatic blood pressures this morning have improved. he has no dizziness. Right lower extremity cellulitis, recurrent in a patient with nonhealing wound: no sepsis. Questionable compliance of p.o. antibiotics, started on IV vanco during admission. seen by general surgery and had bedside debridement of eschar. will need outpatient follow up with surgery or wound care clinic. wound culture growing pseudomonas, seen by ID, since superficial culture not clinically significant, don't need pseduomonal coverage. recommend discharge with 14 days of doxycycline. will be discharged home with VNA for assistance with dressing changes/wound care. blood cultures negative to date Time Attestation Total time managing care of this patient today: 32 mintues. Discharge coordination time: Greater than 30 minutes Quality: Safe Use of Opioids Does Pt have an Active Cancer Diagnosis on the Problem List?: No Quality: Stroke Does the patient have a stroke diagnosis?: No Physical Exam Vital Signs: Vital Signs: Last Vital Signs Temp 97.4 F 01/03/24 15:29 Pulse 86 01/03/24 15:29 Resp 18 01/03/24 15:29 BP 129/68 01/03/24 15:29 Pulse Ox 97 01/03/24 15:29 O2 Del Method Room Air 01/03/24 15:29 BMI result Body Mass Index 25.7 Const: General: cooperative, comfortable, no acute distress, alert and awake Nutritional Appearance: average body habitus Orientation/consciousness: patient oriented x3 Resp: Effort & Inspection: normal respiratory effort, able to speak in complete sentences, no respiratory distress and no use of accessory muscles GI: Inspection: No distended Palpation (GI): Soft to palpation Skin: Other: right leg wound eschar removed, clean wound bed, some serous drainage, no significant surrounding erythema Neuro: General: patient oriented x3 and moves all extremities DS: Data Data Completed and Pending Labs on day of discharge: Laboratory Results - last 24 hr 01/03/24 05:48 Hold Purple Top SEE NOTE Creatinine 0.77 Estim Creat Clear Calc 114.1 Estimated GFR > 60 Preliminary micro results at discharge 01/01/24 23:13 Routine Culture - Preliminary Leg Right Pseudomonas species 01/01/24 23:22 Blood Culture - Preliminary Blood - Venous No growth after 24 hours. 01/01/24 23:13 Blood Culture - Preliminary Blood - Venous No growth after 24 hours. Discharge Plan Discharge Anticipated Discharge Date/Time: 01/03/24 15:46 Patient Disposition: Home Health Service Discharge Diagnosis: syncope due to orthostatic hypotension Referrals: [facility] [Outside] - 3-5 Days ([facility]) Israel Ayoub III, MD [Primary Care Provider] - 1 Week Talisha Sr MD [Physician] - 1 Week Discharge Medications: New doxycycline monohydrate 100 mg tablet 100 mg PO BID 14 Days Qty: 28 0RF Continued hydroxyzine pamoate 50 mg capsule 50 mg PO TID 30 Days Qty: 90 0RF benztropine 1 mg tablet 1 mg PO BID 30 Days Qty: 60 0RF gabapentin 300 mg capsule 300 mg PO TID 30 Days Qty: 90 0RF folic acid 1 mg Tablet 1 mg PO DAILY 30 Days Qty: 30 0RF cholecalciferol (vitamin D3) [Vitamin D3] 25 mcg (1,000 unit) tablet 25 mcg PO DAILY 30 Days Qty: 30 0RF multivitamin with folic acid [Tab-A-Max] 400 mcg Tablet 1 tab PO DAILY 30 Days Qty: 30 0RF olanzapine 10 mg tablet 10 mg PO BEDTIME Held naproxen 500 mg tablet 500 mg PO BID 30 Days Qty: 60 0RF Hold Instructions: take as needed Discharge Orders: Discharge Order (Routine); Ordered 01/03/24 Ordered By: Angela Sears Activity on Discharge: As tolerated Stand Alone Forms: Patient Portal Discharge page Care Plan Goals: see below Health Concerns: syncope due to orthostatic hypotension - resolved right lower extremity wound Plan of Treatment: take antibiotics as prescribed until gone do not use drugs or alcohol stay hydrated call to schedule a follow up appointment in the wound care clinic wound care:Recommend wet to dry dressings followed by fluffs, abd dressing and kerlix wrap Assessment: see discharge summary
[2024-01-03] MEDS: Doxycycline Monohydrate 100 MG CAPSULE PO (16:09)
--- NOTE | 2024-01-03 16:12 | MHC.CM.PN ---
PT MEDICALLY CLEARED FOR DC BACK TO ON ORAL DOXYCYCLINE X14 DAYS AND RESUMPTION OF [facility] FOR WOUND CARE, PT WILL RECEIVE DOSE OF DOXYCYCLINE PRIOR TO DC STAFF WILL NOT BE ABLE TO STAFFING ACCOUNT MANAGER MEDS FROM PHARMACY UNTIL TOMORROW AM, CM CONTACTED PT'S SISTER/HCP BIBI WHO IS AGREEABLE TO PLAN, NURSE NAWAF CONTACTED AND CM TO FAX DC SUMMARY PT [phone] AND [facility] CONTACTED AND CM SPOKE W/[employer] SERVICE TECHNICIAN JD WHO IS ALSO AGREEABLE TO PLAN AND AWARE OF TIME PT WILL BE TRANSPORTED VIA LYFT AND PT'S NURSE AWARE WHOEVER BRINGS PT DOWN WILL NEED TO STAY W/PT UNTIL HE GETS INTO LYFT.
== END 2024-01-03 18:04 | disposition home health service (06) | DRG 603 ==
LOC: HO.ED 23:08 → HO.EDOVER 23:45 → HO.IMC 01-02 07:42
PROVIDERS: Physician Assistant Medical; Admitting Provider Student in an Organized Health Care Education/Training Program; Emergency Provider Emergency Medicine; PCP Internal Medicine; Visit Provider Physician Assistant Medical
DX: L03.115 Cellulitis of right lower limb (principal); L97.219 Non-pressure chronic ulcer of right calf with unspecified severity; F25.0 Schizoaffective disorder, bipolar type; I95.1 Orthostatic hypotension; F12.90 Cannabis use, unspecified, uncomplicated; D64.9 Anemia, unspecified; Z91.148 Patient's other noncompliance with medication regimen for other reason; Z79.899 Other long term (current) drug therapy
CPT/HCPCS: 36415; 70450; 80048; 80076; 80307; 82565; 83690; 83735; 84484; 85025; 87040; 87070; 87077; 87186; 87205; 93005; 99222; 99285; J2543; J3370; J3371; J7120

== ENCOUNTER → 2024-01-01 18:38 | Outpatient (BNV) | payer MEDICARE, SELFPAY | PROVIDERS: Admitting Provider Student in an Organized Health Care Education/Training Program; Emergency Provider Emergency Medicine; PCP Internal Medicine; Visit Provider Internal Medicine Cardiovascular Disease | DX: R55 Syncope and collapse (principal); I44.4 Left anterior fascicular block | CPT/HCPCS: 93010 ==

== ENCOUNTER → 2024-01-01 23:41 | Outpatient (BNV) | payer MEDICARE, SELFPAY | PROVIDERS: Admitting Provider Student in an Organized Health Care Education/Training Program; Emergency Provider Emergency Medicine; PCP Internal Medicine; Visit Provider Student in an Organized Health Care Education/Training Program | DX: L03.115 Cellulitis of right lower limb (principal); R55 Syncope and collapse | CPT/HCPCS: 99223; 99233; 99239 ==

== ENCOUNTER → 2024-01-01 23:41 | Outpatient (BNV) | payer MEDICARE, SELFPAY | PROVIDERS: Admitting Provider Student in an Organized Health Care Education/Training Program; Emergency Provider Emergency Medicine; PCP Internal Medicine; Visit Provider Physician Assistant Surgical | DX: L03.90 Cellulitis, unspecified (principal) | CPT/HCPCS: 97597; 99222 ==

== ENCOUNTER 2024-09-14 12:46 | Emergency (ER) | payer MEDICARE, SELFPAY ==
--- NOTE | ~2024-09-14 | CT_ITS ---
EXAMINATION: CT HEAD WITHOUT CONTRAST CT CERVICAL SPINE WITHOUT CONTRAST CLINICAL INFORMATION: Trauma. COMPARISON: CT head from 01/01/2024. Cervical spine MRI from 10/07/2020. TECHNIQUE: Contiguous axial imaging was performed from the skull base to vertex without intravenous administration of contrast. Contiguous axial imaging was performed from the upper chest through the skull base without intravenous administration of contrast. Coronal and sagittal reformats were obtained at the acquisition workstation. This CT examination was performed using dose optimization techniques as appropriate, variously including the following: *Automated exposure control. *Adjustment of mA and/or kV according to patient size (this includes techniques or standardized protocols for targeted exams where dose is matched to indication/reason for exam; i.e. extremities or head). *Use of iterative reconstruction technique. DLP: 1011 mGy-cm FINDINGS: Head: There is no evidence of acute intracranial hemorrhage or edematous territorial infarction. Caldera-white matter differentiation is preserved. A few foci of hypoattenuation in the periventricular and deep white matter are consistent with mild microangiopathy. The ventricles are normal in morphology and size. No evidence for obstructive hydrocephalus. No abnormal mass effect or midline shift. No extra-axial fluid collections. Calcific atherosclerotic disease of the intracranial internal carotid arteries. No hyperdense vessel sign. No acute soft tissue or osseous abnormalities. Chronic subcutaneous soft tissue thickening in the occipital region. Mild mucosal thickening of the paranasal sinuses. The mastoid air cells and middle ear cavities are clear. Anterior subluxation of the temporomandibular joints with moderate degenerative arthropathy. Cervical Spine: The atlantooccipital and atlantoaxial articulations remain well aligned. Reversal the normal cervical lordosis centered on C5. Mild degenerative stepwise anterolistheses of C3-C5. Otherwise, there is anatomic alignment of the vertebral bodies and posterior elements. Ankylosis of the C2-C3 facets. No evidence of acute fracture or subluxation. The vertebral body heights are maintained. Advanced degenerative disc disease at C2-C3 and from C5-T1. Moderate degenerative disc disease at all additional levels. Facet and uncovertebral joint arthropathy leads to osseous encroachment on the neural foramina from C3-T1. There is no prevertebral soft tissue swelling. There is a 2 cm hypoattenuating nodule in the left thyroid lobe. The remaining cervical soft tissues are within normal limits. The lung apices demonstrate no abnormalities. CT/CT cervical spine wo IV con IMPRESSION: 1. No evidence of acute intracranial hemorrhage or edematous territorial infarction. Mild underlying microangiopathy. 2. No evidence of acute fracture or traumatic subluxation of the cervical spine. Moderate to advanced multilevel degenerative spondyloarthropathy of the cervical spine. 3. There is a 2 cm nodule in the left thyroid lobe. Recommend further characterization with thyroid ultrasound. Electronically signed by: Facundo Ovalles DO 09/14/2024 03:42 PM EDT RP
[2024-09-14 12:57] VITALS: BP 149/84; BP 156/80; PULSE 71; PULSE 80; RESP 18; TEMP 36.6; O2SAT 100; O2SAT 98; BMI 29.8
--- NOTE | 2024-09-14 13:02 | ED.FALL ---
HPI - Fall General Chief Complaint: Fall Stated Complaint: FALL OUTSIDE,R KNEE/ELBOW PAIN,FROM [facility] PER EMS Time Seen by Provider: 09/14/24 12:53 Source: patient History of Present Illness HPI Narrative: This is a 64 years old patient with history of tardive dyskinesia, schizoaffective disorder, cervical myelopathy was baseline ambulate with a cane presented to the emergency department after a fall, the fall was mechanical no syncope is complaining of headache pain in the right knee as well. complaint: fall Onset (ago): hour(s) (1) Fall from: standing Fall witnessed: no Place fall occurred: street Loss of consciousness: none Prolonged down time: no Symptoms prior to fall: none Context: tripped/slipped Quality: burning Related Data Home Medications ?Medication ?Instructions ?Recorded ?Confirmed olanzapine 10 mg tablet 10 mg PO BEDTIME 12/16/23 01/02/24 Previous Rx's ?Medication ?Instructions ?Recorded benztropine 1 mg tablet 1 mg PO BID 30 days #60 tabs 06/12/23 cholecalciferol (vitamin D3) 25 25 mcg PO DAILY 30 days #30 tabs 06/12/23 mcg (1,000 unit) tablet (Vitamin D3) folic acid 1 mg tablet 1 mg PO DAILY 30 days #30 tabs 06/12/23 gabapentin 300 mg capsule 300 mg PO TID 30 days #90 caps 06/12/23 hydroxyzine pamoate 50 mg capsule 50 mg PO TID 30 days #90 caps 06/12/23 multivitamin with folic acid 400 1 tab PO DAILY 30 days #30 tabs 06/12/23 mcg tablet (Tab-A-Max) naproxen 500 mg tablet 500 mg PO BID 30 days #60 tabs 06/12/23 doxycycline monohydrate 100 mg 100 mg PO BID 14 days #28 tabs 01/03/24 tablet Allergies Allergy/AdvReac Type Severity Reaction Status Date / Time No Known Allergies Allergy Mild NA Verified 09/14/24 12:58 Review of Systems Constitutional: Constitutional: Reports no additional constitutional complaints ENT: Reports system reviewed and no additional complaints, except as documented Cardiovascular: Cardiovascular: Reports no additional cardiovascular complaints PMFSH Past Medical History Attestation statement: The following information was validated with the patient. Medical History Schizoaffective disorder Acute paranoia Bursitis Schizoaffective disorder Degenerative disc disease, cervical Surgical History Hx of colonoscopy H/O tooth extraction Family History Family History Mother Diabetes Father Heart disease Social History Social History Household Members: Other Household Members Other:: [facility] Housing: Assisted Living Facility Housing Other:: retirement Do you presently have visiting nurse or other home services: No Unable to assess alcohol history related to: Unknown Alcohol intake: never Comment: patient uses can to walk Patient Tobacco Use Status: Tobacco use Unknown Tobacco use type: Cigarette Cigarette Packs Per Day: 1 Cigarettes Per Day: 15 Years Smoked: 40 Smoked in Last 30 Days: No Second Hand Smoke Exposure: No Use of substances other than those prescribed or required for medical reasons: No Substance Use Type: Marijuana Advance Directives: Yes Advance Directives on File: Yes Advance Directives Date on File: 10/18/20 Do you have a plan to hurt others: No Plan service: No Sexual orientation: Straight/Heterosexual Physical Exam Vital Signs: Vital Signs: Last Vital Signs Temp 97.9 F 09/14/24 12:57 Pulse 71 09/14/24 12:57 Resp 18 09/14/24 12:57 BP 149/84 H 09/14/24 12:57 Pulse Ox 100 09/14/24 12:57 O2 Del Method Room Air 09/14/24 12:57 BMI result Body Mass Index 29.8 Const: General: cooperative Nutritional Appearance: well nourished Orientation/consciousness: patient oriented x3 Limitations: no limitations HEENT: Head: Yes normal to inspection Ears: hearing grossly normal bilaterally Face and sinus: Yes normal facial exam Throat: Yes posterior oropharynx normal Neck: Neck: Yes normal visual inspection Chest: Chest palpation & inspection: normal inspection of the chest Resp: Effort & Inspection: normal respiratory effort Auscultation: clear to auscultation bilaterally Cardio: Jugular venous distension: no JVD Rate: regular rate Rhythm: regular rhythm GI: Inspection: Yes normal to inspection Palpation (GI): Soft to palpation and not firm Auscultation: normal bowel sounds Neuro: General: patient oriented x3 Cranial nerves: Yes CN's II-XII intact bilaterally Extrem: Other: abrasion rt elbow full ROM extremities full ROMs knes Course Reevaluation(s) Reevaluation #1: On re-examination patient was able to ambulate without any problem Time: 16:18 Medical Decision Making Medical Decision Making [facility] Narrative: Patient presented after a fall possible head strike will do a head CT C-spine Differential Diagnosis Differential Diagnoses: The differential diagnosis associated with the presentation includes Differential diagnosis subdural hematoma/epidural hematoma/concussion Admission/Observation Consideration of admission/observation: Escalation of care including admission/observation considered Lab Data MDM Lab Attestation statement: I reviewed the patient's lab results. Labs: Lab Results 09/14/24 Range/Units 14:46 Urine Opiates Screen Not Detected (Not Detect) Ur Buprenorphine Scrn Not Detected (Not Detect) ng/mL Ur Oxycodone Screen Not Detected (Not Detect) ng/mL Urine Methadone Screen Not Detected (Not Detect) ng/mL Urine Fentanyl Screen Not Detected (Not Detect) Ur Barbiturates Screen Not Detected (Not Detect) Ur Phencyclidine Scrn Not Detected (Not Detect) Ur Amphetamines Screen Not Detected (Not Detect) U Benzodiazepines Scrn Not Detected (Not Detect) Urine Cocaine Screen Not Detected (Not Detect) U Marijuana (THC) Screen POSITIVE H (Not Detect) Independent Interpretation I performed an independent interpretation of an: CT Scan Interpretation: CT no acute fracture of the cervical spine,head ct no subdural Radiology Impression Discussion of test interpretation with radiology: I have reviewed the radiologist's reading. Discharge Plan Discharge Clinical Impression: Fall Qualifiers: Encounter type: initial encounter Qualified Code(s): W19.XXXA - Unspecified fall, initial encounter Abrasion of elbow, right Qualifiers: Encounter type: initial encounter Qualified Code(s): S50.311A - Abrasion of right elbow, initial encounter Patient Disposition: Home, Self-Care Prescriptions: No Action hydroxyzine pamoate 50 mg capsule 50 mg PO TID 30 Days Qty: 90 0RF benztropine 1 mg tablet 1 mg PO BID 30 Days Qty: 60 0RF gabapentin 300 mg capsule 300 mg PO TID 30 Days Qty: 90 0RF folic acid 1 mg Tablet 1 mg PO DAILY 30 Days Qty: 30 0RF naproxen 500 mg tablet 500 mg PO BID 30 Days Qty: 60 0RF cholecalciferol (vitamin D3) [Vitamin D3] 25 mcg (1,000 unit) tablet 25 mcg PO DAILY 30 Days Qty: 30 0RF multivitamin with folic acid [Tab-A-Max] 400 mcg Tablet 1 tab PO DAILY 30 Days Qty: 30 0RF olanzapine 10 mg tablet 10 mg PO BEDTIME doxycycline monohydrate 100 mg tablet 100 mg PO BID 14 Days Qty: 28 0RF Referrals: Israel Ayoub III, MD [Primary Care Provider] - 2 days Print Language: Citizen Of [place]
[2024-09-14 15:08] LABS: Amphetamine Screen Urine Not Detected (Not Detect); Barbiturates, Urine Not Detected (Not Detect); Benzodiazepines Screen Urine Not Detected (Not Detect); Buprenorphine Scr Not Detected (Not Detect); Cannabinoid Screen Urine POSITIVE (Not Detect); Cocaine Screen Urine Not Detected (Not Detect); Fentanyl, urine Not Detected (Not Detect); Methadone Screen, Urine Not Detected (Not Detect); Opiate Screen Urine Not Detected (Not Detect); Oxycodone Screen Urine Not Detected (Not Detect); Phencyclidine Screen Urine Not Detected (Not Detect)
[2024-09-14 16:38] VITALS: BP 140/80; PULSE 71; RESP 18; TEMP 36.6; O2SAT 100
[2024-09-14 16:39] VITALS: BP 140/80; PULSE 71; RESP 18; TEMP 36.6; O2SAT 98
== END 2024-09-14 16:40 | disposition home or self-care (01) ==
PROVIDERS: Emergency Provider Emergency Medicine; PCP Internal Medicine
DX: S50.311A Abrasion of right elbow, initial encounter (principal); W01.0XXA Fall on same level from slipping, tripping and stumbling without subsequent striking against object, initial encounter; M25.561 Pain in right knee; F12.90 Cannabis use, unspecified, uncomplicated; Y93.01 Activity, walking, marching and hiking; Y92.410 Unspecified street and highway as the place of occurrence of the external cause; Y99.9 Unspecified external cause status; Z79.899 Other long term (current) drug therapy
CPT/HCPCS: 70450; 72125; 80307; 99284